=== PATIENT | male | born 1960 | race Caucasian/White ===

== ENCOUNTER 2017-02-27 09:25 | Inpatient (IN) | payer OTHER, MEDICAID ==
[2017-02-27] MEDS ORDERED: DUONEB 0.5 MG/3 MG NEB ONE (09:31)
[2017-02-27] MEDS ORDERED: SOLU-Medrol 125 MG VIAL IVP ONE (09:32)
[2017-02-27] MEDS ORDERED: SOLU-Medrol 125 MG VIAL ONE (09:33)
--- NOTE | 2017-02-27 09:34 | DR.SOBA ---
HPI - Time Seen Time seen: 09:25 - Complaints Chief Complaint Doctors Comments: Patient presented to the ED via EMS with complaint that he was not feeling well. He stated that he was having problems concentrating. He denies fever, vomiting or diarrhea. He has COPD, home oxygen 2.5L and smokes infrequently. His oxgen saturation was 88 RA. PMH - PMH Past Medical History: Hypertension, Seizures Past Surgical History: Yes Surgical History: Bowel Resection - Family History Family Medical History: Diabetes Mellitus, Cancer, Coronary Artery Disease, Heart Failure, Hypertension - Social History Do you use any recreational Drugs:: No ROS - Review of Systems Eyes: No Symptoms Reported ENTM: No Symptoms Reported Respiratoy: No Symptoms Reported Cardiovascular: No Symptoms Reported Gastrointestinal/Abdominal: No Symptoms Reported Genitourinary: No Symptoms Reported Neurological: No Symptoms Reported Musculoskeletal: No Symptoms Reported Integumentary: No Symptoms Reported Hematologic/Lymphatic: No Symptoms Reported Endocrine: No Symptoms Reported Psychiatric: No Symptoms Reported All Other Systems: Reviewed and Negative PE - Vital Signs Vitals: Temperature 97.7 F Pulse Rate 72 Respiratory Rate 24 Blood Pressure [Left Arm] 139/79 Blood Pressure [Right Arm] 123/86 Blood Pressure 158/90 O2 Sat by Pulse Oximetry 100 - General Limitations: No Limitations General Appearance: Alert, In No Apparent Distress - Head Head Exam: Normal Inspection, Atraumatic - Eyes Eye exam: Normal Appearance, PERRL, EOMI - ENT ENT Exam: Normal Exam - Neck Neck Exam: Normal Inspection, Full ROM - Chest Chest Inspection: Normal Inspection - Respiratory Respiratory Exam: Bilateral Clear to Auscultation - Cardiovascular Cardiovascular Exam: Regular Rate, Normal Rhythm - Abdominal Exam Abdominal Exam: Normal Inspection Abdominal Tenderness: negative: RUQ, RLQ, LUQ, LLQ, Epigastrium, Suprapubic, Diffuse, Mild, Moderate, Severe, Other - Extremities Extremities Exam: Normal Inspection, Full ROM - Back Back Exam: Normal Inspection, Full ROM - Neurologic Neurological Exam: Alert, Oriented X3, CN II-XII Intact - Psychiatric Psychiatric Exam: Normal Affect, Normal Mood - Skin Skin Exam: Warm, Dry, Intact Course - Reevaluation 1st: Improved - Consultation Called: 10:50 (Dr Chew agreed to admit with instructions) ROR - Labs Reviewed Result Diagrams: 02/27/17 09:43 02/27/17 09:43 Laboratory: 02/27/17 10:04 Sputum - Expectorated Sputum - Final WBC 5.0 X10^3/uL (3.6-10.0) 02/27/17 09:43 RBC 3.74 X10^6/uL (4.7-6.0) L 02/27/17 09:43 Hgb 11.1 g/dL (13.5-18.0) L 02/27/17 09:43 Hct 33.5 % (42.0-54.0) L 02/27/17 09:43 MCV 89.6 fL (80.0-100.0) 02/27/17 09:43 MCH 29.7 pg (27.0-34.0) 02/27/17 09:43 MCHC 33.2 g/dL (33.0-35.0) 02/27/17 09:43 RDW 13.7 % (11.6-16.5) 02/27/17 09:43 Plt Count 169 X10^3/uL (150.0-450.0) 02/27/17 09:43 MPV 8.1 fL (7.4-11.0) 02/27/17 09:43 Neut % 80.7 % (42.0-75.0) H 02/27/17 09:43 Lymph % 9.1 % (21.0-51.0) L 02/27/17 09:43 [place] % 8.1 % (0.0-13.0) 02/27/17 09:43 Eos % 1.3 % (0.9-2.9) 02/27/17 09:43 Baso % 0.8 % (0.2-1.0) 02/27/17 09:43 Neut # 4.0 x10^3/uL (2.2-4.8) 02/27/17 09:43 Lymph # 0.5 X10^3/uL (1.3-2.9) L 02/27/17 09:43 [place] # 0.4 x10^3/uL (0.3-0.8) 02/27/17 09:43 Eos # 0.1 x10^3/uL (0.0-0.2) 02/27/17 09:43 Baso # 0.0 X10^3/uL (0.0-0.1) 02/27/17 09:43 Absolute Nucleated RBC 0.0 /100WBC 02/27/17 09:43 Sample Site Rra 02/27/17 10:05 ABG pH 7.390 (7.35-7.45) 02/27/17 10:05 ABG pCO2 78.0 mmHg (35.0-45.0) H* 02/27/17 10:05 ABG pO2 57.0 mmHg (80.0-100.0) L 02/27/17 10:05 ABG HCO3 47.2 mmol/L (22-26) H* 02/27/17 10:05 ABG O2 Saturation 89.0 % (90-100) L 02/27/17 10:05 ABG Base Excess 18.3 mmol/L (-2.0-2.0) H 02/27/17 10:05 Patrice Test Pos 02/27/17 10:05 A-a Gradient 74.0 mmHg 02/27/17 10:05 FiO2 32.000 02/27/17 10:05 Blood Gas Comments Aris well cs 02/27/17 10:05 Sodium 132 mmol/L (136-145) L 02/27/17 09:43 Corrected Sodium TNP 02/27/17 09:43 Potassium 4.4 mmol/L (3.5-5.1) 02/27/17 09:43 Chloride 91 mmol/L (98-107) L 02/27/17 09:43 Carbon Dioxide 42.9 mmol/L (21-32) H* 02/27/17 09:43 BUN 6 mg/dL (7-18) L 02/27/17 09:43 Creatinine 0.53 mg/dL (0.70-1.30) L 02/27/17 09:43 Est GFR (MDRD) Af Amer > 60 (>60) 02/27/17 09:43 Est GFR (MDRD) Non-Af > 60 (>60) 02/27/17 09:43 Glucose 93 mg/dL (65-99) 02/27/17 09:43 Calcium 8.4 mg/dL (8.5-10.1) L 02/27/17 09:43 Corrected Calcium 9.1 mg/dL (8.5-10.1) 02/27/17 09:43 Total Bilirubin 0.60 mg/dL (0.2-1.0) 02/27/17 09:43 AST 12 Units/L (15-37) L 02/27/17 09:43 ALT 11 Units/L (12-78) L 02/27/17 09:43 Alkaline Phosphatase 97 Units/L (46-116) 02/27/17 09:43 Total Protein 6.4 g/dL (6.4-8.2) 02/27/17 09:43 Albumin 3.1 g/dL (3.4-5.0) L 02/27/17 09:43 Globulin 3.3 g/dL (2.5-4.5) 02/27/17 09:43 Albumin/Globulin Ratio 0.9 Ratio (1.1-2.1) L 02/27/17 09:43 Specimen Type Random urine 02/27/17 09:56 Urine Color Yellow (YELLOW) 02/27/17 09:56 Urine Appearance Clear (CLEAR) 02/27/17 09:56 Urine pH 8.0 (5.0 - 8.0) 02/27/17 09:56 Ur Specific [place] 1.015 (1.000-1.030) 02/27/17 09:56 Urine Protein Negative (NEGATIVE) 02/27/17 09:56 Urine Glucose (UA) Negative (NEGATIVE) 02/27/17 09:56 Urine Ketones Negative (NEGATIVE) 02/27/17 09:56 Urine Occult Blood 1+ (NEGATIVE) 02/27/17 09:56 Urine Nitrite Negative (NEGATIVE) 02/27/17 09:56 Urine Bilirubin Negative (NEGATIVE) 02/27/17 09:56 Urine Urobilinogen Normal (NORMAL) 02/27/17 09:56 Ur Leukocyte Esterase Negative (NEGATIVE) 02/27/17 09:56 Urine RBC None seen /HPF (NEGATIVE) 02/27/17 09:56 Urine WBC None seen /HPF (NEGATIVE) 02/27/17 09:56 Ur Squamous Epith Cells Rare /HPF (NEGATIVE) 02/27/17 09:56 Urine Bacteria Negative /HPF (NEGATIVE) 02/27/17 09:56 Ur Culture Indicated? No/not indicated 02/27/17 09:56 - XRAY XRAY Interpreted by: Radiologist (Chest:Stable mild cardiomegaly and mild pulmonary edema, Small bibasilar pleural effusions.) - Diagnosis Discharge Problem: COPD exacerbation - Discharge Plan Condition: Stable - Follow ups/Referrals Follow ups/Referrals: NFD,None [Primary Care Provider] - 3 days - Instructions
[2017-02-27] MEDS: NS 1000 ML 1,000 ML IV SCH ×2 (09:43→18:53)
[2017-02-27 09:54] LABS: BASOPHILS % (AUTO) 0.8 % (0.2-1.0); EOSINOPHILS # (AUTO) 0.1 x10^3/uL (0.0-0.2); EOSINOPHILS % (AUTO) 1.3 % (0.9-2.9); HEMATOCRIT 33.5 % (42.0-54.0); HEMOGLOBIN 11.1 g/dL (13.5-18.0); LYMPHOCYTES # (AUTO) 0.5 X10^3/uL (1.3-2.9); LYMPHOCYTES % (AUTO) 9.1 % (21.0-51.0); MEAN CORPUSCULAR HEMOGLOBIN 29.7 pg (27.0-34.0); MEAN CORPUSCULAR HGB CONC 33.2 g/dL (33.0-35.0); MEAN CORPUSCULAR VOLUME 89.6 fL (80.0-100.0); MEAN PLATELET VOLUME 8.1 fL (7.4-11.0); MONOCYTES # (AUTO) 0.4 x10^3/uL (0.3-0.8); MONOCYTES % (AUTO) 8.1 % (0.0-13.0); NEUTROPHILS % (AUTO) 80.7 % (42.0-75.0); PLATELET COUNT 169 X10^3/uL (150.0-450.0); RED BLOOD COUNT 3.74 X10^6/uL (4.7-6.0); RED CELL DISTRIBUTION WIDTH 13.7 % (11.6-16.5)
[2017-02-27 09:59] LABS: BLOOD UREA NITROGEN 6 mg/dL (7-18); CALCIUM 8.4 mg/dL (8.5-10.1); CHLORIDE 91 mmol/L (98-107); CREATININE 0.53 mg/dL (0.70-1.30); SODIUM 132 mmol/L (136-145); eGFR BLACK RACES > 60 (>60); eGFR NON BLACK RACES > 60 (>60)
[2017-02-27 10:03] LABS: ALANINE AMINOTRANSFERASE 11 Units/L (12-78); ALBUMIN 3.1 g/dL (3.4-5.0); ALKALINE PHOSPHATASE 97 Units/L (46-116); ASPARTATE AMINO TRANSFERASE 12 Units/L (15-37); COR CA(FOR HYPOALB) 9.1 mg/dL (8.5-10.1); TOTAL PROTEIN 6.4 g/dL (6.4-8.2)
[2017-02-27 10:04] LABS: CARBON DIOXIDE 42.9 mmol/L (21-32)
[2017-02-27 10:10] LABS: ABG BASE EXCESS 18.3 mmol/L (-2.0-2.0)
[2017-02-27 10:11] LABS: ABG ALLEN TEST POS; ABG HCO3 47.2 mmol/L (22-26)
[2017-02-27 10:21] LABS: BILIRUBIN,URINE NEGATIVE (NEGATIVE); BLOOD/HEMOGLOBIN,URINE 1+ (NEGATIVE); GLUCOSE, URINE NEGATIVE (NEGATIVE); KETONES,URINE NEGATIVE (NEGATIVE); LEUKOCYTE ESTERASE ,URINE NEGATIVE (NEGATIVE); NITRITES,URINE NEGATIVE (NEGATIVE); PROTEIN,URINE NEGATIVE (NEGATIVE); UROBILINOGEN,URINE NORMAL (NORMAL)
[2017-02-27 10:32] LABS: APPEARANCE,URINE CLEAR (CLEAR); COLOR,URINE YELLOW (YELLOW); RBC,URINE NONE SEEN /HPF (NEGATIVE); SQUAMOUS EPITHELIAL CELL,UR RARE /HPF (NEGATIVE)
[2017-02-27 10:33] LABS: BACTERIA,URINE NEGATIVE /HPF (NEGATIVE)
--- NOTE | 2017-02-27 10:33 | RAD ---
HISTORY: Shortness of breath Study: Portable chest Comparison: 01/31/2013 Findings: The heart is mildly enlarged but unchanged. The pulmonary vessels are engorged centrally but less pro minent . There are hazy perihilar and bibasilar interstitial opacities. There is minimal blunting of the costophrenic sulci. IMPRESSION: Stable mild cardiomegaly and mild pulmonary edema . Small bibasilar pleural effusions. Reported By:
[2017-02-27] MEDS ORDERED: CIPRO 400 MG IV SCH (11:00)
[2017-02-27] MEDS: LASIX IVP SCH (11:17)
[2017-02-27 11:35] LABS: CKMB % 5.9 % (<4); CREATINE KINASE 27 Units/L (39-308); CREATINE KINASE MB 1.6 ng/mL (0-4.0); TROPONIN I < 0.02 ng/mL (0-1.5)
[2017-02-27] MEDS: CIPRO IV 400 MG PREMIX* 400 MG/200 ML IV.SOLN. IV SCH ×2 (11:39→21:03)
[2017-02-27 12:08] LABS: ABG HCO3 47.5 mmol/L (22-26)
[2017-02-27 12:10] LABS: ABG ALLEN TEST POS
[2017-02-27 12:36] VITALS: BMI 24.7
[2017-02-27] MEDS: DUONEB 0.5 MG/3 MG NEB SCH ×3 (14:47→20:06)
[2017-02-27 14:55] LABS: ABG BASE EXCESS 19.4 mmol/L (-2.0-2.0)
[2017-02-27 14:56] LABS: ABG ALLEN TEST POS; ABG HCO3 48.3 mmol/L (22-26)
[2017-02-27] MEDS: VALIUM PO SCH ×2 (18:52→20:33)
[2017-02-27] MEDS ORDERED: OxyCONTIN CR 30 MG PO PRN (21:33)
[2017-02-28] MEDS: DUONEB 0.5 MG/3 MG NEB SCH ×6 (01:02→21:08)
[2017-02-28] MEDS: NS 1000 ML 1,000 ML IV SCH ×2 (03:18→13:17)
[2017-02-28 05:28] LABS: ABG BASE EXCESS 16.9 mmol/L (-2.0-2.0)
[2017-02-28] MEDS: ROXICODONE TAB 15 MG PO PRN ×2 (06:01→17:43)
[2017-02-28 06:15] LABS: EOSINOPHILS # (AUTO) 0.1 x10^3/uL (0.0-0.2); HEMATOCRIT 30.7 % (42.0-54.0); HEMOGLOBIN 10.4 g/dL (13.5-18.0); LYMPHOCYTES # (AUTO) 0.8 X10^3/uL (1.3-2.9); LYMPHOCYTES % (AUTO) 18.5 % (21.0-51.0); MEAN CORPUSCULAR HEMOGLOBIN 30.1 pg (27.0-34.0); MEAN CORPUSCULAR HGB CONC 33.9 g/dL (33.0-35.0); MEAN CORPUSCULAR VOLUME 88.6 fL (80.0-100.0); MEAN PLATELET VOLUME 8.6 fL (7.4-11.0); MONOCYTES # (AUTO) 0.5 x10^3/uL (0.3-0.8); MONOCYTES % (AUTO) 12.7 % (0.0-13.0); NEUTROPHILS # (AUTO) 2.7 x10^3/uL (2.2-4.8); NEUTROPHILS % (AUTO) 65.8 % (42.0-75.0); PLATELET COUNT 175 X10^3/uL (150.0-450.0); RED BLOOD COUNT 3.46 X10^6/uL (4.7-6.0); RED CELL DISTRIBUTION WIDTH 13.6 % (11.6-16.5); WHITE BLOOD COUNT 4.2 X10^3/uL (3.6-10.0)
[2017-02-28 06:32] LABS: ALANINE AMINOTRANSFERASE 11 Units/L (12-78); ALBUMIN 2.7 g/dL (3.4-5.0); ALKALINE PHOSPHATASE 85 Units/L (46-116); ASPARTATE AMINO TRANSFERASE 10 Units/L (15-37); BLOOD UREA NITROGEN 10 mg/dL (7-18); CALCIUM 8.1 mg/dL (8.5-10.1); CARBON DIOXIDE 39.1 mmol/L (21-32); CHLORIDE 93 mmol/L (98-107); COR CA(FOR HYPOALB) 9.1 mg/dL (8.5-10.1); CREATININE 0.59 mg/dL (0.70-1.30); SODIUM 132 mmol/L (136-145); TOTAL PROTEIN 5.5 g/dL (6.4-8.2); eGFR BLACK RACES > 60 (>60); eGFR NON BLACK RACES > 60 (>60)
[2017-02-28] MEDS ORDERED: DIAZEPAM PO SCH (09:00)
[2017-02-28] MEDS: DILANTIN CAP 100 MG EXT REL PO SCH ×4 (09:01→21:02)
[2017-02-28] MEDS: ZANTAC PO SCH ×2 (09:01→21:02)
[2017-02-28] MEDS: ZESTRIL TAB 40 MG PO SCH (09:01)
[2017-02-28] MEDS: VALIUM PO SCH ×4 (09:01→21:02)
[2017-02-28] MEDS: LASIX IVP SCH (09:02)
[2017-02-28] MEDS: ZEBETA TAB 5 MG PO SCH (09:02)
[2017-02-28] MEDS: PriLOSEC PO SCH (09:02)
[2017-02-28] MEDS: CIPRO IV 400 MG PREMIX* 400 MG/200 ML IV.SOLN. IV SCH (09:02)
[2017-02-28] MEDS: SOLU-Medrol 40 MG VIAL IVP SCH ×2 (09:05→17:44)
[2017-02-28] MEDS ORDERED: AQUA-MEPHYTON ADULT INJ SC ONE (09:32)
[2017-02-28] MEDS ORDERED: NS 50 ML IV + SPIKE MINIBAG* 50 ML IV ONE (09:43)
[2017-02-28] MEDS: FORTAZ or TAZICEF INJ 1 GM in NS 50 ML IV + SPIKE MINIBAG* 50 ML IV SCH ×3 (09:46→21:02)
[2017-02-28] MEDS ORDERED: FORTAZ or TAZICEF INJ ONE (09:46)
--- NOTE | 2017-02-28 10:18 | DR.H&P ---
H&P - History & Physical for Day of: H&P Date: 02/27/17 - Chief Complaint Chief Complaint: short of breath - Allergies Allergies/Adverse Reactions: Allergies Allergy/AdvReac Type Severity Reaction Status Date / Time No Known Drug Allergies Allergy Verified 02/27/17 17:11 - History of Present Illness History of Present Illness: is a 57 year old patient of ours who presented to the emergency room with complaints of shortness of breath. Patient reports not feeling well for the past three to four days. Patient reports a history of COPD. He has home oxygen that he wears at 2.5 liters/min. Patients states that his oxygen saturations were in the 80s on room air at home. On examination, lungs were noted with wheezing bilaterally to auscultation. Abdomen is round, soft, and non-tender with normal bowel sounds noted in all quadrants. On arrival, his vital signs were 97.7-72-24-94%-158/90. Patient was placed on nasal cannula with oxygen at 2l/min. Oxygen saturations then increased to 100%. Labs and xrays were obtained. Abnormal lab values include the following: RBC 3.74, Hgb 11.1, Hct 33.5, INR 8.59, Sodium 132, Chloride 91, Carbon Dioxide 42.9, BUN 6, Creatinine 0.53, Calcium 8.4, AST 12, ALT 11, Albumin 3.1, A/G Ratio 0.9, Creatine Kinase 27. ABG reported: @1005 pCO2 78.0, pO2 57.0, HCO3 47.2, O2 Sat 89.0, Base Excess 18.3; @1203 pCO2 75.0, pO2 56.0, HCO3 47.5, O2 Sat 89.0, Base Excess 19.0; @1444 pCO2 78.0, pO2 104.0, HCO3 48.3 , Base Excess 19.4. A sputum culture was obtained and sent to lab. Culture pending. Chest X-Ray reported: Stable mild cardiomegaly and mild pulmonary edema. Small bibasilar pleural effusions. EKG reported: Sinus Rhythm with HR 64bpm. Patient was placed on bipap with settings 12/6 and 35%. Patient was given a duoneb tx x 1, cipro 400mg iv, and solu-medrol 125mg iv x 1 in the ER. Only mild improvement in symptoms was noted. We admitted patient for further evaluation and treatment of COPD exacerbation. We planned to follow up with am labs and continue to monitor patient. - Past Medical History Past Medical History: Anxiety, Arthritis, COPD, GERD, Hypertension, PUD, Seizures Additional Medical History: HIATAL HERNIA - Past Surgical History Surgical History: Bowel Resection Additional Surgical History: 7 STOMACH SURGERIES, 2 STOMAS, COLOSTOMY IN THE PAST - Family History Family Medical History: Cancer, [place], Coronary Artery Disease, Hypertension - Social History Does patient currently use any type of tobacco product: Yes Have you used tobacco products in the last 12 months: Yes Type of Tobacco Use: Cigarettes How many years tobacco product used: 42 Does any household member use tobacco: No Alcohol Use: None Drug Use: None - Medications Home Medications: Bisoprolol Fumarate 2 tab PO DAILY 02/27/17 [History Confirmed 02/27/17] Diazepam 1 tab PO QID 02/27/17 [History Confirmed 02/27/17] Lisinopril 1 tab PO DAILY 02/27/17 [History Confirmed 02/27/17] Omeprazole [PRILOSEC 20 MG *] 1 tab PO DAILY 02/27/17 [History Confirmed ] Oxycodone HCl [Oxycontin] 1 tab PO Q4H PRN 02/27/17 [History Confirmed 02/27/17] Phenytoin Sodium Ext Rel [DILANTIN CAP 100 MG EXT REL *] 1 tab PO QID 02/27/17 [ History Confirmed 02/27/17] Ranitidine HCl [ZANTAC TAB 150 MG *] 1 tab PO BID 02/27/17 [History Confirmed ] Warfarin Sodium [COUMADIN 5 MG *] 1 tab PO DAILY 02/27/17 [History Confirmed 04/05] - Review of Systems Constitutional: No Symptoms Reported, Weakness Eyes: No Symptoms Reported ENT: No Symptoms Reported Respiratory: See HPI, Shortness of Breath, SOB with Excertion, Wheezing Cardiovascular: No Symptoms Reported Gastrointestinal: No Symptoms Reported Genitourinary: No Symptoms Reported Musculoskeletal: No Symptoms Reported Skin: No Symptoms Reported Neurological: No Symptoms Reported, Weakness - Physical Exam Vital Signs: Temperature 98.4 F Pulse Rate [Left Brachial] 77 Pulse Rate 68 Respiratory Rate 21 Blood Pressure [Left Arm] 124/63 Blood Pressure [Right Arm] 155/92 Blood Pressure 158/90 O2 Sat by Pulse Oximetry 97 Oriented: Normal Eyes: Normal Ear: Normal Throat: Normal Respiratory: Wheezes Throughout Cardiovascular: Normal : Normal Auscultation: Bowel Sounds: Normal Palpation: Normal Tenderness: Normal Skin: Normal Musculoskeletal: Normal Psychiatric: Normal Mood Description: Calm Affect: Normal Speech Pattern: Clear - Assessment/Plan (1) COPD exacerbation Status: Acute Plan: DUONEBS Q4H, LASIX 40MG IVP DAILY, SOLU-MEDROL 80MG IV Q8H, CONTINUE TO MONITOR
[2017-03-01] MEDS: DUONEB 0.5 MG/3 MG NEB SCH ×6 (01:04→21:52)
[2017-03-01] MEDS: SOLU-Medrol 40 MG VIAL IVP SCH ×3 (01:08→17:39)
[2017-03-01] MEDS: ROXICODONE TAB 15 MG PO PRN ×4 (01:16→20:20)
[2017-03-01] MEDS: NS 1000 ML 1,000 ML IV SCH ×4 (03:44→18:22)
[2017-03-01] MEDS: FORTAZ or TAZICEF INJ 1 GM in NS 50 ML IV + SPIKE MINIBAG* 50 ML IV SCH ×3 (06:00→21:18)
[2017-03-01 06:05] LABS: BASOPHILS % (AUTO) 0.4 % (0.2-1.0); EOSINOPHILS % (AUTO) 0.1 % (0.9-2.9); HEMOGLOBIN 11.4 g/dL (13.5-18.0); LYMPHOCYTES # (AUTO) 0.3 X10^3/uL (1.3-2.9); LYMPHOCYTES % (AUTO) 8.3 % (21.0-51.0); MEAN CORPUSCULAR HEMOGLOBIN 29.7 pg (27.0-34.0); MEAN CORPUSCULAR HGB CONC 33.4 g/dL (33.0-35.0); MEAN CORPUSCULAR VOLUME 88.8 fL (80.0-100.0); MEAN PLATELET VOLUME 8.1 fL (7.4-11.0); MONOCYTES # (AUTO) 0.2 x10^3/uL (0.3-0.8); MONOCYTES % (AUTO) 5.3 % (0.0-13.0); NEUTROPHILS # (AUTO) 3.3 x10^3/uL (2.2-4.8); NEUTROPHILS % (AUTO) 85.9 % (42.0-75.0); PLATELET COUNT 208 X10^3/uL (150.0-450.0); RED BLOOD COUNT 3.83 X10^6/uL (4.7-6.0); RED CELL DISTRIBUTION WIDTH 13.8 % (11.6-16.5); WHITE BLOOD COUNT 3.8 X10^3/uL (3.6-10.0)
[2017-03-01 06:28] LABS: ALANINE AMINOTRANSFERASE 13 Units/L (12-78); ALKALINE PHOSPHATASE 96 Units/L (46-116); ASPARTATE AMINO TRANSFERASE 9 Units/L (15-37); BLOOD UREA NITROGEN 12 mg/dL (7-18); CALCIUM 8.3 mg/dL (8.5-10.1); CARBON DIOXIDE 35.2 mmol/L (21-32); CHLORIDE 93 mmol/L (98-107); COR CA(FOR HYPOALB) 9.1 mg/dL (8.5-10.1); COR NA(FOR HYPERGLY) 135 mmol/L (136-145); CREATININE 0.76 mg/dL (0.70-1.30); SODIUM 133 mmol/L (136-145); TOTAL PROTEIN 6.3 g/dL (6.4-8.2); eGFR BLACK RACES > 60 (>60); eGFR NON BLACK RACES > 60 (>60)
[2017-03-01] MEDS: ZESTRIL TAB 40 MG PO SCH (08:26)
[2017-03-01] MEDS: DILANTIN CAP 100 MG EXT REL PO SCH ×4 (08:26→20:20)
[2017-03-01] MEDS: LASIX IVP SCH (08:27)
[2017-03-01] MEDS: PriLOSEC PO SCH (08:27)
[2017-03-01] MEDS: ZEBETA TAB 5 MG PO SCH (08:28)
[2017-03-01] MEDS: ZANTAC PO SCH ×2 (08:28→20:20)
[2017-03-01] MEDS: VALIUM PO SCH ×4 (08:31→20:19)
[2017-03-01] MEDS: COUMADIN TAB 5 MG PO SCH (20:20)
[2017-03-02] MEDS: SOLU-Medrol 40 MG VIAL IVP SCH ×3 (00:31→18:11)
[2017-03-02] MEDS: ROXICODONE TAB 15 MG PO PRN ×5 (00:31→22:32)
[2017-03-02] MEDS: DUONEB 0.5 MG/3 MG NEB SCH ×6 (00:46→20:27)
[2017-03-02] MEDS: NS 1000 ML 1,000 ML IV SCH ×4 (02:15→18:12)
[2017-03-02] MEDS: FORTAZ or TAZICEF INJ 1 GM in NS 50 ML IV + SPIKE MINIBAG* 50 ML IV SCH ×3 (05:00→21:08)
[2017-03-02 06:08] LABS: BASOPHILS % (AUTO) 0.2 % (0.2-1.0); EOSINOPHILS % (AUTO) 0.1 % (0.9-2.9); HEMOGLOBIN 11.1 g/dL (13.5-18.0); LYMPHOCYTES # (AUTO) 0.3 X10^3/uL (1.3-2.9); LYMPHOCYTES % (AUTO) 6.7 % (21.0-51.0); MEAN CORPUSCULAR HEMOGLOBIN 29.8 pg (27.0-34.0); MEAN CORPUSCULAR HGB CONC 33.5 g/dL (33.0-35.0); MEAN CORPUSCULAR VOLUME 88.9 fL (80.0-100.0); MEAN PLATELET VOLUME 8.2 fL (7.4-11.0); MONOCYTES # (AUTO) 0.2 x10^3/uL (0.3-0.8); MONOCYTES % (AUTO) 3.7 % (0.0-13.0); NEUTROPHILS # (AUTO) 4.1 x10^3/uL (2.2-4.8); NEUTROPHILS % (AUTO) 89.3 % (42.0-75.0); PLATELET COUNT 220 X10^3/uL (150.0-450.0); RED BLOOD COUNT 3.71 X10^6/uL (4.7-6.0); RED CELL DISTRIBUTION WIDTH 13.7 % (11.6-16.5); WHITE BLOOD COUNT 4.6 X10^3/uL (3.6-10.0)
[2017-03-02 06:13] LABS: ALANINE AMINOTRANSFERASE 14 Units/L (12-78); ALBUMIN 3.2 g/dL (3.4-5.0); ALKALINE PHOSPHATASE 85 Units/L (46-116); ASPARTATE AMINO TRANSFERASE 12 Units/L (15-37); BLOOD UREA NITROGEN 10 mg/dL (7-18); CALCIUM 8.6 mg/dL (8.5-10.1); CARBON DIOXIDE 36.6 mmol/L (21-32); CHLORIDE 91 mmol/L (98-107); COR CA(FOR HYPOALB) 9.2 mg/dL (8.5-10.1); COR NA(FOR HYPERGLY) 132 mmol/L (136-145); CREATININE 0.68 mg/dL (0.70-1.30); SODIUM 132 mmol/L (136-145); TOTAL PROTEIN 6.3 g/dL (6.4-8.2); eGFR BLACK RACES > 60 (>60); eGFR NON BLACK RACES > 60 (>60)
[2017-03-02] MEDS: VALIUM PO SCH ×4 (09:36→21:08)
[2017-03-02] MEDS: ZESTRIL TAB 40 MG PO SCH (09:37)
[2017-03-02] MEDS: PriLOSEC PO SCH (09:37)
[2017-03-02] MEDS: LASIX IVP SCH (09:37)
[2017-03-02] MEDS: ZANTAC PO SCH ×2 (09:37→21:10)
[2017-03-02] MEDS: ZEBETA TAB 5 MG PO SCH (09:37)
[2017-03-02] MEDS: DILANTIN CAP 100 MG EXT REL PO SCH ×4 (09:37→21:08)
[2017-03-02] MEDS: COUMADIN TAB 5 MG PO SCH (21:08)
[2017-03-03] MEDS: DUONEB 0.5 MG/3 MG NEB SCH ×6 (00:31→21:42)
[2017-03-03] MEDS: SOLU-Medrol 40 MG VIAL IVP SCH (01:24)
[2017-03-03] MEDS: ROXICODONE TAB 15 MG PO PRN ×3 (04:51→18:42)
[2017-03-03] MEDS: NS 1000 ML 1,000 ML IV SCH ×3 (04:52→22:13)
[2017-03-03 05:43] LABS: ALANINE AMINOTRANSFERASE 40 Units/L (12-78); ALBUMIN 3.1 g/dL (3.4-5.0); ALKALINE PHOSPHATASE 84 Units/L (46-116); ASPARTATE AMINO TRANSFERASE 30 Units/L (15-37); BLOOD UREA NITROGEN 10 mg/dL (7-18); CALCIUM 8.3 mg/dL (8.5-10.1); CARBON DIOXIDE 37.4 mmol/L (21-32); CHLORIDE 94 mmol/L (98-107); COR NA(FOR HYPERGLY) 133 mmol/L (136-145); CREATININE 0.67 mg/dL (0.70-1.30); SODIUM 133 mmol/L (136-145); TOTAL PROTEIN 6.1 g/dL (6.4-8.2); eGFR BLACK RACES > 60 (>60); eGFR NON BLACK RACES > 60 (>60)
[2017-03-03 05:44] LABS: BASOPHILS % (AUTO) 0.1 % (0.2-1.0); EOSINOPHILS % (AUTO) 0.1 % (0.9-2.9); HEMATOCRIT 33.5 % (42.0-54.0); HEMOGLOBIN 11.1 g/dL (13.5-18.0); LYMPHOCYTES # (AUTO) 0.2 X10^3/uL (1.3-2.9); LYMPHOCYTES % (AUTO) 4.8 % (21.0-51.0); MEAN CORPUSCULAR HEMOGLOBIN 29.5 pg (27.0-34.0); MEAN CORPUSCULAR HGB CONC 33.1 g/dL (33.0-35.0); MEAN CORPUSCULAR VOLUME 89.3 fL (80.0-100.0); MEAN PLATELET VOLUME 7.7 fL (7.4-11.0); MONOCYTES # (AUTO) 0.2 x10^3/uL (0.3-0.8); MONOCYTES % (AUTO) 3.4 % (0.0-13.0); NEUTROPHILS # (AUTO) 4.6 x10^3/uL (2.2-4.8); NEUTROPHILS % (AUTO) 91.6 % (42.0-75.0); PLATELET COUNT 230 X10^3/uL (150.0-450.0); RED BLOOD COUNT 3.75 X10^6/uL (4.7-6.0); RED CELL DISTRIBUTION WIDTH 13.8 % (11.6-16.5); WHITE BLOOD COUNT 5.1 X10^3/uL (3.6-10.0)
[2017-03-03] MEDS: FORTAZ or TAZICEF INJ 1 GM in NS 50 ML IV + SPIKE MINIBAG* 50 ML IV SCH ×3 (05:54→22:09)
[2017-03-03 06:02] LABS: PLATELET MORPHOLOGY COMMENT NORMAL (NORMAL)
[2017-03-03] MEDS: LASIX IVP SCH (09:10)
[2017-03-03] MEDS: ZESTRIL TAB 40 MG PO SCH (09:10)
[2017-03-03] MEDS: DILANTIN CAP 100 MG EXT REL PO SCH ×4 (09:10→22:10)
[2017-03-03] MEDS: PriLOSEC PO SCH (09:10)
[2017-03-03] MEDS: ZEBETA TAB 5 MG PO SCH (09:10)
[2017-03-03] MEDS: VALIUM PO SCH ×4 (09:10→22:11)
[2017-03-03] MEDS: ZANTAC PO SCH ×2 (09:10→22:10)
[2017-03-03] MEDS ORDERED: AMBIEN PO SCH (21:00)
[2017-03-03] MEDS ORDERED: NS 50 ML IV + SPIKE MINIBAG* 50 ML IV ONE (22:06)
[2017-03-03] MEDS: COUMADIN TAB 5 MG PO SCH (22:11)
--- NOTE | 2017-03-03 22:12 | PCM.PROG ---
Progress Note - Progress Note for Day of Date: 03/02/17 - Subjective Subjective: THE PATIENT IS A 57YO WM WHO WAS ADMITTED SECONDARY TO COPD EXACERBATION. PATIENT SITTING UP IN BED. CONTINUES TO HAVE SOB. NONPRODUCTIVE COUGH. STATES THAT HE IS USING CPAP AT NIGHT. COMPLAINS OF RIGHT LEG HURTING AND STATES IT WILL SWELL AT TIMES. - Past Medical Family Social History Past Med/Fam/Surg Hx: No changes since H&P Allergies: Allergies No Known Drug Allergies Allergy (Verified 02/27/17 17:11) - Review of Systems ROS: No change since H&P - Vital Signs and I&O's Vital Signs: Temperature 97.7 F Pulse Rate [Left Brachial] 99 Pulse Rate 114 Respiratory Rate 18 Blood Pressure [Left Arm] 120/85 Blood Pressure [Right Arm] 155/92 Blood Pressure 158/90 O2 Sat by Pulse Oximetry 98 Intake and Output: Intake & Output 03/01/17 03/02/17 03/03/17 03/04/17 11:59 11:59 11:59 11:59 Intake Total 4734 2440 6478 2950 Output Total 5180 3450 5150 2600 Balance -446 -1010 1328 350 - Physical Exam Oriented: Normal Eyes: Normal Ear: Normal Throat: Normal Respiratory: Diminished, Wheezes Cardiovascular: Normal, Edema (TRACE RIGHT ANKLE) : Normal Auscultation: Bowel Sounds: Normal Palpation: Normal Tenderness: Normal Skin: Normal, Other (BILATERAL LOWER EXTREMITIES WITH BLUISH DISCOLORATION TO BLE/ANKLE REGION.) Musculoskeletal: Normal Psychiatric: Normal Mood Description: Calm Affect: Normal Speech Pattern: Clear, Appropriate - Laboratory and Diagnostics Result Diagrams: 03/03/17 05:00 03/03/17 05:00 Labs: 02/27/17 10:04 Sputum - Expectorated Sputum Sputum Culture - Final Escherichia Coli 02/27/17 10:04 Sputum - Expectorated Sputum - Final Laboratory WBC 5.1 X10^3/uL (3.6-10.0) 03/03/17 05:00 RBC 3.75 X10^6/uL (4.7-6.0) L 03/03/17 05:00 Hgb 11.1 g/dL (13.5-18.0) L 03/03/17 05:00 Hct 33.5 % (42.0-54.0) L 03/03/17 05:00 MCV 89.3 fL (80.0-100.0) 03/03/17 05:00 MCH 29.5 pg (27.0-34.0) 03/03/17 05:00 MCHC 33.1 g/dL (33.0-35.0) 03/03/17 05:00 RDW 13.8 % (11.6-16.5) 03/03/17 05:00 Plt Count 230 X10^3/uL (150.0-450.0) 03/03/17 05:00 Plt Count Comment Adequate (ADEQUATE) 03/03/17 05:00 MPV 7.7 fL (7.4-11.0) 03/03/17 05:00 Neut % 91.6 % (42.0-75.0) H 03/03/17 05:00 Lymph % 4.8 % (21.0-51.0) L 03/03/17 05:00 [place] % 3.4 % (0.0-13.0) 03/03/17 05:00 Eos % 0.1 % (0.9-2.9) L 03/03/17 05:00 Baso % 0.1 % (0.2-1.0) L 03/03/17 05:00 Neut # 4.6 x10^3/uL (2.2-4.8) 03/03/17 05:00 Lymph # 0.2 X10^3/uL (1.3-2.9) L 03/03/17 05:00 [place] # 0.2 x10^3/uL (0.3-0.8) L 03/03/17 05:00 Eos # 0.0 x10^3/uL (0.0-0.2) 03/03/17 05:00 Baso # 0.0 X10^3/uL (0.0-0.1) 03/03/17 05:00 Absolute Nucleated RBC 0.1 /100WBC 03/03/17 05:00 Total Counted 100 03/03/17 05:00 Neutrophils % (Manual) 92 % (39-76) H 03/03/17 05:00 Lymphocytes % (Manual) 5 % (13-43) L 03/03/17 05:00 Monocytes % (Manual) 3 % (4-9) L 03/03/17 05:00 Plt Morphology Comment Normal (NORMAL) 03/03/17 05:00 RBC Morphology Normal (NORMAL) 03/03/17 05:00 INR Target Range - 03/03/17 05:00 INR 1.09 (0.8-1.3) 03/03/17 05:00 Sample Site Lbra 02/28/17 05:17 ABG pH 7.410 (7.35-7.45) 02/28/17 05:17 ABG pCO2 71.0 mmHg (35.0-45.0) H* 02/28/17 05:17 ABG pO2 88.0 mmHg (80.0-100.0) 02/28/17 05:17 ABG HCO3 45.0 mmol/L (22-26) H* 02/28/17 05:17 ABG O2 Saturation 97.0 % (90-100) 02/28/17 05:17 ABG Base Excess 16.9 mmol/L (-2.0-2.0) H 02/28/17 05:17 Patrice Test Na 02/28/17 05:17 A-a Gradient 73.0 mmHg 02/28/17 05:17 FiO2 35.000 02/28/17 05:17 Blood Gas Comments Aris abg well-mtf 02/28/17 05:17 Sodium 133 mmol/L (136-145) L 03/03/17 05:00 Corrected Sodium 133 mmol/L (136-145) L 03/03/17 05:00 Potassium 4.3 mmol/L (3.5-5.1) 03/03/17 05:00 Chloride 94 mmol/L (98-107) L 03/03/17 05:00 Carbon Dioxide 37.4 mmol/L (21-32) H 03/03/17 05:00 BUN 10 mg/dL (7-18) 03/03/17 05:00 Creatinine 0.67 mg/dL (0.70-1.30) L 03/03/17 05:00 Est GFR (MDRD) Af Amer > 60 (>60) 03/03/17 05:00 Est GFR (MDRD) Non-Af > 60 (>60) 03/03/17 05:00 Glucose 117 mg/dL (65-99) H 03/03/17 05:00 Calcium 8.3 mg/dL (8.5-10.1) L 03/03/17 05:00 Corrected Calcium 9.0 mg/dL (8.5-10.1) 03/03/17 05:00 Total Bilirubin 0.20 mg/dL (0.2-1.0) 03/03/17 05:00 AST 30 Units/L (15-37) 03/03/17 05:00 ALT 40 Units/L (12-78) 03/03/17 05:00 Alkaline Phosphatase 84 Units/L (46-116) 03/03/17 05:00 Creatine Kinase 27 Units/L (39-308) L 02/27/17 09:50 CK-MB (CK-2) 1.6 ng/mL (0-4.0) 02/27/17 09:50 CK/CKMB % Calc 5.9 % (<4) 02/27/17 09:50 Troponin I < 0.02 ng/mL (0-1.5) 02/27/17 09:50 Total Protein 6.1 g/dL (6.4-8.2) L 03/03/17 05:00 Albumin 3.1 g/dL (3.4-5.0) L 03/03/17 05:00 Globulin 3.0 g/dL (2.5-4.5) 03/03/17 05:00 Albumin/Globulin Ratio 1.0 Ratio (1.1-2.1) L 03/03/17 05:00 Specimen Type Random urine 02/27/17 09:56 Urine Color Yellow (YELLOW) 02/27/17 09:56 Urine Appearance Clear (CLEAR) 02/27/17 09:56 Urine pH 8.0 (5.0 - 8.0) 02/27/17 09:56 Ur Specific [place] 1.015 (1.000-1.030) 02/27/17 09:56 Urine Protein Negative (NEGATIVE) 02/27/17 09:56 Urine Glucose (UA) Negative (NEGATIVE) 02/27/17 09:56 Urine Ketones Negative (NEGATIVE) 02/27/17 09:56 Urine Occult Blood 1+ (NEGATIVE) 02/27/17 09:56 Urine Nitrite Negative (NEGATIVE) 02/27/17 09:56 Urine Bilirubin Negative (NEGATIVE) 02/27/17 09:56 Urine Urobilinogen Normal (NORMAL) 10 09:56 Ur Leukocyte Esterase Negative (NEGATIVE) 02/27/17 09:56 Urine RBC None seen /HPF (NEGATIVE) 02/27/17 09:56 Urine WBC None seen /HPF (NEGATIVE) 10 09:56 Ur Squamous Epith Cells Rare /HPF (NEGATIVE) 02/27/17 09:56 Urine Bacteria Negative /HPF (NEGATIVE) 02/27/17 09:56 Ur Culture Indicated? No/not indicated 02/27/17 09:56 - Plan (1) Peripheral vascular disease Status: Acute Plan: MARCK, COUMADIN (2) COPD exacerbation Status: Acute Narrative Support Text: WITH E COLI Plan: DUONEBS Q4H, LASIX 40MG IVP DAILY, SOLU-MEDROL 80MG IV Q8H, CONTINUE TO MONITOR
--- NOTE | 2017-03-03 22:17 | PCM.PROG ---
Progress Note - Progress Note for Day of Date: 03/03/17 - Subjective Subjective: THE PATIENT IS A 57YO WM WHO WAS ADMITTED SECONDARY TO COPD EXACERBATION. PATIENT SITTING UP IN BED. CONTINUES TO HAVE SOB. NONPRODUCTIVE COUGH. STATES THAT HE IS USING CPAP AT NIGHT. COMPLAINS OF RIGHT LEG HURTING AND STATES IT WILL SWELL AT TIMES. PATIENT TODAY HAS NO NEW COMPLAINTS. BREATHING UNCHANGED. COUGH NONPRODUCTIVE. - Past Medical Family Social History Past Med/Fam/Surg Hx: No changes since H&P Allergies: Allergies No Known Drug Allergies Allergy (Verified 02/27/17 17:11) - Review of Systems ROS: No change since H&P - Vital Signs and I&O's Vital Signs: Temperature 97.7 F Pulse Rate [Left Brachial] 99 Pulse Rate 114 Respiratory Rate 18 Blood Pressure [Left Arm] 120/85 Blood Pressure [Right Arm] 155/92 Blood Pressure 158/90 O2 Sat by Pulse Oximetry 98 Intake and Output: Intake & Output 03/01/17 03/02/17 03/03/17 03/04/17 11:59 11:59 11:59 11:59 Intake Total 4734 2440 6478 2950 Output Total 5180 3450 5150 2600 Balance -446 -1010 1328 350 - Physical Exam Oriented: Normal Eyes: Normal Ear: Normal Nose: Normal Throat: Normal Respiratory: Diminished Cardiovascular: Normal, Edema (TRACE RIGHT ANKLE) : Normal Auscultation: Bowel Sounds: Normal Palpation: Normal Tenderness: Normal Skin: Normal, Other (BILATERAL LOWER EXTREMITIES WITH BLUISH DISCOLORATION TO BLE/ANKLE REGION.) Musculoskeletal: Normal Psychiatric: Normal Mood Description: Calm Affect: Normal Speech Pattern: Clear, Appropriate - Laboratory and Diagnostics Result Diagrams: 03/03/17 05:00 03/03/17 05:00 Labs: 02/27/17 10:04 Sputum - Expectorated Sputum Sputum Culture - Final Escherichia Coli 02/27/17 10:04 Sputum - Expectorated Sputum - Final Laboratory WBC 5.1 X10^3/uL (3.6-10.0) 03/03/17 05:00 RBC 3.75 X10^6/uL (4.7-6.0) L 03/03/17 05:00 Hgb 11.1 g/dL (13.5-18.0) L 03/03/17 05:00 Hct 33.5 % (42.0-54.0) L 03/03/17 05:00 MCV 89.3 fL (80.0-100.0) 03/03/17 05:00 MCH 29.5 pg (27.0-34.0) 03/03/17 05:00 MCHC 33.1 g/dL (33.0-35.0) 03/03/17 05:00 RDW 13.8 % (11.6-16.5) 03/03/17 05:00 Plt Count 230 X10^3/uL (150.0-450.0) 03/03/17 05:00 Plt Count Comment Adequate (ADEQUATE) 03/03/17 05:00 MPV 7.7 fL (7.4-11.0) 03/03/17 05:00 Neut % 91.6 % (42.0-75.0) H 03/03/17 05:00 Lymph % 4.8 % (21.0-51.0) L 03/03/17 05:00 [place] % 3.4 % (0.0-13.0) 03/03/17 05:00 Eos % 0.1 % (0.9-2.9) L 03/03/17 05:00 Baso % 0.1 % (0.2-1.0) L 03/03/17 05:00 Neut # 4.6 x10^3/uL (2.2-4.8) 03/03/17 05:00 Lymph # 0.2 X10^3/uL (1.3-2.9) L 03/03/17 05:00 [place] # 0.2 x10^3/uL (0.3-0.8) L 03/03/17 05:00 Eos # 0.0 x10^3/uL (0.0-0.2) 03/03/17 05:00 Baso # 0.0 X10^3/uL (0.0-0.1) 03/03/17 05:00 Absolute Nucleated RBC 0.1 /100WBC 03/03/17 05:00 Total Counted 100 03/03/17 05:00 Neutrophils % (Manual) 92 % (39-76) H 03/03/17 05:00 Lymphocytes % (Manual) 5 % (13-43) L 03/03/17 05:00 Monocytes % (Manual) 3 % (4-9) L 03/03/17 05:00 Plt Morphology Comment Normal (NORMAL) 03/03/17 05:00 RBC Morphology Normal (NORMAL) 03/03/17 05:00 INR Target Range - 03/03/17 05:00 INR 1.09 (0.8-1.3) 03/03/17 05:00 Sample Site Lbra 02/28/17 05:17 ABG pH 7.410 (7.35-7.45) 02/28/17 05:17 ABG pCO2 71.0 mmHg (35.0-45.0) H* 02/28/17 05:17 ABG pO2 88.0 mmHg (80.0-100.0) 02/28/17 05:17 ABG HCO3 45.0 mmol/L (22-26) H* 02/28/17 05:17 ABG O2 Saturation 97.0 % (90-100) 02/28/17 05:17 ABG Base Excess 16.9 mmol/L (-2.0-2.0) H 02/28/17 05:17 Patrice Test Na 02/28/17 05:17 A-a Gradient 73.0 mmHg 02/28/17 05:17 FiO2 35.000 02/28/17 05:17 Blood Gas Comments Aris abg well-mtf 02/28/17 05:17 Sodium 133 mmol/L (136-145) L 03/03/17 05:00 Corrected Sodium 133 mmol/L (136-145) L 03/03/17 05:00 Potassium 4.3 mmol/L (3.5-5.1) 03/03/17 05:00 Chloride 94 mmol/L (98-107) L 03/03/17 05:00 Carbon Dioxide 37.4 mmol/L (21-32) H 03/03/17 05:00 BUN 10 mg/dL (7-18) 03/03/17 05:00 Creatinine 0.67 mg/dL (0.70-1.30) L 03/03/17 05:00 Est GFR (MDRD) Af Amer > 60 (>60) 03/03/17 05:00 Est GFR (MDRD) Non-Af > 60 (>60) 03/03/17 05:00 Glucose 117 mg/dL (65-99) H 03/03/17 05:00 Calcium 8.3 mg/dL (8.5-10.1) L 03/03/17 05:00 Corrected Calcium 9.0 mg/dL (8.5-10.1) 03/03/17 05:00 Total Bilirubin 0.20 mg/dL (0.2-1.0) 03/03/17 05:00 AST 30 Units/L (15-37) 03/03/17 05:00 ALT 40 Units/L (12-78) 03/03/17 05:00 Alkaline Phosphatase 84 Units/L (46-116) 03/03/17 05:00 Creatine Kinase 27 Units/L (39-308) L 02/27/17 09:50 CK-MB (CK-2) 1.6 ng/mL (0-4.0) 02/27/17 09:50 CK/CKMB % Calc 5.9 % (<4) 02/27/17 09:50 Troponin I < 0.02 ng/mL (0-1.5) 02/27/17 09:50 Total Protein 6.1 g/dL (6.4-8.2) L 03/03/17 05:00 Albumin 3.1 g/dL (3.4-5.0) L 03/03/17 05:00 Globulin 3.0 g/dL (2.5-4.5) 03/03/17 05:00 Albumin/Globulin Ratio 1.0 Ratio (1.1-2.1) L 03/03/17 05:00 Specimen Type Random urine 02/27/17 09:56 Urine Color Yellow (YELLOW) 02/27/17 09:56 Urine Appearance Clear (CLEAR) 02/27/17 09:56 Urine pH 8.0 (5.0 - 8.0) 02/27/17 09:56 Ur Specific [place] 1.015 (1.000-1.030) 02/27/17 09:56 Urine Protein Negative (NEGATIVE) 02/27/17 09:56 Urine Glucose (UA) Negative (NEGATIVE) 02/27/17 09:56 Urine Ketones Negative (NEGATIVE) 02/27/17 09:56 Urine Occult Blood 1+ (NEGATIVE) 02/27/17 09:56 Urine Nitrite Negative (NEGATIVE) 02/27/17 09:56 Urine Bilirubin Negative (NEGATIVE) 02/27/17 09:56 Urine Urobilinogen Normal (NORMAL) 02/27/17 09:56 Ur Leukocyte Esterase Negative (NEGATIVE) 02/27/17 09:56 Urine RBC None seen /HPF (NEGATIVE) 10 09:56 Urine WBC None seen /HPF (NEGATIVE) 02/27/17 09:56 Ur Squamous Epith Cells Rare /HPF (NEGATIVE) 02/27/17 09:56 Urine Bacteria Negative /HPF (NEGATIVE) 02/27/17 09:56 Ur Culture Indicated? No/not indicated 02/27/17 09:56 - Plan (1) Peripheral vascular disease Status: Acute Plan: MARCK, COUMADIN (2) COPD exacerbation Status: Acute Plan: DUONEBS Q4H, LASIX 40MG IVP DAILY, SOLU-MEDROL 80MG IV Q8H, CONTINUE TO MONITOR (3) Anemia Status: Acute Plan: MONITOR CBC (4) Supratherapeutic INR Status: Acute Plan: MONITOR INR. COUMADIN RESTARTED.
[2017-03-04] MEDS: ROXICODONE TAB 15 MG PO PRN ×3 (00:25→12:39)
[2017-03-04] MEDS: DUONEB 0.5 MG/3 MG NEB SCH ×3 (00:59→09:49)
[2017-03-04] MEDS: NS 1000 ML 1,000 ML IV SCH ×3 (03:20→10:46)
[2017-03-04 05:29] LABS: ALANINE AMINOTRANSFERASE 33 Units/L (12-78); ALBUMIN 3.4 g/dL (3.4-5.0); ALKALINE PHOSPHATASE 98 Units/L (46-116); ASPARTATE AMINO TRANSFERASE 25 Units/L (15-37); BLOOD UREA NITROGEN 13 mg/dL (7-18); CALCIUM 8.3 mg/dL (8.5-10.1); CARBON DIOXIDE 37.7 mmol/L (21-32); CHLORIDE 95 mmol/L (98-107); CREATININE 0.93 mg/dL (0.70-1.30); SODIUM 134 mmol/L (136-145); TOTAL PROTEIN 6.7 g/dL (6.4-8.2); eGFR BLACK RACES > 60 (>60); eGFR NON BLACK RACES > 60 (>60)
[2017-03-04 05:30] LABS: BASOPHILS # (AUTO) 0.1 X10^3/uL (0.0-0.1); EOSINOPHILS # (AUTO) 0.2 x10^3/uL (0.0-0.2); EOSINOPHILS % (AUTO) 2.5 % (0.9-2.9); HEMOGLOBIN 12.7 g/dL (13.5-18.0); LYMPHOCYTES # (AUTO) 1.8 X10^3/uL (1.3-2.9); LYMPHOCYTES % (AUTO) 20.1 % (21.0-51.0); MEAN CORPUSCULAR HEMOGLOBIN 29.7 pg (27.0-34.0); MEAN CORPUSCULAR HGB CONC 32.7 g/dL (33.0-35.0); MEAN CORPUSCULAR VOLUME 90.9 fL (80.0-100.0); MEAN PLATELET VOLUME 8.4 fL (7.4-11.0); MONOCYTES # (AUTO) 1.1 x10^3/uL (0.3-0.8); MONOCYTES % (AUTO) 12.2 % (0.0-13.0); NEUTROPHILS # (AUTO) 5.6 x10^3/uL (2.2-4.8); NEUTROPHILS % (AUTO) 64.2 % (42.0-75.0); PLATELET COUNT 258 X10^3/uL (150.0-450.0); RED BLOOD COUNT 4.29 X10^6/uL (4.7-6.0); RED CELL DISTRIBUTION WIDTH 13.6 % (11.6-16.5)
[2017-03-04 05:56] LABS: PLATELET MORPHOLOGY COMMENT NORMAL (NORMAL); WHITE BLOOD COUNT 9.4 X10^3/uL (3.6-10.0)
[2017-03-04] MEDS: FORTAZ or TAZICEF INJ 1 GM in NS 50 ML IV + SPIKE MINIBAG* 50 ML IV SCH ×2 (06:00→13:14)
[2017-03-04] MEDS: DILANTIN CAP 100 MG EXT REL PO SCH ×2 (08:24→12:38)
[2017-03-04] MEDS: LASIX IVP SCH (08:24)
[2017-03-04] MEDS: VALIUM PO SCH ×2 (08:24→12:38)
[2017-03-04] MEDS: PriLOSEC PO SCH (08:24)
[2017-03-04] MEDS: ZANTAC PO SCH (08:24)
[2017-03-04] MEDS: ZEBETA TAB 5 MG PO SCH (08:25)
[2017-03-04] MEDS: ZESTRIL TAB 40 MG PO SCH (08:25)
--- NOTE | 2017-03-04 10:33 | PCM.PROG ---
Progress Note - Progress Note for Day of Date: 02/28/17 - Subjective Subjective: WAS ADMITTED FOR COPD EXACERBATION. TODAY, HE IS ALERT AND ORIENTED, SITTINGIN H[place] POSITION ON MORNING ROUNDS. PATIENT'S FAMILY MEMBER IS AT BEDSIDE. HE CONTINUES WITH COMPLAINTS OF SHORTNESS OF BREATH AND A PRODUCTIVE COUGH. PATIENT REPORTS THAT HE HAS A DIFFICULT TIME BREATHING WHEN HE LIES FLAT, THEREFORE, HE HAS BEEN SITTING UP IN BED WHEN SLEEPING OR SLEEPS IN THE RECLINER. ON EXAMINATION, BILATERAL LUNG SOUNDS ARE NOTED WITH WHEEZING AND RHONCHI. ABDOMEN IS SOFT, ROUND, AND NON-TENDER WITH NORMAL BOWEL SOUNDS NOTED IN ALL QUADRANTS. THERE IS BILATERAL LOWER EXTREMITY EDEMA AND SCATTERED BRUISING TO LEGS. HE IS NOTED WEARING OXYGEN VIA NASAL CANNULA AT 2L/MIN. HE IS NOTED ON TELEMETRY WITH SINUS RHYTHM NOTED, HR IN THE 70S. HIS VITAL SIGNS THIS MORNING ARE 98.4-77-21-94%-146/86. A CBC, CMP, INR, AND CHEST XRAY WERE OBTAINED THIS MORNING. ABNORMAL LAB RESULTS INCLUDE THE FOLLOWING: TBC 3.46, HGB 10.4, HCT 30.7, INR 7.37, SODIUM 132, CHLORIDE 93, CARBON DIOXIDE 39.1, CREATININE 0.59, CALCIUM 8.1, AST 10, ALT 11, TOTAL PROTEIN 5.5, ALBUMIN 2.7. AN ABG WAS OBTAINED AND REPORTED PH 7.410, PC02 71, HCO3 45, ABG EXCESS 16.9. CHEST XRAY REPORTED IMPROVING VASCULAR CONGESTION AND UNCHANGED MILD CARDIOMEGALY. TODAY, WE WILL GIVE VITAMIN K 5MG SC X 1 DOSE, START FORTAZ 2GM IV Q8H, START SOLU-MEDROL 80MG IV Q8H, AND DISCONTINUE THE CIPRO. WE PLAN TO FOLLOW UP WITH AM LABS AND CONTINUE TO MONITOR PATIENT. - Past Medical Family Social History Past Med/Fam/Surg Hx: No changes since H&P Allergies: Allergies No Known Drug Allergies Allergy (Verified 02/27/17 17:11) - Review of Systems ROS: No change since H&P - Vital Signs and I&O's Vital Signs: Temperature 97.3 F Pulse Rate [Left Brachial] 73 Pulse Rate 76 Respiratory Rate 16 Blood Pressure [Left Arm] 90/56 Blood Pressure [Right Arm] 155/92 Blood Pressure 158/90 O2 Sat by Pulse Oximetry 95 Intake and Output: Intake & Output 03/01/17 03/02/17 03/03/17 03/04/17 11:59 11:59 11:59 11:59 Intake Total 4737 8510 6478 5610 Output Total 5132 3950 5150 4400 Balance -446 1010 1328 1210 - Physical Exam Oriented: Normal Eyes: Normal Ear: Normal Nose: Normal Throat: Normal Respiratory: Wheezes, Rhonchi Cardiovascular: Normal, Edema (TRACE RIGHT ANKLE) : Normal Auscultation: Bowel Sounds: Normal Palpation: Normal Tenderness: Normal Skin: Normal, Other (BILATERAL LOWER EXTREMITIES WITH BLUISH DISCOLORATION TO BLE/ANKLE REGION.) Musculoskeletal: Normal Psychiatric: Normal Mood Description: Calm Affect: Normal Speech Pattern: Clear, Appropriate - Laboratory and Diagnostics Result Diagrams: 03/04/17 04:50 03/04/17 04:50 Labs: 02/27/17 10:04 Sputum - Expectorated Sputum Sputum Culture - Final Escherichia Coli 02/27/17 10:04 Sputum - Expectorated Sputum - Final Laboratory WBC 9.4 X10^3/uL (3.6-10.0) 03/04/17 04:50 RBC 4.29 X10^6/uL (4.7-6.0) L 03/04/17 04:50 Hgb 12.7 g/dL (13.5-18.0) L 03/04/17 04:50 Hct 39.0 % (42.0-54.0) L 03/04/17 04:50 MCV 90.9 fL (80.0-100.0) 03/04/17 04:50 MCH 29.7 pg (27.0-34.0) 03/04/17 04:50 MCHC 32.7 g/dL (33.0-35.0) L 03/04/17 04:50 RDW 13.6 % (11.6-16.5) 03/04/17 04:50 Plt Count 258 X10^3/uL (150.0-450.0) 03/04/17 04:50 Plt Count Comment Adequate (ADEQUATE) 03/04/17 04:50 MPV 8.4 fL (7.4-11.0) 03/04/17 04:50 Neut % 64.2 % (42.0-75.0) 03/04/17 04:50 Lymph % 20.1 % (21.0-51.0) L 03/04/17 04:50 [place] % 12.2 % (0.0-13.0) 03/04/17 04:50 Eos % 2.5 % (0.9-2.9) 03/04/17 04:50 Baso % 1.0 % (0.2-1.0) 03/04/17 04:50 Neut # 5.6 x10^3/uL (2.2-4.8) H 03/04/17 04:50 Lymph # 1.8 X10^3/uL (1.3-2.9) 03/04/17 04:50 [place] # 1.1 x10^3/uL (0.3-0.8) H 03/04/17 04:50 Eos # 0.2 x10^3/uL (0.0-0.2) 03/04/17 04:50 Baso # 0.1 X10^3/uL (0.0-0.1) 03/04/17 04:50 Absolute Nucleated RBC 0.1 /100WBC 03/04/17 04:50 Total Counted 100 03/03/17 05:00 Neutrophils % (Manual) 92 % (39-76) H 03/03/17 05:00 Lymphocytes % (Manual) 5 % (13-43) L 03/03/17 05:00 Monocytes % (Manual) 3 % (4-9) L 03/03/17 05:00 Plt Morphology Comment Normal (NORMAL) 03/04/17 04:50 RBC Morphology Normal (NORMAL) 03/04/17 04:50 INR Target Range - 03/03/17 05:00 INR 1.09 (0.8-1.3) 03/03/17 05:00 Sample Site Lbra 02/28/17 05:17 ABG pH 7.410 (7.35-7.45) 02/28/17 05:17 ABG pCO2 71.0 mmHg (35.0-45.0) H* 02/28/17 05:17 ABG pO2 88.0 mmHg (80.0-100.0) 02/28/17 05:17 ABG HCO3 45.0 mmol/L (22-26) H* 02/28/17 05:17 ABG O2 Saturation 97.0 % (90-100) 02/28/17 05:17 ABG Base Excess 16.9 mmol/L (-2.0-2.0) H 02/28/17 05:17 Patrice Test Na 02/28/17 05:17 A-a Gradient 73.0 mmHg 02/28/17 05:17 FiO2 35.000 02/28/17 05:17 Blood Gas Comments Aris abg well-mtf 02/28/17 05:17 Sodium 134 mmol/L (136-145) L 03/04/17 04:50 Corrected Sodium TNP 03/04/17 04:50 Potassium 4.1 mmol/L (3.5-5.1) 03/04/17 04:50 Chloride 95 mmol/L (98-107) L 03/04/17 04:50 Carbon Dioxide 37.7 mmol/L (21-32) H 03/04/17 04:50 BUN 13 mg/dL (7-18) 03/04/17 04:50 Creatinine 0.93 mg/dL (0.70-1.30) 03/04/17 04:50 Est GFR (MDRD) Af Amer > 60 (>60) 03/04/17 04:50 Est GFR (MDRD) Non-Af > 60 (>60) 03/04/17 04:50 Glucose 89 mg/dL (65-99) 03/04/17 04:50 Calcium 8.3 mg/dL (8.5-10.1) L 03/04/17 04:50 Corrected Calcium TNP 03/04/17 04:50 Total Bilirubin 0.30 mg/dL (0.2-1.0) 03/04/17 04:50 AST 25 Units/L (15-37) 03/04/17 04:50 ALT 33 Units/L (12-78) 03/04/17 04:50 Alkaline Phosphatase 98 Units/L (46-116) 03/04/17 04:50 Creatine Kinase 27 Units/L (39-308) L 02/27/17 09:50 CK-MB (CK-2) 1.6 ng/mL (0-4.0) 02/27/17 09:50 CK/CKMB % Calc 5.9 % (<4) 02/27/17 09:50 Troponin I < 0.02 ng/mL (0-1.5) 02/27/17 09:50 Total Protein 6.7 g/dL (6.4-8.2) 03/04/17 04:50 Albumin 3.4 g/dL (3.4-5.0) 03/04/17 04:50 Globulin 3.3 g/dL (2.5-4.5) 03/04/17 04:50 Albumin/Globulin Ratio 1.0 Ratio (1.1-2.1) L 03/04/17 04:50 Specimen Type Random urine 02/27/17 09:56 Urine Color Yellow (YELLOW) 02/27/17 09:56 Urine Appearance Clear (CLEAR) 02/27/17 09:56 Urine pH 8.0 (5.0 - 8.0) 02/27/17 09:56 Ur Specific [place] 1.015 (1.000-1.030) 02/27/17 09:56 Urine Protein Negative (NEGATIVE) 02/27/17 09:56 Urine Glucose (UA) Negative (NEGATIVE) 02/27/17 09:56 Urine Ketones Negative (NEGATIVE) 02/27/17 09:56 Urine Occult Blood 1+ (NEGATIVE) 02/27/17 09:56 Urine Nitrite Negative (NEGATIVE) 02/27/17 09:56 Urine Bilirubin Negative (NEGATIVE) 02/27/17 09:56 Urine Urobilinogen Normal (NORMAL) 02/27/17 09:56 Ur Leukocyte Esterase Negative (NEGATIVE) 02/27/17 09:56 Urine RBC None seen /HPF (NEGATIVE) 02/27/17 09:56 Urine WBC None seen /HPF (NEGATIVE) 02/27/17 09:56 Ur Squamous Epith Cells Rare /HPF (NEGATIVE) 02/27/17 09:56 Urine Bacteria Negative /HPF (NEGATIVE) 02/27/17 09:56 Ur Culture Indicated? No/not indicated 02/27/17 09:56 - Plan (1) COPD exacerbation Status: Acute Plan: DUONEBS Q4H, LASIX 40MG IVP DAILY, SOLU-MEDROL 80MG IV Q8H, CONTINUE TO MONITOR (2) Productive cough Status: Acute Plan: FORTAZ 2GM IV Q8H, CONTINUE TO MONITOR (3) Elevated INR Status: Acute Plan: VITAMIN K 5MG SC X 1, CONTINUE TO MONITOR (4) Hypertension Status: Chronic Qualifiers: Hypertension type: essential hypertension Qualified Code(s): I10 - Essential (primary) hypertension Plan: CONTINUE ZEBETA, CONTINUE ZESTRIL, CONTINUE TO MONITOR (5) GERD (gastroesophageal reflux disease) Status: Chronic Qualifiers: Esophagitis presence: esophagitis presence not specified Qualified Code(s) : K21.9 - Gastro-esophageal reflux disease without esophagitis Plan: CONTINUE PRILOSEC, CONTINUE ZANTAC, CONTINUE TO MONITOR (6) Seizure disorder Status: Acute Plan: CONTINUE DILANTIN, CONTINUE TO MONITOR (7) Generalized anxiety disorder Status: Chronic Plan: CONTINUE VALIUM 10MG PO QID, CONTINUE TO MONITOR
--- NOTE | 2017-03-04 10:49 | PCM.PROG ---
Progress Note - Progress Note for Day of Date: 03/01/17 - Subjective Subjective: WAS ADMITTED FOR COPD EXACERBATION. TODAY, HE IS ALERT AND ORIENTED, SITTING UP IN BED ON MORNING ROUNDS. PATIENT'S FAMILY MEMBER IS AT BEDSIDE. HE CONTINUES WITH COMPLAINTS OF SHORTNESS OF BREATH AND A PRODUCTIVE COUGH. PATIENT REPORTS THAT HE HAS PATIENT CONTINUES TO REPORT DIFFICULTY BREATHING WHEN LYING DOWN. ON EXAMINATION, BILATERAL LUNG SOUNDS CONTINUE WITH WHEEZING AND RHONCHI. ABDOMEN IS SOFT, ROUND, AND NON-TENDER WITH NORMAL BOWEL SOUNDS NOTED IN ALL QUADRANTS. BILATERAL LOWER EXTREMITIES CONTINUE WITH SWELLING. HE IS NOTED WEARING OXYGEN VIA NASAL CANNULA AT 3L/MIN. HE IS NOTED ON TELEMETRY WITH SINUS RHYTHM NOTED, HR IN THE 70S. HIS VITAL SIGNS THIS MORNING ARE 98.6-79-23-97%-123/71. A CBC, CMP, INR, AND CHEST XRAY WERE OBTAINED THIS MORNING. ABNORMAL LAB RESULTS INCLUDE THE FOLLOWING: RBC 3.83, HGB 11.4, HCT 34, INR 1.41, SODIUM 133, CHLORIDE 93, CARBON DIOXIDE 35.2, GLUCOSE 164, CALCIUM 8.3, AST 9, ALT 13, TOTAL PROTEIN 6.3, ALBUMIN 3.0. CHEST XRAY REPORTED CARDIOMEGALY WITH IMPROVING VASCULAR CONGESION. LEFT BASILAR ATELECTASIS AND/OR SCARRING. THE LEFT COSTOPHRENIC ANGLE IS NOTE ENTIRELY INCLUDED. MILD BLUNTING OF THE RIGHT COSTOPHRENIC ANGLE. TODAY, WE WILL RESUME PATIENTS HOME MEDICATION COUMADIN. WE PLAN TO FOLLOW UP WITH AM LABS AND CONTINUE TO MONITOR PATIENT. - Past Medical Family Social History Past Med/Fam/Surg Hx: No changes since H&P Allergies: Allergies No Known Drug Allergies Allergy (Verified 02/27/17 17:11) - Review of Systems ROS: No change since H&P - Vital Signs and I&O's Vital Signs: Temperature 97.3 F Pulse Rate [Left Brachial] 73 Pulse Rate 76 Respiratory Rate 16 Blood Pressure [Left Arm] 90/56 Blood Pressure [Right Arm] 155/92 Blood Pressure 158/90 O2 Sat by Pulse Oximetry 95 Intake and Output: Intake & Output 03/01/17 03/02/17 03/03/17 03/04/17 11:59 11:59 11:59 11:59 Intake Total 4734 2440 6478 5610 Output Total 5180 3450 5150 4400 Balance -446 -1010 1328 1210 - Physical Exam Oriented: Normal Eyes: Normal Ear: Normal Nose: Normal Throat: Normal Respiratory: Wheezes, Rhonchi Cardiovascular: Normal, Edema (TRACE RIGHT ANKLE) : Normal Auscultation: Bowel Sounds: Normal Palpation: Normal Tenderness: Normal Skin: Normal, Other (BILATERAL LOWER EXTREMITIES WITH BLUISH DISCOLORATION TO BLE/ANKLE REGION.) Musculoskeletal: Normal Psychiatric: Normal Mood Description: Calm Affect: Normal Speech Pattern: Clear, Appropriate - Laboratory and Diagnostics Result Diagrams: 03/04/17 04:50 03/04/17 04:50 Labs: 02/27/17 10:04 Sputum - Expectorated Sputum Sputum Culture - Final Escherichia Coli 02/27/17 10:04 Sputum - Expectorated Sputum - Final Laboratory WBC 9.4 X10^3/uL (3.6-10.0) 03/04/17 04:50 RBC 4.29 X10^6/uL (4.7-6.0) L 03/04/17 04:50 Hgb 12.7 g/dL (13.5-18.0) L 03/04/17 04:50 Hct 39.0 % (42.0-54.0) L 03/04/17 04:50 MCV 90.9 fL (80.0-100.0) 03/04/17 04:50 MCH 29.7 pg (27.0-34.0) 03/04/17 04:50 MCHC 32.7 g/dL (33.0-35.0) L 03/04/17 04:50 RDW 13.6 % (11.6-16.5) 03/04/17 04:50 Plt Count 258 X10^3/uL (150.0-450.0) 03/04/17 04:50 Plt Count Comment Adequate (ADEQUATE) 03/04/17 04:50 MPV 8.4 fL (7.4-11.0) 03/04/17 04:50 Neut % 64.2 % (42.0-75.0) 03/04/17 04:50 Lymph % 20.1 % (21.0-51.0) L 03/04/17 04:50 [place] % 12.2 % (0.0-13.0) 03/04/17 04:50 Eos % 2.5 % (0.9-2.9) 03/04/17 04:50 Baso % 1.0 % (0.2-1.0) 03/04/17 04:50 Neut # 5.6 x10^3/uL (2.2-4.8) H 03/04/17 04:50 Lymph # 1.8 X10^3/uL (1.3-2.9) 03/04/17 04:50 [place] # 1.1 x10^3/uL (0.3-0.8) H 03/04/17 04:50 Eos # 0.2 x10^3/uL (0.0-0.2) 03/04/17 04:50 Baso # 0.1 X10^3/uL (0.0-0.1) 03/04/17 04:50 Absolute Nucleated RBC 0.1 /100WBC 03/04/17 04:50 Total Counted 100 03/03/17 05:00 Neutrophils % (Manual) 92 % (39-76) H 03/03/17 05:00 Lymphocytes % (Manual) 5 % (13-43) L 03/03/17 05:00 Monocytes % (Manual) 3 % (4-9) L 03/03/17 05:00 Plt Morphology Comment Normal (NORMAL) 03/04/17 04:50 RBC Morphology Normal (NORMAL) 03/04/17 04:50 INR Target Range - 03/03/17 05:00 INR 1.09 (0.8-1.3) 03/03/17 05:00 Sample Site Lbra 02/28/17 05:17 ABG pH 7.410 (7.35-7.45) 02/28/17 05:17 ABG pCO2 71.0 mmHg (35.0-45.0) H* 02/28/17 05:17 ABG pO2 88.0 mmHg (80.0-100.0) 02/28/17 05:17 ABG HCO3 45.0 mmol/L (22-26) H* 02/28/17 05:17 ABG O2 Saturation 97.0 % (90-100) 02/28/17 05:17 ABG Base Excess 16.9 mmol/L (-2.0-2.0) H 02/28/17 05:17 Patrice Test Na 02/28/17 05:17 A-a Gradient 73.0 mmHg 02/28/17 05:17 FiO2 35.000 02/28/17 05:17 Blood Gas Comments Aris abg well-mtf 02/28/17 05:17 Sodium 134 mmol/L (136-145) L 03/04/17 04:50 Corrected Sodium TNP 03/04/17 04:50 Potassium 4.1 mmol/L (3.5-5.1) 03/04/17 04:50 Chloride 95 mmol/L (98-107) L 03/04/17 04:50 Carbon Dioxide 37.7 mmol/L (21-32) H 03/04/17 04:50 BUN 13 mg/dL (7-18) 03/04/17 04:50 Creatinine 0.93 mg/dL (0.70-1.30) 03/04/17 04:50 Est GFR (MDRD) Af Amer > 60 (>60) 03/04/17 04:50 Est GFR (MDRD) Non-Af > 60 (>60) 03/04/17 04:50 Glucose 89 mg/dL (65-99) 03/04/17 04:50 Calcium 8.3 mg/dL (8.5-10.1) L 03/04/17 04:50 Corrected Calcium TNP 03/04/17 04:50 Total Bilirubin 0.30 mg/dL (0.2-1.0) 03/04/17 04:50 AST 25 Units/L (15-37) 03/04/17 04:50 ALT 33 Units/L (12-78) 03/04/17 04:50 Alkaline Phosphatase 98 Units/L (46-116) 03/04/17 04:50 Creatine Kinase 27 Units/L (39-308) L 02/27/17 09:50 CK-MB (CK-2) 1.6 ng/mL (0-4.0) 02/27/17 09:50 CK/CKMB % Calc 5.9 % (<4) 02/27/17 09:50 Troponin I < 0.02 ng/mL (0-1.5) 02/27/17 09:50 Total Protein 6.7 g/dL (6.4-8.2) 03/04/17 04:50 Albumin 3.4 g/dL (3.4-5.0) 03/04/17 04:50 Globulin 3.3 g/dL (2.5-4.5) 03/04/17 04:50 Albumin/Globulin Ratio 1.0 Ratio (1.1-2.1) L 03/04/17 04:50 Specimen Type Random urine 02/27/17 09:56 Urine Color Yellow (YELLOW) 02/27/17 09:56 Urine Appearance Clear (CLEAR) 02/27/17 09:56 Urine pH 8.0 (5.0 - 8.0) 02/27/17 09:56 Ur Specific [place] 1.015 (1.000-1.030) 02/27/17 09:56 Urine Protein Negative (NEGATIVE) 02/27/17 09:56 Urine Glucose (UA) Negative (NEGATIVE) 02/27/17 09:56 Urine Ketones Negative (NEGATIVE) 02/27/17 09:56 Urine Occult Blood 1+ (NEGATIVE) 02/27/17 09:56 Urine Nitrite Negative (NEGATIVE) 02/27/17 09:56 Urine Bilirubin Negative (NEGATIVE) 02/27/17 09:56 Urine Urobilinogen Normal (NORMAL) 02/27/17 09:56 Ur Leukocyte Esterase Negative (NEGATIVE) 02/27/17 09:56 Urine RBC None seen /HPF (NEGATIVE) 02/27/17 09:56 Urine WBC None seen /HPF (NEGATIVE) 02/27/17 09:56 Ur Squamous Epith Cells Rare /HPF (NEGATIVE) 02/27/17 09:56 Urine Bacteria Negative /HPF (NEGATIVE) 02/27/17 09:56 Ur Culture Indicated? No/not indicated 02/27/17 09:56 - Plan (1) COPD exacerbation Status: Acute Plan: DUONEBS Q4H, LASIX 40MG IVP DAILY, SOLU-MEDROL 80MG IV Q8H, CONTINUE TO MONITOR (2) Productive cough Status: Acute Plan: FORTAZ 2GM IV Q8H, CONTINUE TO MONITOR (3) Hypertension Status: Chronic Qualifiers: Hypertension type: essential hypertension Qualified Code(s): I10 - Essential (primary) hypertension Plan: CONTINUE ZEBETA, CONTINUE ZESTRIL, CONTINUE TO MONITOR (4) GERD (gastroesophageal reflux disease) Status: Chronic Qualifiers: Esophagitis presence: esophagitis presence not specified Qualified Code(s) : K21.9 - Gastro-esophageal reflux disease without esophagitis Plan: CONTINUE PRILOSEC, CONTINUE ZANTAC, CONTINUE TO MONITOR (5) Seizure disorder Status: Acute Plan: CONTINUE DILANTIN, CONTINUE TO MONITOR (6) Generalized anxiety disorder Status: Chronic Plan: CONTINUE VALIUM 10MG PO QID, CONTINUE TO MONITOR (7) Elevated INR Status: Resolved Plan: CONTINUE TO MONITOR
[2017-03-04 12:33] VITALS: BP 125/79
== END 2017-03-04 13:15 | disposition home or self-care (01) | DRG 190 ==
LOC: ER 09:29 → ICU 10:59
PROVIDERS: ADMIT Internal Medicine; ATTEND Internal Medicine
DX: J44.1 Chronic obstructive pulmonary disease with (acute) exacerbation (principal); R06.02 Shortness of breath; I51.7 Cardiomegaly; J81.0 Acute pulmonary edema; J90 Pleural effusion, not elsewhere classified; B96.29 Other Escherichia coli [E. coli] as the cause of diseases classified elsewhere; R79.1 Abnormal coagulation profile; I10 Essential (primary) hypertension; K21.9 Gastro-esophageal reflux disease without esophagitis; F41.8 Other specified anxiety disorders; G40.802 Other epilepsy, not intractable, without status epilepticus; R60.0 Localized edema; I73.89 Other specified peripheral vascular diseases; Z79.01 Long term (current) use of anticoagulants
CPT/HCPCS: 36415; 36600; 71010; 80053; 81001; 82550; 82553; 82803; 84484; 85025; 85610; 87070; 87077; 87186; 87205; 93005; 93306; 94640; 94660; 96365; 96367; 96374; 96375; 99231; 99284; 99285; A4216; A4222; A4618; A7030; J0713; J0744; J1940; J2920; J2930; J3430; J7620

== ENCOUNTER 2017-03-08 15:14 | Inpatient (IN) | payer OTHER, MEDICAID ==
--- NOTE | 2017-03-08 15:29 | DR.AMS ---
HPI - Time Seen Time seen: 15:30 - HPI Comment HPI Comment: PATIENT HOME HEALTH BIPAP NOT YET HOME. INCREASING SOB. BECAME CONFUSE WITH AMS. NO FEVER. PRODUCTIVE COUGH. - Complaint Cheif Complaint Doctors Comments: SOB, AMS SINCE THIS AM. - Reviewed Nurses Notes Reviewed: Yes - Source History Provided: Patient - Timing Came On: Suddenly Symptoms: Unchanged Symptom Onset: Known - Duration Duration: Constant Duration: Hours - Quality Quality: Confusion - Severity Severity: Moderate - Context Recent: Cough History Of: Seizure - Associated Signs and Symptoms Associated Signs and Symptoms: Generalized Weakness, Headache, Confusion, Change in Memory PMH - PMH Past Medical History: Anxiety, Arthritis, COPD, GERD, Hypertension, PUD, Seizures Past Surgical History: Yes Surgical History: Bowel Resection - Family History Family Medical History: Cancer, [place], Coronary Artery Disease, Hypertension - Social History Do you use any recreational Drugs:: No ROS - Review of Systems Constitutional: Weakness, Fatigue. negative: Chills, Fever Eyes: Blurred Vision ENTM: Nose Congestion. negative: Ear Discharge, Nose Discharge, Throat Pain Respiratoy: Non-Productive Cough Cardiovascular: No Symptoms Reported Gastrointestinal/Abdominal: No Symptoms Reported, Abdominal Pain Genitourinary: No Symptoms Reported, See HPI Neurological: No Symptoms Reported, Headache Musculoskeletal: Muscle Pain Integumentary: Change in Hair/Nails Hematologic/Lymphatic: No Symptoms Reported Endocrine: No Symptoms Reported All Other Systems: Reviewed and Negative Unable to Obtain Due To: Altered mental status PE - Vitals Vital Signs: Temp Pulse Pulse Resp BP BP BP 03/08/17 16:43 79 26 H 134/64 03/08/17 16:15 82 20 124/77 03/08/17 15:23 97.7 F 87 23 122/85 03/04/17 13:00 125/79 125/79 02/27/17 12:00 155/92 Pulse Ox 03/08/17 16:43 97 03/08/17 16:15 99 03/08/17 15:23 92 L 03/04/17 13:00 02/27/17 12:00 - General Limitations: Altered Mental Status General Appearance: Alert - Head Head Exam: Normal Inspection Head Exam Physical: Other (NONE) - Eyes Eye exam: PERRL, EOMI. negative: Scleral Icterus, Conjunctival Injection Pupils: Regular, Round: Bilateral, Reactive: Bilateral - ENT ENT Exam: Normal Exam, Normal External Ear Exam External Ear Exam: Normal External Inspection TM/Canal Exam: Bilateral Normal Nose Exam: Normal Nose Exam Mouth Exam: Normal Inspection Throat Exam: Normal Inspection - Neck Neck Exam: Trachea Midline - Chest Chest Inspection: Symmetric Chest Wall Rise - Respiratory Respiratory Exam: Respiratory Distress Respiratory Exam: Bilateral Wheezing, Bilateral Rhonchi, Upper Wheezing, Upper Rhonchi, Lower Wheezing, Lower Rhonchi - Cardiovascular Cardiovascular Exam: Regular Rate, Normal Rhythm, Normal Heart Sounds - Abdominal Exam Abdominal Exam: Normal Bowel Sounds, Soft. negative: Tenderness - Extremities Extremities Exam: Edema - Back Back Exam: Paraspinal Tenderness - Neurological Neurological Exam: Alert, Normal Gait, Reflexes Normal. negative: Oriented X3 ( AMS), Motor Sensory Deficit Patient Oriented To: Person Speech: Fluid Speech Cranial Nerve Exam: EOM Function (II, III, IV, ): Normal Cerebellar Function: Finger to Nose: Normal Motor Strength - LUE: 3/5 Motor Strength - RUE: 2/5 Motor Strength - LLE: 5/5 - Psychological Psychiatric Exam: Normal Affect - Skin Skin Exam: Dry MDM - Additional Information Obtained Additional Information Obtained From: Family - Differential Diagnosis Metabolic: Dehydration, Hypercalcemia, Hypernatremia, Hypoglycemia, Hyponatremia Structural: CVA Toxicologic: Drug Overdose Infectious: Sepsis, UTI Course - Treatment Treatment: SEE ORDERS. - Education/Counseling Education/Counseling: Patient, Education Educated On: Treatment, Diagnosis, Needs for Follow Up ROR - Labs Reviewed Laboratory Results Reviewed?: Yes Result Diagrams: 03/10/17 05:25 03/10/17 05:25 Laboratory: 03/08/17 15:35 Blood Blood Culture - Preliminary 03/08/17 15:30 Blood Blood Culture - Preliminary WBC 7.2 X10^3/uL (3.6-10.0) 03/10/17 05:25 RBC 3.29 X10^6/uL (4.7-6.0) L 03/10/17 05:25 Hgb 9.8 g/dL (13.5-18.0) L 03/10/17 05:25 Hct 29.3 % (42.0-54.0) L 03/10/17 05:25 MCV 89.1 fL (80.0-100.0) 03/10/17 05:25 MCH 29.6 pg (27.0-34.0) 03/10/17 05:25 MCHC 33.3 g/dL (33.0-35.0) 03/10/17 05:25 RDW 13.5 % (11.6-16.5) 03/10/17 05:25 Plt Count 215 X10^3/uL (150.0-450.0) 03/10/17 05:25 MPV 8.0 fL (7.4-11.0) 03/10/17 05:25 Neut % 70.2 % (42.0-75.0) 03/10/17 05:25 Lymph % 15.6 % (21.0-51.0) L 03/10/17 05:25 [place] % 12.0 % (0.0-13.0) 03/10/17 05:25 Eos % 1.5 % (0.9-2.9) 03/10/17 05:25 Baso % 0.7 % (0.2-1.0) 03/10/17 05:25 Neut # 5.1 x10^3/uL (2.2-4.8) H 03/10/17 05:25 Lymph # 1.1 X10^3/uL (1.3-2.9) L 03/10/17 05:25 [place] # 0.9 x10^3/uL (0.3-0.8) H 03/10/17 05:25 Eos # 0.1 x10^3/uL (0.0-0.2) 03/10/17 05:25 Baso # 0.0 X10^3/uL (0.0-0.1) 03/10/17 05:25 Absolute Nucleated RBC 0.0 /100WBC 03/10/17 05:25 INR Target Range - 03/10/17 05:25 INR 2.28 (0.8-1.3) H 03/10/17 05:25 PTT 60.4 SECONDS (22.9-36.5) H 03/10/17 05:25 PTT Comment - 03/10/17 05:25 Sample Site Lr 03/10/17 04:05 ABG pH 7.430 (7.35-7.45) 03/10/17 04:05 ABG pCO2 74.0 mmHg (35.0-45.0) H* 03/10/17 04:05 ABG pO2 71.0 mmHg (80.0-100.0) L 03/10/17 04:05 ABG HCO3 49.1 mmol/L (22-26) H* 03/10/17 04:05 ABG O2 Saturation 94.0 % (90-100) 03/10/17 04:05 ABG Base Excess 20.7 mmol/L (-2.0-2.0) H 03/10/17 04:05 Patrice Test Pos 03/10/17 04:05 A-a Gradient 65.0 mmHg 03/10/17 04:05 FiO2 32 03/10/17 04:05 Blood Gas Comments Aris well ae 03/10/17 04:05 Sodium 132 mmol/L (136-145) L 03/10/17 05:25 Corrected Sodium TNP 03/10/17 05:25 Potassium 4.2 mmol/L (3.5-5.1) 03/10/17 05:25 Chloride 93 mmol/L (98-107) L 03/10/17 05:25 Carbon Dioxide 38.7 mmol/L (21-32) H 03/10/17 05:25 BUN 14 mg/dL (7-18) 03/10/17 05:25 Creatinine 0.69 mg/dL (0.70-1.30) L 03/10/17 05:25 Est GFR (MDRD) Af Amer > 60 (>60) 03/10/17 05:25 Est GFR (MDRD) Non-Af > 60 (>60) 03/10/17 05:25 Glucose 101 mg/dL (65-99) H 03/10/17 05:25 Lactic Acid 1.0 mmol/L (0.4-2.0) 03/08/17 15:35 Calcium 8.2 mg/dL (8.5-10.1) L 03/10/17 05:25 Corrected Calcium 9.4 mg/dL (8.5-10.1) 03/10/17 05:25 Magnesium 1.4 mg/dL (1.7-2.9) L 03/09/17 05:15 Total Bilirubin 0.20 mg/dL (0.2-1.0) 03/10/17 05:25 AST 13 Units/L (15-37) L 03/10/17 05:25 ALT 15 Units/L (12-78) 03/10/17 05:25 Alkaline Phosphatase 74 Units/L (46-116) 03/10/17 05:25 Creatine Kinase 12 Units/L (39-308) L 03/09/17 05:15 CK-MB (CK-2) < 1.0 ng/mL (0-4.0) 03/09/17 05:15 CK/CKMB % Calc 8.3 % (<4) 03/09/17 05:15 Troponin I < 0.02 ng/mL (0-1.5) 03/09/17 05:15 C-Reactive Protein 123.80 mg/L (0-3.0) H 03/08/17 15:35 B-Natriuretic Peptide 192 pg/mL (0-79) H 03/10/17 05:25 Total Protein 5.7 g/dL (6.4-8.2) L 03/10/17 05:25 Albumin 2.5 g/dL (3.4-5.0) L 03/10/17 05:25 Globulin 3.2 g/dL (2.5-4.5) 03/10/17 05:25 Albumin/Globulin Ratio 0.8 Ratio (1.1-2.1) L 03/10/17 05:25 Specimen Type Random urine 03/08/17 16:03 Urine Color Yellow (YELLOW) 03/08/17 16:03 Urine Appearance Clear (CLEAR) 03/08/17 16:03 Urine pH 6.5 (5.0 - 8.0) 03/08/17 16:03 Ur Specific [place] 1.010 (1.000-1.030) 03/08/17 16:03 Urine Protein Negative (NEGATIVE) 03/08/17 16:03 Urine Glucose (UA) Negative (NEGATIVE) 03/08/17 16:03 Urine Ketones Negative (NEGATIVE) 03/08/17 16:03 Urine Occult Blood Negative (NEGATIVE) 03/08/17 16:03 Urine Nitrite Negative (NEGATIVE) 03/08/17 16:03 Urine Bilirubin Negative (NEGATIVE) 03/08/17 16:03 Urine Urobilinogen 1+ (NORMAL) 03/08/17 16:03 Ur Leukocyte Esterase Negative (NEGATIVE) 03/08/17 16:03 Urine RBC None seen /HPF (NEGATIVE) 03/08/17 16:03 Urine WBC None seen /HPF (NEGATIVE) 03/08/17 16:03 Ur Squamous Epith Cells Rare /HPF (NEGATIVE) 03/08/17 16:03 Urine Bacteria Negative /HPF (NEGATIVE) 03/08/17 16:03 Ur Culture Indicated? No/not indicated 03/08/17 16:03 Phenytoin 7.4 ug/mL (10-20) L 03/08/17 15:35 - XRAY XRAY Interpreted by: Radiologist XRAY Findings: REPORT DISCUSS WITH PATIENT. - EKG Rhythm: NSR (EKG NOTED.) - Diagnosis Discharge Problem: Hypercapnia, Bronchitis Altered mental state Qualifiers: Altered mental status type: transient alteration of awareness Qualified Code(s) : R40.4 - Transient alteration of awareness CHF (congestive heart failure) Qualifiers: Congestive heart failure type: combined Congestive heart failure chronicity: acute on chronic Qualified Code(s): I50.43 - Acute on chronic combined systolic (congestive) and diastolic (congestive) heart failure - Discharge Plan Disposition: ADMITTED INPATIENT Condition: Stable - Follow ups/Referrals - Instructions
[2017-03-08 15:35] LABS: ABG BASE EXCESS 25.2 mmol/L (-2.0-2.0)
[2017-03-08 15:36] LABS: ABG ALLEN TEST POS; ABG HCO3 56.1 mmol/L (22-26); FRACTIONATED INSPIRED OXYGEN 28
[2017-03-08 15:52] LABS: BASOPHILS % (AUTO) 0.5 % (0.2-1.0); EOSINOPHILS # (AUTO) 0.3 x10^3/uL (0.0-0.2); EOSINOPHILS % (AUTO) 3.2 % (0.9-2.9); HEMATOCRIT 33.7 % (42.0-54.0); LYMPHOCYTES # (AUTO) 0.6 X10^3/uL (1.3-2.9); MEAN CORPUSCULAR HEMOGLOBIN 29.5 pg (27.0-34.0); MEAN CORPUSCULAR HGB CONC 32.6 g/dL (33.0-35.0); MEAN CORPUSCULAR VOLUME 90.5 fL (80.0-100.0); MEAN PLATELET VOLUME 8.3 fL (7.4-11.0); MONOCYTES # (AUTO) 1.3 x10^3/uL (0.3-0.8); MONOCYTES % (AUTO) 16.7 % (0.0-13.0); NEUTROPHILS # (AUTO) 5.8 x10^3/uL (2.2-4.8); NEUTROPHILS % (AUTO) 72.6 % (42.0-75.0); PLATELET COUNT 220 X10^3/uL (150.0-450.0); RED BLOOD COUNT 3.73 X10^6/uL (4.7-6.0); RED CELL DISTRIBUTION WIDTH 13.5 % (11.6-16.5)
[2017-03-08 16:06] LABS: C-REACTIVE PROTEIN 123.8 mg/L (0-3.0)
[2017-03-08 16:08] LABS: BLOOD UREA NITROGEN 11 mg/dL (7-18); CALCIUM 8.6 mg/dL (8.5-10.1); CHLORIDE 95 mmol/L (98-107); CREATININE 0.53 mg/dL (0.70-1.30); SODIUM 137 mmol/L (136-145); TROPONIN I < 0.02 ng/mL (0-1.5); eGFR BLACK RACES > 60 (>60); eGFR NON BLACK RACES > 60 (>60)
[2017-03-08 16:13] LABS: ALANINE AMINOTRANSFERASE 16 Units/L (12-78); ALBUMIN 2.8 g/dL (3.4-5.0); ALKALINE PHOSPHATASE 79 Units/L (46-116); ASPARTATE AMINO TRANSFERASE 20 Units/L (15-37); COR CA(FOR HYPOALB) 9.6 mg/dL (8.5-10.1); CREATINE KINASE 47 Units/L (39-308); CREATINE KINASE MB 1.4 ng/mL (0-4.0); TOTAL PROTEIN 6.3 g/dL (6.4-8.2)
--- NOTE | 2017-03-08 16:17 | CT ---
STUDY: CT HEAD WITHOUT CONTRAST HISTORY: History COPD, emphysema, CHF. Confusion. COMPARISON: None. TECHNIQUE: Multiple axial images of the head were obtained from the skull base to the vertex without administration of IV contrast. Automated exposure control (AEC) was utilized to adjust the MA and/or kV. Findings: The sulci, cisterns and ventricles are prominent consistent with diffuse volume loss. There are confluent and scattered foci of low attenuation in the periventricular and subcortical whit e matter of both hemispheres. This is a nonspecific finding which likely represents microangiopathic change in a patient of this age. There is no evidence of acute territorial infarction, hemorrhage, mass, mass effect or midline shift. There are no abnormal extra-axial fluid collections. There is no evidence of acute osseous abnormality or significant soft tissue swelling. IMPRESSION: 1. No evidence of acute intracranial abnormality. 2. Nonspecific white matter change and volume loss as described. 3. If there remains strong clinical concern for acute intracranial abnormality, then an MRI examinati on should be considered for further evaluation. Reported By:
[2017-03-08 16:18] LABS: BILIRUBIN,URINE NEGATIVE (NEGATIVE); BLOOD/HEMOGLOBIN,URINE NEGATIVE (NEGATIVE); GLUCOSE, URINE NEGATIVE (NEGATIVE); KETONES,URINE NEGATIVE (NEGATIVE); LEUKOCYTE ESTERASE ,URINE NEGATIVE (NEGATIVE); NITRITES,URINE NEGATIVE (NEGATIVE); PH,URINE 6.5 (5.0 - 8.0); PROTEIN,URINE NEGATIVE (NEGATIVE); UROBILINOGEN,URINE 1+ (NORMAL)
[2017-03-08 16:19] LABS: CARBON DIOXIDE > 45.0 mmol/L (21-32)
[2017-03-08 16:21] LABS: B-TYPE NATRIURETIC PEPTIDE 994 pg/mL (0-79)
--- NOTE | 2017-03-08 16:32 | RAD ---
HISTORY: Shortness of breath Study: Portable chest Comparison: 03/04/2017 Findings: The heart is mildly enlarged and less prominent. The pulmonary vessels are engorged centrally and sli ghtly less prominent . There is hazy opacity along the left lung base which is more prominent. There is mild blunting of the costophrenic sulci which is more apparent. IMPRESSION: Mild cardiomegaly with slowly resolving pulmonary edema. Left basilar infiltrate and/or atelectasis which is more prominent . Small bibasilar pleural effusions which are more apparent. Reported By:
[2017-03-08 16:38] LABS: APPEARANCE,URINE CLEAR (CLEAR); BACTERIA,URINE NEGATIVE /HPF (NEGATIVE); COLOR,URINE YELLOW (YELLOW); RBC,URINE NONE SEEN /HPF (NEGATIVE); SQUAMOUS EPITHELIAL CELL,UR RARE /HPF (NEGATIVE)
[2017-03-08] MEDS ORDERED: LASIX IVP ONE ×2 (16:40→16:47)
[2017-03-08] MEDS ORDERED: SOLU-Medrol 125 MG VIAL IVP ONE (17:00)
[2017-03-08 17:25] VITALS: BMI 24.7
[2017-03-08] MEDS: DUONEB 0.5 MG/3 MG NEB SCH ×2 (18:04→20:19)
[2017-03-08] MEDS: PULMICORT NEB TX 0.5 MG NEB SCH (20:20)
[2017-03-08 21:08] LABS: ABG HCO3 > 60.0 mmol/L (22-26)
[2017-03-08 21:09] LABS: ABG ALLEN TEST POS; FRACTIONATED INSPIRED OXYGEN 35
[2017-03-08] MEDS: LASIX IVP SCH (22:05)
[2017-03-08] MEDS: SOLU-Medrol 40 MG VIAL IVP SCH (22:05)
[2017-03-08] MEDS: ZANTAC PO SCH (22:07)
[2017-03-08] MEDS: K-DUR TAB 20 MEQ PO SCH (22:07)
[2017-03-08] MEDS: ZEBETA TAB 5 MG PO SCH (22:07)
[2017-03-08] MEDS: DILANTIN CAP 100 MG EXT REL PO SCH (22:07)
[2017-03-08] MEDS: VALIUM PO SCH (22:07)
[2017-03-08] MEDS: COUMADIN TAB 5 MG PO SCH (22:08)
[2017-03-08] MEDS: NS 1000 ML 1,000 ML IV SCH (22:08)
[2017-03-08 22:29] LABS: CKMB % 2.6 % (<4); CREATINE KINASE 39 Units/L (39-308); CREATINE KINASE MB < 1.0 ng/mL (0-4.0); TROPONIN I < 0.02 ng/mL (0-1.5)
[2017-03-09] MEDS: DUONEB 0.5 MG/3 MG NEB SCH ×6 (01:07→20:04)
[2017-03-09] MEDS: ZOSYN VIAL 3.375 GM 3.375 GM in NS 100 ML IV + SPIKE MINIBAG* 100 ML IV SCH ×5 (03:18→20:47)
[2017-03-09 05:57] LABS: ALANINE AMINOTRANSFERASE 13 Units/L (12-78); ALBUMIN 2.6 g/dL (3.4-5.0); ALKALINE PHOSPHATASE 69 Units/L (46-116); ASPARTATE AMINO TRANSFERASE 11 Units/L (15-37); BLOOD UREA NITROGEN 12 mg/dL (7-18); CALCIUM 8.4 mg/dL (8.5-10.1); CHLORIDE 93 mmol/L (98-107); COR CA(FOR HYPOALB) 9.5 mg/dL (8.5-10.1); CREATINE KINASE MB < 1.0 ng/mL (0-4.0); CREATININE 0.54 mg/dL (0.70-1.30); MAGNESIUM 1.4 mg/dL (1.7-2.9); TOTAL PROTEIN 5.9 g/dL (6.4-8.2); TROPONIN I < 0.02 ng/mL (0-1.5); eGFR BLACK RACES > 60 (>60); eGFR NON BLACK RACES > 60 (>60)
[2017-03-09 06:02] LABS: BASOPHILS # (AUTO) 0.1 X10^3/uL (0.0-0.1); EOSINOPHILS # (AUTO) 0.1 x10^3/uL (0.0-0.2); EOSINOPHILS % (AUTO) 1.6 % (0.9-2.9); HEMATOCRIT 29.9 % (42.0-54.0); HEMOGLOBIN 10.1 g/dL (13.5-18.0); LYMPHOCYTES # (AUTO) 0.8 X10^3/uL (1.3-2.9); LYMPHOCYTES % (AUTO) 10.4 % (21.0-51.0); MEAN CORPUSCULAR HEMOGLOBIN 30.3 pg (27.0-34.0); MEAN CORPUSCULAR HGB CONC 33.7 g/dL (33.0-35.0); MEAN CORPUSCULAR VOLUME 89.9 fL (80.0-100.0); MEAN PLATELET VOLUME 8.1 fL (7.4-11.0); MONOCYTES # (AUTO) 0.8 x10^3/uL (0.3-0.8); MONOCYTES % (AUTO) 11.2 % (0.0-13.0); NEUTROPHILS # (AUTO) 5.5 x10^3/uL (2.2-4.8); NEUTROPHILS % (AUTO) 75.8 % (42.0-75.0); PLATELET COUNT 216 X10^3/uL (150.0-450.0); RED BLOOD COUNT 3.33 X10^6/uL (4.7-6.0); RED CELL DISTRIBUTION WIDTH 13.4 % (11.6-16.5); WHITE BLOOD COUNT 7.3 X10^3/uL (3.6-10.0)
[2017-03-09] MEDS: SOLU-Medrol 40 MG VIAL IVP SCH ×3 (06:13→22:05)
[2017-03-09 06:42] LABS: CARBON DIOXIDE > 45.0 mmol/L (21-32)
[2017-03-09 06:58] LABS: CREATINE KINASE 12 Units/L (39-308)
[2017-03-09 07:02] LABS: SODIUM 135 mmol/L (136-145)
[2017-03-09 07:04] LABS: CKMB % 8.3 % (<4)
[2017-03-09] MEDS: PULMICORT NEB TX 0.5 MG NEB SCH ×2 (08:30→20:05)
[2017-03-09] MEDS: NS 1000 ML 1,000 ML IV SCH ×2 (09:25→12:09)
[2017-03-09] MEDS: LASIX IVP SCH ×2 (09:26→20:47)
[2017-03-09] MEDS: DILANTIN CAP 100 MG EXT REL PO SCH ×4 (09:28→20:45)
[2017-03-09] MEDS: K-DUR TAB 20 MEQ PO SCH ×2 (09:28→20:45)
[2017-03-09] MEDS: ZEBETA TAB 5 MG PO SCH ×2 (09:29→20:46)
[2017-03-09] MEDS: VALIUM PO SCH ×4 (09:29→20:43)
[2017-03-09] MEDS: ZANTAC PO SCH ×2 (09:29→20:43)
[2017-03-09] MEDS: ZESTRIL TAB 40 MG PO SCH (09:30)
[2017-03-09] MEDS: PriLOSEC PO SCH (09:30)
[2017-03-09] MEDS: ROXICODONE TAB 15 MG PO PRN ×4 (09:45→22:06)
[2017-03-09] MEDS: COUMADIN TAB 5 MG PO SCH (20:44)
[2017-03-10] MEDS: ZOSYN VIAL 3.375 GM 3.375 GM in NS 100 ML IV + SPIKE MINIBAG* 100 ML IV SCH ×4 (03:09→21:45)
[2017-03-10] MEDS: NS 1000 ML 1,000 ML IV SCH ×3 (03:09→17:09)
[2017-03-10 04:20] LABS: ABG BASE EXCESS 20.7 mmol/L (-2.0-2.0)
[2017-03-10 04:21] LABS: ABG ALLEN TEST POS; ABG HCO3 49.1 mmol/L (22-26); FRACTIONATED INSPIRED OXYGEN 32
[2017-03-10] MEDS: SOLU-Medrol 40 MG VIAL IVP SCH ×3 (05:55→21:46)
[2017-03-10 06:24] LABS: BASOPHILS % (AUTO) 0.7 % (0.2-1.0); EOSINOPHILS # (AUTO) 0.1 x10^3/uL (0.0-0.2); EOSINOPHILS % (AUTO) 1.5 % (0.9-2.9); HEMATOCRIT 29.3 % (42.0-54.0); HEMOGLOBIN 9.8 g/dL (13.5-18.0); LYMPHOCYTES # (AUTO) 1.1 X10^3/uL (1.3-2.9); LYMPHOCYTES % (AUTO) 15.6 % (21.0-51.0); MEAN CORPUSCULAR HEMOGLOBIN 29.6 pg (27.0-34.0); MEAN CORPUSCULAR HGB CONC 33.3 g/dL (33.0-35.0); MEAN CORPUSCULAR VOLUME 89.1 fL (80.0-100.0); MONOCYTES # (AUTO) 0.9 x10^3/uL (0.3-0.8); NEUTROPHILS # (AUTO) 5.1 x10^3/uL (2.2-4.8); NEUTROPHILS % (AUTO) 70.2 % (42.0-75.0); PLATELET COUNT 215 X10^3/uL (150.0-450.0); RED BLOOD COUNT 3.29 X10^6/uL (4.7-6.0); RED CELL DISTRIBUTION WIDTH 13.5 % (11.6-16.5); WHITE BLOOD COUNT 7.2 X10^3/uL (3.6-10.0)
[2017-03-10 06:35] LABS: ALANINE AMINOTRANSFERASE 15 Units/L (12-78); ALBUMIN 2.5 g/dL (3.4-5.0); ALKALINE PHOSPHATASE 74 Units/L (46-116); ASPARTATE AMINO TRANSFERASE 13 Units/L (15-37); BLOOD UREA NITROGEN 14 mg/dL (7-18); CALCIUM 8.2 mg/dL (8.5-10.1); CHLORIDE 93 mmol/L (98-107); COR CA(FOR HYPOALB) 9.4 mg/dL (8.5-10.1); CREATININE 0.69 mg/dL (0.70-1.30); SODIUM 132 mmol/L (136-145); TOTAL PROTEIN 5.7 g/dL (6.4-8.2); eGFR BLACK RACES > 60 (>60); eGFR NON BLACK RACES > 60 (>60)
[2017-03-10 07:06] LABS: B-TYPE NATRIURETIC PEPTIDE 192 pg/mL (0-79)
--- NOTE | 2017-03-10 07:12 | RAD ---
HISTORY: Shortness of breath Study: Single-view chest Comparison: 03/08/2017 Findings: The trachea is midline. The cardiac silhouette is unremarkable. Chronic interstitial lung changes a re observed with persistent airspace passive left base. Improved changes of CHF are noted. The bony thorax is unremarkable. IMPRESSION: Improved changes of CHF with persistent left lower lobe airspace opacity which underlying bronchopneu monia cannot be excluded. Reported By:
[2017-03-10 07:22] LABS: CARBON DIOXIDE 38.7 mmol/L (21-32)
[2017-03-10] MEDS: DUONEB 0.5 MG/3 MG NEB SCH ×4 (08:27→21:28)
[2017-03-10] MEDS: PULMICORT NEB TX 0.5 MG NEB SCH ×2 (08:27→21:28)
[2017-03-10] MEDS: DILANTIN CAP 100 MG EXT REL PO SCH ×4 (08:39→21:45)
[2017-03-10] MEDS: VALIUM PO SCH ×4 (08:39→21:46)
[2017-03-10] MEDS: K-DUR TAB 20 MEQ PO SCH ×2 (08:39→21:46)
[2017-03-10] MEDS: ZANTAC PO SCH ×2 (08:39→21:46)
[2017-03-10] MEDS: LASIX IVP SCH ×2 (08:39→21:46)
[2017-03-10] MEDS: PriLOSEC PO SCH (08:40)
[2017-03-10] MEDS: ZESTRIL TAB 40 MG PO SCH (08:40)
[2017-03-10] MEDS: ZEBETA TAB 5 MG PO SCH ×2 (08:40→21:46)
[2017-03-10] MEDS: ROXICODONE TAB 15 MG PO PRN ×4 (08:49→21:47)
--- NOTE | 2017-03-10 19:04 | DR.UPDATE ---
H&P Update History and Physical Update: 'S H&P WAS COMPLETED WITH HIS LAST ADMISSION ON 02/27/17. HE REPORTED TODAY WITH THE SAME COMPLAINTS. PATIENT REPORTED THAT HIS HOME HEALTH COMPANY WAS ORDERED TO BRING A HOME CPAP/BIPAP MACHINE, BUT NEVER BROUGHT IT. HE REPORTS THAT SHORTNESS OF BREATH IMPROVED AFTER LAST DISCHARGE, BUT HAVE INCREASINGLY GOTTEN WORSE THE PAST TWO DAYS. HE RETURNED TO ED. ON RETURN TO ED , BLOOD GAS REPORTED PH 7.370, PC02 97, P02 56, HC03 56.1, O2 SATURATION 88, BASE EXCESS 25.2. ABNORMAL LAB VALUES WERE RBC 3.73, HGB 11.0, HCT 33.7, INR 2.30, PTT 53.0, CHLORIDE 95, CARBON DIOXIDE >45.0, CREATININE 0.53, BNP 994, TOTAL PROTEIN 6.3, ALBUMIN 2.8, CRP 123.80. CARDIAC PROFILES WNL. CHEST XRAY REPORTED MILD CARDIOMEGALY WITH SLOWLY RESOLVING PULMONARY EDEMA, LEFT BISILAR INFILTRATE AND/OR ATELECTASIS WHICH IS MORE PROMINENT, SMALL BIBASILAR PLEURAL EFFUSIONS WHICH ARE MORE APPARENT. BRAIN CT NEGATIVE FOR ACUTE INTRACRANIAL ABNORMALITY. PATIENT WAS ADMITTED FOR FURTHER TREATMENT AND EVALUATION AND STARTED ON DUONEBS QID, PULMICORT NEBS BID, LASIX 40MG IV BID, SOLU-MEDROL 40MG IV Q8H, AND NS AT 70ML/HR AND PLACED ON BIPAP. WE PLAN TO FOLLOW UP WITH AM LABS AND CONTINUE TO MONITOR PATIENT. Changes noted: NO Yes with the following:
[2017-03-10] MEDS: COUMADIN TAB 5 MG PO SCH (21:45)
[2017-03-11] MEDS: ZOSYN VIAL 3.375 GM 3.375 GM in NS 100 ML IV + SPIKE MINIBAG* 100 ML IV SCH ×4 (02:52→21:24)
--- NOTE | 2017-03-11 06:12 | RAD ---
HISTORY: Shortness of breath Study: Chest AP portable Comparison: 03/10/2017 Findings: The heart is within normal limits in size. The diana are normal. The lungs are well inflated. The righ t lung and left upper lung gentile are clear with the exception of subsegmental atelectasis in the rig ht lung base. There is infiltrate and likely also subsegmental atelectasis in the left lung base unch anged from the prior examination. The bony thorax is unremarkable. IMPRESSION: Infiltrate and subsegmental atelectasis left lung base, unchanged Subsegmental atelectasis right lung base, unchanged By:
[2017-03-11] MEDS: NS 1000 ML 1,000 ML IV SCH ×2 (06:26→21:24)
[2017-03-11] MEDS: SOLU-Medrol 40 MG VIAL IVP SCH ×3 (06:26→21:25)
[2017-03-11 06:53] LABS: ALANINE AMINOTRANSFERASE 15 Units/L (12-78); ALBUMIN 2.7 g/dL (3.4-5.0); ALKALINE PHOSPHATASE 70 Units/L (46-116); ASPARTATE AMINO TRANSFERASE 12 Units/L (15-37); BLOOD UREA NITROGEN 14 mg/dL (7-18); CALCIUM 8.2 mg/dL (8.5-10.1); CARBON DIOXIDE 37.6 mmol/L (21-32); CHLORIDE 93 mmol/L (98-107); COR CA(FOR HYPOALB) 9.2 mg/dL (8.5-10.1); CREATININE 0.71 mg/dL (0.70-1.30); SODIUM 133 mmol/L (136-145); TOTAL PROTEIN 5.9 g/dL (6.4-8.2); eGFR BLACK RACES > 60 (>60); eGFR NON BLACK RACES > 60 (>60)
[2017-03-11 06:55] LABS: BASOPHILS # (AUTO) 0.1 X10^3/uL (0.0-0.1); BASOPHILS % (AUTO) 0.9 % (0.2-1.0); EOSINOPHILS # (AUTO) 0.1 x10^3/uL (0.0-0.2); HEMATOCRIT 30.3 % (42.0-54.0); LYMPHOCYTES % (AUTO) 13.7 % (21.0-51.0); MEAN CORPUSCULAR HEMOGLOBIN 29.5 pg (27.0-34.0); MEAN CORPUSCULAR HGB CONC 32.9 g/dL (33.0-35.0); MEAN CORPUSCULAR VOLUME 89.4 fL (80.0-100.0); MEAN PLATELET VOLUME 7.9 fL (7.4-11.0); MONOCYTES # (AUTO) 0.8 x10^3/uL (0.3-0.8); MONOCYTES % (AUTO) 10.2 % (0.0-13.0); NEUTROPHILS # (AUTO) 5.5 x10^3/uL (2.2-4.8); NEUTROPHILS % (AUTO) 74.2 % (42.0-75.0); PLATELET COUNT 228 X10^3/uL (150.0-450.0); RED BLOOD COUNT 3.38 X10^6/uL (4.7-6.0); RED CELL DISTRIBUTION WIDTH 13.7 % (11.6-16.5); WHITE BLOOD COUNT 7.4 X10^3/uL (3.6-10.0)
[2017-03-11 08:33] LABS: ABG BASE EXCESS 12.3 mmol/L (-2.0-2.0)
[2017-03-11 08:34] LABS: ABG ALLEN TEST POS; ABG HCO3 40.7 mmol/L (22-26)
[2017-03-11 08:35] LABS: B-TYPE NATRIURETIC PEPTIDE 195 pg/mL (0-79)
[2017-03-11] MEDS: LASIX IVP SCH ×2 (09:03→21:24)
[2017-03-11] MEDS: ZESTRIL TAB 40 MG PO SCH (09:03)
[2017-03-11] MEDS: ZEBETA TAB 5 MG PO SCH ×2 (09:03→21:25)
[2017-03-11] MEDS: DILANTIN CAP 100 MG EXT REL PO SCH ×4 (09:04→21:24)
[2017-03-11] MEDS: K-DUR TAB 20 MEQ PO SCH ×2 (09:04→21:24)
[2017-03-11] MEDS: VALIUM PO SCH ×4 (09:04→21:24)
[2017-03-11] MEDS: PriLOSEC PO SCH (09:04)
[2017-03-11] MEDS: ZANTAC PO SCH ×2 (09:04→21:25)
[2017-03-11] MEDS: ROXICODONE TAB 15 MG PO PRN ×3 (09:09→21:25)
[2017-03-11] MEDS: DUONEB 0.5 MG/3 MG NEB SCH ×4 (09:51→20:45)
[2017-03-11] MEDS: PULMICORT NEB TX 0.5 MG NEB SCH ×2 (09:51→20:45)
[2017-03-11] MEDS: COUMADIN TAB 5 MG PO SCH (21:24)
[2017-03-12] MEDS: ZOSYN VIAL 3.375 GM 3.375 GM in NS 100 ML IV + SPIKE MINIBAG* 100 ML IV SCH ×2 (02:15→08:34)
[2017-03-12 05:46] LABS: ALANINE AMINOTRANSFERASE 17 Units/L (12-78); ALKALINE PHOSPHATASE 80 Units/L (46-116); ASPARTATE AMINO TRANSFERASE 12 Units/L (15-37); BLOOD UREA NITROGEN 18 mg/dL (7-18); CALCIUM 8.5 mg/dL (8.5-10.1); CARBON DIOXIDE 37.7 mmol/L (21-32); CHLORIDE 94 mmol/L (98-107); COR CA(FOR HYPOALB) 9.3 mg/dL (8.5-10.1); CREATININE 0.82 mg/dL (0.70-1.30); SODIUM 133 mmol/L (136-145); TOTAL PROTEIN 6.2 g/dL (6.4-8.2); eGFR BLACK RACES > 60 (>60); eGFR NON BLACK RACES > 60 (>60)
[2017-03-12 05:54] LABS: BASOPHILS % (AUTO) 0.4 % (0.2-1.0); EOSINOPHILS % (AUTO) 0.4 % (0.9-2.9); HEMATOCRIT 30.6 % (42.0-54.0); HEMOGLOBIN 10.2 g/dL (13.5-18.0); LYMPHOCYTES # (AUTO) 0.8 X10^3/uL (1.3-2.9); LYMPHOCYTES % (AUTO) 10.4 % (21.0-51.0); MEAN CORPUSCULAR HEMOGLOBIN 30.1 pg (27.0-34.0); MEAN CORPUSCULAR HGB CONC 33.4 g/dL (33.0-35.0); MEAN CORPUSCULAR VOLUME 90.2 fL (80.0-100.0); MEAN PLATELET VOLUME 7.6 fL (7.4-11.0); MONOCYTES # (AUTO) 0.8 x10^3/uL (0.3-0.8); MONOCYTES % (AUTO) 9.3 % (0.0-13.0); NEUTROPHILS # (AUTO) 6.5 x10^3/uL (2.2-4.8); NEUTROPHILS % (AUTO) 79.5 % (42.0-75.0); PLATELET COUNT 267 X10^3/uL (150.0-450.0); RED BLOOD COUNT 3.39 X10^6/uL (4.7-6.0); RED CELL DISTRIBUTION WIDTH 13.5 % (11.6-16.5); WHITE BLOOD COUNT 8.1 X10^3/uL (3.6-10.0)
[2017-03-12 06:03] LABS: ABG BASE EXCESS 12.7 mmol/L (-2.0-2.0)
[2017-03-12 06:04] LABS: ABG ALLEN TEST POS; ABG HCO3 41.2 mmol/L (22-26)
[2017-03-12 06:21] LABS: B-TYPE NATRIURETIC PEPTIDE 224 pg/mL (0-79)
[2017-03-12] MEDS: ZESTRIL TAB 40 MG PO SCH (08:34)
[2017-03-12] MEDS: ZANTAC PO SCH (08:34)
[2017-03-12] MEDS: DILANTIN CAP 100 MG EXT REL PO SCH (08:34)
[2017-03-12] MEDS: PriLOSEC PO SCH (08:34)
[2017-03-12] MEDS: K-DUR TAB 20 MEQ PO SCH (08:35)
[2017-03-12] MEDS: ROXICODONE TAB 15 MG PO PRN (08:35)
[2017-03-12] MEDS: ZEBETA TAB 5 MG PO SCH (08:35)
[2017-03-12] MEDS: VALIUM PO SCH (08:35)
[2017-03-12] MEDS: LASIX IVP SCH (08:36)
--- NOTE | 2017-03-12 08:47 | RAD ---
HISTORY: Shortness of breath Study: Single-view of the chest Comparison: 03/11/2017 Findings: The patient is rotated. The cardiac silhouette is enlarged. Subsegmental atelectasis and/or scarrin g are again seen within both lungs. The previously noted left lower lobe infiltrate appears to have s lightly improved. Recommend clinical correlation and continued follow-up is indicated for further katie luation.. IMPRESSION: Cardiomegaly. Bibasilar subsegmental atelectasis with persistent left lower lobe infiltrate which may have slightly improved. Correlate clinically. Reported By:
[2017-03-12] MEDS: DUONEB 0.5 MG/3 MG NEB SCH ×2 (10:03→12:08)
[2017-03-12] MEDS: PULMICORT NEB TX 0.5 MG NEB SCH (10:03)
[2017-03-12 14:43] VITALS: BP 114/71
== END 2017-03-12 14:15 | disposition home or self-care (01) | DRG 884 ==
LOC: ER 15:16 → INTOOBSV 16:54 → OBSVTOIN 16:54 → ICU 16:54
PROVIDERS: ADMIT Internal Medicine; ATTEND Internal Medicine
DX: R40.4 Transient alteration of awareness (principal); R06.02 Shortness of breath; I50.43 Acute on chronic combined systolic (congestive) and diastolic (congestive) heart failure; J20.8 Acute bronchitis due to other specified organisms; R06.89 Other abnormalities of breathing; R79.1 Abnormal coagulation profile; I51.7 Cardiomegaly; J90 Pleural effusion, not elsewhere classified
CPT/HCPCS: 36415; 36600; 70450; 71010; 80053; 80185; 81001; 82550; 82553; 82803; 83605; 83735; 83880; 84484; 85025; 85610; 85652; 85730; 86140; 87040; 93005; 94640; 94660; 96365; 96374; 99284; A4216; A4222; A4618; A7030; J1940; J2543; J2920; J7620; J7626

== ENCOUNTER 2017-04-20 16:07 | Inpatient (IN) | payer OTHER, MEDICAID ==
[~2017-04-20 16:07] MED LIST: MAGNESIUM SULFATE 50% INJ ONE; SOLU-Medrol 125 MG VIAL ONE
[2017-04-20] MEDS ORDERED: DUONEB 0.5 MG/3 MG NEB ONE (16:09)
[2017-04-20] MEDS ORDERED: SOLU-Medrol 125 MG VIAL IVP ONE (16:09)
[2017-04-20] MEDS: NS 1000 ML 1,000 ML IV SCH ×2 (16:16→22:50)
--- NOTE | 2017-04-20 16:18 | DR.GENAD ---
HPI - Complaint/Symptoms Chief Complaint Doctors Comments: Patient with SOB and hypotension as related by EMS with patient's O2sat 88 when they arrived and they were not able to palpate a radial pulse. EMS states they gave patient two Duo Nebs and bolus NS 300ml in route to the emergency room with the patient improving with O2Sat 95 and blood pressure 85/55 range. Patient states he has not eaten since Thanks[place]. EMS states family was complaining that patient was not eating or drinking and they have been trying to get the patient to come to the emergency room for the past two days but he has refused until tonight. Patient denies chest pain presently but states he has been SOB for years with a cold and cough for weeks. Patient state she has been trying to cut back on smoking but denies alcohol usage. Patient state he was recently hospitalized with the same problems. - Nurses notes reviewed Nurses Notes Review: Yes - Source History Provided: Patient, EMS - Mode of Arrival Mode of Arrival: EMS - Timing Onset of Chief Complaint: 04/20/17 Came on: Gradually - Duration Duration: Constant How lon Duration: Days - Location Location: SOB - Severity Severity: Moderate, Severe - Modifying Factors Worsens:: nothing Improves:: nothing PMH - PMH Past Medical History: Anxiety, Arthritis, COPD, GERD, Hypertension, PUD, Seizures Past Surgical History: Yes Surgical History: Bowel Resection - Family History Family Medical History: Cancer, MD, Coronary Artery Disease, Hypertension - Social History Do you use any recreational Drugs:: No ROS - Review of Systems Constitutional: No Symptoms Reported, Fever, Loss of Appetite Eyes: No Symptoms Reported. negative: See HPI, Eye Pain, Blurred Vision, Tearing, Discharge, Photophobia, Diplopia, Other ENTM: No Symptoms Reported, Nose Congestion. negative: See HPI, Ear Pain, Ear Discharge, Pulling on Ears, Hearing Loss, Nose Pain, Nose Discharge, Epistaxis, Mouth Pain, Mouth Swelling, Loose Teeth, Drooling, Throat Pain, Throat Swelling , Ear Foreign Body Respiratoy: No Symptoms Reported, Non-Productive Cough, Short of Breath, Wheezing. negative: See HPI, Productive Cough, Moist Cough, Dry Cough, Hacking Cough, Barking Cough, Brassy Cough, Orthopnea, Stridor, Hemoptysis, Other Cardiovascular: No Symptoms Reported, Chest Pain. negative: See HPI, Edema, Palpitations, Syncope, Cyanosis, Skin Mottling, Other Gastrointestinal/Abdominal: No Symptoms Reported. negative: See HPI, Abdominal Pain, Constipation, Diarrhea, Nausea, Vomiting, Food Intolerance, Other Genitourinary: No Symptoms Reported. negative: See HPI, Discharge, Dysuria, Frequency, Hematuria, Pain, Bleeding, Other Neurological: No Symptoms Reported Musculoskeletal: No Symptoms Reported Integumentary: No Symptoms Reported Hematologic/Lymphatic: No Symptoms Reported Psychiatric: No Symptoms Reported PE - Vital Signs Vitals: Temperature 98.2 F Pulse Rate [Apical] 93 Pulse Rate 86 Respiratory Rate 20 Blood Pressure [Left Arm] 99/56 Blood Pressure [Right Arm] 155/92 Blood Pressure 87/52 O2 Sat by Pulse Oximetry 89 - General Limitations: No Limitations General Appearance: Alert, In No Apparent Distress, In Distress (moderate) - Head Head Exam: Normal Inspection, Atraumatic, Normocephalic - Eyes Eye exam: Normal Appearance, PERRL, EOMI. negative: Scleral Icterus, Conjunctival Injection, Nystagmus, Miosis, Mydrasis, Periorbital Swelling, Periorbital Tenderness, Other - ENT ENT Exam: Normal Exam, Normal Oropharynx, Normal External Ear Exam, Mucous Membranes Moist, TM's Normal Bilaterally External Ear Exam: Normal External Inspection TM/Canal Exam: Bilateral Normal Nose Exam: Normal Nose Exam Mouth Exam: Normal Inspection. negative: Drooling, Trismus, Lip Swelling, Tongue Elevation, Tongue Swelling, Laceration, Other Throat Exam: Normal Inspection - Neck Neck Exam: Normal Inspection, Full ROM, Trachea Midline. negative: Tenderness, Meningismus, Lymphadenopathy, Thyromegaly, Other - Chest Chest Inspection: Normal Inspection, Symmetric Chest Wall Rise - Respiratory Respiratory Exam: Normal Lung Sounds Bilat Respiratory Exam: Bilateral Clear to Auscultation - Cardiovascular Cardiovascular Exam: Regular Rate, Normal Rhythm - Abdominal Exam Abdominal Exam: Normal Inspection, Normal Bowel Sounds, Soft Abdominal Tenderness: negative: RUQ, RLQ, LUQ, LLQ, Epigastrium, Suprapubic, Diffuse, Mild, Moderate, Severe, Other - Extremities Extremities Exam: Normal Inspection, Full ROM, Tenderness, Normal Capillary Refill - Back Back Exam: Normal Inspection, Full ROM. negative: Tenderness, (R) CVA Tenderness, (L) CVA Tenderness, Muscle Spasm, Paraspinal Tenderness, Vertebral Tenderness, Rashes, (R) Sciatic Notch Tenderness, (L) Sciatic Notch Tendern, (R ) Straight Leg Raise, (L) Straight Leg Raise, Other - Neurologic Neurological Exam: Alert, Oriented X3, CN II-XII Intact, Reflexes Normal. negative: Normal Gait (gait not tested) - Psychiatric Psychiatric Exam: Normal Affect, Normal Mood - Skin Skin Exam: Warm, Dry, Intact, Normal Color Course - Consultation Called: 20:46 Call Returned: 20:46 (Dr. Mcintyre to admit) - Education/Counseling Education/Counseling: Patient, Family Educated On: Treatment, Diagnosis ROR - Labs Reviewed Laboratory Results Reviewed?: Yes Result Diagrams: 04/20/17 16:15 04/20/17 16:15 Laboratory: WBC 10.1 X10^3/uL (3.6-10.0) H 04/20/17 16:15 RBC 3.86 X10^6/uL (4.7-6.0) L 04/20/17 16:15 Hgb 11.4 g/dL (13.5-18.0) L 04/20/17 16:15 Hct 34.6 % (42.0-54.0) L 04/20/17 16:15 MCV 89.5 fL (80.0-100.0) 04/20/17 16:15 MCH 29.5 pg (27.0-34.0) 04/20/17 16:15 MCHC 32.9 g/dL (33.0-35.0) L 04/20/17 16:15 RDW 14.1 % (11.6-16.5) 04/20/17 16:15 Plt Count 196 X10^3/uL (150.0-450.0) 04/20/17 16:15 MPV 7.6 fL (7.4-11.0) 04/20/17 16:15 Neut % 81.2 % (42.0-75.0) H 04/20/17 16:15 Lymph % 6.8 % (21.0-51.0) L 04/20/17 16:15 [place] % 11.4 % (0.0-13.0) 04/20/17 16:15 Eos % 0.3 % (0.9-2.9) L 04/20/17 16:15 Baso % 0.3 % (0.2-1.0) 04/20/17 16:15 Neut # 8.2 x10^3/uL (2.2-4.8) H 04/20/17 16:15 Lymph # 0.7 X10^3/uL (1.3-2.9) L 04/20/17 16:15 [place] # 1.2 x10^3/uL (0.3-0.8) H 04/20/17 16:15 Eos # 0.0 x10^3/uL (0.0-0.2) 04/20/17 16:15 Baso # 0.0 X10^3/uL (0.0-0.1) 04/20/17 16:15 Absolute Nucleated RBC 0.0 /100WBC 04/20/17 16:15 INR Target Range - 04/20/17 16:15 INR 3.06 (0.8-1.3) H 04/20/17 16:15 PTT 59.6 SECONDS (22.9-36.5) H 04/20/17 16:15 PTT Comment - 04/20/17 16:15 Sodium 129 mmol/L (136-145) L 04/20/17 16:15 Corrected Sodium 130 mmol/L (136-145) L 04/20/17 16:15 Potassium 4.9 mmol/L (3.5-5.1) 04/20/17 16:15 Chloride 93 mmol/L (98-107) L 04/20/17 16:15 Carbon Dioxide 30.9 mmol/L (21-32) 04/20/17 16:15 BUN 39 mg/dL (7-18) H 04/20/17 16:15 Creatinine 1.83 mg/dL (0.70-1.30) H 04/20/17 16:15 Est GFR (MDRD) Af Amer 49 (>60) L 04/20/17 16:15 Est GFR (MDRD) Non-Af 41 (>60) L 04/20/17 16:15 Glucose 147 mg/dL (65-99) H 04/20/17 16:15 Calcium 8.3 mg/dL (8.5-10.1) L 04/20/17 16:15 Corrected Calcium 9.0 mg/dL (8.5-10.1) 04/20/17 16:15 Magnesium 2.5 mg/dL (1.7-2.9) 04/20/17 16:15 Total Bilirubin 0.20 mg/dL (0.2-1.0) 04/20/17 16:15 AST 7 Units/L (15-37) L 04/20/17 16:15 ALT 12 Units/L (12-78) 04/20/17 16:15 Alkaline Phosphatase 116 Units/L (46-116) 04/20/17 16:15 Creatine Kinase 20 Units/L (39-308) L 04/20/17 16:15 CK-MB (CK-2) 2.7 ng/mL (0-4.0) 04/20/17 16:15 CK/CKMB % Calc 13.5 % (<4) 04/20/17 16:15 Troponin I 0.14 ng/mL (0-1.5) 04/20/17 16:15 Total Protein 5.8 g/dL (6.4-8.2) L 04/20/17 16:15 Albumin 3.1 g/dL (3.4-5.0) L 04/20/17 16:15 Globulin 2.7 g/dL (2.5-4.5) 04/20/17 16:15 Albumin/Globulin Ratio 1.1 Ratio (1.1-2.1) 04/20/17 16:15 - XRAY XRAY Interpreted by: Radiologist (CXR: consistent with CHF) - EKG Rate: 95 [place]: Normal Rhythm: NSR Block: RBBB ST: Lat, Nonsp - Diagnosis Discharge Problem: Acute respiratory failure with hypoxemia, Congestive heart failure (CHF), COPD exacerbation, Hyponatremia, Chronic kidney disease (CKD) - Discharge Plan Disposition: ADMITTED INPATIENT Condition: Stable - Follow ups/Referrals Follow ups/Referrals: Lee Chew [Primary Care Provider] - 3 days - Instructions
[2017-04-20 16:22] LABS: BASOPHILS % (AUTO) 0.3 % (0.2-1.0); EOSINOPHILS % (AUTO) 0.3 % (0.9-2.9); HEMATOCRIT 34.6 % (42.0-54.0); HEMOGLOBIN 11.4 g/dL (13.5-18.0); LYMPHOCYTES # (AUTO) 0.7 X10^3/uL (1.3-2.9); LYMPHOCYTES % (AUTO) 6.8 % (21.0-51.0); MEAN CORPUSCULAR HEMOGLOBIN 29.5 pg (27.0-34.0); MEAN CORPUSCULAR HGB CONC 32.9 g/dL (33.0-35.0); MEAN CORPUSCULAR VOLUME 89.5 fL (80.0-100.0); MEAN PLATELET VOLUME 7.6 fL (7.4-11.0); MONOCYTES # (AUTO) 1.2 x10^3/uL (0.3-0.8); MONOCYTES % (AUTO) 11.4 % (0.0-13.0); NEUTROPHILS # (AUTO) 8.2 x10^3/uL (2.2-4.8); NEUTROPHILS % (AUTO) 81.2 % (42.0-75.0); PLATELET COUNT 196 X10^3/uL (150.0-450.0); RED BLOOD COUNT 3.86 X10^6/uL (4.7-6.0); RED CELL DISTRIBUTION WIDTH 14.1 % (11.6-16.5); WHITE BLOOD COUNT 10.1 X10^3/uL (3.6-10.0)
--- NOTE | 2017-04-20 16:27 | RAD ---
Examination: Portable chest History: SOB Comparison reference 03/12/2017 Findings: The heart is borderline enlarged, unchanged. The pulmonary vessels are distended and indist inct, with a diffuse bilateral interstitial pulmonary prominence. No airspace consolidation, large pl eural effusion or pneumothorax is seen. Impression: Findings consistent with CHF. Reported By:
[2017-04-20 16:39] LABS: CALCIUM 8.3 mg/dL (8.5-10.1); CARBON DIOXIDE 30.9 mmol/L (21-32); CREATININE 1.83 mg/dL (0.70-1.30); TROPONIN I 0.14 ng/mL (0-1.5)
[2017-04-20 16:43] LABS: ALBUMIN 3.1 g/dL (3.4-5.0); CKMB % 13.5 % (<4); CREATINE KINASE MB 2.7 ng/mL (0-4.0); MAGNESIUM 2.5 mg/dL (1.7-2.9); TOTAL PROTEIN 5.8 g/dL (6.4-8.2)
[2017-04-20] MEDS ORDERED: DUONEB 0.5 MG/3 MG ONE ×2 (17:20→21:14)
[2017-04-20] MEDS ORDERED: LOVENOX INJ 40 MG SYR SC SCH (21:00)
[2017-04-20 21:10] LABS: BASOPHILS % (AUTO) 0.3 % (0.2-1.0); EOSINOPHILS % (AUTO) 0.1 % (0.9-2.9); HEMOGLOBIN 11.8 g/dL (13.5-18.0); LYMPHOCYTES # (AUTO) 0.4 X10^3/uL (1.3-2.9); LYMPHOCYTES % (AUTO) 3.2 % (21.0-51.0); MEAN CORPUSCULAR HEMOGLOBIN 29.1 pg (27.0-34.0); MEAN CORPUSCULAR HGB CONC 32.8 g/dL (33.0-35.0); MEAN CORPUSCULAR VOLUME 88.9 fL (80.0-100.0); MONOCYTES # (AUTO) 0.4 x10^3/uL (0.3-0.8); MONOCYTES % (AUTO) 3.3 % (0.0-13.0); NEUTROPHILS # (AUTO) 11.3 x10^3/uL (2.2-4.8); NEUTROPHILS % (AUTO) 93.1 % (42.0-75.0); PLATELET COUNT 187 X10^3/uL (150.0-450.0); RED BLOOD COUNT 4.05 X10^6/uL (4.7-6.0); RED CELL DISTRIBUTION WIDTH 14.1 % (11.6-16.5); WHITE BLOOD COUNT 12.1 X10^3/uL (3.6-10.0)
[2017-04-20 21:25] LABS: BAND NEUTROPHILS % 8 % (0-10); PLATELET MORPHOLOGY COMMENT NORMAL (NORMAL)
[2017-04-20] MEDS: DUONEB 0.5 MG/3 MG NEB SCH (21:30)
[2017-04-20 22:46] VITALS: BMI 26.6
[2017-04-20] MEDS ORDERED: ROCEPHIN VIAL 1 GM ONE (23:45)
[2017-04-20] MEDS ORDERED: D5W 100 ML IV 100 ML IV ONE (23:46)
[2017-04-21] MEDS ORDERED: SOLU-Medrol 40 MG VIAL IVP SCH
[2017-04-21] MEDS: ROCEPHIN VIAL 1 GM 1 GM in NS 50 ML IV + SPIKE MINIBAG* 50 ML IV SCH ×2 (00:04→20:25)
[2017-04-21] MEDS: DUONEB 0.5 MG/3 MG NEB SCH ×6 (00:58→20:19)
[2017-04-21] MEDS ORDERED: OXYCODONE HCL 20 MG PO PRN (01:50)
[2017-04-21] MEDS ORDERED: DIAZEPAM PO PRN (01:50)
[2017-04-21] MEDS: THEO-DUR TAB 200 MG PO SCH ×2 (02:40→16:08)
[2017-04-21] MEDS: NS 1000 ML 1,000 ML IV SCH ×2 (02:41→20:23)
[2017-04-21] MEDS: DILANTIN CAP 100 MG EXT REL PO SCH ×3 (02:41→20:24)
[2017-04-21] MEDS: SOLU-Medrol 40 MG VIAL IVP SCH ×3 (06:17→21:37)
[2017-04-21 06:29] LABS: CALCIUM 8.2 mg/dL (8.5-10.1); CREATININE 1.83 mg/dL (0.70-1.30)
[2017-04-21 06:54] LABS: THEOPHYLLINE < 2.0 ug/mL (10-20)
[2017-04-21] MEDS ORDERED: COUMADIN TAB 5 MG PO SCH (09:00)
[2017-04-21 09:04] LABS: BASOPHILS % (AUTO) 0.3 % (0.2-1.0); HEMATOCRIT 34.8 % (42.0-54.0); HEMOGLOBIN 11.4 g/dL (13.5-18.0); LYMPHOCYTES # (AUTO) 0.3 X10^3/uL (1.3-2.9); LYMPHOCYTES % (AUTO) 4.3 % (21.0-51.0); MEAN CORPUSCULAR HEMOGLOBIN 29.1 pg (27.0-34.0); MEAN CORPUSCULAR HGB CONC 32.7 g/dL (33.0-35.0); MONOCYTES # (AUTO) 0.1 x10^3/uL (0.3-0.8); MONOCYTES % (AUTO) 1.7 % (0.0-13.0); NEUTROPHILS % (AUTO) 93.7 % (42.0-75.0); PLATELET COUNT 175 X10^3/uL (150.0-450.0); RED BLOOD COUNT 3.91 X10^6/uL (4.7-6.0); WHITE BLOOD COUNT 7.4 X10^3/uL (3.6-10.0)
[2017-04-21 09:19] LABS: CALCIUM 8.1 mg/dL (8.5-10.1); CARBON DIOXIDE 31.6 mmol/L (21-32); COR CA(FOR HYPOALB) 8.9 mg/dL (8.5-10.1); CREATININE 1.73 mg/dL (0.70-1.30); TOTAL PROTEIN 6.1 g/dL (6.4-8.2)
[2017-04-21 09:25] LABS: PLATELET MORPHOLOGY COMMENT NORMAL (NORMAL)
[2017-04-21] MEDS: ROXICODONE TAB 5 MG PO PRN ×3 (09:50→21:36)
[2017-04-21] MEDS: VALIUM PO PRN ×2 (09:51→20:43)
[2017-04-21] MEDS: PriLOSEC PO SCH (09:52)
[2017-04-21] MEDS: LASIX PO SCH ×2 (09:52→20:25)
[2017-04-21] MEDS: ZEBETA TAB 5 MG PO SCH ×2 (09:52→20:24)
[2017-04-21] MEDS: ZANTAC PO SCH ×2 (09:52→20:25)
[2017-04-21] MEDS: PREDNISONE TAB 10 MG PO SCH ×2 (09:52→20:24)
[2017-04-21] MEDS: ZESTRIL TAB 40 MG PO SCH (09:53)
[2017-04-21] MEDS ORDERED: ROCEPHIN VIAL 1 GM ONE (19:57)
[2017-04-21] MEDS ORDERED: NS 100 ML IV 100 ML IV ONE (19:57)
[2017-04-21] MEDS: FLOMAX PO SCH (20:24)
[2017-04-21] MEDS: COUMADIN TAB 5 MG PO SCH (20:24)
[2017-04-21] MEDS ORDERED: NICOTINE PATCH TD ONE (21:02)
[2017-04-21 21:34] LABS: CKMB % 13.8 % (<4); CREATINE KINASE MB 2.2 ng/mL (0-4.0); TROPONIN I 0.2 ng/mL (0-1.5)
[2017-04-21] MEDS: NICOTINE PATCH TD SCH (21:36)
[2017-04-22] MEDS: DUONEB 0.5 MG/3 MG NEB SCH ×6 (00:51→21:03)
[2017-04-22] MEDS: THEO-DUR TAB 200 MG PO SCH ×2 (01:27→15:32)
[2017-04-22] MEDS: SOLU-Medrol 40 MG VIAL IVP SCH ×3 (05:29→21:40)
[2017-04-22 06:01] LABS: BASOPHILS % (AUTO) 0.3 % (0.2-1.0); HEMATOCRIT 33.6 % (42.0-54.0); HEMOGLOBIN 11.3 g/dL (13.5-18.0); LYMPHOCYTES # (AUTO) 0.5 X10^3/uL (1.3-2.9); LYMPHOCYTES % (AUTO) 5.7 % (21.0-51.0); MEAN CORPUSCULAR HEMOGLOBIN 29.6 pg (27.0-34.0); MEAN CORPUSCULAR HGB CONC 33.7 g/dL (33.0-35.0); MEAN CORPUSCULAR VOLUME 87.8 fL (80.0-100.0); MEAN PLATELET VOLUME 8.4 fL (7.4-11.0); MONOCYTES # (AUTO) 0.4 x10^3/uL (0.3-0.8); MONOCYTES % (AUTO) 4.6 % (0.0-13.0); NEUTROPHILS # (AUTO) 8.5 x10^3/uL (2.2-4.8); NEUTROPHILS % (AUTO) 89.4 % (42.0-75.0); PLATELET COUNT 186 X10^3/uL (150.0-450.0); RED BLOOD COUNT 3.83 X10^6/uL (4.7-6.0); RED CELL DISTRIBUTION WIDTH 13.9 % (11.6-16.5); WHITE BLOOD COUNT 9.6 X10^3/uL (3.6-10.0)
[2017-04-22 06:58] LABS: ALANINE AMINOTRANSFERASE 9 Units/L (12-78); ALBUMIN 3.1 g/dL (3.4-5.0); ALKALINE PHOSPHATASE 108 Units/L (46-116); ASPARTATE AMINO TRANSFERASE 8 Units/L (15-37); BLOOD UREA NITROGEN 41 mg/dL (7-18); CALCIUM 8.3 mg/dL (8.5-10.1); CHLORIDE 93 mmol/L (98-107); COR NA(FOR HYPERGLY) 130 mmol/L (136-145); CREATININE 1.34 mg/dL (0.70-1.30); SODIUM 129 mmol/L (136-145); TOTAL PROTEIN 6.1 g/dL (6.4-8.2); eGFR BLACK RACES > 60 (>60); eGFR NON BLACK RACES 59 (>60)
[2017-04-22 07:10] LABS: CKMB % 12.4 % (<4); CREATINE KINASE MB 2.1 ng/mL (0-4.0); TROPONIN I 0.14 ng/mL (0-1.5)
--- NOTE | 2017-04-22 07:32 | RAD ---
Examination: Portable AP chest History: SOB Comparison reference 04/20/2017 Findings: Decrease in cardiomegaly, heart size now upper normal. Interval decrease in bilateral inter stitial prominence and pulmonary vascular congestion. There is residual distention of central vessels . Minimal atelectasis left lower lobe. Impression: Slight interval improvement in cardiac enlargement and CHF. Reported By:
[2017-04-22] MEDS: DILANTIN CAP 100 MG EXT REL PO SCH ×2 (09:46→20:50)
[2017-04-22] MEDS: ZEBETA TAB 5 MG PO SCH ×2 (09:46→20:49)
[2017-04-22] MEDS: PriLOSEC PO SCH (09:46)
[2017-04-22] MEDS: LASIX PO SCH ×2 (09:46→20:50)
[2017-04-22] MEDS: ZESTRIL TAB 40 MG PO SCH (09:46)
[2017-04-22] MEDS: PREDNISONE TAB 10 MG PO SCH ×2 (09:47→20:50)
[2017-04-22] MEDS: ZANTAC PO SCH ×2 (09:47→20:49)
[2017-04-22] MEDS: ROXICODONE TAB 15 MG PO PRN ×3 (09:56→21:40)
[2017-04-22] MEDS: NICOTINE PATCH TD SCH (09:57)
[2017-04-22] MEDS: VALIUM PO PRN ×2 (10:03→21:40)
[2017-04-22 10:25] LABS: ABG BASE EXCESS 7.8 mmol/L (-2.0-2.0)
[2017-04-22 10:26] LABS: ABG ALLEN TEST POS; ABG HCO3 34.5 mmol/L (22-26)
--- NOTE | 2017-04-22 10:30 | PCM.PROG ---
Progress Note - Progress Note for Day of Date: 04/22/17 - Subjective Subjective: WAS ADMITTED FOR HYPOXEMIA, ACUTE ON CHRONIC RESPIRATORY FAILURE, CONGESTIVE HEART FAILURE, AND COPD EXACERBATION. TODAY, HE IS ALERT AND ORIENTED, SITTING UP IN BED ON MORNING ROUNDS. PATIENTS MOTHER IS AT BEDSIDE. HE CONTINUES WITH COMPLAINTS OF SHORNTESS OF BREATH, BUT DOES NOT APPEAR TO BE IN RESPIRATORY DISTRESS THIS MORNING. ON EXAMINATION, HE IS NOTED WITH DIFFUSE, DIMINISHED LUNG SOUNDS. ABDOMEN IS ROUND, SOFT, AND NON-TENDER WITH NORMAL BOWEL SOUNDS NOTED IN ALL QUADRANTS. HE IS CURRENTLY UTILIZING OXYGEN VIA NASAL CANNULA AT 2L/MIN. HE IS ALSO NOTED ON THE EVALUATION ANALYST WITH HR IN THE 80S. STAFF REPORTS THAT PATIENT HAD A RUN OF VENTRICULAR TRIGEMINY THROUGHOUT THE NIGHT. AN EKG WAS OBTAINED AND CONFIRMED RHYTHM. HIS VITAL SIGNS THIS MORNING ARE 97.8-86-15-94%-114/65. ABNORMAL LAB VALUES INCLUDE THE FOLLOWING: RBC 3.83, HGB 11.3, HCT 33.6, INR 1.54, SODIUM 129, CHLORIDE 93, BUN 41, CREATININE 1.34, GLUCOSE 154, CALCIUM 8.3, TOTAL BILI 0.10, AST 8, ALT 9 , TOTAL PROTEIN 6.1, ALBUMIN 3.1, CREATINE KINASE 17. A CHEST XRAY WAS OBTAINED TODAY AND REPORTED SLIGHT INTERVAL IMROVEMENT IN CARDIAC ENLARGEMENT AND CHF. PATIENT IS CURRENTLY ON LASIX 40MG PO BID FOR DIURESING. HE IS ALSO CURRENTLY ON SOLU-MEDROL 80MG IV Q8H. WE PLAN TO OBTAIN A ABG TODAY. OTHERWISE, WE WILL CONTINUE WITH CURRENT PLAN OF CARE. WE PLAN TO FOLLOW UP WITH AM LABS AND CHEST XRAY AND CONTINUE TO MONITOR PATIENT. - Past Medical Family Social History Past Med/Fam/Surg Hx: No changes since H&P Allergies: Allergies No Known Drug Allergies Allergy (Verified 02/27/17 17:11) - Review of Systems ROS: No change since H&P - Vital Signs and I&O's Vital Signs: Temperature 97.8 F Pulse Rate [Radial] 93 Pulse Rate [Apical] 86 Pulse Rate 93 Respiratory Rate 15 Blood Pressure [Left Arm] 114/65 Blood Pressure [Right Arm] 155/92 Blood Pressure 87/52 O2 Sat by Pulse Oximetry 92 Intake and Output: Intake & Output 04/19/17 04/20/17 04/21/17 04/22/17 11:59 11:59 11:59 11:59 Intake Total 677 3519 Output Total 450 3400 Balance 227 119 - Physical Exam Oriented: Normal Eyes: Normal. negative: Blurred Vision, Diplopia, Discharge, Pain, Redness, Photophobia, Other Ear: Normal. negative: Right, Left, Swelling, Ecchymosis, Hemotypanum, Abrasion , Laceration Nose: Normal. negative: Injected, Discharge, Blood, Other Throat: Normal. negative: Tonsillar Hypertrophy, Red, Exudate, Dry, Other Respiratory: Right, Left, Generalized, Diminished Cardiovascular: Normal. negative: Tachycardia, Bradycardia, Irregular, S3, S4, Systolic, Diastolic, Murmur, Edema, Other : Normal. negative: Dysuria, Hematuria, Frequency, Discharge, Testicular Pain , Bleeding, , Other Auscultation: Bowel Sounds: Normal. negative: Bruit, Absent, Increased, Decreased, High Pitched, Other Palpation: Normal Tenderness: Normal. negative: Rebound, Guarding, Rigidity Skin: Normal Musculoskeletal: Back:Lumbar (CHRONIC LOWER BACK PAIN ) Psychiatric: Normal Mood Description: Calm Affect: Normal Speech Pattern: Clear, Appropriate - Laboratory and Diagnostics Result Diagrams: 04/22/17 05:25 04/22/17 05:25 Labs: Laboratory WBC 9.6 X10^3/uL (3.6-10.0) 04/22/17 05:25 RBC 3.83 X10^6/uL (4.7-6.0) L 04/22/17 05:25 Hgb 11.3 g/dL (13.5-18.0) L 04/22/17 05:25 Hct 33.6 % (42.0-54.0) L 04/22/17 05:25 MCV 87.8 fL (80.0-100.0) 04/22/17 05:25 MCH 29.6 pg (27.0-34.0) 04/22/17 05:25 MCHC 33.7 g/dL (33.0-35.0) 04/22/17 05:25 RDW 13.9 % (11.6-16.5) 04/22/17 05:25 Plt Count 186 X10^3/uL (150.0-450.0) 04/22/17 05:25 Plt Count Comment Adequate (ADEQUATE) 04/21/17 08:50 MPV 8.4 fL (7.4-11.0) 04/22/17 05:25 Neut % 89.4 % (42.0-75.0) H 04/22/17 05:25 Lymph % 5.7 % (21.0-51.0) L 04/22/17 05:25 [place] % 4.6 % (0.0-13.0) 04/22/17 05:25 Eos % 0.0 % (0.9-2.9) L 04/22/17 05:25 Baso % 0.3 % (0.2-1.0) 04/22/17 05:25 Neut # 8.5 x10^3/uL (2.2-4.8) H 04/22/17 05:25 Lymph # 0.5 X10^3/uL (1.3-2.9) L 04/22/17 05:25 [place] # 0.4 x10^3/uL (0.3-0.8) 04/22/17 05:25 Eos # 0.0 x10^3/uL (0.0-0.2) 04/22/17 05:25 Baso # 0.0 X10^3/uL (0.0-0.1) 04/22/17 05:25 Absolute Nucleated RBC 0.0 /100WBC 04/22/17 05:25 Total Counted 100 04/21/17 08:50 Neutrophils % (Manual) 93 % (39-76) H 04/21/17 08:50 Band Neutrophils % 8 % (0-10) 04/20/17 21:02 Lymphocytes % (Manual) 7 % (13-43) L 04/21/17 08:50 Monocytes % (Manual) 2 % (4-9) L 04/20/17 21:02 Plt Morphology Comment Normal (NORMAL) 04/21/17 08:50 RBC Morphology Normal (NORMAL) 04/21/17 08:50 INR Target Range - 04/22/17 05:25 INR 1.54 (0.8-1.3) H 04/22/17 05:25 PTT 59.6 SECONDS (22.9-36.5) H 04/20/17 16:15 PTT Comment - 04/20/17 16:15 Sample Site Right radial 04/22/17 10:00 ABG pH 7.390 (7.35-7.45) 04/22/17 10:00 ABG pCO2 57.0 mmHg (35.0-45.0) H* 04/22/17 10:00 ABG pO2 51.0 mmHg (80.0-100.0) L 04/22/17 10:00 ABG HCO3 34.5 mmol/L (22-26) H* 04/22/17 10:00 ABG O2 Saturation 85.0 % (90-100) L 04/22/17 10:00 ABG Base Excess 7.8 mmol/L (-2.0-2.0) H 04/22/17 10:00 [place] Test Pos 04/22/17 10:00 A-a Gradient 27.0 mmHg 04/22/17 10:00 FiO2 21.000 04/22/17 10:00 Blood Gas Comments Aris well aw 04/22/17 10:00 Sodium 129 mmol/L (136-145) L 04/22/17 05:25 Corrected Sodium 130 mmol/L (136-145) L 04/22/17 05:25 Potassium 5.1 mmol/L (3.5-5.1) 04/22/17 05:25 Chloride 93 mmol/L (98-107) L 04/22/17 05:25 Carbon Dioxide 30.0 mmol/L (21-32) 04/22/17 05:25 BUN 41 mg/dL (7-18) H 04/22/17 05:25 Creatinine 1.34 mg/dL (0.70-1.30) H 04/22/17 05:25 Est GFR (MDRD) Af Amer > 60 (>60) 04/22/17 05:25 Est GFR (MDRD) Non-Af 59 (>60) 04/22/17 05:25 Glucose 154 mg/dL (65-99) H 04/22/17 05:25 Calcium 8.3 mg/dL (8.5-10.1) L 04/22/17 05:25 Corrected Calcium 9.0 mg/dL (8.5-10.1) 04/22/17 05:25 Magnesium 2.5 mg/dL (1.7-2.9) 04/20/17 16:15 Total Bilirubin 0.10 mg/dL (0.2-1.0) L 04/22/17 05:25 AST 8 Units/L (15-37) L 04/22/17 05:25 ALT 9 Units/L (12-78) L 04/22/17 05:25 Alkaline Phosphatase 108 Units/L (46-116) 04/22/17 05:25 Creatine Kinase 17 Units/L (39-308) L 04/22/17 05:25 CK-MB (CK-2) 2.1 ng/mL (0-4.0) 04/22/17 05:25 CK/CKMB % Calc 12.4 % (<4) 04/22/17 05:25 Troponin I 0.14 ng/mL (0-1.5) 04/22/17 05:25 Total Protein 6.1 g/dL (6.4-8.2) L 04/22/17 05:25 Albumin 3.1 g/dL (3.4-5.0) L 04/22/17 05:25 Globulin 3.0 g/dL (2.5-4.5) 04/22/17 05:25 Albumin/Globulin Ratio 1.0 Ratio (1.1-2.1) L 04/22/17 05:25 Phenytoin 7.5 ug/mL (10-20) L 04/21/17 04:33 Theophylline < 2.0 ug/mL (10-20) L 04/21/17 04:33 - Plan (1) Acute respiratory failure with hypoxemia Status: Acute Plan: CONTINUE RESPIRATORY TX, CONTINUE SUPPLEMENTAL OXYGEN, CONTINUE SOLU- MEDROL, CONTINUE ADDISON-DUR CONTINUE TO MONITOR (2) CHF (congestive heart failure) Status: Acute Qualifiers: Congestive heart failure type: systolic Congestive heart failure chronicity : acute on chronic Qualified Code(s): I50.23 - Acute on chronic systolic ( congestive) heart failure Plan: CONTINUE RESPIRATORY TX, CONTINUE SUPPLEMENTAL OXYGEN, CONTINUE LASIX, CONTINUE ZESTRIL, CONTINUE TO MONITOR (3) COPD exacerbation Status: Acute Plan: CONTINUE RESPIRATORY TX, CONTINUE SUPPLEMENTAL OXYGEN, CONTINUE SOLU- MEDROL, CONTINUE ADDISON-DUR, CONTINUE TO MONITOR (4) Bronchitis Status: Acute Plan: CONTINUE ROCEPHIN 1GM IV DAILY, CONTINUE TO MONITOR (5) Chronic kidney disease (CKD) Status: Chronic Qualifiers: Chronic kidney disease stage: unspecified stage Qualified Code(s): N18.9 - Chronic kidney disease, unspecified Plan: CONTINUE FLOMAX, CONTINUE TO MONITOR (6) GERD (gastroesophageal reflux disease) Status: Chronic Qualifiers: Esophagitis presence: esophagitis presence not specified Plan: CONTINUE ZANTAC, CONTINUE PRILOSEC, CONTINUE TO MONITOR (7) Generalized anxiety disorder Status: Chronic Plan: CONTINUE VALIUM, CONTINUE TO MONITOR (8) Hypertension Status: Chronic Qualifiers: Hypertension type: essential hypertension Plan: CONTINUE ZEBETA, CONTINUE ZESTRIL, CONTINUE TO MONITOR (9) Peripheral vascular disease Status: Chronic Plan: CONTINUE COUMADIN, CONTINUE TO MONITOR (10) Seizure disorder Status: Chronic Plan: CONTINUE DILANTIN, CONTINUE TO MONITOR
[2017-04-22] MEDS: ROCEPHIN VIAL 1 GM 1 GM in D5W 50 ML IV 50 ML IV SCH (20:50)
[2017-04-22] MEDS: FLOMAX PO SCH (20:50)
[2017-04-22] MEDS: COUMADIN TAB 5 MG PO SCH (20:50)
[2017-04-22] MEDS: NS 1000 ML 1,000 ML IV SCH (21:45)
[2017-04-23] MEDS: DUONEB 0.5 MG/3 MG NEB SCH ×3 (00:46→08:44)
[2017-04-23] MEDS: VALIUM PO PRN ×2 (02:15→09:28)
[2017-04-23] MEDS: THEO-DUR TAB 200 MG PO SCH ×2 (02:15→13:39)
[2017-04-23] MEDS: ROXICODONE TAB 15 MG PO PRN ×2 (02:50→09:28)
[2017-04-23] MEDS: NS 1000 ML 1,000 ML IV SCH ×2 (04:16→11:13)
[2017-04-23] MEDS: SOLU-Medrol 40 MG VIAL IVP SCH ×2 (05:34→13:40)
[2017-04-23 05:54] LABS: ALANINE AMINOTRANSFERASE 14 Units/L (12-78); ALBUMIN 2.9 g/dL (3.4-5.0); ALKALINE PHOSPHATASE 98 Units/L (46-116); ASPARTATE AMINO TRANSFERASE 9 Units/L (15-37); BLOOD UREA NITROGEN 31 mg/dL (7-18); CALCIUM 8.4 mg/dL (8.5-10.1); CARBON DIOXIDE 34.4 mmol/L (21-32); CHLORIDE 94 mmol/L (98-107); COR CA(FOR HYPOALB) 9.3 mg/dL (8.5-10.1); COR NA(FOR HYPERGLY) 130 mmol/L (136-145); CREATININE 1.11 mg/dL (0.70-1.30); SODIUM 130 mmol/L (136-145); TOTAL PROTEIN 5.8 g/dL (6.4-8.2); eGFR BLACK RACES > 60 (>60); eGFR NON BLACK RACES > 60 (>60)
[2017-04-23 05:59] LABS: BASOPHILS % (AUTO) 0.1 % (0.2-1.0); HEMATOCRIT 33.2 % (42.0-54.0); LYMPHOCYTES # (AUTO) 0.5 X10^3/uL (1.3-2.9); LYMPHOCYTES % (AUTO) 6.5 % (21.0-51.0); MEAN CORPUSCULAR HEMOGLOBIN 29.1 pg (27.0-34.0); MEAN CORPUSCULAR HGB CONC 33.3 g/dL (33.0-35.0); MEAN CORPUSCULAR VOLUME 87.5 fL (80.0-100.0); MEAN PLATELET VOLUME 8.2 fL (7.4-11.0); MONOCYTES # (AUTO) 0.6 x10^3/uL (0.3-0.8); MONOCYTES % (AUTO) 7.5 % (0.0-13.0); NEUTROPHILS # (AUTO) 6.6 x10^3/uL (2.2-4.8); NEUTROPHILS % (AUTO) 85.9 % (42.0-75.0); PLATELET COUNT 221 X10^3/uL (150.0-450.0); RED BLOOD COUNT 3.79 X10^6/uL (4.7-6.0); RED CELL DISTRIBUTION WIDTH 14.2 % (11.6-16.5); WHITE BLOOD COUNT 7.7 X10^3/uL (3.6-10.0)
--- NOTE | 2017-04-23 07:20 | RAD ---
HISTORY: Shortness of breath. Prior history of hypertension, COPD and CHF. Study: Single-view chest, done portably. Comparison: 04/22/2017 Findings: Trachea is midline. Heart size is upper normal with further continued improvement in reduction in pul monary vascular congestion and signs of CHF. Linear foci of subsegmental atelectasis have developed i n the lung bases. No dense consolidation, pleural fluid or pneumothorax is seen. Osseous structures a re intact. IMPRESSION: Further improvement in signs of CHF. Interval development of linear foci of atelectasis in the lung bases. Reported By:
[2017-04-23] MEDS: DILANTIN CAP 100 MG EXT REL PO SCH (08:36)
[2017-04-23] MEDS: PREDNISONE TAB 10 MG PO SCH (08:36)
[2017-04-23] MEDS: LASIX PO SCH (08:36)
[2017-04-23] MEDS: ZEBETA TAB 5 MG PO SCH (08:36)
[2017-04-23] MEDS: PriLOSEC PO SCH (08:36)
[2017-04-23] MEDS: ZESTRIL TAB 40 MG PO SCH (08:36)
[2017-04-23] MEDS: ZANTAC PO SCH (08:37)
[2017-04-23] MEDS: NICOTINE PATCH TD SCH (08:42)
[2017-04-23] MEDS: ROCEPHIN VIAL 1 GM 1 GM in D5W 50 ML IV 50 ML IV SCH (09:08)
[2017-04-23 13:25] VITALS: BP 103/74
== END 2017-04-23 14:10 | disposition home or self-care (01) | DRG 189 ==
LOC: ER 16:10 → OBSVTOIN 20:47 → ICU 20:47
PROVIDERS: ADMIT Internal Medicine; ATTEND Internal Medicine
DX: J96.01 Acute respiratory failure with hypoxia (principal); I50.23 Acute on chronic systolic (congestive) heart failure; J44.1 Chronic obstructive pulmonary disease with (acute) exacerbation; R06.02 Shortness of breath; I95.89 Other hypotension; E87.1 Hypo-osmolality and hyponatremia; N18.9 Chronic kidney disease, unspecified; R94.31 Abnormal electrocardiogram [ECG] [EKG]; J20.8 Acute bronchitis due to other specified organisms; I10 Essential (primary) hypertension; M13.89 Other specified arthritis, multiple sites; K21.9 Gastro-esophageal reflux disease without esophagitis; I73.89 Other specified peripheral vascular diseases; G40.802 Other epilepsy, not intractable, without status epilepticus; Z66 Do not resuscitate; R79.1 Abnormal coagulation profile
CPT/HCPCS: 36415; 36600; 71010; 80048; 80053; 80185; 80198; 82550; 82553; 82803; 83735; 84484; 85025; 85610; 85730; 93005; 94640; 96365; 96367; 96374; 96375; 99284; A4216; A4222; J0696; J2920; J2930; J3475; J7506; J7620

== ENCOUNTER 2017-12-28 11:20 | Inpatient (IN) ==
[2017-12-28] MEDS ORDERED: SOLU-Medrol 125 MG VIAL IVP ONE (11:32)
[2017-12-28] MEDS ORDERED: DUONEB 0.5 MG/3 MG NEB ONE (11:32)
--- NOTE | 2017-12-28 11:36 | DR.SOBA ---
HPI - Time Seen Time seen: 11:32 - Primary Care Physician Primary Care Physician: DR. RUBIO - Complaints Chief Complaint Doctors Comments: Patient is complaining of SOB and wheezing. EMS state they were called to an unresponsive patient but breathing. States when they got there he was wheezing with SOB and O2 sat of 85 on his home oxygen. EMS gave him a DuoNeb treatment in route and increased his oxygen. States patient is more alert presently than he was at home. Patient denies chest pain, cold, cough, fever or chills. Patient denies tobacco or alcohol use. No family member with patient. Patient denies nausea, vomiting or abdominal pain. Chief Complaint:: EMS OUT TO PT WITH C/O UNRESPONSIVE TO BREATHING PT'S FAMILY STATES HE HAS BEEN GOING DOWN , UPON ARRIVAL PT SATS WERE IN 80'S AND HE WAS WHEEZING AND PT GIVEN DUO NEB AND PTS SATS WERE > , PT HAS EXP RHONCHI AND PT IS CONFUSED TIMES 2. Self Treatment fo Chief Complaint: NONE - Reviewed Nurses Notes Reviewed: Yes - Source History Provided: Patient, EMS - Mode of Arrival Mode of Arrival: EMS - Timing Onset of Chief Complaint: 12/27/17 - Duration Duration: Unknown - Context Onset:: At Rest PE Risk Factors:: Immobilization History of:: Asthma, COPD Currently on:: Inhaled Bronchodilators Prehospital Care:: O2, Inhaled B2 - Modifying Factors Worsens:: Nothing Improves:: Inhaler - Associated Signs and Symptoms Associated Signs and Symptoms: Wheeze - If Chest Pain Quality: denies: Sharp, Stabbing, Squeezing, Pressure like, Heavy, Crushing, Burning, Aching, Pleuritic, Other Location: denies: Right Upper Chest, Right Lower Chest, Left Upper Chest, Left Lower Chest, Substernal, Chest Wall - If Cough Cough: None PMH - PMH Past Medical History: Yes Past Medical History: Anxiety, Arthritis, COPD, GERD, Hypertension, PUD, Seizures Past Surgical History: Yes Surgical History: Bowel Resection, Other - Family History History of Family Medical Conditions: Yes Family Medical History: Cancer, [place], Coronary Artery Disease, Hypertension - Social History Does patient currently use any type of tobacco product: Yes Have you used tobacco products in the last 12 months: Yes Type of Tobacco Use: Cigarettes Does any household member use tobacco: No Alcohol Use: None Do you use any recreational Drugs:: No Lives With: Family Lives Where: Home - infectious screening In the last 2 months have you had wt loss of >10#?: NO Have you had fever, night sweats or hemotysis?: No Have you traveled outside the country in the last 6 months?: No Isolation: Standard ROS - Review of Systems Constitutional: No Symptoms Reported Eyes: No Symptoms Reported ENTM: No Symptoms Reported Respiratoy: No Symptoms Reported, Short of Breath, Wheezing Cardiovascular: No Symptoms Reported. negative: See HPI, Chest Pain, Edema, Palpitations, Syncope, Cyanosis, Skin Mottling, Other Gastrointestinal/Abdominal: No Symptoms Reported Genitourinary: No Symptoms Reported. negative: See HPI, Discharge, Dysuria, Frequency, Hematuria, Pain, Bleeding, Other Neurological: No Symptoms Reported Musculoskeletal: No Symptoms Reported Integumentary: No Symptoms Reported Hematologic/Lymphatic: No Symptoms Reported Endocrine: No Symptoms Reported Psychiatric: No Symptoms Reported. negative: See HPI, Anxiety, Depression, Hallucinations, Excessive crying, Suicidal, Other PE - General Limitations: Physical Limitation General Appearance: Alert, In Distress (moderate), Obese - Head Head Exam: Normal Inspection, Atraumatic, Normocephalic - Eyes Eye exam: Normal Appearance, PERRL, EOMI. negative: Scleral Icterus, Conjunctival Injection, Nystagmus, Miosis, Mydrasis, Periorbital Swelling, Periorbital Tenderness, Other - ENT ENT Exam: Normal Exam, Normal Oropharynx, Normal External Ear Exam, Mucous Membranes Moist, TM's Normal Bilaterally - Neck Neck Exam: Normal Inspection, Full ROM, Trachea Midline - Chest Chest Inspection: Normal Inspection, Symmetric Chest Wall Rise - Respiratory Respiratory Exam: Prolonged Expiratory Phase Respiratory Exam: Bilateral Wheezing, Bilateral Decreased Breath Sounds, Right Rales - Cardiovascular Cardiovascular Exam: Regular Rate, Normal Rhythm, Normal Heart Sounds - Abdominal Exam Abdominal Exam: Normal Inspection, Normal Bowel Sounds, Soft Abdominal Tenderness: negative: RUQ, RLQ, LUQ, LLQ, Epigastrium, Suprapubic, Diffuse, Mild, Moderate, Severe, Other - Extremities Extremities Exam: Normal Inspection, Full ROM, Normal Capillary Refill. negative: Tenderness, Edema, Joint Swelling, Calf Tenderness, Other - Back Back Exam: Normal Inspection, Full ROM - Neurologic Neurological Exam: Alert, Oriented X3, CN II-XII Intact, Reflexes Normal. negative: Normal Gait (gait not tested) - Psychiatric Psychiatric Exam: Normal Affect, Normal Mood - Skin Skin Exam: Warm, Dry, Intact, Normal Color - Vital Signs Vitals: Temperature 97.2 F Pulse Rate [Left Brachial] 81 Pulse Rate 82 Respiratory Rate 20 Blood Pressure [Left Arm] 105/80 Blood Pressure [Right Arm] 103/74 Blood Pressure 126/75 O2 Sat by Pulse Oximetry 93 Course - Reevaluation 1st: Improved - Consultation Called: 13:12 Call Returned: 13:12 (Dr. Mcintyre to admit) - Education/Counseling Education/Counseling: Patient, Family Educated On: Treatment, Diagnosis, Needs for Follow Up ROR - Labs Reviewed Laboratory Results Reviewed?: Yes (All labs and x-ray results reviewed and discussed with patient and family) Result Diagrams: 12/28/17 11:35 12/28/17 11:35 - XRAY XRAY Interpreted by: Radiologist (CXR: Interval increase in heart size with development of right perihilar infiltrate may represent pneumonia.) - EKG Rate: 81 [place]: Normal Rhythm: NSR Block: None Hypertrophy: RVH ST: Nonsp - Labs Reviewed Laboratory: WBC 11.0 X10^3/uL (3.6-10.0) H 12/28/17 11:35 RBC 3.96 X10^6/uL (4.7-6.0) L 12/28/17 11:35 Hgb 12.3 g/dL (13.5-18.0) L 12/28/17 11:35 Hct 37.0 % (42.0-54.0) L 12/28/17 11:35 MCV 93.3 fL (80.0-100.0) 12/28/17 11:35 MCH 31.0 pg (27.0-34.0) 12/28/17 11:35 MCHC 33.3 g/dL (33.0-35.0) 12/28/17 11:35 RDW 13.8 % (11.6-16.5) 12/28/17 11:35 Plt Count 241 X10^3/uL (150.0-450.0) 12/28/17 11:35 MPV 7.9 fL (7.4-11.0) 12/28/17 11:35 Neut % (Auto) 81.8 % (42.0-75.0) H 12/28/17 11:35 Lymph % (Auto) 9.1 % (21.0-51.0) L 12/28/17 11:35 [place] % (Auto) 7.7 % (0.0-13.0) 12/28/17 11:35 Eos % (Auto) 1.0 % (0.9-2.9) 12/28/17 11:35 Baso % (Auto) 0.4 % (0.2-1.0) 12/28/17 11:35 Neut # (Auto) 9.0 x10^3/uL (2.2-4.8) H 12/28/17 11:35 Lymph # (Auto) 1.0 X10^3/uL (1.3-2.9) L 12/28/17 11:35 [place] # (Auto) 0.8 x10^3/uL (0.3-0.8) 12/28/17 11:35 Eos # (Auto) 0.1 x10^3/uL (0.0-0.2) 12/28/17 11:35 Baso # (Auto) 0.0 X10^3/uL (0.0-0.1) 12/28/17 11:35 Absolute Nucleated RBC 0.0 /100WBC 12/28/17 11:35 INR Target Range - 12/28/17 11:35 INR 2.66 (0.8-1.3) H 12/28/17 11:35 APTT 51.2 SECONDS (22.9-36.5) H 12/28/17 11:35 PTT Comment - 12/28/17 11:35 Sodium 131 mmol/L (136-145) L 12/28/17 11:35 Corrected Sodium 131 mmol/L (136-145) L 12/28/17 11:35 Potassium 5.1 mmol/L (3.5-5.1) 12/28/17 11:35 Chloride 94 mmol/L (98-107) L 12/28/17 11:35 Carbon Dioxide 41.4 mmol/L (21-32) H* 12/28/17 11:35 BUN 10 mg/dL (7-18) 12/28/17 11:35 Creatinine 0.59 mg/dL (0.70-1.30) L 12/28/17 11:35 Est GFR (MDRD) Af Amer > 60 (>60) 12/28/17 11:35 Est GFR (MDRD) Non-Af > 60 (>60) 12/28/17 11:35 Glucose 116 mg/dL (65-99) H 12/28/17 11:35 Lactic Acid < 0.3 mmol/L (0.4-2.0) L 12/28/17 12:07 Calcium 8.4 mg/dL (8.5-10.1) L 12/28/17 11:35 Corrected Calcium 9.0 mg/dL (8.5-10.1) 12/28/17 11:35 Magnesium 2.0 mg/dL (1.7-2.9) 12/28/17 11:35 Total Bilirubin 0.30 mg/dL (0.2-1.0) 12/28/17 11:35 AST 10 Units/L (15-37) L 12/28/17 11:35 ALT 16 Units/L (12-78) 12/28/17 11:35 Alkaline Phosphatase 115 Units/L (46-116) 12/28/17 11:35 Creatine Kinase 41 Units/L (39-308) 12/28/17 11:35 CK-MB (CK-2) 2.8 ng/mL (0-4.0) 12/28/17 11:35 CK/CKMB % Calc 6.8 % (<4) 12/28/17 11:35 Troponin I < 0.02 ng/mL (0-1.5) 12/28/17 11:35 B-Natriuretic Peptide 272 pg/mL (0-79) H 12/28/17 11:35 Total Protein 6.6 g/dL (6.4-8.2) 12/28/17 11:35 Albumin 3.3 g/dL (3.4-5.0) L 12/28/17 11:35 Globulin 3.3 g/dL (2.5-4.5) 12/28/17 11:35 Albumin/Globulin Ratio 1.0 Ratio (1.1-2.1) L 12/28/17 11:35 - Diagnosis Discharge Problem: Acute pneumonia, COPD exacerbation, Hypercapnia, Hyponatremia Congestive heart failure (CHF) Qualifiers: Heart failure type: unspecified - Discharge Plan Disposition: 09 ADMITTED INPATIENT Condition: Stable - Follow ups/Referrals Follow ups/Referrals: Lee Rubio [Primary Care Provider] - 3 days - Instructions
[2017-12-28] MEDS ORDERED: SOLU-Medrol 125 MG VIAL ONE (11:42)
[2017-12-28] MEDS ORDERED: DUONEB 0.5 MG/3 MG ONE (11:43)
[2017-12-28 11:46] LABS: BASOPHILS % (AUTO) 0.4 % (0.2-1.0); EOSINOPHILS # (AUTO) 0.1 x10^3/uL (0.0-0.2); HEMOGLOBIN 12.3 g/dL (13.5-18.0); LYMPHOCYTES % (AUTO) 9.1 % (21.0-51.0); MEAN CORPUSCULAR HGB CONC 33.3 g/dL (33.0-35.0); MEAN CORPUSCULAR VOLUME 93.3 fL (80.0-100.0); MEAN PLATELET VOLUME 7.9 fL (7.4-11.0); MONOCYTES # (AUTO) 0.8 x10^3/uL (0.3-0.8); MONOCYTES % (AUTO) 7.7 % (0.0-13.0); NEUTROPHILS % (AUTO) 81.8 % (42.0-75.0); PLATELET COUNT 241 X10^3/uL (150.0-450.0); RED BLOOD COUNT 3.96 X10^6/uL (4.7-6.0); RED CELL DISTRIBUTION WIDTH 13.8 % (11.6-16.5)
--- NOTE | 2017-12-28 11:48 | RAD ---
Examination: AP chest History: SOB Comparison reference 04/23/2017 Findings: The heart is now enlarged. There is a prominent right perihilar infiltrate which was not se en previously. No pneumothorax or large pleural effusion is evident. Impression: Interval increase in heart size with development of a right perihilar infiltrate which ma y represent pneumonia, less likely asymmetric edema. Reported By:
[2017-12-28] MEDS ORDERED: ROCEPHIN VIAL 1 GRAM 1 G in NS 100 ML IV + SPIKE MINIBAG* 100 ML IV ONE (11:57)
[2017-12-28 12:00] LABS: B-TYPE NATRIURETIC PEPTIDE 272 pg/mL (0-79)
[2017-12-28 12:09] LABS: ALANINE AMINOTRANSFERASE 16 Units/L (12-78); ALBUMIN 3.3 g/dL (3.4-5.0); ALKALINE PHOSPHATASE 115 Units/L (46-116); ASPARTATE AMINO TRANSFERASE 10 Units/L (15-37); BLOOD UREA NITROGEN 10 mg/dL (7-18); CALCIUM 8.4 mg/dL (8.5-10.1); CHLORIDE 94 mmol/L (98-107); CKMB % 6.8 % (<4); COR NA(FOR HYPERGLY) 131 mmol/L (136-145); CREATINE KINASE 41 Units/L (39-308); CREATINE KINASE MB 2.8 ng/mL (0-4.0); CREATININE 0.59 mg/dL (0.70-1.30); SODIUM 131 mmol/L (136-145); TOTAL PROTEIN 6.6 g/dL (6.4-8.2); TROPONIN I < 0.02 ng/mL (0-1.5); eGFR NON BLACK RACES > 60 (>60)
[2017-12-28 12:16] LABS: CARBON DIOXIDE 41.4 mmol/L (21-32)
[2017-12-28] MEDS ORDERED: LASIX IVP STA (12:17)
[2017-12-28] MEDS ORDERED: LASIX ONE (12:25)
[2017-12-28] MEDS ORDERED: NS 100 ML IV 100 ML IV ONE (12:25)
[2017-12-28] MEDS ORDERED: ROCEPHIN VIAL 1 GRAM ONE (12:26)
[2017-12-28] MEDS ORDERED: SALINE 3% 15 ML NEB TX ONE (13:58)
[2017-12-28] MEDS ORDERED: SALINE 3% 15 ML NEB TX NEB ONE (14:00)
[2017-12-28] MEDS ORDERED: LEVAQUIN PREMIX IV 500 MG 500 MG/100 ML BAG IV SCH (14:00)
[2017-12-28] MEDS ORDERED: NS 250 ML IV 250 ML IV ONE (14:31)
[2017-12-28 15:00] VITALS: BMI 25.0
[2017-12-28] MEDS: LEVAQUIN PREMIX IV 500 MG 500 MG/100 ML BAG IV SCH (15:11)
[2017-12-28 15:23] LABS: ABG BASE EXCESS 12.6 mmol/L (-2.0-2.0)
[2017-12-28 15:25] LABS: ABG HCO3 42.8 mmol/L (22-26)
[2017-12-28] MEDS: ROXICODONE TAB 15 MG PO PRN (18:56)
[2017-12-29] MEDS: DUONEB 0.5 MG/3 MG NEB SCH ×6 (00:45→20:56)
[2017-12-29] MEDS: ROXICODONE TAB 15 MG PO PRN ×4 (04:10→21:10)
[2017-12-29 04:58] LABS: ABG BASE EXCESS 15.2 mmol/L (-2.0-2.0)
[2017-12-29 05:01] LABS: ABG ALLEN TEST pos; ABG HCO3 43.9 mmol/L (22-26)
[2017-12-29 06:06] LABS: BASOPHILS % (AUTO) 0.3 % (0.2-1.0); EOSINOPHILS # (AUTO) 0.1 x10^3/uL (0.0-0.2); EOSINOPHILS % (AUTO) 1.2 % (0.9-2.9); HEMATOCRIT 33.6 % (42.0-54.0); HEMOGLOBIN 11.4 g/dL (13.5-18.0); LYMPHOCYTES # (AUTO) 1.1 X10^3/uL (1.3-2.9); MEAN CORPUSCULAR HEMOGLOBIN 31.3 pg (27.0-34.0); MEAN PLATELET VOLUME 8.3 fL (7.4-11.0); MONOCYTES # (AUTO) 0.7 x10^3/uL (0.3-0.8); MONOCYTES % (AUTO) 11.4 % (0.0-13.0); NEUTROPHILS # (AUTO) 4.3 x10^3/uL (2.2-4.8); NEUTROPHILS % (AUTO) 69.1 % (42.0-75.0); PLATELET COUNT 196 X10^3/uL (150.0-450.0); RED BLOOD COUNT 3.66 X10^6/uL (4.7-6.0); RED CELL DISTRIBUTION WIDTH 13.6 % (11.6-16.5); WHITE BLOOD COUNT 6.2 X10^3/uL (3.6-10.0)
[2017-12-29 06:20] LABS: ALANINE AMINOTRANSFERASE 11 Units/L (12-78); ALBUMIN 2.9 g/dL (3.4-5.0); ALKALINE PHOSPHATASE 95 Units/L (46-116); ASPARTATE AMINO TRANSFERASE 8 Units/L (15-37); BLOOD UREA NITROGEN 11 mg/dL (7-18); CALCIUM 8.4 mg/dL (8.5-10.1); CARBON DIOXIDE 39.8 mmol/L (21-32); CHLORIDE 94 mmol/L (98-107); COR CA(FOR HYPOALB) 9.3 mg/dL (8.5-10.1); CREATININE 0.66 mg/dL (0.70-1.30); SODIUM 131 mmol/L (136-145); TOTAL PROTEIN 5.9 g/dL (6.4-8.2); eGFR NON BLACK RACES > 60 (>60)
--- NOTE | 2017-12-29 06:43 | RAD ---
Examination: Portable AP chest History: SOB Comparison reference 12/28/2017 Findings: Stable heart size. Essentially clear left lung. Persistent but improved right perihilar inf iltrate. No new abnormality noted. Impression: Interval improvement in right perihilar infiltrative process. The rapid interval change i s more in favor of pulmonary edema rather than pneumonia. Reported By:
[2017-12-29] MEDS: ROCEPHIN VIAL 1 GRAM 1 G in NS 100 ML IV + SPIKE MINIBAG* 100 ML IV SCH (08:04)
[2017-12-29] MEDS: LEVAQUIN PREMIX IV 500 MG 500 MG/100 ML BAG IV SCH (08:40)
--- NOTE | 2017-12-29 08:51 | DR.H&P ---
H&P - History & Physical for Day of: H&P Date: 12/28/17 - Chief Complaint Chief Complaint: SHORT OF BREATH, WHEEZING - History of Present Illness History of Present Illness: IS A 57 YEAR OLD PATIENT OF OURS. HE PRESENTED TO THE EMERGENCY ROOM WITH COMPLAINTS OF SHORTNESS OF BREATH, WHEEZING , AND DROWSINESS. EMS REPORTS THAT ON ARRIVAL TO SCENE, PATIENT WAS UNRESPONSIVE WITH OXYGEN SATURATIONS IN THE 80S ON HOME O2. HE WAS GIVEN A DUONEB ON SCENE AND TRANSPORTED TO THE HOSPITAL. ON ARRIVAL, PATIENT IS ALERT, BUT CONFUSED. ON EXAMINATION, HE IS NOTED WITH EXPIRATORY WHEEZING AND RHONCHI. HE DENIES CHEST PAIN, COUGH, FEVER, OR CHILLS. ON ARRIVAL, VITALS WERE 97.2-82- 22-95%NC-126/75. LABS WERE OBTAINED. ABNORMAL LAB VALUES INCLUDE THE FOLLOWING: WBC 11.0, RBC 3.96, HGB 12.3, HCT 37.0, INR 2.66, SODIUM 131, CHLORIDE 94, CARBON DIOXIDE 41.4, CREATININE 0.59, GLUCOSE 116, CALCIUM 8.4, AST 10, BNP 272 , ALBUMIN 3.3. AN ABG ON ROOM AIR WAS OBTAINED AND REVEALED: PH 7.290, PC02 89.0 , P02 47.0, HC03 42.8, 02 SATURATION 77.0. CHEST XRAY REVEALED: Interval increase in heart size with development of a right perihilar infiltrate which may represent pneumonia, less likely asymmetric edema. EKG REVEALED SINUS RHYTHM WITH HR 81. HE WAS GIVEN LASIX 20MG IV X 1, DUONEB X 1, SOLU-MEDROL 125MG IV X 1, AND ROCPEHIN 1GM IV X1. HE WAS ADMITTED TO THE INTENSIVE CARE UNIT AND PLACED ON THE BIPAP FOR FURTHER EVALUATION AND TREATMENT. WE PLANNED TO FOLLOW UP WITH AM LABS AND CONTINUE TO MONITOR PATIENT. - Past Medical History Past Medical History: Anxiety, Arthritis, COPD, GERD, Hypertension, PUD, Seizures Additional Medical History: HIATAL HERNIA - Past Surgical History Surgical History: Bowel Resection, Other Additional Surgical History: 7 STOMACH SURGERIES, 2 STOMAS, COLOSTOMY IN THE PAST - Family History Family Medical History: Cancer, [place], Hypertension - Social History Does patient currently use any type of tobacco product: Yes Have you used tobacco products in the last 12 months: Yes Type of Tobacco Use: Cigarettes How many years tobacco product used: 42 Does any household member use tobacco: Yes Alcohol Use: None Drug Use: None - Medications Home Medications: No Known Drug Allergies Allergy (Verified 12/28/17 11:21) CONTINUE taking the following medications levalbuterol tartrate [Xopenex HFA] 1 puff INHALATION BID 12/28/17 [History] omeprazole 1 tab PO DAILY 12/28/17 [History] oxycodone 30 mg PO Q4-6H PRN 12/28/17 [History] ranitidine HCl [Zantac 75] 150 mg PO BID 12/28/17 [History] triamterene-hydrochlorothiazid 1 tab PO DAILY 12/28/17 [History] - Review of Systems Constitutional: Weakness Eyes: No Symptoms Reported ENT: No Symptoms Reported Respiratory: See HPI, Shortness of Breath, SOB with Excertion, Wheezing. denies : Cough Cardiovascular: No Symptoms Reported Gastrointestinal: No Symptoms Reported Genitourinary: No Symptoms Reported Musculoskeletal: No Symptoms Reported Skin: No Symptoms Reported Neurological: Weakness, Confusion - Physical Exam Vital Signs: Temperature 98.3 F Pulse Rate [Apical] 76 Pulse Rate [Left Brachial] 76 Pulse Rate 75 Respiratory Rate 19 Blood Pressure [Left Arm] 119/77 Blood Pressure [Right Arm] 110/71 Blood Pressure 126/75 O2 Sat by Pulse Oximetry 92 Oriented: Normal Eyes: Normal Ear: Normal Nose: Normal Throat: Normal Respiratory: Rhonchi Throughout, Wheezes Throughout Cardiovascular: Normal. negative: S3, S4, Murmur : Normal Auscultation: Bowel Sounds: Normal Palpation: Normal Tenderness: Normal Skin: Normal Musculoskeletal: Normal Psychiatric: Normal Mood Description: Calm Affect: Normal Speech Pattern: Clear - Assessment/Plan (1) Acute pneumonia Status: Acute Plan: ADMIT, IV ANTIBIOTICS, RESPIRATORY TX, BIPAP, CONTINUE TO MONITOR (2) COPD exacerbation Status: Acute Plan: ADMIT, RESPIRATORY TX, SUPPLEMENTAL OXYGEN CONTINUE HOME MEDS CONTINUE TO MONITOR - Allergies Allergies/Adverse Reactions: Allergies Allergy/AdvReac Type Severity Reaction Status Date / Time No Known Drug Allergies Allergy Verified 12/28/17 11:21
[2017-12-29] MEDS ORDERED: ROCEPHIN 1 GRAM IV PREMIX 1 G/50 ML IV.SOLN. IV SCH (09:00)
[2017-12-29] MEDS: PULMICORT NEB TX 0.5 MG NEB SCH ×2 (09:35→20:56)
[2017-12-29] MEDS: SOLU-Medrol 40 MG VIAL IVP SCH ×3 (10:06→21:10)
[2017-12-29] MEDS: ZANTAC PO SCH ×2 (12:26→21:09)
[2017-12-29] MEDS: PriLOSEC PO SCH (12:26)
[2017-12-29] MEDS: DILANTIN CAP 100 MG EXT REL PO SCH ×2 (12:26→21:10)
[2017-12-29] MEDS: VALIUM PO PRN ×2 (12:51→21:10)
[2017-12-29] MEDS: COUMADIN TAB 5 MG PO SCH (21:08)
[2017-12-30] MEDS: DUONEB 0.5 MG/3 MG NEB SCH ×6 (00:45→21:45)
[2017-12-30] MEDS: SOLU-Medrol 40 MG VIAL IVP SCH ×3 (05:18→22:14)
[2017-12-30] MEDS: ROXICODONE TAB 15 MG PO PRN ×5 (05:18→21:32)
[2017-12-30 06:17] LABS: BASOPHILS % (AUTO) 0.4 % (0.2-1.0); EOSINOPHILS % (AUTO) 0.2 % (0.9-2.9); HEMATOCRIT 32.6 % (42.0-54.0); HEMOGLOBIN 11.3 g/dL (13.5-18.0); LYMPHOCYTES # (AUTO) 0.9 X10^3/uL (1.3-2.9); LYMPHOCYTES % (AUTO) 11.7 % (21.0-51.0); MEAN CORPUSCULAR HEMOGLOBIN 31.4 pg (27.0-34.0); MEAN CORPUSCULAR HGB CONC 34.7 g/dL (33.0-35.0); MEAN CORPUSCULAR VOLUME 90.6 fL (80.0-100.0); MEAN PLATELET VOLUME 8.4 fL (7.4-11.0); MONOCYTES # (AUTO) 0.6 x10^3/uL (0.3-0.8); MONOCYTES % (AUTO) 8.2 % (0.0-13.0); NEUTROPHILS % (AUTO) 79.5 % (42.0-75.0); PLATELET COUNT 204 X10^3/uL (150.0-450.0); RED CELL DISTRIBUTION WIDTH 13.9 % (11.6-16.5); WHITE BLOOD COUNT 7.6 X10^3/uL (3.6-10.0)
--- NOTE | 2017-12-30 06:18 | RAD ---
HISTORY: Shortness of breath Study: Chest AP portable Comparison: 12/29/2017 Findings: The heart is enlarged. Pulmonary venous congestion is present. Mild perihilar interstitial change is identified possibly indicative of mild asymmetric interstitial edema. No alveolar edema, alveolar inf iltrates, or pleural effusions are identified. There is some subsegmental atelectasis in the left cos tophrenic angle. The bony thorax is unremarkable. IMPRESSION: Mild cardiomegaly with pulmonary venous congestion Perihilar interstitial lung change likely mild asymmetric interstitial edema Reported By:
[2017-12-30 06:22] LABS: ALANINE AMINOTRANSFERASE 12 Units/L (12-78); ALBUMIN 2.9 g/dL (3.4-5.0); ALKALINE PHOSPHATASE 85 Units/L (46-116); ASPARTATE AMINO TRANSFERASE 8 Units/L (15-37); BLOOD UREA NITROGEN 12 mg/dL (7-18); CALCIUM 8.4 mg/dL (8.5-10.1); CARBON DIOXIDE 37.4 mmol/L (21-32); CHLORIDE 92 mmol/L (98-107); COR CA(FOR HYPOALB) 9.3 mg/dL (8.5-10.1); SODIUM 128 mmol/L (136-145); eGFR NON BLACK RACES > 60 (>60)
[2017-12-30] MEDS: DILANTIN CAP 100 MG EXT REL PO SCH ×2 (08:02→20:34)
[2017-12-30] MEDS: PriLOSEC PO SCH (08:03)
[2017-12-30] MEDS: ROCEPHIN VIAL 1 GRAM 1 G in NS 100 ML IV + SPIKE MINIBAG* 100 ML IV SCH (08:03)
[2017-12-30] MEDS: ZANTAC PO SCH ×2 (08:03→20:35)
[2017-12-30] MEDS: VALIUM PO PRN ×4 (08:04→21:33)
[2017-12-30] MEDS: LEVAQUIN PREMIX IV 500 MG 500 MG/100 ML BAG IV SCH (08:44)
[2017-12-30] MEDS: PULMICORT NEB TX 0.5 MG NEB SCH ×2 (09:00→21:45)
[2017-12-30 09:45] LABS: ABG BASE EXCESS 9.9 mmol/L (-2.0-2.0)
[2017-12-30 09:49] LABS: ABG ALLEN TEST YES; ABG HCO3 36.3 mmol/L (22-26)
[2017-12-30] MEDS: LASIX IVP SCH ×2 (10:07→20:33)
[2017-12-30] MEDS ORDERED: AYR NASAL DROPS PRN (19:19)
[2017-12-30] MEDS: COUMADIN TAB 5 MG PO SCH (20:34)
[2017-12-30] MEDS ORDERED: MILK OF MAGNESIA PO SCH (21:00)
[2017-12-30] MEDS ORDERED: COLACE CAP 100 MG PO SCH (21:00)
--- NOTE | 2017-12-30 21:33 | PCM.PROG ---
Progress Note - Progress Note for Day of Date of Exam: 12/29/17 - Subjective Subjective: WAS ADMITTED FOR PNEUMONIA, COPD EXACERBATION, CHF, AND RESPIRATORY FAILURE WITH HYPERCAPNIA. TODAY, HE IS ALERT AND ORIENTED, LYING IN BED ON MORNING ROUNDS. HE IS CURRENTLY UTILIZING THE BIPAP. HE REPORTS COMPLAINTS OF SHORTNESS OF BREATH AND LOWER BACK PAIN THIS MORNING. HE CONTINUES WITH A COUGH TODAY. ON EXAMINATION, HEART IS REGULAR IN RATE AND RHYTHM. BILATERAL LUNGS ARE NOTED WITH SCATTERED WHEEZING AND RHONCHI. ABDOMEN IS ROUND, SOFT, AND NON-TENDER WITH NORMAL BOWEL SOUNDS NOTED IN ALL QUADRANTS. BILATERAL LOWER EXTREMITIES ARE NOTED WITH 1+ PITTING EDEMA. HIS VITALS THIS MORNING ARE 98.3-76-19-92%BIPAP-110/71. LABS WERE OBTAINED. ABNORMAL LAB VALUES INCLUDE THE FOLLOWING: RBC 3.66, HGB 1.4, HCT 33.6, SODIUM 131, CHLORIDE 94, CARBON DIOXIDE 39.8, CREATININE 0.66, CALCIUM 8.4, AST 8, ALT 11, TOTAL PROTEIN 5.9, ALBUMIN 2.9. TODAYS ABG REVEALED PH 7.370, PC02 76.0, P02 54.0, HC03 43.9 , 02 SATURATION 87.0. TODAYS CHEST XRAY REVEALED: Interval improvement in right perihilar infiltrative process. The rapid interval change is more in favor of pulmonary edema rather than pneumonia. TODAY, WE WILL CONTINUE WITH IV ANTIBIOTICS, RESPIRATORY TREATMENTS, AND BIPAP. WE WILL RESUME HOME MEDICATIONS. OTHERWISE, WE WILL FOLLOW UP WITH AM LABS AND CONTINUE TO MONITOR PATIENT. - Past Medical Family Social History Past Med/Fam/Surg Hx: No changes since H&P Allergies: Allergies No Known Drug Allergies Allergy (Verified 12/28/17 11:21) - Review of Systems ROS: No change since H&P - Vital Signs and I&O's Vital Signs: Temperature 97.5 F Pulse Rate [Apical] 84 Pulse Rate [Left Brachial] 76 Pulse Rate 68 Respiratory Rate 14 Blood Pressure [Left Arm] 119/77 Blood Pressure [Right Arm] 111/73 Blood Pressure 126/75 O2 Sat by Pulse Oximetry 92 Intake and Output: Intake & Output 12/28/17 12/29/17 12/30/17 12/31/17 11:59 11:59 11:59 11:59 Intake Total 640 / 640 1424 / 1424 1160 / 1160 Output Total 1040 / 1040 1825 / 1825 3650 / 3650 Balance -400 / -400 -401 / -401 -2490 / -2490 - Physical Exam Oriented: Normal Eyes: Normal Ear: Normal Nose: Normal Throat: Normal Respiratory: Generalized, Diminished, Wheezes, Rhonchi Cardiovascular: Normal. negative: S3, S4, Murmur : Normal Auscultation: Bowel Sounds: Normal Palpation: Normal Tenderness: Normal Skin: Normal Musculoskeletal: Normal Psychiatric: Normal Mood Description: Calm Affect: Normal Speech Pattern: Appropriate - Laboratory and Diagnostics Result Diagrams: 12/30/17 05:02 12/30/17 05:02 Labs: 12/28/17 12:19 Blood Blood Culture - Preliminary 12/28/17 12:07 Blood Blood Culture - Preliminary Laboratory WBC 7.6 X10^3/uL (3.6-10.0) 12/30/17 05:02 RBC 3.60 X10^6/uL (4.7-6.0) L 12/30/17 05:02 Hgb 11.3 g/dL (13.5-18.0) L 12/30/17 05:02 Hct 32.6 % (42.0-54.0) L 12/30/17 05:02 MCV 90.6 fL (80.0-100.0) 12/30/17 05:02 MCH 31.4 pg (27.0-34.0) 12/30/17 05:02 MCHC 34.7 g/dL (33.0-35.0) 12/30/17 05:02 RDW 13.9 % (11.6-16.5) 12/30/17 05:02 Plt Count 204 X10^3/uL (150.0-450.0) 12/30/17 05:02 MPV 8.4 fL (7.4-11.0) 12/30/17 05:02 Neut % (Auto) 79.5 % (42.0-75.0) H 12/30/17 05:02 Lymph % (Auto) 11.7 % (21.0-51.0) L 12/30/17 05:02 [place] % (Auto) 8.2 % (0.0-13.0) 12/30/17 05:02 Eos % (Auto) 0.2 % (0.9-2.9) L 12/30/17 05:02 Baso % (Auto) 0.4 % (0.2-1.0) 12/30/17 05:02 Neut # (Auto) 6.0 x10^3/uL (2.2-4.8) H 12/30/17 05:02 Lymph # (Auto) 0.9 X10^3/uL (1.3-2.9) L 12/30/17 05:02 [place] # (Auto) 0.6 x10^3/uL (0.3-0.8) 12/30/17 05:02 Eos # (Auto) 0.0 x10^3/uL (0.0-0.2) 12/30/17 05:02 Baso # (Auto) 0.0 X10^3/uL (0.0-0.1) 12/30/17 05:02 Absolute Nucleated RBC 0.0 /100WBC 12/30/17 05:02 INR Target Range - 12/30/17 05:02 INR 1.44 (0.8-1.3) H 12/30/17 05:02 APTT 51.2 SECONDS (22.9-36.5) H 12/28/17 11:35 PTT Comment - 12/28/17 11:35 Sample Site Lft rad 12/30/17 09:27 ABG pH 7.420 (7.35-7.45) 12/30/17 09:27 ABG pCO2 56.0 mmHg (35.0-45.0) H* 12/30/17 09:27 ABG pO2 65.0 mmHg (80.0-100.0) L 12/30/17 09:27 ABG HCO3 36.3 mmol/L (22-26) H* 12/30/17 09:27 ABG O2 Saturation 93.0 % (90-100) 12/30/17 09:27 ABG Base Excess 9.9 mmol/L (-2.0-2.0) H 12/30/17 09:27 Patrice Test Yes 12/30/17 09:27 A-a Gradient 65.0 mmHg 12/30/17 09:27 FiO2 28.000 12/30/17 09:27 Blood Gas Comments Aris well gmb 12/30/17 09:27 Sodium 128 mmol/L (136-145) L 12/30/17 05:02 Corrected Sodium TNP 12/30/17 05:02 Potassium 5.2 mmol/L (3.5-5.1) H 12/30/17 05:02 Chloride 92 mmol/L (98-107) L 12/30/17 05:02 Carbon Dioxide 37.4 mmol/L (21-32) H 12/30/17 05:02 BUN 12 mg/dL (7-18) 12/30/17 05:02 Creatinine 0.70 mg/dL (0.70-1.30) 12/30/17 05:02 Est GFR (MDRD) Af Amer > 60 (>60) 12/30/17 05:02 Est GFR (MDRD) Non-Af > 60 (>60) 12/30/17 05:02 Glucose 108 mg/dL (65-99) H 12/30/17 05:02 Lactic Acid < 0.3 mmol/L (0.4-2.0) L 12/28/17 12:07 Calcium 8.4 mg/dL (8.5-10.1) L 12/30/17 05:02 Corrected Calcium 9.3 mg/dL (8.5-10.1) 12/30/17 05:02 Magnesium 2.0 mg/dL (1.7-2.9) 12/28/17 11:35 Total Bilirubin 0.20 mg/dL (0.2-1.0) 12/30/17 05:02 AST 8 Units/L (15-37) L 12/30/17 05:02 ALT 12 Units/L (12-78) 12/30/17 05:02 Alkaline Phosphatase 85 Units/L (46-116) 12/30/17 05:02 Creatine Kinase 41 Units/L (39-308) 12/28/17 11:35 CK-MB (CK-2) 2.8 ng/mL (0-4.0) 12/28/17 11:35 CK/CKMB % Calc 6.8 % (<4) 12/28/17 11:35 Troponin I < 0.02 ng/mL (0-1.5) 12/28/17 11:35 B-Natriuretic Peptide 272 pg/mL (0-79) H 12/28/17 11:35 Total Protein 6.0 g/dL (6.4-8.2) L 12/30/17 05:02 Albumin 2.9 g/dL (3.4-5.0) L 12/30/17 05:02 Globulin 3.1 g/dL (2.5-4.5) 12/30/17 05:02 Albumin/Globulin Ratio 0.9 Ratio (1.1-2.1) L 12/30/17 05:02 - Plan (1) Acute pneumonia Status: Acute Plan: ADMIT, IV ANTIBIOTICS, RESPIRATORY TX, BIPAP, CONTINUE TO MONITOR (2) COPD exacerbation Status: Acute Plan: ADMIT, RESPIRATORY TX, SUPPLEMENTAL OXYGEN CONTINUE HOME MEDS CONTINUE TO MONITOR (3) Respiratory failure with hypoxia and hypercapnia Status: Acute Qualifiers: Chronicity: acute on chronic Qualified Code(s): J96.21 - Acute and chronic respiratory failure with hypoxia; J96.22 - Acute and chronic respiratory failure with hypercapnia Plan: BIPAP, SOLU-MEDROL, RESPIRATORY TREATMENTS, CONTINUE TO MONITOR (4) CHF (congestive heart failure) Status: Acute Qualifiers: Heart failure type: unspecified Heart failure chronicity: acute on chronic Qualified Code(s): I50.9 - Heart failure, unspecified Plan: CONTINUE HOME MEDS, CONTINUE BIPAP, CONTINUE RESPIRATORY TREATMENTS
[2017-12-31] MEDS: DUONEB 0.5 MG/3 MG NEB SCH ×3 (01:51→08:42)
[2017-12-31] MEDS: SOLU-Medrol 40 MG VIAL IVP SCH (05:26)
[2017-12-31 05:54] LABS: ABG BASE EXCESS 13.3 mmol/L (-2.0-2.0)
[2017-12-31 05:55] LABS: ABG ALLEN TEST POS; ABG HCO3 40.6 mmol/L (22-26)
[2017-12-31] MEDS: VALIUM PO PRN (06:23)
[2017-12-31] MEDS: ROXICODONE TAB 15 MG PO PRN (06:23)
--- NOTE | 2017-12-31 06:30 | RAD ---
HISTORY: Shortness of breath Study: Chest AP portable Comparison: 12/30/2017 Findings: The heart is now normal in size. The diana are normal. The lungs are well inflated and now free of inf iltrates. No pleural effusions are identified. The bony thorax is unremarkable. IMPRESSION: Lungs now clear Reported By:
[2017-12-31 07:07] LABS: BASOPHILS % (AUTO) 0.4 % (0.2-1.0); EOSINOPHILS % (AUTO) 0.3 % (0.9-2.9); LYMPHOCYTES % (AUTO) 14.1 % (21.0-51.0); MEAN CORPUSCULAR HEMOGLOBIN 31.2 pg (27.0-34.0); MEAN CORPUSCULAR HGB CONC 34.1 g/dL (33.0-35.0); MEAN CORPUSCULAR VOLUME 91.5 fL (80.0-100.0); MEAN PLATELET VOLUME 8.3 fL (7.4-11.0); MONOCYTES # (AUTO) 0.5 x10^3/uL (0.3-0.8); MONOCYTES % (AUTO) 7.5 % (0.0-13.0); NEUTROPHILS # (AUTO) 5.3 x10^3/uL (2.2-4.8); NEUTROPHILS % (AUTO) 77.7 % (42.0-75.0); PLATELET COUNT 213 X10^3/uL (150.0-450.0); RED BLOOD COUNT 3.83 X10^6/uL (4.7-6.0); RED CELL DISTRIBUTION WIDTH 13.9 % (11.6-16.5); WHITE BLOOD COUNT 6.9 X10^3/uL (3.6-10.0)
[2017-12-31 07:25] LABS: ALANINE AMINOTRANSFERASE 19 Units/L (12-78); ALBUMIN 3.3 g/dL (3.4-5.0); ALKALINE PHOSPHATASE 88 Units/L (46-116); ASPARTATE AMINO TRANSFERASE 14 Units/L (15-37); BLOOD UREA NITROGEN 15 mg/dL (7-18); CALCIUM 8.6 mg/dL (8.5-10.1); CARBON DIOXIDE 36.2 mmol/L (21-32); CHLORIDE 91 mmol/L (98-107); COR CA(FOR HYPOALB) 9.2 mg/dL (8.5-10.1); CREATININE 0.75 mg/dL (0.70-1.30); SODIUM 128 mmol/L (136-145); TOTAL PROTEIN 6.5 g/dL (6.4-8.2); eGFR NON BLACK RACES > 60 (>60)
[2017-12-31] MEDS: PULMICORT NEB TX 0.5 MG NEB SCH (08:42)
[2017-12-31] MEDS: DILANTIN CAP 100 MG EXT REL PO SCH (09:30)
[2017-12-31] MEDS: LEVAQUIN PREMIX IV 500 MG 500 MG/100 ML BAG IV SCH (09:30)
[2017-12-31] MEDS: PriLOSEC PO SCH (09:30)
[2017-12-31] MEDS: ROCEPHIN VIAL 1 GRAM 1 G in NS 100 ML IV + SPIKE MINIBAG* 100 ML IV SCH (09:31)
[2017-12-31] MEDS: ZANTAC PO SCH (09:31)
[2017-12-31 09:32] VITALS: BP 133/90
--- NOTE | 2018-02-02 15:19 | PCM.PROG ---
Progress Note - Progress Note for Day of Date of Exam: 12/30/17 - Subjective Subjective: WAS ADMITTED FOR PNEUMONIA, COPD EXACERBATION, CHF, AND RESPIRATORY FAILURE WITH HYPERCAPNIA. TODAY, HE IS ALERT AND ORIENTED, LYING IN BED ON MORNING ROUNDS. HE IS CURRENTLY UTILIZING THE BIPAP. HE REPORTS COMPLAINTS OF SHORTNESS OF BREATH AND LOWER BACK PAIN THIS MORNING. HE CONTINUES WITH A COUGH TODAY. ON EXAMINATION, HEART IS REGULAR IN RATE AND RHYTHM. BILATERAL LUNGS ARE NOTED WITH SCATTERED WHEEZING AND RHONCHI. ABDOMEN IS ROUND, SOFT, AND NON-TENDER WITH NORMAL BOWEL SOUNDS NOTED IN ALL QUADRANTS. BILATERAL LOWER EXTREMITIES ARE NOTED WITH 1+ PITTING EDEMA. HIS VITALS THIS MORNING ARE 97.0-78-18-95%-137/89. LABS WERE OBTAINED. ABNORMAL LAB VALUES INCLUDE THE FOLLOWING: RBC 3.66, RBC 11.3, HCT 32.6, SODIUM 128, POTASSIUM 5.2, CHLORIDE 92, CARBON DIOXIDE 37.4, GLUCOSE 108, CALCIUM 8.4, AST 8, TOTAL PROTEI 6.0, ALBUMIN 2.9, INR 1.44. TODAYS ABG REVEALED PH 7.420, PC02 56.0, P02 65.0, HC03 36.3, 02 SATURATION 93.0, BASE EXCESS 9.9. TODAYS CHEST XRAY REVEALED: The heart is enlarged. Pulmonary venous congestion is present. Mild perihilar interstitial change is identified possibly indicative of mild asymmetric interstitial edema. No alveolar edema, alveolar infiltrates, or pleural effusions are identified. There is some subsegmental atelectasis in the left costophrenic angle. The bony thorax is unremarkable. TODAY, WE WILL CONTINUE WITH IV ANTIBIOTICS, RESPIRATORY TREATMENTS, AND BIPAP. WE WILL OBTAIN AN ECHO AND START LASIX 40MG IV Q12H. OTHERWISE, WE WILL FOLLOW UP WITH AM LABS AND CONTINUE TO MONITOR PATIENT. - Past Medical Family Social History Past Med/Fam/Surg Hx: No changes since H&P Allergies: Allergies No Known Drug Allergies Allergy (Verified 01/28/18 12:56) - Review of Systems ROS: No change since H&P - Vital Signs and I&O's Vital Signs: Temperature 97.6 F Pulse Rate [Apical] 100 Pulse Rate [Left Brachial] 76 Pulse Rate 82 Respiratory Rate 25 Blood Pressure [Left Arm] 133/90 Blood Pressure [Right Arm] 101/70 Blood Pressure 126/75 O2 Sat by Pulse Oximetry 97 - Physical Exam Oriented: Normal Eyes: Normal Ear: Normal Nose: Normal Throat: Normal Respiratory: Generalized, Diminished, Wheezes, Rhonchi Cardiovascular: Normal. negative: S3, S4, Murmur : Normal Auscultation: Bowel Sounds: Normal Palpation: Normal Tenderness: Normal Skin: Normal Musculoskeletal: Normal Psychiatric: Normal Mood Description: Calm Affect: Normal Speech Pattern: Appropriate - Laboratory and Diagnostics Result Diagrams: 12/31/17 06:40 12/31/17 06:40 Labs: 12/28/17 12:19 Blood Blood Culture - Final 12/28/17 12:07 Blood Blood Culture - Final Laboratory WBC 6.9 X10^3/uL (3.6-10.0) 12/31/17 06:40 RBC 3.83 X10^6/uL (4.7-6.0) L 12/31/17 06:40 Hgb 12.0 g/dL (13.5-18.0) L 12/31/17 06:40 Hct 35.0 % (42.0-54.0) L 12/31/17 06:40 MCV 91.5 fL (80.0-100.0) 12/31/17 06:40 MCH 31.2 pg (27.0-34.0) 12/31/17 06:40 MCHC 34.1 g/dL (33.0-35.0) 12/31/17 06:40 RDW 13.9 % (11.6-16.5) 12/31/17 06:40 Plt Count 213 X10^3/uL (150.0-450.0) 12/31/17 06:40 MPV 8.3 fL (7.4-11.0) 12/31/17 06:40 Neut % (Auto) 77.7 % (42.0-75.0) H 12/31/17 06:40 Lymph % (Auto) 14.1 % (21.0-51.0) L 12/31/17 06:40 [place] % (Auto) 7.5 % (0.0-13.0) 12/31/17 06:40 Eos % (Auto) 0.3 % (0.9-2.9) L 12/31/17 06:40 Baso % (Auto) 0.4 % (0.2-1.0) 12/31/17 06:40 Neut # (Auto) 5.3 x10^3/uL (2.2-4.8) H 12/31/17 06:40 Lymph # (Auto) 1.0 X10^3/uL (1.3-2.9) L 12/31/17 06:40 [place] # (Auto) 0.5 x10^3/uL (0.3-0.8) 12/31/17 06:40 Eos # (Auto) 0.0 x10^3/uL (0.0-0.2) 12/31/17 06:40 Baso # (Auto) 0.0 X10^3/uL (0.0-0.1) 12/31/17 06:40 Absolute Nucleated RBC 0.0 /100WBC 12/31/17 06:40 INR Target Range - 12/31/17 06:40 INR 1.44 (0.8-1.3) H 12/31/17 06:40 APTT 51.2 SECONDS (22.9-36.5) H 12/28/17 11:35 PTT Comment - 12/28/17 11:35 Sample Site Right radial 12/31/17 05:44 ABG pH 7.410 (7.35-7.45) 12/31/17 05:44 ABG pCO2 64.0 mmHg (35.0-45.0) H* 12/31/17 05:44 ABG pO2 74.0 mmHg (80.0-100.0) L 12/31/17 05:44 ABG HCO3 40.6 mmol/L (22-26) H* 12/31/17 05:44 ABG O2 Saturation 95.0 % (90-100) 12/31/17 05:44 ABG Base Excess 13.3 mmol/L (-2.0-2.0) H 12/31/17 05:44 Patirce Test Pos 12/31/17 05:44 A-a Gradient 60.0 mmHg 12/31/17 05:44 FiO2 30.000 12/31/17 05:44 Blood Gas Comments Aris well jts 12/31/17 05:44 Sodium 128 mmol/L (136-145) L 12/31/17 06:40 Corrected Sodium TNP 12/31/17 06:40 Potassium 4.0 mmol/L (3.5-5.1) 12/31/17 06:40 Chloride 91 mmol/L (98-107) L 12/31/17 06:40 Carbon Dioxide 36.2 mmol/L (21-32) H 12/31/17 06:40 BUN 15 mg/dL (7-18) 12/31/17 06:40 Creatinine 0.75 mg/dL (0.70-1.30) 12/31/17 06:40 Est GFR (MDRD) Af Amer > 60 (>60) 12/31/17 06:40 Est GFR (MDRD) Non-Af > 60 (>60) 12/31/17 06:40 Glucose 105 mg/dL (65-99) H 12/31/17 06:40 Lactic Acid < 0.3 mmol/L (0.4-2.0) L 12/28/17 12:07 Calcium 8.6 mg/dL (8.5-10.1) 12/31/17 06:40 Corrected Calcium 9.2 mg/dL (8.5-10.1) 12/31/17 06:40 Magnesium 2.0 mg/dL (1.7-2.9) 12/28/17 11:35 Total Bilirubin 0.30 mg/dL (0.2-1.0) 12/31/17 06:40 AST 14 Units/L (15-37) L 12/31/17 06:40 ALT 19 Units/L (12-78) 12/31/17 06:40 Alkaline Phosphatase 88 Units/L (46-116) 12/31/17 06:40 Creatine Kinase 41 Units/L (39-308) 12/28/17 11:35 CK-MB (CK-2) 2.8 ng/mL (0-4.0) 12/28/17 11:35 CK/CKMB % Calc 6.8 % (<4) 12/28/17 11:35 Troponin I < 0.02 ng/mL (0-1.5) 12/28/17 11:35 B-Natriuretic Peptide 272 pg/mL (0-79) H 12/28/17 11:35 Total Protein 6.5 g/dL (6.4-8.2) 12/31/17 06:40 Albumin 3.3 g/dL (3.4-5.0) L 12/31/17 06:40 Globulin 3.2 g/dL (2.5-4.5) 12/31/17 06:40 Albumin/Globulin Ratio 1.0 Ratio (1.1-2.1) L 12/31/17 06:40 - Plan (1) Acute pneumonia Status: Acute Plan: ADMIT, IV ANTIBIOTICS, RESPIRATORY TX, BIPAP, CONTINUE TO MONITOR (2) COPD exacerbation Status: Acute Plan: ADMIT, RESPIRATORY TX, SUPPLEMENTAL OXYGEN CONTINUE HOME MEDS CONTINUE TO MONITOR (3) Respiratory failure with hypoxia and hypercapnia Status: Acute Qualifiers: Chronicity: acute on chronic Qualified Code(s): J96.21 - Acute and chronic respiratory failure with hypoxia; J96.22 - Acute and chronic respiratory failure with hypercapnia Plan: BIPAP, LASIX 40MG IV Q12H, SOLU-MEDROL, RESPIRATORY TREATMENTS, CONTINUE TO MONITOR (4) CHF (congestive heart failure) Status: Acute Qualifiers: Heart failure type: unspecified Heart failure chronicity: acute on chronic Qualified Code(s): I50.9 - Heart failure, unspecified Plan: LASIX 40MG IV Q12H, CONTINUE HOME MEDS, CONTINUE BIPAP, CONTINUE RESPIRATORY TREATMENTS
--- NOTE | 2018-02-11 20:31 | DR.CARTERD ---
- Discharge Summary for: Discharge Summary for Date of:: 12/31/17 - Admission Date Date of Admission: 12/28/17 - Admission Diagnoses Admission Diagnosis: (1) Acute pneumonia (2) COPD exacerbation - Discharge Date Discharge Date: 12/31/17 - Discharge Diagnoses Discharge Diagnosis: (1) Respiratory failure with hypoxia and hypercapnia (2) Acute pneumonia (3) COPD exacerbation (4) CHF (congestive heart failure) - Hospital Course Hospital Course: DAY ONE, MR. FLORES IS A 57 YEAR OLD PATIENT OF OURS. HE PRESENTED TO THE EMERGENCY ROOM WITH COMPLAINTS OF SHORTNESS OF BREATH, WHEEZING, AND DROWSINESS. EMS REPORTED THAT ON ARRIVAL TO SCENE, PATIENT WAS UNRESPONSIVE WITH OXYGEN SATURATIONS IN THE 80S ON HOME O2. HE WAS GIVEN A DUONEB ON SCENE AND TRANSPORTED TO THE HOSPITAL. ON ARRIVAL, PATIENT WAS ALERT, BUT CONFUSED. ON EXAMINATION, HE WAS NOTED WITH EXPIRATORY WHEEZING AND RHONCHI. HE DENIED CHEST PAIN, COUGH, FEVER, OR CHILLS. ON ARRIVAL, VITALS WERE 97.2-82-22-95%NC- 126/75. LABS WERE OBTAINED. ABNORMAL LAB VALUES INCLUDED THE FOLLOWING: WBC 11.0 , RBC 3.96, HGB 12.3, HCT 37.0, INR 2.66, SODIUM 131, CHLORIDE 94, CARBON DIOXIDE 41.4, CREATININE 0.59, GLUCOSE 116, CALCIUM 8.4, AST 10, BNP 272, ALBUMIN 3.3. AN ABG ON ROOM AIR WAS OBTAINED AND REVEALED: PH 7.290, PC02 89.0, P02 47.0, HC03 42.8, 02 SATURATION 77.0. CHEST XRAY REVEALED: Interval increase in heart size with development of a right perihilar infiltrate which may represent pneumonia, less likely asymmetric edema. EKG REVEALED SINUS RHYTHM WITH HR 81. HE WAS GIVEN LASIX 20MG IV X 1, DUONEB X 1, SOLU-MEDROL 125MG IV X 1 , AND ROCPEHIN 1GM IV X1. HE WAS ADMITTED TO THE INTENSIVE CARE UNIT AND PLACED ON THE BIPAP FOR FURTHER EVALUATION AND TREATMENT. WE CONTINUED TO MONITOR PATIENT. DAY TWO, MR. FLORES WAS ADMITTED FOR PNEUMONIA, COPD EXACERBATION, CHF, AND RESPIRATORY FAILURE WITH HYPERCAPNIA. HE WAS ALERT AND ORIENTED, LYING IN BED ON MORNING ROUNDS. HE CONTINUED ON BIPAP. HE REPORTED COMPLAINTS OF SHORTNESS OF BREATH AND LOWER BACK PAIN. HE CONTINUED WITH A COUGH. ON EXAMINATION, HEART WAS REGULAR IN RATE AND RHYTHM. BILATERAL LUNGS WERE NOTED WITH SCATTERED WHEEZING AND RHONCHI. ABDOMEN WAS ROUND, SOFT, AND NON-TENDER WITH NORMAL BOWEL SOUNDS NOTED IN ALL QUADRANTS. BILATERAL LOWER EXTREMITIES WERE NOTED WITH 1+ PITTING EDEMA. HIS VITALS WERE 98.3-76-19-92%BIPAP-110/71. LABS WERE OBTAINED. ABNORMAL LAB VALUES INCLUDED THE FOLLOWING: RBC 3.66, HGB 1.4, HCT 33.6, SODIUM 131, CHLORIDE 94, CARBON DIOXIDE 39.8, CREATININE 0.66, CALCIUM 8.4, AST 8, ALT 11, TOTAL PROTEIN 5.9, ALBUMIN 2.9. ABG REVEALED PH 7.370, PC02 76.0, P02 54.0, HC03 43.9, 02 SATURATION 87.0. CHEST XRAY REVEALED: Interval improvement in right perihilar infiltrative process. The rapid interval change is more in favor of pulmonary edema rather than pneumonia. WE CONTINUED WITH IV ANTIBIOTICS , RESPIRATORY TREATMENTS, AND BIPAP. WE RESUMED HOME MEDICATIONS. DAY THREE, HE WAS ALERT AND ORIENTED, LYING IN BED ON MORNING ROUNDS. HE CONTINUED ON BIPAP. HE REPORTED COMPLAINTS OF SHORTNESS OF BREATH AND LOWER BACK PAIN. HE CONTINUED WITH A COUGH. ON EXAMINATION, HEART WAS REGULAR IN RATE AND RHYTHM. BILATERAL LUNGS WERE NOTED WITH SCATTERED WHEEZING AND RHONCHI. ABDOMEN WAS ROUND, SOFT, AND NON-TENDER WITH NORMAL BOWEL SOUNDS NOTED IN ALL QUADRANTS. BILATERAL LOWER EXTREMITIES WERE NOTED WITH 1+ PITTING EDEMA. HIS VITALS WERE 97.0-78-18-95%-137/89. LABS WERE OBTAINED. ABNORMAL LAB VALUES INCLUDED THE FOLLOWING: RBC 3.66, RBC 11.3, HCT 32.6, SODIUM 128, POTASSIUM 5.2 , CHLORIDE 92, CARBON DIOXIDE 37.4, GLUCOSE 108, CALCIUM 8.4, AST 8, TOTAL PROTEI 6.0, ALBUMIN 2.9, INR 1.44. ABG REVEALED PH 7.420, PC02 56.0, P02 65.0, HC03 36.3, 02 SATURATION 93.0, BASE EXCESS 9.9. CHEST XRAY REVEALED: The heart is enlarged. Pulmonary venous congestion is present. Mild perihilar interstitial change is identified possibly indicative of mild asymmetric interstitial edema. No alveolar edema, alveolar infiltrates, or pleural effusions are identified. There is some subsegmental atelectasis in the left costophrenic angle. The bony thorax is unremarkable. WE CONTINUED WITH IV ANTIBIOTICS, RESPIRATORY TREATMENTS, AND BIPAP. WE STARTED LASIX 40MG IV Q12H. WE CONTINUED TO MONITOR PATIENT. DAY FOUR, PATIENT REPORTED HE WAS FEELING BETTER. HE HAD BEEN WEANED FROM BIPAP AND WAS ON NASAL CANNULA. PATIENT DENIED SHORTNESS OF BREATH. NO ACUTE DISTRESS WAS NOTED. VITAL SIGNS STABLE. LABS WNL. WE PLANNED FOR DISCHARGE. INSTRUCTIONS FOR MEDICATIONS AND FOLLOW UP WERE DISCUSSED WITH PATIENT AND FAMILY, BOTH VOICED UNDERSTANDING. PATIENT DISCHARGED HOME IN STABLE CONDITION WITH FAMILY. - Discharge Medications Discharge Medications: Home Medication List omeprazole 1 tab PO DAILY 12/28/17 [History] oxycodone 30 mg PO Q4-6H PRN 12/28/17 [History] ranitidine HCl [Zantac 75] 150 mg PO BID 12/28/17 [History] Prescriptions: Home medications bisoprolol fumarate 5 mg PO BID 02/27/17 diazepam 1 tab PO QID PRN 02/27/17 lisinopril 1 tab PO DAILY 02/27/17 phenytoin sodium extended 2 tab PO BID 02/27/17 warfarin 1 tab PO DAILY 02/27/17 furosemide 2 - 3 tab PO DAILY 04/20/17 omeprazole 1 tab PO DAILY 12/28/17 oxycodone 30 mg PO Q4-6H PRN 12/28/17 ranitidine HCl [Zantac 75] 150 mg PO BID 12/28/17 ipratropium-albuterol 1 ea NEB TID #50 ml 01/08/18 - Discharge Disposition Discharge Disposition: PATIENT IS TO FOLLOW UP IN OUR OFFICE IN ONE WEEK.
== END 2017-12-31 12:00 | disposition home or self-care (01) | DRG 193 ==
LOC: ER 11:20 → ICU 11:20 → OBSVTOIN 13:15 → ICU 14:12
PROVIDERS: ADMIT Internal Medicine; ATTEND Internal Medicine
DX: K21.9 Gastro-esophageal reflux disease without esophagitis; J44.1 Chronic obstructive pulmonary disease with (acute) exacerbation; F41.8 Other specified anxiety disorders; G89.4 Chronic pain syndrome; J96.22 Acute and chronic respiratory failure with hypercapnia; Z99.81 Dependence on supplemental oxygen; Z79.01 Long term (current) use of anticoagulants; I50.9 Heart failure, unspecified; J96.21 Acute and chronic respiratory failure with hypoxia; E87.1 Hypo-osmolality and hyponatremia; J16.8 Pneumonia due to other specified infectious organisms; Z66 Do not resuscitate
CPT/HCPCS: 36415; 36600; 71010; 71045; 80053; 82550; 82553; 82803; 83605; 83735; 83880; 84484; 85025; 85610; 85730; 87040; 93005; 93306; 94640; 94660; 96365; 96374; 96375; 99284; A4216; A4218; A4222; A4618; A7030; J0696; J1940; J1956; J2920; J2930; J7050; J7620; J7626

== ENCOUNTER 2018-01-05 07:56 | Inpatient (IN) ==
[2018-01-05 08:17] VITALS: BMI 25.0
[2018-01-05 08:28] LABS: ABG BASE EXCESS 10.5 mmol/L (-2.0-2.0); ABG HCO3 42.6 mmol/L (22-26)
[2018-01-05 08:29] LABS: ABG ALLEN TEST POS; FRACTIONATED INSPIRED OXYGEN 31
[2018-01-05 08:56] LABS: BLOOD UREA NITROGEN 17 mg/dL (7-18); CALCIUM 8.1 mg/dL (8.5-10.1); CHLORIDE 98 mmol/L (98-107); COR NA(FOR HYPERGLY) 134 mmol/L (136-145); CREATININE 0.82 mg/dL (0.70-1.30); SODIUM 134 mmol/L (136-145); eGFR NON BLACK RACES > 60 (>60)
[2018-01-05 09:00] LABS: CARBON DIOXIDE 42.6 mmol/L (21-32)
[2018-01-05] MEDS: DUONEB 0.5 MG/3 MG NEB SCH ×4 (09:00→20:22)
[2018-01-05 09:03] LABS: BASOPHILS # (AUTO) 0.1 X10^3/uL (0.0-0.1); BASOPHILS % (AUTO) 0.5 % (0.2-1.0); EOSINOPHILS # (AUTO) 0.1 x10^3/uL (0.0-0.2); EOSINOPHILS % (AUTO) 1.2 % (0.9-2.9); HEMATOCRIT 38.9 % (42.0-54.0); HEMOGLOBIN 12.7 g/dL (13.5-18.0); LYMPHOCYTES # (AUTO) 0.9 X10^3/uL (1.3-2.9); LYMPHOCYTES % (AUTO) 8.1 % (21.0-51.0); MEAN CORPUSCULAR HEMOGLOBIN 30.8 pg (27.0-34.0); MEAN CORPUSCULAR HGB CONC 32.7 g/dL (33.0-35.0); MEAN CORPUSCULAR VOLUME 94.2 fL (80.0-100.0); MEAN PLATELET VOLUME 7.8 fL (7.4-11.0); MONOCYTES % (AUTO) 8.7 % (0.0-13.0); NEUTROPHILS # (AUTO) 9.3 x10^3/uL (2.2-4.8); NEUTROPHILS % (AUTO) 81.5 % (42.0-75.0); PLATELET COUNT 300 X10^3/uL (150.0-450.0); RED BLOOD COUNT 4.13 X10^6/uL (4.7-6.0); WHITE BLOOD COUNT 11.5 X10^3/uL (3.6-10.0)
--- NOTE | 2018-01-05 09:06 | RAD ---
Examination: AP chest History: COPD Comparison reference 12/31/2017 Findings: Stable heart size. No acute pulmonary or pleural lesion noted. Mild chronic interstitial p rominence. The central pulmonary arteries are dilated. Impression: No significant change or acute findings. 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 Reported By:
[2018-01-05] MEDS ORDERED: NS 1000 ML 1,000 ML ONE ×2 (09:19→11:26)
[2018-01-05 09:44] LABS: ABG BASE EXCESS 11.1 mmol/L (-2.0-2.0)
[2018-01-05 09:45] LABS: ABG ALLEN TEST POS; ABG HCO3 42.1 mmol/L (22-26)
[2018-01-05] MEDS ORDERED: CALCIUM GLUCONATE 10% IV ONE ×2 (09:47→10:17)
[2018-01-05] MEDS ORDERED: LASIX IVP ONE ×2 (09:47→10:17)
[2018-01-05] MEDS ORDERED: HumuLIN R IV STA (09:47)
[2018-01-05] MEDS ORDERED: D50W ABBOJECT SYR IV ONE (09:47)
[2018-01-05] MEDS ORDERED: KAYEXALATE SUSP PO ONE (09:52)
[2018-01-05] MEDS ORDERED: NS 1000 ML 1,000 ML IV SCH (10:00)
[2018-01-05] MEDS ORDERED: D50W ABBOJECT SYR ONE (10:18)
[2018-01-05] MEDS ORDERED: HumuLIN R ONE (10:18)
--- NOTE | 2018-01-05 10:37 | DR.N/VMALE ---
HPI Time Seen Time seen: 08:15 Complaints Chief Complaint Doctors Comments: Patient presents with AMS, shaking and vomiting. Chief Complaint:: EMS STATES PT'S FAMILY C/O PT HAD BEEN VOMITTING AND HAVING AMS, UPON ARRIVAL NOTED PT TO BE COMFUSED AND HAVING CONT. SHAKING/JERKING MOVEMENTS. NOTED PT'S PUPILS TO BE CONSTRICTED AND SLUGGISH TO REACT. Source History Provided: EMS Mode of Arrival Mode of Arrival: EMS Timing Onset of Chief Complaint: 01/05/18 PMH PMH Past Medical History: Yes Past Medical History: Anxiety, Arthritis, COPD, GERD, Hypertension, PUD and Seizures Past Surgical History: Yes Surgical History: Bowel Resection and Other Family History History of Family Medical Conditions: Yes Family Medical History: Cancer, [place] and Hypertension Social History Does patient currently use any type of tobacco product: Yes Have you used tobacco products in the last 12 months: Yes Type of Tobacco Use: Cigarettes Does any household member use tobacco: Yes Alcohol Use: None Do you use any recreational Drugs:: Yes Lives With: Family Lives Where: Home infectious screening In the last 2 months have you had wt loss of >10#?: NO Have you had fever, night sweats or hemotysis?: No Have you traveled outside the country in the last 6 months?: No Isolation: Standard PE Vital Signs Vitals: Temperature 98.3 F Pulse Rate [Apical] 81 Pulse Rate [Right Radial] 87 Pulse Rate 85 Respiratory Rate 18 Blood Pressure [Left Arm] 94/63 Blood Pressure [Right Arm] 112/65 Blood Pressure 131/80 O2 Sat by Pulse Oximetry 99 Head Head Exam: Normal Inspection and Atraumatic Eyes Eye exam: Normal Appearance, PERRL, EOMI and Scleral Icterus ENT ENT Exam: Normal Exam, Normal Oropharynx, Mucous Membranes Moist, Mucous Membranes Dry and TM's Normal Bilaterally Neck Neck Exam: Normal Inspection and Full ROM Chest Chest Inspection: Normal Inspection and Symmetric Chest Wall Rise; negative Rash Respiratory Respiratory Exam: Prolonged Expiratory Phase and Respiratory Distress Respiratory Exam: Bilateral: Wheezing (expiratory) Cardiovascular Cardiovascular Exam: Regular Rate and Normal Rhythm Abdominal Exam Abdominal Exam: Normal Inspection and Soft Abdominal Tenderness: negative RUQ, RLQ, LUQ, LLQ and Epigastrium Rectal Rectal Exam: Deferred Exam: Male: Deferred Extremities Extremities Exam: Normal Inspection Back Back Exam: Normal Inspection Neurologic Neurological Exam: Alert, Oriented X3 (AMS due to retained CO2), CN II-XII Intact and Normal Gait Psychiatric Psychiatric Exam: Normal Affect and Anxious Skin Skin Exam: Warm and Dry; negative Diaphoresis COURSE Treatment Treatment: Normal Saline, solu Medrol, BiPap Reevaluation 1st: Improved Consultation Called: 10:40 Consultation Comments: Dr. Mcintyre agreed to admit for further evaluation and treatment ROR Labs Reviewed Laboratory Results Reviewed?: Yes Result Diagrams: 01/08/18 05:49 01/08/18 05:49 Laboratory: 01/05/18 08:40 Blood Blood Culture - Preliminary 01/05/18 10:35 Urine,Catheterized Urine Culture - Final WBC 5.7 X10^3/uL (3.6-10.0) 01/08/18 05:49 RBC 3.58 X10^6/uL (4.7-6.0) L 01/08/18 05:49 Hgb 11.1 g/dL (13.5-18.0) L 01/08/18 05:49 Hct 32.9 % (42.0-54.0) L 01/08/18 05:49 MCV 91.9 fL (80.0-100.0) 01/08/18 05:49 MCH 31.0 pg (27.0-34.0) 01/08/18 05:49 MCHC 33.7 g/dL (33.0-35.0) 01/08/18 05:49 RDW 13.7 % (11.6-16.5) 01/08/18 05:49 Plt Count 176 X10^3/uL (150.0-450.0) 01/08/18 05:49 MPV 8.5 fL (7.4-11.0) 01/08/18 05:49 Neut % (Auto) 61.8 % (42.0-75.0) 01/08/18 05:49 Lymph % (Auto) 20.9 % (21.0-51.0) L 01/08/18 05:49 [place] % (Auto) 13.9 % (0.0-13.0) H 01/08/18 05:49 Eos % (Auto) 2.8 % (0.9-2.9) 01/08/18 05:49 Baso % (Auto) 0.6 % (0.2-1.0) 01/08/18 05:49 Neut # (Auto) 3.5 x10^3/uL (2.2-4.8) 01/08/18 05:49 Lymph # (Auto) 1.2 X10^3/uL (1.3-2.9) L 01/08/18 05:49 [place] # (Auto) 0.8 x10^3/uL (0.3-0.8) 01/08/18 05:49 Eos # (Auto) 0.2 x10^3/uL (0.0-0.2) 01/08/18 05:49 Baso # (Auto) 0.0 X10^3/uL (0.0-0.1) 01/08/18 05:49 Absolute Nucleated RBC 0.0 /100WBC 01/08/18 05:49 INR Target Range - 01/06/18 05:13 INR 1.85 (0.8-1.3) H 01/06/18 05:13 Sample Site Rrad 01/08/18 05:16 ABG pH 7.390 (7.35-7.45) 01/08/18 05:16 ABG pCO2 68.0 mmHg (35.0-45.0) H* 01/08/18 05:16 ABG pO2 76.0 mmHg (80.0-100.0) L 01/08/18 05:16 ABG HCO3 41.2 mmol/L (22-26) H* 01/08/18 05:16 ABG O2 Saturation 95.0 % (90-100) 01/08/18 05:16 ABG Base Excess 13.3 mmol/L (-2.0-2.0) H 01/08/18 05:16 Patrice Test Pos 01/08/18 05:16 A-a Gradient 89.0 mmHg 01/08/18 05:16 FiO2 35.000 01/08/18 05:16 Blood Gas Comments Aris abg well-mtf 01/08/18 05:16 Sodium 133 mmol/L (136-145) L 01/08/18 05:49 Corrected Sodium TNP 01/08/18 05:49 Potassium 4.4 mmol/L (3.5-5.1) 01/08/18 05:49 Chloride 96 mmol/L (98-107) L 01/08/18 05:49 Carbon Dioxide 34.0 mmol/L (21-32) H 01/08/18 05:49 BUN 13 mg/dL (7-18) 01/08/18 05:49 Creatinine 0.59 mg/dL (0.70-1.30) L 01/08/18 05:49 Est GFR (MDRD) Af Amer > 60 (>60) 01/08/18 05:49 Est GFR (MDRD) Non-Af > 60 (>60) 01/08/18 05:49 Glucose 100 mg/dL (65-99) H 01/08/18 05:49 POC Glucose (mg/dL) 84 mg/dL (65-99) 01/05/18 13:55 Calcium 8.4 mg/dL (8.5-10.1) L 01/08/18 05:49 Corrected Calcium 9.4 mg/dL (8.5-10.1) 01/08/18 05:49 Total Bilirubin 0.20 mg/dL (0.2-1.0) 01/08/18 05:49 AST 7 Units/L (15-37) L 01/08/18 05:49 ALT 15 Units/L (12-78) 01/08/18 05:49 Alkaline Phosphatase 89 Units/L (46-116) 01/08/18 05:49 Creatine Kinase 18 Units/L (39-308) L 01/05/18 23:25 CK-MB (CK-2) 1.3 ng/mL (0-4.0) 01/05/18 23:25 CK/CKMB % Calc 7.2 % (<4) 01/05/18 23:25 Troponin I < 0.02 ng/mL (0-1.5) 01/05/18 23:25 B-Natriuretic Peptide 52.9 pg/mL (0-79) 01/06/18 05:13 Total Protein 5.8 g/dL (6.4-8.2) L 01/08/18 05:49 Albumin 2.8 g/dL (3.4-5.0) L 01/08/18 05:49 Globulin 3.0 g/dL (2.5-4.5) 01/08/18 05:49 Albumin/Globulin Ratio 0.9 Ratio (1.1-2.1) L 01/08/18 05:49 Specimen Type Catherized urine 01/05/18 10:39 Urine Color Yellow (YELLOW) 01/05/18 10:39 Urine Appearance Clear (CLEAR) 01/05/18 10:39 Urine pH 6.0 (5.0 - 8.0) 01/05/18 10:39 Ur Specific [place] 1.020 (1.000-1.030) 01/05/18 10:39 Urine Protein 1+ (NEGATIVE) 01/05/18 10:39 Urine Glucose (UA) Negative (NEGATIVE) 01/05/18 10:39 Urine Ketones Negative (NEGATIVE) 01/05/18 10:39 Urine Occult Blood Negative (NEGATIVE) 01/05/18 10:39 Urine Nitrite Negative (NEGATIVE) 01/05/18 10:39 Urine Bilirubin Negative (NEGATIVE) 01/05/18 10:39 Urine Urobilinogen Normal (NORMAL) 01/05/18 10:39 Ur Leukocyte Esterase Negative (NEGATIVE) 01/05/18 10:39 Urine RBC 0-2 /HPF (NONE SEEN) 01/05/18 10:39 Urine WBC None seen /HPF (NONE SEEN) 01/05/18 10:39 Ur Squamous Epith Cells Negative /HPF (NEGATIVE) 01/05/18 10:39 Urine Bacteria Negative /HPF (NEGATIVE) 01/05/18 10:39 Ur Culture Indicated? Yes/culture set up 01/05/18 10:39 Urine Opiates Screen Positive (NEG=<300) 01/05/18 10:35 Urine Methadone Screen Negative (NEG=<300) 01/05/18 10:35 Ur Barbiturates Screen Negative (NEG=<200) 01/05/18 10:35 Phenytoin 6.2 ug/mL (10-20) L 01/05/18 08:40 Ur Phencyclidine Scrn Negative (NEG=<25) 01/05/18 10:35 Ur Amphetamines Screen Negative (NEG=<1000) 01/05/18 10:35 U Benzodiazepines Scrn Positive (NEG=<200) 01/05/18 10:35 Urine Cocaine Screen Negative (NEG=<300) 01/05/18 10:35 U Marijuana (THC) Screen Negative (NEG=<50) 01/05/18 10:35 XRAY XRAY Interpreted by: Radiologist XRAY Findings: Chest: No significant change or aucte findings. Suspect COPD/Pul HTN Diagnosis Discharge Problem: Acute respiratory distress Instructions Instructions: Chronic Obstructive Pulmonary Disease Exacerbation, [id number] Steps to Quit Smoking, [id number] Coping with Quitting Smoking Hypertension, [id number] Acute Respiratory Failure, Adult Heart Failure, [id number] Forms: Patient Portal
[2018-01-05 10:49] LABS: BILIRUBIN,URINE NEGATIVE (NEGATIVE); BLOOD/HEMOGLOBIN,URINE NEGATIVE (NEGATIVE); GLUCOSE, URINE NEGATIVE (NEGATIVE); KETONES,URINE NEGATIVE (NEGATIVE); LEUKOCYTE ESTERASE ,URINE NEGATIVE (NEGATIVE); NITRITES,URINE NEGATIVE (NEGATIVE); PROTEIN,URINE 1+ (NEGATIVE); UROBILINOGEN,URINE NORMAL (NORMAL)
[2018-01-05 10:51] LABS: APPEARANCE,URINE CLEAR (CLEAR); COLOR,URINE YELLOW (YELLOW)
[2018-01-05 10:59] LABS: BACTERIA,URINE NEGATIVE /HPF (NEGATIVE); RBC,URINE 0-2 /HPF (NONE SEEN); SQUAMOUS EPITHELIAL CELL,UR NEGATIVE /HPF (NEGATIVE)
[2018-01-05 11:07] LABS: CKMB % 5.9 % (<4); CREATINE KINASE 39 Units/L (39-308); CREATINE KINASE MB 2.3 ng/mL (0-4.0); TROPONIN I < 0.02 ng/mL (0-1.5)
[2018-01-05 12:21] LABS: BLOOD UREA NITROGEN 16 mg/dL (7-18); CALCIUM 8.2 mg/dL (8.5-10.1); CARBON DIOXIDE 39.9 mmol/L (21-32); CHLORIDE 99 mmol/L (98-107); CREATININE 0.75 mg/dL (0.70-1.30); SODIUM 136 mmol/L (136-145); eGFR NON BLACK RACES > 60 (>60)
--- NOTE | 2018-01-05 12:26 | DR.H&P ---
H&P - History & Physical for Day of: H&P Date: 01/05/18 - Chief Complaint Chief Complaint: SOB, AMS - History of Present Illness History of Present Illness: 57 WM ER ADMISSION AFTER PRESENTING WITH CO EMS STATES PT'S FAMILY C/O PT HAD BEEN VOMITTING AND HAVING AMS, UPON ARRIVAL NOTED PT TO BE COMFUSED AND HAVING CONTINUOUS SHAKING/JERKING MOVEMENTS. NOTED PT'S PUPILS TO BE CONSTRICTED AND SLUGGISH TO REACT. PT HAS PMH OF SEVERE COPD, CHRONIC RESP FAILURE. PT HYPOXIC ON ABG COLLECTED IN ED. ADMITTED TO ICU FOR EVALUATION AND TREAMENT OF ACUTE RESP DISTRESS, AMS - Past Medical History Past Medical History: Hypertension, Anxiety, Seizures, COPD, PUD, GERD, Arthritis Additional Medical History: HIATAL HERNIA - Past Surgical History Surgical History: Bowel Resection, Other Additional Surgical History: 7 STOMACH SURGERIES, 2 STOMAS, COLOSTOMY IN THE PAST - Family History Family Medical History: Cancer, CT, Hypertension - Social History Does patient currently use any type of tobacco product: Yes Have you used tobacco products in the last 12 months: Yes Type of Tobacco Use: Cigarettes How many years tobacco product used: 42 Does any household member use tobacco: Yes Alcohol Use: None Drug Use: None - Medications Home Medications: No Known Drug Allergies Allergy (Verified 12/28/17 11:21) - Review of Systems Constitutional: Weakness Eyes: No Symptoms Reported ENT: No Symptoms Reported Respiratory: Shortness of Breath, SOB with Excertion, Wheezing Cardiovascular: Palpitations Genitourinary: No Symptoms Reported Musculoskeletal: Back Pain Skin: No Symptoms Reported Neurological: Weakness, Confusion - Physical Exam Vital Signs: Temperature 100.3 F Pulse Rate [Right Radial] 85 Pulse Rate 93 Respiratory Rate 24 Blood Pressure [Left Arm] 100/60 Blood Pressure [Right Arm] 101/70 Blood Pressure 131/80 O2 Sat by Pulse Oximetry 100 Oriented: Person Eyes: Normal Ear: Normal Nose: Normal Throat: Normal Respiratory: Diminished Throughout, Wheezes Throughout Cardiovascular: Tachycardia Auscultation: Bowel Sounds: Normal Palpation: Normal Tenderness: Normal Skin: Normal Musculoskeletal: Normal Psychiatric: Anxiety Affect: Anxious - Assessment/Plan (1) Acute respiratory failure with hypoxemia Status: Acute Plan: ADMIT ICU. RESP THERAPY, SUPPLEMENTAL O2 BIPAP PRN. IV ATBX, IV LASIX, STEROIDS. JET NEBS. CARDIAC MONITORING, BP CONTROL. VERIFY HOME MEDS, SPUTUM CULTURES, SEIZURE PRECAUTIONS (2) Chronic kidney disease (CKD) Qualifiers: Status: Chronic (3) COPD exacerbation Status: Acute (4) Altered mental state Status: Acute (5) Hypertension Qualifiers: Status: Chronic (6) GERD (gastroesophageal reflux disease) Qualifiers: Status: Chronic - Allergies Allergies/Adverse Reactions: Allergies Allergy/AdvReac Type Severity Reaction Status Date / Time No Known Drug Allergies Allergy Verified 12/28/17 11:21
[2018-01-05 12:45] LABS: ABG BASE EXCESS 12.8 mmol/L (-2.0-2.0)
[2018-01-05 12:47] LABS: ABG ALLEN TEST POS; ABG HCO3 43.6 mmol/L (22-26)
[2018-01-05] MEDS ORDERED: NS 100 ML IV + SPIKE MINIBAG* 100 ML IV ONE (12:57)
[2018-01-05] MEDS ORDERED: FORTAZ or TAZICEF VIAL INJ ONE ×2 (12:57→21:13)
[2018-01-05] MEDS: FORTAZ or TAZICEF VIAL INJ 1 G in NS 50 ML IV + SPIKE MINIBAG* 50 ML IV SCH ×2 (12:59→22:00)
[2018-01-05] MEDS: PULMICORT NEB TX 0.5 MG NEB SCH ×2 (13:11→20:22)
[2018-01-05 16:25] LABS: ABG BASE EXCESS 13.2 mmol/L (-2.0-2.0)
[2018-01-05 16:26] LABS: ABG ALLEN TEST POS; ABG HCO3 44.1 mmol/L (22-26)
[2018-01-05 16:29] LABS: BLOOD UREA NITROGEN 16 mg/dL (7-18); CALCIUM 8.1 mg/dL (8.5-10.1); CHLORIDE 97 mmol/L (98-107); COR NA(FOR HYPERGLY) 135 mmol/L (136-145); CREATININE 0.76 mg/dL (0.70-1.30); SODIUM 134 mmol/L (136-145); eGFR NON BLACK RACES > 60 (>60)
[2018-01-05 16:43] LABS: CARBON DIOXIDE 41.7 mmol/L (21-32); CKMB % 5.9 % (<4); CREATINE KINASE 29 Units/L (39-308); CREATINE KINASE MB 1.7 ng/mL (0-4.0); TROPONIN I < 0.02 ng/mL (0-1.5)
[2018-01-05 17:36] LABS: ABG BASE EXCESS 13.8 mmol/L (-2.0-2.0)
[2018-01-05 17:37] LABS: ABG ALLEN TEST POS; ABG HCO3 44.6 mmol/L (22-26)
[2018-01-05 20:31] LABS: BLOOD UREA NITROGEN 15 mg/dL (7-18); CALCIUM 8.4 mg/dL (8.5-10.1); CHLORIDE 98 mmol/L (98-107); COR NA(FOR HYPERGLY) 134 mmol/L (136-145); CREATININE 0.68 mg/dL (0.70-1.30); SODIUM 134 mmol/L (136-145); eGFR NON BLACK RACES > 60 (>60)
[2018-01-05 20:40] LABS: CARBON DIOXIDE 41.6 mmol/L (21-32)
[2018-01-05] MEDS ORDERED: NS 100 ML IV 100 ML IV ONE (21:28)
[2018-01-05 23:41] LABS: BLOOD UREA NITROGEN 14 mg/dL (7-18); CALCIUM 8.4 mg/dL (8.5-10.1); CHLORIDE 97 mmol/L (98-107); CREATININE 0.61 mg/dL (0.70-1.30); SODIUM 134 mmol/L (136-145); eGFR NON BLACK RACES > 60 (>60)
[2018-01-05 23:57] LABS: CKMB % 7.2 % (<4); CREATINE KINASE 18 Units/L (39-308); CREATINE KINASE MB 1.3 ng/mL (0-4.0); TROPONIN I < 0.02 ng/mL (0-1.5)
[2018-01-06] MEDS: DUONEB 0.5 MG/3 MG NEB SCH ×6 (00:56→20:40)
[2018-01-06] MEDS ORDERED: FORTAZ or TAZICEF VIAL INJ ONE ×2 (05:29→14:05)
[2018-01-06] MEDS ORDERED: NS 100 ML IV + SPIKE MINIBAG* 100 ML IV ONE ×2 (05:29→14:06)
[2018-01-06 05:38] LABS: ABG BASE EXCESS 16.2 mmol/L (-2.0-2.0)
[2018-01-06 05:39] LABS: ABG HCO3 45.9 mmol/L (22-26)
[2018-01-06] MEDS: FORTAZ or TAZICEF VIAL INJ 1 G in NS 50 ML IV + SPIKE MINIBAG* 50 ML IV SCH ×2 (05:45→13:58)
[2018-01-06 05:54] LABS: BASOPHILS % (AUTO) 0.6 % (0.2-1.0); EOSINOPHILS # (AUTO) 0.2 x10^3/uL (0.0-0.2); EOSINOPHILS % (AUTO) 3.1 % (0.9-2.9); HEMATOCRIT 33.7 % (42.0-54.0); HEMOGLOBIN 11.2 g/dL (13.5-18.0); MEAN CORPUSCULAR HEMOGLOBIN 31.1 pg (27.0-34.0); MEAN CORPUSCULAR HGB CONC 33.4 g/dL (33.0-35.0); MEAN CORPUSCULAR VOLUME 93.1 fL (80.0-100.0); MEAN PLATELET VOLUME 8.2 fL (7.4-11.0); MONOCYTES % (AUTO) 15.1 % (0.0-13.0); NEUTROPHILS # (AUTO) 4.5 x10^3/uL (2.2-4.8); NEUTROPHILS % (AUTO) 66.2 % (42.0-75.0); PLATELET COUNT 204 X10^3/uL (150.0-450.0); RED BLOOD COUNT 3.62 X10^6/uL (4.7-6.0); RED CELL DISTRIBUTION WIDTH 13.9 % (11.6-16.5); WHITE BLOOD COUNT 6.8 X10^3/uL (3.6-10.0)
[2018-01-06 06:06] LABS: ALANINE AMINOTRANSFERASE 16 Units/L (12-78); ALKALINE PHOSPHATASE 87 Units/L (46-116); ASPARTATE AMINO TRANSFERASE 8 Units/L (15-37); BLOOD UREA NITROGEN 13 mg/dL (7-18); CALCIUM 8.4 mg/dL (8.5-10.1); CHLORIDE 97 mmol/L (98-107); COR CA(FOR HYPOALB) 9.2 mg/dL (8.5-10.1); CREATININE 0.53 mg/dL (0.70-1.30); SODIUM 134 mmol/L (136-145); TOTAL PROTEIN 5.8 g/dL (6.4-8.2); eGFR NON BLACK RACES > 60 (>60)
--- NOTE | 2018-01-06 06:22 | RAD ---
HISTORY: Shortness of breath Study: Chest AP portable Comparison: 12/31/2017, 01/05/2018 Findings: The heart is within normal limits in size. The diana are normal. The lungs are free of acute alveolar infiltrates. No pleural effusions are identified. The main pulmonary arteries are prominent. The bony thorax is unremarkable. IMPRESSION: No infiltrates Reported By:
[2018-01-06] MEDS ORDERED: PATIENT'S HOME MEDICATION (Oxycodone [Oxycodone] 30 MG) PO PRN (07:49)
[2018-01-06] MEDS: PULMICORT NEB TX 0.5 MG NEB SCH ×2 (08:46→20:40)
[2018-01-06] MEDS ORDERED: ZESTRIL TAB 40 MG PO SCH (09:00)
[2018-01-06] MEDS ORDERED: ZEBETA TAB 5 MG PO SCH (09:00)
[2018-01-06] MEDS ORDERED: ZITHROMAX INJ 500 MG VIAL 250 MG in NS 250 ML IV 250 ML IV SCH (09:00)
[2018-01-06] MEDS: DILANTIN CAP 100 MG EXT REL PO SCH ×2 (09:24→21:34)
[2018-01-06] MEDS: PriLOSEC PO SCH (09:24)
[2018-01-06] MEDS: ZANTAC PO SCH ×2 (09:24→21:35)
[2018-01-06] MEDS: COUMADIN TAB 5 MG PO SCH (21:31)
[2018-01-06] MEDS: ROXICODONE TAB 15 MG PO PRN ×2 (21:40→23:15)
--- NOTE | 2018-01-06 21:59 | PCM.PROG ---
Progress Note - Progress Note for Day of Date of Exam: 01/06/18 - Subjective Subjective: WAS ADMITTED FOR COPD EXACERBATION, RESPIRATORY FAILURE WITH HYPERCAPNIA, AND HYPERKALEMIA. TODAY, HE IS LYING IN BED ON MORNING ROUNDS. HE IS CURRENTLY UTILIZING THE BIPAP. HE IS DIFFICULT TO AROUSE THIS MORNING. STAFF REPORTS THAT HE HAS BEEN DROWSY THROUGHOUT THE NIGHT AND DIFFICULT TO AROUSE. ON EXAMINATION, HEART IS REGULAR IN RATE AND RHYTHM. BILATERAL LUNGS ARE NOTED WITH SCATTERED WHEEZING AND RHONCHI. ABDOMEN IS ROUND , SOFT, AND NON-TENDER WITH NORMAL BOWEL SOUNDS NOTED IN ALL QUADRANTS. BILATERAL LOWER EXTREMITIES ARE NOTED WITH 1+ PITTING EDEMA. HIS VITALS THIS MORNING ARE 97.8-73-24-98% BIPAP-108/70. LABS WERE OBTAINED. ABNORMAL LAB VALUES INCLUDE THE FOLLOWING: RBC 3.62, HGB 11.2, HCT 33.7, INR 1.85, SODIUM 134 , CHLORIDE 97, CARBON DIOXIDE 39.0, CREATININE 0.53, CALCIUM 8.4, AST 8, TOTAL PROTEIN 5.8, ALBUMIN 3.0. ABG REVEALED PH 7.340, PC02 85, P02 71.0, HC03 45.9, 02 SATURATION 93.0, BASE EXCESS 16.2. TODAYS CHEST XRAY REVEALED: The heart is within normal limits in size. The diana are normal. The lungs are free of acute alveolar infiltrates. No pleural effusions are identified. The main pulmonary arteries are prominent. The bony thorax is unremarkable. TODAY, WE WILL CONTINUE WITH IV ANTIBIOTICS, RESPIRATORY TREATMENTS, AND BIPAP. OTHERWISE, WE WILL FOLLOW UP WITH AM LABS AND CONTINUE TO MONITOR PATIENT. - Past Medical Family Social History Past Med/Fam/Surg Hx: No changes since H&P Allergies: Allergies No Known Drug Allergies Allergy (Verified 12/28/17 11:21) - Review of Systems ROS: No change since H&P - Vital Signs and I&O's Vital Signs: Temperature 98.5 F Pulse Rate [Apical] 102 Pulse Rate [Right Radial] 87 Pulse Rate 74 Respiratory Rate 24 Blood Pressure [Left Arm] 94/63 Blood Pressure [Right Arm] 119/65 Blood Pressure 131/80 O2 Sat by Pulse Oximetry 100 Intake and Output: Intake & Output 01/04/18 01/05/18 01/06/18 01/07/18 11:59 11:59 11:59 11:59 Intake Total 1712 / 1712 1320 / 1320 Output Total 2500 / 2500 500 / 500 Balance -788 / -788 820 / 820 - Physical Exam Oriented: Unable to test Eyes: Normal Ear: Normal Nose: Normal Throat: Normal Respiratory: Generalized, Wheezes, Rhonchi Cardiovascular: Normal. negative: S3, S4, Murmur : Normal Auscultation: Bowel Sounds: Normal Palpation: Normal Tenderness: Normal Skin: Normal Musculoskeletal: Normal Psychiatric: Normal Mood Description: Calm Affect: Normal Speech Pattern: Appropriate - Laboratory and Diagnostics Result Diagrams: 01/06/18 05:13 01/06/18 05:13 Labs: 01/05/18 10:35 Urine,Catheterized Urine Culture - Preliminary Laboratory WBC 6.8 X10^3/uL (3.6-10.0) 01/06/18 05:13 RBC 3.62 X10^6/uL (4.7-6.0) L 01/06/18 05:13 Hgb 11.2 g/dL (13.5-18.0) L 01/06/18 05:13 Hct 33.7 % (42.0-54.0) L 01/06/18 05:13 MCV 93.1 fL (80.0-100.0) 01/06/18 05:13 MCH 31.1 pg (27.0-34.0) 01/06/18 05:13 MCHC 33.4 g/dL (33.0-35.0) 01/06/18 05:13 RDW 13.9 % (11.6-16.5) 01/06/18 05:13 Plt Count 204 X10^3/uL (150.0-450.0) 01/06/18 05:13 MPV 8.2 fL (7.4-11.0) 01/06/18 05:13 Neut % (Auto) 66.2 % (42.0-75.0) 01/06/18 05:13 Lymph % (Auto) 15.0 % (21.0-51.0) L 01/06/18 05:13 [place] % (Auto) 15.1 % (0.0-13.0) H 01/06/18 05:13 Eos % (Auto) 3.1 % (0.9-2.9) H 01/06/18 05:13 Baso % (Auto) 0.6 % (0.2-1.0) 01/06/18 05:13 Neut # (Auto) 4.5 x10^3/uL (2.2-4.8) 01/06/18 05:13 Lymph # (Auto) 1.0 X10^3/uL (1.3-2.9) L 01/06/18 05:13 [place] # (Auto) 1.0 x10^3/uL (0.3-0.8) H 01/06/18 05:13 Eos # (Auto) 0.2 x10^3/uL (0.0-0.2) 01/06/18 05:13 Baso # (Auto) 0.0 X10^3/uL (0.0-0.1) 01/06/18 05:13 Absolute Nucleated RBC 0.0 /100WBC 01/06/18 05:13 INR Target Range - 01/06/18 05:13 INR 1.85 (0.8-1.3) H 01/06/18 05:13 Sample Site Rbra 01/06/18 05:28 ABG pH 7.340 (7.35-7.45) L 01/06/18 05:28 ABG pCO2 85.0 mmHg (35.0-45.0) H* 01/06/18 05:28 ABG pO2 71.0 mmHg (80.0-100.0) L 01/06/18 05:28 ABG HCO3 45.9 mmol/L (22-26) H* 01/06/18 05:28 ABG O2 Saturation 93.0 % (90-100) 01/06/18 05:28 ABG Base Excess 16.2 mmol/L (-2.0-2.0) H 01/06/18 05:28 Patrice Test Na 01/06/18 05:28 A-a Gradient 72.0 mmHg 01/06/18 05:28 FiO2 35.000 01/06/18 05:28 Blood Gas Comments Aris abg well-mtf 01/06/18 05:28 Sodium 134 mmol/L (136-145) L 01/06/18 05:13 Corrected Sodium TNP 01/06/18 05:13 Potassium 4.6 mmol/L (3.5-5.1) 01/06/18 05:13 Chloride 97 mmol/L (98-107) L 01/06/18 05:13 Carbon Dioxide 39.0 mmol/L (21-32) H 01/06/18 05:13 BUN 13 mg/dL (7-18) 01/06/18 05:13 Creatinine 0.53 mg/dL (0.70-1.30) L 01/06/18 05:13 Est GFR (MDRD) Af Amer > 60 (>60) 01/06/18 05:13 Est GFR (MDRD) Non-Af > 60 (>60) 01/06/18 05:13 Glucose 93 mg/dL (65-99) 01/06/18 05:13 POC Glucose (mg/dL) 84 mg/dL (65-99) 01/05/18 13:55 Calcium 8.4 mg/dL (8.5-10.1) L 01/06/18 05:13 Corrected Calcium 9.2 mg/dL (8.5-10.1) 01/06/18 05:13 Total Bilirubin 0.60 mg/dL (0.2-1.0) 01/06/18 05:13 AST 8 Units/L (15-37) L 01/06/18 05:13 ALT 16 Units/L (12-78) 01/06/18 05:13 Alkaline Phosphatase 87 Units/L (46-116) 01/06/18 05:13 Creatine Kinase 18 Units/L (39-308) L 01/05/18 23:25 CK-MB (CK-2) 1.3 ng/mL (0-4.0) 01/05/18 23:25 CK/CKMB % Calc 7.2 % (<4) 01/05/18 23:25 Troponin I < 0.02 ng/mL (0-1.5) 01/05/18 23:25 B-Natriuretic Peptide 52.9 pg/mL (0-79) 01/06/18 05:13 Total Protein 5.8 g/dL (6.4-8.2) L 01/06/18 05:13 Albumin 3.0 g/dL (3.4-5.0) L 01/06/18 05:13 Globulin 2.8 g/dL (2.5-4.5) 01/06/18 05:13 Albumin/Globulin Ratio 1.1 Ratio (1.1-2.1) 01/06/18 05:13 Specimen Type Catherized urine 01/05/18 10:39 Urine Color Yellow (YELLOW) 01/05/18 10:39 Urine Appearance Clear (CLEAR) 01/05/18 10:39 Urine pH 6.0 (5.0 - 8.0) 01/05/18 10:39 Ur Specific [place] 1.020 (1.000-1.030) 01/05/18 10:39 Urine Protein 1+ (NEGATIVE) 01/05/18 10:39 Urine Glucose (UA) Negative (NEGATIVE) 01/05/18 10:39 Urine Ketones Negative (NEGATIVE) 01/05/18 10:39 Urine Occult Blood Negative (NEGATIVE) 01/05/18 10:39 Urine Nitrite Negative (NEGATIVE) 01/05/18 10:39 Urine Bilirubin Negative (NEGATIVE) 01/05/18 10:39 Urine Urobilinogen Normal (NORMAL) 01/05/18 10:39 Ur Leukocyte Esterase Negative (NEGATIVE) 01/05/18 10:39 Urine RBC 0-2 /HPF (NONE SEEN) 01/05/18 10:39 Urine WBC None seen /HPF (NONE SEEN) 01/05/18 10:39 Ur Squamous Epith Cells Negative /HPF (NEGATIVE) 01/05/18 10:39 Urine Bacteria Negative /HPF (NEGATIVE) 01/05/18 10:39 Ur Culture Indicated? Yes/culture set up 01/05/18 10:39 Urine Opiates Screen Positive (NEG=<300) 01/05/18 10:35 Urine Methadone Screen Negative (NEG=<300) 01/05/18 10:35 Ur Barbiturates Screen Negative (NEG=<200) 01/05/18 10:35 Phenytoin 6.2 ug/mL (10-20) L 01/05/18 08:40 Ur Phencyclidine Scrn Negative (NEG=<25) 01/05/18 10:35 Ur Amphetamines Screen Negative (NEG=<1000) 01/05/18 10:35 U Benzodiazepines Scrn Positive (NEG=<200) 01/05/18 10:35 Urine Cocaine Screen Negative (NEG=<300) 01/05/18 10:35 U Marijuana (THC) Screen Negative (NEG=<50) 01/05/18 10:35 - Plan (1) Acute respiratory failure with hypoxemia Status: Acute Plan: ADMIT ICU. RESP THERAPY, SUPPLEMENTAL O2 BIPAP PRN. IV ATBX, IV LASIX, STEROIDS. JET NEBS. CARDIAC MONITORING, BP CONTROL. VERIFY HOME MEDS, SPUTUM CULTURES, SEIZURE PRECAUTIONS (2) COPD exacerbation Status: Acute
[2018-01-06] MEDS: FORTAZ or TAZICEF VIAL INJ 1 G in NS 100 ML IV + SPIKE MINIBAG* 100 ML IV SCH (22:15)
[2018-01-07] MEDS: VALIUM PO PRN ×4 (00:44→20:38)
[2018-01-07] MEDS: DUONEB 0.5 MG/3 MG NEB SCH ×5 (01:03→16:40)
[2018-01-07] MEDS: ROXICODONE TAB 15 MG PO PRN ×5 (04:20→21:34)
[2018-01-07] MEDS: FORTAZ or TAZICEF VIAL INJ 1 G in NS 100 ML IV + SPIKE MINIBAG* 100 ML IV SCH ×3 (05:23→21:35)
[2018-01-07 05:45] LABS: ABG BASE EXCESS 13.8 mmol/L (-2.0-2.0)
[2018-01-07 05:47] LABS: ABG ALLEN TEST POS; ABG HCO3 41.8 mmol/L (22-26)
[2018-01-07 06:28] LABS: BASOPHILS % (AUTO) 0.6 % (0.2-1.0); EOSINOPHILS # (AUTO) 0.1 x10^3/uL (0.0-0.2); EOSINOPHILS % (AUTO) 2.2 % (0.9-2.9); HEMATOCRIT 31.8 % (42.0-54.0); HEMOGLOBIN 10.8 g/dL (13.5-18.0); LYMPHOCYTES # (AUTO) 1.2 X10^3/uL (1.3-2.9); LYMPHOCYTES % (AUTO) 18.4 % (21.0-51.0); MEAN CORPUSCULAR HEMOGLOBIN 31.3 pg (27.0-34.0); MEAN CORPUSCULAR VOLUME 91.9 fL (80.0-100.0); MEAN PLATELET VOLUME 8.3 fL (7.4-11.0); MONOCYTES # (AUTO) 0.8 x10^3/uL (0.3-0.8); MONOCYTES % (AUTO) 12.5 % (0.0-13.0); NEUTROPHILS # (AUTO) 4.4 x10^3/uL (2.2-4.8); NEUTROPHILS % (AUTO) 66.3 % (42.0-75.0); PLATELET COUNT 177 X10^3/uL (150.0-450.0); RED BLOOD COUNT 3.46 X10^6/uL (4.7-6.0); RED CELL DISTRIBUTION WIDTH 13.7 % (11.6-16.5); WHITE BLOOD COUNT 6.6 X10^3/uL (3.6-10.0)
[2018-01-07 06:43] LABS: ALANINE AMINOTRANSFERASE 14 Units/L (12-78); ALBUMIN 2.8 g/dL (3.4-5.0); ALKALINE PHOSPHATASE 87 Units/L (46-116); ASPARTATE AMINO TRANSFERASE 9 Units/L (15-37); BLOOD UREA NITROGEN 15 mg/dL (7-18); CALCIUM 8.2 mg/dL (8.5-10.1); CARBON DIOXIDE 37.1 mmol/L (21-32); CHLORIDE 96 mmol/L (98-107); COR CA(FOR HYPOALB) 9.2 mg/dL (8.5-10.1); CREATININE 0.72 mg/dL (0.70-1.30); SODIUM 133 mmol/L (136-145); TOTAL PROTEIN 5.5 g/dL (6.4-8.2); eGFR NON BLACK RACES > 60 (>60)
--- NOTE | 2018-01-07 06:58 | RAD ---
HISTORY: Shortness of breath Study: Chest AP portable Comparison: 01/06/2018 Findings: The heart is within normal limits in size. The diana are normal. The lungs are free of acute infiltrat es. No pleural effusions are identified. The bony thorax is unremarkable. IMPRESSION: No infiltrates Reported By:
[2018-01-07] MEDS: ZANTAC PO SCH ×2 (08:42→20:38)
[2018-01-07] MEDS: PriLOSEC PO SCH (08:42)
[2018-01-07] MEDS: DILANTIN CAP 100 MG EXT REL PO SCH ×2 (08:42→20:41)
[2018-01-07] MEDS: PULMICORT NEB TX 0.5 MG NEB SCH (09:10)
--- NOTE | 2018-01-07 11:54 | VAS ---
HISTORY: Extremity pain, swelling, and edema Study: Right lower extremity Doppler venous ultrasound. TECHNIQUE: Multiple bermudez scale and color flow Doppler images of the deep venous system were obtained of the right lower extremity. FINDINGS: The deep venous system of the right lower extremity evaluated from the level of the common femoral ve in through the popliteal vein. Normal color flow and augmentation can be observed. In addition, nor mal compression is seen throughout the deep venous system. IMPRESSION: 1. Negative examination for DVT. Reported By:
--- NOTE | 2018-01-07 20:19 | PCM.PROG ---
Progress Note - Progress Note for Day of Date of Exam: 01/07/18 - Subjective Subjective: WAS ADMITTED FOR COPD EXACERBATION, RESPIRATORY FAILURE WITH HYPERCAPNIA, AND HYPERKALEMIA. TODAY, HE IS ALERT AND ORIENTED, LYING IN BED ON MORNING ROUNDS. HE IS NOT ON THE BIPAP AT THIS TIME. ON EXAMINATION, HEART IS REGULAR IN RATE AND RHYTHM. BILATERAL LUNGS ARE NOTED WITH SCATTERED WHEEZING AND RHONCHI. ABDOMEN IS ROUND, SOFT, AND NON-TENDER WITH NORMAL BOWEL SOUNDS NOTED IN ALL QUADRANTS. BILATERAL LOWER EXTREMITIES CONTINUE WITH 1+ PITTING EDEMA. THEY ARE ALSO NOTED WITH ERYTHEMA AND WARMTH. HIS VITALS THIS MORNING ARE 98.5-84-25-99%NC-112/72. LABS WERE OBTAINED. ABNORMAL LAB VALUES INCLUDE THE FOLLOWING: RBC 3.46, HGB 10.8, HCT 31.8, SODIUM 133, CHLORIDE 96, CARBON DIOXIDE 37.1, CALCIUM 8.2, AST 9, TOTAL PROTEIN 5.5, ALBUMIN 2.8. TODAY S CHEST XRAY REVEALED: The heart is within normal limits in size. The diana are normal. The lungs are free of acute infiltrates. No pleural effusions are identified. The bony thorax is unremarkable. TODAY, WE WILL CONTINUE WITH IV ANTIBIOTICS, RESPIRATORY TREATMENTS, AND BIPAP. WE WILL OBTAIN BILATERAL LOWER EXTREMITY VENOUS DOPPLERS. OTHERWISE, WE WILL FOLLOW UP WITH AM LABS AND CONTINUE TO MONITOR PATIENT. - Past Medical Family Social History Past Med/Fam/Surg Hx: No changes since H&P Allergies: Allergies No Known Drug Allergies Allergy (Verified 12/28/17 11:21) - Review of Systems ROS: No change since H&P - Vital Signs and I&O's Vital Signs: Temperature 97.9 F Pulse Rate [Apical] 82 Pulse Rate [Right Radial] 87 Pulse Rate 77 Respiratory Rate 19 Blood Pressure [Left Arm] 94/63 Blood Pressure [Right Arm] 129/78 Blood Pressure 131/80 O2 Sat by Pulse Oximetry 100 Intake and Output: Intake & Output 01/05/18 01/06/18 01/07/18 01/08/18 11:59 11:59 11:59 11:59 Intake Total 1712 / 1712 4247 / 4247 2348 / 2348 Output Total 2500 / 2500 1250 / 1250 1300 / 1300 Balance -788 / -788 2997 / 2997 1048 / 1048 - Physical Exam Oriented: Unable to test Eyes: Normal Ear: Normal Nose: Normal Throat: Normal Respiratory: Generalized, Wheezes, Rhonchi Cardiovascular: Normal. negative: S3, S4, Murmur : Normal Auscultation: Bowel Sounds: Normal Palpation: Normal Tenderness: Normal Skin: Normal Musculoskeletal: Normal Psychiatric: Normal Mood Description: Calm Affect: Normal Speech Pattern: Clear - Laboratory and Diagnostics Result Diagrams: 01/07/18 05:54 01/07/18 05:54 Labs: 01/05/18 08:40 Blood Blood Culture - Preliminary 01/05/18 10:35 Urine,Catheterized Urine Culture - Final Laboratory WBC 6.6 X10^3/uL (3.6-10.0) 01/07/18 05:54 RBC 3.46 X10^6/uL (4.7-6.0) L 01/07/18 05:54 Hgb 10.8 g/dL (13.5-18.0) L 01/07/18 05:54 Hct 31.8 % (42.0-54.0) L 01/07/18 05:54 MCV 91.9 fL (80.0-100.0) 01/07/18 05:54 MCH 31.3 pg (27.0-34.0) 01/07/18 05:54 MCHC 34.0 g/dL (33.0-35.0) 01/07/18 05:54 RDW 13.7 % (11.6-16.5) 01/07/18 05:54 Plt Count 177 X10^3/uL (150.0-450.0) 01/07/18 05:54 MPV 8.3 fL (7.4-11.0) 01/07/18 05:54 Neut % (Auto) 66.3 % (42.0-75.0) 01/07/18 05:54 Lymph % (Auto) 18.4 % (21.0-51.0) L 01/07/18 05:54 Leon % (Auto) 12.5 % (0.0-13.0) 01/07/18 05:54 Eos % (Auto) 2.2 % (0.9-2.9) 01/07/18 05:54 Baso % (Auto) 0.6 % (0.2-1.0) 01/07/18 05:54 Neut # (Auto) 4.4 x10^3/uL (2.2-4.8) 01/07/18 05:54 Lymph # (Auto) 1.2 X10^3/uL (1.3-2.9) L 01/07/18 05:54 Leon # (Auto) 0.8 x10^3/uL (0.3-0.8) 01/07/18 05:54 Eos # (Auto) 0.1 x10^3/uL (0.0-0.2) 01/07/18 05:54 Baso # (Auto) 0.0 X10^3/uL (0.0-0.1) 01/07/18 05:54 Absolute Nucleated RBC 0.0 /100WBC 01/07/18 05:54 INR Target Range - 01/06/18 05:13 INR 1.85 (0.8-1.3) H 01/06/18 05:13 Sample Site Lrad 01/07/18 05:34 ABG pH 7.390 (7.35-7.45) 01/07/18 05:34 ABG pCO2 69.0 mmHg (35.0-45.0) H* 01/07/18 05:34 ABG pO2 80.0 mmHg (80.0-100.0) 01/07/18 05:34 ABG HCO3 41.8 mmol/L (22-26) H* 01/07/18 05:34 ABG O2 Saturation 96.0 % (90-100) 01/07/18 05:34 ABG Base Excess 13.8 mmol/L (-2.0-2.0) H 01/07/18 05:34 Patrice Test Pos 01/07/18 05:34 A-a Gradient 83.0 mmHg 01/07/18 05:34 FiO2 35.000 01/07/18 05:34 Blood Gas Comments Aris abg well-mtf 01/07/18 05:34 Sodium 133 mmol/L (136-145) L 01/07/18 05:54 Corrected Sodium TNP 01/07/18 05:54 Potassium 4.4 mmol/L (3.5-5.1) 01/07/18 05:54 Chloride 96 mmol/L (98-107) L 01/07/18 05:54 Carbon Dioxide 37.1 mmol/L (21-32) H 01/07/18 05:54 BUN 15 mg/dL (7-18) 01/07/18 05:54 Creatinine 0.72 mg/dL (0.70-1.30) 01/07/18 05:54 Est GFR (MDRD) Af Amer > 60 (>60) 01/07/18 05:54 Est GFR (MDRD) Non-Af > 60 (>60) 01/07/18 05:54 Glucose 95 mg/dL (65-99) 01/07/18 05:54 POC Glucose (mg/dL) 84 mg/dL (65-99) 01/05/18 13:55 Calcium 8.2 mg/dL (8.5-10.1) L 01/07/18 05:54 Corrected Calcium 9.2 mg/dL (8.5-10.1) 01/07/18 05:54 Total Bilirubin 0.30 mg/dL (0.2-1.0) 01/07/18 05:54 AST 9 Units/L (15-37) L 01/07/18 05:54 ALT 14 Units/L (12-78) 01/07/18 05:54 Alkaline Phosphatase 87 Units/L (46-116) 01/07/18 05:54 Creatine Kinase 18 Units/L (39-308) L 01/05/18 23:25 CK-MB (CK-2) 1.3 ng/mL (0-4.0) 01/05/18 23:25 CK/CKMB % Calc 7.2 % (<4) 01/05/18 23:25 Troponin I < 0.02 ng/mL (0-1.5) 01/05/18 23:25 B-Natriuretic Peptide 52.9 pg/mL (0-79) 01/06/18 05:13 Total Protein 5.5 g/dL (6.4-8.2) L 01/07/18 05:54 Albumin 2.8 g/dL (3.4-5.0) L 01/07/18 05:54 Globulin 2.7 g/dL (2.5-4.5) 01/07/18 05:54 Albumin/Globulin Ratio 1.0 Ratio (1.1-2.1) L 01/07/18 05:54 Specimen Type Catherized urine 01/05/18 10:39 Urine Color Yellow (YELLOW) 01/05/18 10:39 Urine Appearance Clear (CLEAR) 01/05/18 10:39 Urine pH 6.0 (5.0 - 8.0) 01/05/18 10:39 Ur Specific [place] 1.020 (1.000-1.030) 01/05/18 10:39 Urine Protein 1+ (NEGATIVE) 01/05/18 10:39 Urine Glucose (UA) Negative (NEGATIVE) 01/05/18 10:39 Urine Ketones Negative (NEGATIVE) 01/05/18 10:39 Urine Occult Blood Negative (NEGATIVE) 01/05/18 10:39 Urine Nitrite Negative (NEGATIVE) 01/05/18 10:39 Urine Bilirubin Negative (NEGATIVE) 01/05/18 10:39 Urine Urobilinogen Normal (NORMAL) 01/05/18 10:39 Ur Leukocyte Esterase Negative (NEGATIVE) 01/05/18 10:39 Urine RBC 0-2 /HPF (NONE SEEN) 01/05/18 10:39 Urine WBC None seen /HPF (NONE SEEN) 01/05/18 10:39 Ur Squamous Epith Cells Negative /HPF (NEGATIVE) 01/05/18 10:39 Urine Bacteria Negative /HPF (NEGATIVE) 01/05/18 10:39 Ur Culture Indicated? Yes/culture set up 01/05/18 10:39 Urine Opiates Screen Positive (NEG=<300) 01/05/18 10:35 Urine Methadone Screen Negative (NEG=<300) 01/05/18 10:35 Ur Barbiturates Screen Negative (NEG=<200) 01/05/18 10:35 Phenytoin 6.2 ug/mL (10-20) L 01/05/18 08:40 Ur Phencyclidine Scrn Negative (NEG=<25) 01/05/18 10:35 Ur Amphetamines Screen Negative (NEG=<1000) 01/05/18 10:35 U Benzodiazepines Scrn Positive (NEG=<200) 01/05/18 10:35 Urine Cocaine Screen Negative (NEG=<300) 01/05/18 10:35 U Marijuana (THC) Screen Negative (NEG=<50) 01/05/18 10:35 - Plan (1) Acute respiratory failure with hypoxemia Status: Acute Plan: ADMIT ICU. RESP THERAPY, SUPPLEMENTAL O2 BIPAP PRN. IV ATBX, IV LASIX, STEROIDS. JET NEBS. CARDIAC MONITORING, BP CONTROL. VERIFY HOME MEDS, SPUTUM CULTURES, SEIZURE PRECAUTIONS (2) COPD exacerbation Status: Acute (3) CHF (congestive heart failure) Status: Acute Qualifiers: Heart failure type: unspecified Heart failure chronicity: acute on chronic Qualified Code(s): I50.9 - Heart failure, unspecified Plan: CONTINUE LASIX, CONTINUE TO MONITOR (4) GERD (gastroesophageal reflux disease) Status: Chronic Qualifiers: Esophagitis presence: esophagitis presence not specified Plan: CONTINUE ZANTAC, CONTINUE TO MONITOR (5) Seizure disorder Status: Chronic Plan: CONTINUE DILANTIN, CONTINUE TO MONITOR
[2018-01-07] MEDS: COUMADIN TAB 5 MG PO SCH (20:39)
[2018-01-08] MEDS: DUONEB 0.5 MG/3 MG NEB SCH ×5 (01:13→13:15)
[2018-01-08] MEDS: PULMICORT NEB TX 0.5 MG NEB SCH ×2 (02:08→08:45)
[2018-01-08 05:26] LABS: ABG BASE EXCESS 13.3 mmol/L (-2.0-2.0)
[2018-01-08 05:28] LABS: ABG ALLEN TEST POS; ABG HCO3 41.2 mmol/L (22-26)
[2018-01-08] MEDS: FORTAZ or TAZICEF VIAL INJ 1 G in NS 100 ML IV + SPIKE MINIBAG* 100 ML IV SCH ×2 (06:02→13:29)
[2018-01-08] MEDS: ROXICODONE TAB 15 MG PO PRN ×2 (06:02→12:35)
[2018-01-08] MEDS: VALIUM PO PRN ×2 (06:03→12:35)
[2018-01-08 06:26] LABS: BASOPHILS % (AUTO) 0.6 % (0.2-1.0); EOSINOPHILS # (AUTO) 0.2 x10^3/uL (0.0-0.2); EOSINOPHILS % (AUTO) 2.8 % (0.9-2.9); HEMATOCRIT 32.9 % (42.0-54.0); HEMOGLOBIN 11.1 g/dL (13.5-18.0); LYMPHOCYTES # (AUTO) 1.2 X10^3/uL (1.3-2.9); LYMPHOCYTES % (AUTO) 20.9 % (21.0-51.0); MEAN CORPUSCULAR HGB CONC 33.7 g/dL (33.0-35.0); MEAN CORPUSCULAR VOLUME 91.9 fL (80.0-100.0); MEAN PLATELET VOLUME 8.5 fL (7.4-11.0); MONOCYTES # (AUTO) 0.8 x10^3/uL (0.3-0.8); MONOCYTES % (AUTO) 13.9 % (0.0-13.0); NEUTROPHILS # (AUTO) 3.5 x10^3/uL (2.2-4.8); NEUTROPHILS % (AUTO) 61.8 % (42.0-75.0); PLATELET COUNT 176 X10^3/uL (150.0-450.0); RED BLOOD COUNT 3.58 X10^6/uL (4.7-6.0); RED CELL DISTRIBUTION WIDTH 13.7 % (11.6-16.5); WHITE BLOOD COUNT 5.7 X10^3/uL (3.6-10.0)
--- NOTE | 2018-01-08 06:54 | RAD ---
HISTORY: Shortness of breath Study: Chest AP portable Comparison: 01/07/2018 Findings: The heart is within normal limits in size. The diana are normal. The lungs are free of acute alveolar infiltrates. No pleural effusions are identified. The bony thorax is unremarkable. IMPRESSION: Lungs remain clear Reported By:
[2018-01-08] MEDS ORDERED: LASIX PO SCH (07:00)
[2018-01-08 07:07] LABS: ALANINE AMINOTRANSFERASE 15 Units/L (12-78); ALBUMIN 2.8 g/dL (3.4-5.0); ALKALINE PHOSPHATASE 89 Units/L (46-116); ASPARTATE AMINO TRANSFERASE 7 Units/L (15-37); BLOOD UREA NITROGEN 13 mg/dL (7-18); CALCIUM 8.4 mg/dL (8.5-10.1); CHLORIDE 96 mmol/L (98-107); COR CA(FOR HYPOALB) 9.4 mg/dL (8.5-10.1); CREATININE 0.59 mg/dL (0.70-1.30); SODIUM 133 mmol/L (136-145); TOTAL PROTEIN 5.8 g/dL (6.4-8.2); eGFR NON BLACK RACES > 60 (>60)
[2018-01-08] MEDS: PriLOSEC PO SCH (09:28)
[2018-01-08] MEDS: DILANTIN CAP 100 MG EXT REL PO SCH (09:28)
[2018-01-08] MEDS: ZANTAC PO SCH (09:29)
--- NOTE | 2018-01-08 10:31 | PCM.PROG ---
Progress Note - Progress Note for Day of Date of Exam: 01/08/18 - Subjective Subjective: IS A 57 YEAR OLD PATIENT OF OURS WITH CHRONIC RESPIRATORY FAILURE SECONDARY TO END STAGE COPD. DUE TO HIS ADVANCED DISEASE, HE NOW REQUIRES A VENTILATOR AT HOME TO REDUCE HIS SHORTNESS OF BREATH AND WORK OF BREATHING AND TO IMPROVE HIS PULMONARY STATUS. WITHOUT IT, HE WILL SUFFER FROM A DECLINE IN HEALTH DUE TO C02 RETENTION. OTHER RESPIRATORY ASSIST DEVICES HAVE BEEN PROVEN INEFFECTIVE IN PROVIDING ADEQUATE RESPIRATORY IMPROVEMENT FOR THE PATIENT. DUE TO HIS ADVANCED DISEASE STATE, HE NOW REQUIRES A VENTILATOR FOR HOME USE TO REDUCE WORK OF BREATHING AND TO IMPROVE PULMONARY STATUS. WITHOUT IT, HE WILL SUFFER A DECLINE IN HEALTH AND ULTIMELY HOSPITAL READMISSIONS. - Past Medical Family Social History Past Med/Fam/Surg Hx: No changes since H&P Allergies: Allergies No Known Drug Allergies Allergy (Verified 12/28/17 11:21) - Review of Systems ROS: No change since H&P - Vital Signs and I&O's Vital Signs: Temperature 98.9 F Pulse Rate [Apical] 75 Pulse Rate [Right Radial] 87 Pulse Rate 87 Respiratory Rate 21 Blood Pressure [Left Arm] 94/63 Blood Pressure [Right Arm] 115/71 Blood Pressure 131/80 O2 Sat by Pulse Oximetry 96 Intake and Output: Intake & Output 01/05/18 01/06/18 01/07/18 01/08/18 11:59 11:59 11:59 11:59 Intake Total 1712 / 1712 4247 / 4247 4501 / 4501 Output Total 2500 / 2500 1250 / 1250 3550 / 3550 Balance -788 / -788 2997 / 2997 951 / 951 - Physical Exam Oriented: Normal Eyes: Normal Ear: Normal Nose: Normal Throat: Normal Respiratory: Generalized, Wheezes, Rhonchi Cardiovascular: Normal. negative: S3, S4, Murmur : Normal Auscultation: Bowel Sounds: Normal Palpation: Normal Tenderness: Normal Skin: Normal Musculoskeletal: Normal Psychiatric: Normal Mood Description: Calm Affect: Normal Speech Pattern: Clear - Laboratory and Diagnostics Result Diagrams: 01/08/18 05:49 01/08/18 05:49 Labs: 01/05/18 08:40 Blood Blood Culture - Preliminary 01/05/18 10:35 Urine,Catheterized Urine Culture - Final Laboratory WBC 5.7 X10^3/uL (3.6-10.0) 01/08/18 05:49 RBC 3.58 X10^6/uL (4.7-6.0) L 01/08/18 05:49 Hgb 11.1 g/dL (13.5-18.0) L 01/08/18 05:49 Hct 32.9 % (42.0-54.0) L 01/08/18 05:49 MCV 91.9 fL (80.0-100.0) 01/08/18 05:49 MCH 31.0 pg (27.0-34.0) 01/08/18 05:49 MCHC 33.7 g/dL (33.0-35.0) 01/08/18 05:49 RDW 13.7 % (11.6-16.5) 01/08/18 05:49 Plt Count 176 X10^3/uL (150.0-450.0) 01/08/18 05:49 MPV 8.5 fL (7.4-11.0) 01/08/18 05:49 Neut % (Auto) 61.8 % (42.0-75.0) 01/08/18 05:49 Lymph % (Auto) 20.9 % (21.0-51.0) L 01/08/18 05:49 Page % (Auto) 13.9 % (0.0-13.0) H 01/08/18 05:49 Eos % (Auto) 2.8 % (0.9-2.9) 01/08/18 05:49 Baso % (Auto) 0.6 % (0.2-1.0) 01/08/18 05:49 Neut # (Auto) 3.5 x10^3/uL (2.2-4.8) 01/08/18 05:49 Lymph # (Auto) 1.2 X10^3/uL (1.3-2.9) L 01/08/18 05:49 Page # (Auto) 0.8 x10^3/uL (0.3-0.8) 01/08/18 05:49 Eos # (Auto) 0.2 x10^3/uL (0.0-0.2) 01/08/18 05:49 Baso # (Auto) 0.0 X10^3/uL (0.0-0.1) 01/08/18 05:49 Absolute Nucleated RBC 0.0 /100WBC 01/08/18 05:49 INR Target Range - 01/06/18 05:13 INR 1.85 (0.8-1.3) H 01/06/18 05:13 Sample Site Rrad 01/08/18 05:16 ABG pH 7.390 (7.35-7.45) 01/08/18 05:16 ABG pCO2 68.0 mmHg (35.0-45.0) H* 01/08/18 05:16 ABG pO2 76.0 mmHg (80.0-100.0) L 01/08/18 05:16 ABG HCO3 41.2 mmol/L (22-26) H* 01/08/18 05:16 ABG O2 Saturation 95.0 % (90-100) 01/08/18 05:16 ABG Base Excess 13.3 mmol/L (-2.0-2.0) H 01/08/18 05:16 Patrice Test Pos 01/08/18 05:16 A-a Gradient 89.0 mmHg 01/08/18 05:16 FiO2 35.000 01/08/18 05:16 Blood Gas Comments Aris abg well-mtf 01/08/18 05:16 Sodium 133 mmol/L (136-145) L 01/08/18 05:49 Corrected Sodium TNP 01/08/18 05:49 Potassium 4.4 mmol/L (3.5-5.1) 01/08/18 05:49 Chloride 96 mmol/L (98-107) L 01/08/18 05:49 Carbon Dioxide 34.0 mmol/L (21-32) H 01/08/18 05:49 BUN 13 mg/dL (7-18) 01/08/18 05:49 Creatinine 0.59 mg/dL (0.70-1.30) L 01/08/18 05:49 Est GFR (MDRD) Af Amer > 60 (>60) 01/08/18 05:49 Est GFR (MDRD) Non-Af > 60 (>60) 01/08/18 05:49 Glucose 100 mg/dL (65-99) H 01/08/18 05:49 POC Glucose (mg/dL) 84 mg/dL (65-99) 01/05/18 13:55 Calcium 8.4 mg/dL (8.5-10.1) L 01/08/18 05:49 Corrected Calcium 9.4 mg/dL (8.5-10.1) 01/08/18 05:49 Total Bilirubin 0.20 mg/dL (0.2-1.0) 01/08/18 05:49 AST 7 Units/L (15-37) L 01/08/18 05:49 ALT 15 Units/L (12-78) 01/08/18 05:49 Alkaline Phosphatase 89 Units/L (46-116) 01/08/18 05:49 Creatine Kinase 18 Units/L (39-308) L 01/05/18 23:25 CK-MB (CK-2) 1.3 ng/mL (0-4.0) 01/05/18 23:25 CK/CKMB % Calc 7.2 % (<4) 01/05/18 23:25 Troponin I < 0.02 ng/mL (0-1.5) 01/05/18 23:25 B-Natriuretic Peptide 52.9 pg/mL (0-79) 01/06/18 05:13 Total Protein 5.8 g/dL (6.4-8.2) L 01/08/18 05:49 Albumin 2.8 g/dL (3.4-5.0) L 01/08/18 05:49 Globulin 3.0 g/dL (2.5-4.5) 01/08/18 05:49 Albumin/Globulin Ratio 0.9 Ratio (1.1-2.1) L 01/08/18 05:49 Specimen Type Catherized urine 01/05/18 10:39 Urine Color Yellow (YELLOW) 01/05/18 10:39 Urine Appearance Clear (CLEAR) 01/05/18 10:39 Urine pH 6.0 (5.0 - 8.0) 01/05/18 10:39 Ur Specific [place] 1.020 (1.000-1.030) 01/05/18 10:39 Urine Protein 1+ (NEGATIVE) 01/05/18 10:39 Urine Glucose (UA) Negative (NEGATIVE) 01/05/18 10:39 Urine Ketones Negative (NEGATIVE) 01/05/18 10:39 Urine Occult Blood Negative (NEGATIVE) 01/05/18 10:39 Urine Nitrite Negative (NEGATIVE) 01/05/18 10:39 Urine Bilirubin Negative (NEGATIVE) 01/05/18 10:39 Urine Urobilinogen Normal (NORMAL) 01/05/18 10:39 Ur Leukocyte Esterase Negative (NEGATIVE) 01/05/18 10:39 Urine RBC 0-2 /HPF (NONE SEEN) 01/05/18 10:39 Urine WBC None seen /HPF (NONE SEEN) 01/05/18 10:39 Ur Squamous Epith Cells Negative /HPF (NEGATIVE) 01/05/18 10:39 Urine Bacteria Negative /HPF (NEGATIVE) 01/05/18 10:39 Ur Culture Indicated? Yes/culture set up 01/05/18 10:39 Urine Opiates Screen Positive (NEG=<300) 01/05/18 10:35 Urine Methadone Screen Negative (NEG=<300) 01/05/18 10:35 Ur Barbiturates Screen Negative (NEG=<200) 01/05/18 10:35 Phenytoin 6.2 ug/mL (10-20) L 01/05/18 08:40 Ur Phencyclidine Scrn Negative (NEG=<25) 01/05/18 10:35 Ur Amphetamines Screen Negative (NEG=<1000) 01/05/18 10:35 U Benzodiazepines Scrn Positive (NEG=<200) 01/05/18 10:35 Urine Cocaine Screen Negative (NEG=<300) 01/05/18 10:35 U Marijuana (THC) Screen Negative (NEG=<50) 01/05/18 10:35 - Plan (1) Acute respiratory failure with hypoxemia Status: Acute Plan: ICU. RESP THERAPY, SUPPLEMENTAL O2 BIPAP PRN. IV ATBX, IV LASIX, STEROIDS. JET NEBS. CARDIAC MONITORING, BP CONTROL. VERIFY HOME MEDS, SPUTUM CULTURES, SEIZURE PRECAUTIONS (2) COPD exacerbation Status: Acute Plan: USE OF BIPAP, RESPIRATORY TREATMENTS, SUPPLEMENTAL OXYGEN, CONTINUE TO MONITOR (3) CHF (congestive heart failure) Status: Acute Qualifiers: Heart failure type: unspecified Heart failure chronicity: acute on chronic Qualified Code(s): I50.9 - Heart failure, unspecified Plan: CONTINUE LASIX, CONTINUE TO MONITOR (4) GERD (gastroesophageal reflux disease) Status: Chronic Qualifiers: Esophagitis presence: esophagitis presence not specified Plan: CONTINUE ZANTAC, CONTINUE TO MONITOR (5) Seizure disorder Status: Chronic Plan: CONTINUE DILANTIN, CONTINUE TO MONITOR
[2018-01-08 12:26] VITALS: BP 112/65
[2018-01-08] MEDS ORDERED: COLACE CAP 100 MG PO SCH (21:00)
--- NOTE | 2018-02-12 22:34 | DR.CARTERD ---
- Discharge Summary for: Discharge Summary for Date of:: 01/08/18 - Admission Date Date of Admission: 01/05/18 - Admission Diagnoses Admission Diagnosis: (1) Acute respiratory failure with hypoxemia (2) Chronic kidney disease (CKD) (3) COPD exacerbation (4) Altered mental state (5) Hypertension (6) GERD (gastroesophageal reflux disease) - Discharge Date Discharge Date: 01/08/18 - Discharge Diagnoses Discharge Diagnosis: (1) Acute respiratory failure with hypoxemia (2) Chronic kidney disease (CKD) (3) COPD exacerbation (4) Altered mental state (5) Hypertension (6) GERD (gastroesophageal reflux disease) - Hospital Course Hospital Course: DAY ONE, PATIENT ADMITTED FROM THE ER AFTER PRESENTING WITH COMPLAINTS OF AMS. EMS STATED PATIENT'S FAMILY COMPLAINED THAT PATIENT HAD BEEN VOMITING AND HAD AMS. UPON ARRIVAL, PATIENT NOTED PT TO BE CONFUSED AND HAD CONTINUOUS SHAKING/ JERKING MOVEMENTS. PUPILS WERE NOTED TO BE CONSTRICTED AND SLUGGISH TO REACT. PATIENT HAS PMH OF SEVERE COPD, CHRONIC RESP FAILURE. PT HYPOXIC ON ABG COLLECTED IN ED. PATIENT WAS ADMITTED TO ICU FOR EVALUATION AND TREATMENT OF ACUTE RESP DISTRESS, AMS. DAY TWO, WAS ADMITTED FOR COPD EXACERBATION, RESPIRATORY FAILURE WITH HYPERCAPNIA, AND HYPERKALEMIA. HE WAS LYING IN BED ON MORNING ROUNDS. HE CONTINUED ON THE BIPAP. HE WAS DIFFICULT TO AROUSE. STAFF REPORTED THAT HE HAD BEEN DROWSY THROUGHOUT THE NIGHT AND DIFFICULT TO AROUSE. ON EXAMINATION, HEART WAS REGULAR IN RATE AND RHYTHM. BILATERAL LUNGS WERE NOTED WITH SCATTERED WHEEZING AND RHONCHI. ABDOMEN WAS ROUND, SOFT, AND NON-TENDER WITH NORMAL BOWEL SOUNDS NOTED IN ALL QUADRANTS. BILATERAL LOWER EXTREMITIES WERE NOTED WITH 1+ PITTING EDEMA. HIS VITALS WERE 97.8-73-24-98% BIPAP-108/70. LABS WERE OBTAINED. ABNORMAL LAB VALUES INCLUDED THE FOLLOWING: RBC 3.62, HGB 11.2, HCT 33.7, INR 1.85, SODIUM 134, CHLORIDE 97, CARBON DIOXIDE 39.0, CREATININE 0.53, CALCIUM 8.4 , AST 8, TOTAL PROTEIN 5.8, ALBUMIN 3.0. ABG REVEALED PH 7.340, PC02 85, P02 71.0, HC03 45.9, 02 SATURATION 93.0, BASE EXCESS 16.2. CHEST XRAY REVEALED: The heart is within normal limits in size. The diana are normal. The lungs are free of acute alveolar infiltrates. No pleural effusions are identified. The main pulmonary arteries are prominent. The bony thorax is unremarkable. WE CONTINUED WITH IV ANTIBIOTICS, RESPIRATORY TREATMENTS, AND BIPAP. DAY THREE, HE WAS ALERT AND ORIENTED, LYING IN BED ON MORNING ROUNDS. HE WAS NOT ON THE BIPAP. ON EXAMINATION, HEART WAS REGULAR IN RATE AND RHYTHM. BILATERAL LUNGS WERE NOTED WITH SCATTERED WHEEZING AND RHONCHI. ABDOMEN WAS ROUND, SOFT, AND NON-TENDER WITH NORMAL BOWEL SOUNDS NOTED IN ALL QUADRANTS. BILATERAL LOWER EXTREMITIES CONTINUED WITH 1+ PITTING EDEMA. THEY WERE ALSO NOTED WITH ERYTHEMA AND WARMTH. HIS VITALS WERE 98.5-84-25-99%NC-112/72. LABS WERE OBTAINED. ABNORMAL LAB VALUES INCLUDED THE FOLLOWING: RBC 3.46, HGB 10.8, HCT 31.8, SODIUM 133, CHLORIDE 96, CARBON DIOXIDE 37.1, CALCIUM 8.2, AST 9, TOTAL PROTEIN 5.5, ALBUMIN 2.8. CHEST XRAY REVEALED: The heart is within normal limits in size. The diana are normal. The lungs are free of acute infiltrates. No pleural effusions are identified. The bony thorax is unremarkable. WE CONTINUED WITH IV ANTIBIOTICS, RESPIRATORY TREATMENTS, AND BIPAP. WE CONTINUED TO MONITOR PATIENT. DAY FOUR, CONTINUED TREATMENT FOR CHRONIC RESPIRATORY FAILURE SECONDARY TO END STAGE COPD. DUE TO HIS ADVANCED DISEASE, HE NOW REQUIRED A VENTILATOR AT HOME TO REDUCE HIS SHORTNESS OF BREATH AND WORK OF BREATHING AND TO IMPROVE HIS PULMONARY STATUS. WITHOUT IT, HE WILL SUFFER FROM A DECLINE IN HEALTH DUE TO C02 RETENTION. OTHER RESPIRATORY ASSIST DEVICES HAD BEEN PROVEN INEFFECTIVE IN PROVIDING ADEQUATE RESPIRATORY IMPROVEMENT FOR THE PATIENT. DUE TO HIS ADVANCED DISEASE STATE, HE NOW REQUIRED A VENTILATOR FOR HOME USE TO REDUCE WORK OF BREATHING AND TO IMPROVE PULMONARY STATUS. WITHOUT IT, HE WOULD SUFFER A DECLINE IN HEALTH AND ULTIMATELY, HOSPITAL READMISSIONS. DAY FIVE, PATIENT REPORTED HE WAS FEELING BETTER. HE WAS NOTED WITH NO DISTRESS. VITAL SIGNS STABLE. LABS WNL. WE PLANNED FOR DISCHARGE. INSTRUCTIONS FOR MEDICATIONS AND FOLLOW UP WERE DISCUSSED WITH PATIENT AND FAMILY, BOTH VOICED UNDERSTANDING. PATIENT DISCHARGED HOME IN STABLE CONDITION WITH FAMILY. - Discharge Medications Discharge Medications: Home Medication List ipratropium-albuterol 1 ea NEB TID #50 ml 01/08/18 [Rx] Prescriptions: ipratropium-albuterol [facility]w Home medications bisoprolol fumarate 5 mg PO BID 02/27/17 diazepam 1 tab PO QID PRN 02/27/17 lisinopril 1 tab PO DAILY 02/27/17 phenytoin sodium extended 2 tab PO BID 02/27/17 warfarin 1 tab PO DAILY 02/27/17 furosemide 2 - 3 tab PO DAILY 04/20/17 omeprazole 1 tab PO DAILY 12/28/17 oxycodone 30 mg PO Q4-6H PRN 12/28/17 ranitidine HCl [Zantac 75] 150 mg PO BID 12/28/17 - Discharge Disposition Discharge Disposition: Patient is to follow up in our office in one week.
== END 2018-01-08 15:25 | disposition home or self-care (01) | DRG 189 ==
LOC: ER 07:56 → ICU 11:26
PROVIDERS: ADMIT Internal Medicine; ATTEND Internal Medicine
DX: J44.1 Chronic obstructive pulmonary disease with (acute) exacerbation; F41.8 Other specified anxiety disorders; R40.4 Transient alteration of awareness; K21.9 Gastro-esophageal reflux disease without esophagitis; J96.01 Acute respiratory failure with hypoxia; Z79.899 Other long term (current) drug therapy; I50.9 Heart failure, unspecified; G40.89 Other seizures; N18.9 Chronic kidney disease, unspecified; R94.31 Abnormal electrocardiogram [ECG] [EKG]; E87.6 Hypokalemia
CPT/HCPCS: 36415; 36600; 51702; 71010; 71045; 80048; 80053; 80185; 80307; 81001; 82550; 82553; 82803; 83880; 84484; 85025; 85610; 87040; 87086; 93005; 93971; 94640; 94660; 96365; 96374; 96375; 97110; 97112; 97163; 97166; 99221; 99284; A4216; A4222; A4618; A7030; G0434; J0456; J0610; J0713; J1815; J1940; J3490; J7030; J7050; J7620; J7626

== ENCOUNTER 2018-02-26 10:07 | Observation (INO) ==
[2018-02-26] MEDS: ROCEPHIN VIAL 1 GRAM IVP SCH (16:01)
[2018-02-26 16:02] LABS: BASOPHILS # (AUTO) 0.1 X10^3/uL (0.0-0.1); EOSINOPHILS # (AUTO) 0.2 x10^3/uL (0.0-0.2); EOSINOPHILS % (AUTO) 4.3 % (0.9-2.9); HEMATOCRIT 38.7 % (42.0-54.0); HEMOGLOBIN 12.8 g/dL (13.5-18.0); LYMPHOCYTES # (AUTO) 0.6 X10^3/uL (1.3-2.9); LYMPHOCYTES % (AUTO) 10.7 % (21.0-51.0); MEAN CORPUSCULAR HEMOGLOBIN 30.9 pg (27.0-34.0); MEAN CORPUSCULAR HGB CONC 33.2 g/dL (33.0-35.0); MEAN CORPUSCULAR VOLUME 93.1 fL (80.0-100.0); MEAN PLATELET VOLUME 8.6 fL (7.4-11.0); MONOCYTES # (AUTO) 0.6 x10^3/uL (0.3-0.8); MONOCYTES % (AUTO) 12.2 % (0.0-13.0); NEUTROPHILS # (AUTO) 3.7 x10^3/uL (2.2-4.8); NEUTROPHILS % (AUTO) 70.8 % (42.0-75.0); PLATELET COUNT 242 X10^3/uL (150.0-450.0); RED BLOOD COUNT 4.15 X10^6/uL (4.7-6.0); RED CELL DISTRIBUTION WIDTH 14.1 % (11.6-16.5); WHITE BLOOD COUNT 5.2 X10^3/uL (3.6-10.0)
[2018-02-26 16:21] LABS: ALANINE AMINOTRANSFERASE 17 Units/L (12-78); ALBUMIN 3.6 g/dL (3.4-5.0); ALKALINE PHOSPHATASE 124 Units/L (46-116); ASPARTATE AMINO TRANSFERASE 16 Units/L (15-37); BLOOD UREA NITROGEN 9 mg/dL (7-18); CALCIUM 8.1 mg/dL (8.5-10.1); CARBON DIOXIDE 37.2 mmol/L (21-32); CHLORIDE 97 mmol/L (98-107); COR NA(FOR HYPERGLY) 136 mmol/L (136-145); SODIUM 136 mmol/L (136-145); TOTAL PROTEIN 6.9 g/dL (6.4-8.2); eGFR NON BLACK RACES > 60 (>60)
[2018-02-26 16:32] VITALS: BMI 29.0
--- NOTE | 2018-02-26 16:46 | RAD ---
Chest, one view Indication: Shortness of breath Comparison: 02/17/2018 Findings: There is chronic interstitial prominence, which appears minimally improved from the most re cent prior and similar to the multiple additional prior studies. No dense infiltrates. There is mild elevation the right hemidiaphragm. There is chronic blunting of the costophrenic sulci, suggesting pl eural thickening. No large pleural effusion. Impression: Chronic interstitial changes of the lungs without acute abnormality. Reported By:
[2018-02-26] MEDS: DUONEB 0.5 MG/3 MG NEB SCH ×2 (17:00→20:28)
[2018-02-26] MEDS: ROXICODONE TAB 15 MG PO PRN (20:58)
[2018-02-26] MEDS: VALIUM PO PRN (21:02)
[2018-02-27] MEDS: ROXICODONE TAB 15 MG PO PRN ×4 (04:26→23:53)
[2018-02-27] MEDS: VALIUM PO PRN ×4 (04:26→23:53)
--- NOTE | 2018-02-27 05:59 | RAD ---
Chest, one view Indication: Shortness of breath Comparison: 02/26/2018 Findings: The heart is stable in size. There are stable chronic interstitial lung changes and bluntin g of the bilateral costophrenic angles, suggestive for scarring. No focal infiltrate, significant eff usion or pneumothorax is identified. There is no acute osseous abnormality. Impression: No acute cardiopulmonary abnormality or significant interval change. Reported By:
[2018-02-27 06:58] LABS: BASOPHILS % (AUTO) 0.8 % (0.2-1.0); EOSINOPHILS # (AUTO) 0.2 x10^3/uL (0.0-0.2); EOSINOPHILS % (AUTO) 3.3 % (0.9-2.9); HEMATOCRIT 35.5 % (42.0-54.0); HEMOGLOBIN 11.6 g/dL (13.5-18.0); LYMPHOCYTES # (AUTO) 0.8 X10^3/uL (1.3-2.9); LYMPHOCYTES % (AUTO) 16.3 % (21.0-51.0); MEAN CORPUSCULAR HEMOGLOBIN 30.7 pg (27.0-34.0); MEAN CORPUSCULAR HGB CONC 32.8 g/dL (33.0-35.0); MEAN CORPUSCULAR VOLUME 93.5 fL (80.0-100.0); MEAN PLATELET VOLUME 8.8 fL (7.4-11.0); MONOCYTES # (AUTO) 0.6 x10^3/uL (0.3-0.8); MONOCYTES % (AUTO) 12.1 % (0.0-13.0); NEUTROPHILS # (AUTO) 3.1 x10^3/uL (2.2-4.8); NEUTROPHILS % (AUTO) 67.5 % (42.0-75.0); PLATELET COUNT 183 X10^3/uL (150.0-450.0); WHITE BLOOD COUNT 4.7 X10^3/uL (3.6-10.0)
[2018-02-27 07:12] LABS: ALANINE AMINOTRANSFERASE 13 Units/L (12-78); ALBUMIN 3.1 g/dL (3.4-5.0); ALKALINE PHOSPHATASE 106 Units/L (46-116); ASPARTATE AMINO TRANSFERASE 8 Units/L (15-37); BLOOD UREA NITROGEN 9 mg/dL (7-18); CALCIUM 7.9 mg/dL (8.5-10.1); CARBON DIOXIDE 34.3 mmol/L (21-32); CHLORIDE 99 mmol/L (98-107); COR CA(FOR HYPOALB) 8.6 mg/dL (8.5-10.1); COR NA(FOR HYPERGLY) 137 mmol/L (136-145); CREATININE 0.72 mg/dL (0.70-1.30); SODIUM 136 mmol/L (136-145); eGFR NON BLACK RACES > 60 (>60)
[2018-02-27] MEDS: DUONEB 0.5 MG/3 MG NEB SCH ×4 (09:15→21:06)
[2018-02-27] MEDS: ROCEPHIN VIAL 1 GRAM IVP SCH (09:21)
[2018-02-27] MEDS ORDERED: PATIENT'S HOME MEDICATION (Oxycodone [Oxycodone] 30 MG) PO PRN (09:31)
[2018-02-27] MEDS: LASIX PO SCH (10:21)
[2018-02-27] MEDS: MAXZIDE 37.5/25 MG PO SCH (10:21)
[2018-02-27] MEDS: ZANTAC PO SCH ×3 (10:21→21:23)
[2018-02-27] MEDS: DILANTIN CAP 100 MG EXT REL PO SCH ×2 (10:21→21:21)
[2018-02-27] MEDS: PriLOSEC PO SCH (10:21)
[2018-02-27] MEDS ORDERED: COUMADIN TAB 5 MG PO SCH (21:00)
[2018-02-28 05:47] LABS: BASOPHILS % (AUTO) 0.8 % (0.2-1.0); EOSINOPHILS # (AUTO) 0.2 x10^3/uL (0.0-0.2); EOSINOPHILS % (AUTO) 3.8 % (0.9-2.9); HEMATOCRIT 32.9 % (42.0-54.0); HEMOGLOBIN 11.2 g/dL (13.5-18.0); LYMPHOCYTES # (AUTO) 1.2 X10^3/uL (1.3-2.9); LYMPHOCYTES % (AUTO) 24.6 % (21.0-51.0); MEAN CORPUSCULAR HEMOGLOBIN 31.1 pg (27.0-34.0); MEAN CORPUSCULAR HGB CONC 33.9 g/dL (33.0-35.0); MEAN CORPUSCULAR VOLUME 91.7 fL (80.0-100.0); MEAN PLATELET VOLUME 8.5 fL (7.4-11.0); MONOCYTES # (AUTO) 0.6 x10^3/uL (0.3-0.8); MONOCYTES % (AUTO) 11.8 % (0.0-13.0); NEUTROPHILS # (AUTO) 2.9 x10^3/uL (2.2-4.8); PLATELET COUNT 171 X10^3/uL (150.0-450.0); RED BLOOD COUNT 3.59 X10^6/uL (4.7-6.0); RED CELL DISTRIBUTION WIDTH 13.9 % (11.6-16.5)
[2018-02-28 06:06] LABS: ALANINE AMINOTRANSFERASE 12 Units/L (12-78); ALKALINE PHOSPHATASE 97 Units/L (46-116); ASPARTATE AMINO TRANSFERASE 6 Units/L (15-37); BLOOD UREA NITROGEN 11 mg/dL (7-18); CARBON DIOXIDE 34.9 mmol/L (21-32); CHLORIDE 96 mmol/L (98-107); COR CA(FOR HYPOALB) 8.8 mg/dL (8.5-10.1); CREATININE 0.65 mg/dL (0.70-1.30); SODIUM 133 mmol/L (136-145); TOTAL PROTEIN 5.7 g/dL (6.4-8.2); eGFR NON BLACK RACES > 60 (>60)
--- NOTE | 2018-02-28 07:05 | RAD ---
Examination: AP chest History: SOB Comparison 02/27/2018 Findings: Continued normal transverse heart diameter with essentially clear peripheral lungs and ple ural spaces. There is no evidence for pneumonia, pulmonary edema or mass formation. Impression: No acute findings. Reported By:
[2018-02-28 08:22] VITALS: BP 138/76
[2018-02-28] MEDS: MAXZIDE 37.5/25 MG PO SCH (08:23)
[2018-02-28] MEDS: LASIX PO SCH (08:23)
[2018-02-28] MEDS: DILANTIN CAP 100 MG EXT REL PO SCH (08:23)
[2018-02-28] MEDS: PriLOSEC PO SCH (08:23)
[2018-02-28] MEDS: ZANTAC PO SCH (08:24)
[2018-02-28] MEDS: ROXICODONE TAB 15 MG PO PRN (08:36)
[2018-02-28] MEDS: VALIUM PO PRN (08:36)
[2018-02-28] MEDS: ROCEPHIN VIAL 1 GRAM IVP SCH (08:36)
--- NOTE | 2018-02-28 09:25 | DR.UPDATE ---
H&P Update History and Physical Update: History and Physical reviewed and patient examined. Changes noted: Yes with the following: RETURNED TO THE OFFICE TODAY FOR A FOLLOW-UP VISIT. HE PRESENTED WITH SHORTNESS OF BREATH AND COUGH. HE DENIED FEVER OR CHILLS. ON EXAMINATION, HE WAS NOTED WITH SCATTERED WHEEZING, DIMINISHED. HE WAS ADMITTED FOR COPD EXACERBATION. WE PLANNED TO OBTAIN LABS, CHEST XRAY, AND START ROCEPHIN 1GM IV DAILY WELL RESPIRATORY TREATMENTS. A H&P WAS REVIEWED. PATIENT HAS BEEN SEEN AND EXAMINED WITH NO OTHER CHANGES NOTED.
[2018-02-28] MEDS: DUONEB 0.5 MG/3 MG NEB SCH (09:52)
--- NOTE | 2018-04-23 01:14 | DR.CARTERD ---
- Discharge Summary for: Discharge Summary for Date of:: 02/28/18 - Admission Date Date of Admission: 02/26/18 - Admission Diagnoses Admission Diagnosis: (1) COPD EXACERBATION - Discharge Date Discharge Date: 02/28/18 - Discharge Diagnoses Discharge Diagnosis: (1) COPD EXACERBATION - Hospital Course Hospital Course: DAY ONE, RETURNED TO THE OFFICE TODAY FOR A FOLLOW-UP VISIT. HE PRESENTED WITH SHORTNESS OF BREATH AND COUGH. HE DENIED FEVER OR CHILLS. ON EXAMINATION, HE WAS NOTED WITH SCATTERED WHEEZING, DIMINISHED. HE WAS ADMITTED F OR COPD EXACERBATION. WE PLANNED TO OBTAIN LABS, CHEST XRAY, AND START ROCEPHIN 1GM IV DAILY WELL RESPIRATORY TREATMENTS. WE CONTINUED TO MONITOR PATIENT. DAY TWO, WE REPEATED A CHEST X-RAY YTODAY AND IT REVEALED: No acute cardiopulmonary abnormality or significant interval change. WE CONTINUED WITH CURRENT PLAN OF TREATMENT. DAY THREE, PATIENT REPORTS FEELING BETTER DURING MORNING ROUNDS. PATIENT REPORTS HE IS BREATHING MUCH BETTER. WHEEZING WITH DIMINISHED BREATH SOUNDS WERE NOTED ON AUSCULTATION. VITAL SIGNS ARE STABLE. LAB VALUES ARE WITHIN NORMAL LEVEL FOR PATIENT. WE PLANNED FOR DISCHARGE. INSTRUCTIONS FOR MEDICATIONS AND FOLLOW UP WERE DISCUSSED WITH PATIENT AND FAMILY, BOTH VOICED UNDERSTANDING. PATIENT WAS DISCHARGED HOME IN STABLE CONDITION WITH FAMILY. - Discharge Medications Discharge Medications: Home Medication List triamterene-hydrochlorothiazid 1 cap PO QDAY 02/26/18 [History] Prescriptions: Ambulatory Orders bisoprolol fumarate 5 mg PO BID 02/27/17 diazepam 1 tab PO QID PRN 02/27/17 lisinopril 1 tab PO DAILY 02/27/17 phenytoin sodium extended 2 tab PO BID 02/27/17 warfarin 1 tab PO DAILY 02/27/17 furosemide 2 - 3 tab PO DAILY 04/20/17 omeprazole 1 tab PO DAILY 12/28/17 oxycodone 30 mg PO Q4-6H PRN 12/28/17 ranitidine HCl [Zantac 75] 150 mg PO BID 12/28/17 ipratropium-albuterol 1 ea NEB TID #50 ml 01/08/18 - Discharge Disposition Discharge Disposition: PATIENT TO FOLLOW UP IN OUR OFFICE IN ONE WEEK.
== END 2018-02-28 10:35 | disposition home or self-care (01) ==
LOC: MED/SURG
PROVIDERS: ADMIT Internal Medicine; ATTEND Internal Medicine
DX: R79.1 Abnormal coagulation profile; I26.99 Other pulmonary embolism without acute cor pulmonale; Z79.01 Long term (current) use of anticoagulants; R06.02 Shortness of breath; J44.1 Chronic obstructive pulmonary disease with (acute) exacerbation; F17.200 Nicotine dependence, unspecified, uncomplicated; I11.0 Hypertensive heart disease with heart failure; I50.9 Heart failure, unspecified; M51.17 Intervertebral disc disorders with radiculopathy, lumbosacral region; E29.1 Testicular hypofunction
CPT/HCPCS: 36415; 71010; 71045; 80053; 85025; 85610; 87070; 87205; 94640; 94660; 94669; 94760; 96374; 97161; A4216; A4222; A4618; A7030; G0378; J0696; J7620

== ENCOUNTER 2018-04-27 09:57 | Inpatient (IN) ==
[2018-04-27] MEDS ORDERED: TUSSIONEX PENNKINETIC SUSP PO PRN (09:58)
[2018-04-27 12:25] LABS: ABG ALLEN TEST POS; ABG HCO3 45.7 mmol/L (22-26)
[2018-04-27] MEDS: DUONEB 0.5 MG/3 MG NEB SCH ×3 (12:25→21:51)
[2018-04-27] MEDS ORDERED: NS 250 ML IV 250 ML IV ONE (12:27)
[2018-04-27 12:28] LABS: BASOPHILS % (AUTO) 0.7 % (0.2-1.0); EOSINOPHILS # (AUTO) 0.1 x10^3/uL (0.0-0.2); EOSINOPHILS % (AUTO) 1.5 % (0.9-2.9); HEMATOCRIT 36.6 % (42.0-54.0); HEMOGLOBIN 11.8 g/dL (13.5-18.0); LYMPHOCYTES # (AUTO) 0.5 X10^3/uL (1.3-2.9); LYMPHOCYTES % (AUTO) 7.8 % (21.0-51.0); MEAN CORPUSCULAR HEMOGLOBIN 30.1 pg (27.0-34.0); MEAN CORPUSCULAR HGB CONC 32.2 g/dL (33.0-35.0); MEAN CORPUSCULAR VOLUME 93.5 fL (80.0-100.0); MEAN PLATELET VOLUME 8.9 fL (7.4-11.0); MONOCYTES # (AUTO) 0.6 x10^3/uL (0.3-0.8); MONOCYTES % (AUTO) 8.8 % (0.0-13.0); NEUTROPHILS # (AUTO) 5.2 x10^3/uL (2.2-4.8); NEUTROPHILS % (AUTO) 81.2 % (42.0-75.0); PLATELET COUNT 149 X10^3/uL (150.0-450.0); RED BLOOD COUNT 3.91 X10^6/uL (4.7-6.0); RED CELL DISTRIBUTION WIDTH 13.9 % (11.6-16.5); WHITE BLOOD COUNT 6.5 X10^3/uL (3.6-10.0)
[2018-04-27 12:38] LABS: ALANINE AMINOTRANSFERASE 13 Units/L (12-78); ALBUMIN 3.5 g/dL (3.4-5.0); ALKALINE PHOSPHATASE 128 Units/L (46-116); ASPARTATE AMINO TRANSFERASE 10 Units/L (15-37); BLOOD UREA NITROGEN 10 mg/dL (7-18); CALCIUM 8.4 mg/dL (8.5-10.1); CHLORIDE 90 mmol/L (98-107); CREATININE 0.63 mg/dL (0.70-1.30); SODIUM 130 mmol/L (136-145); TOTAL PROTEIN 6.9 g/dL (6.4-8.2); eGFR NON BLACK RACES > 60 (>60)
[2018-04-27] MEDS: LEVAQUIN PREMIX IV 750 MG 750 MG/150 ML BAG IV SCH (12:38)
[2018-04-27 13:02] VITALS: BMI 27.7
[2018-04-27] MEDS: FORTAZ or TAZICEF VIAL INJ IVP SCH ×3 (13:36→21:08)
[2018-04-27] MEDS: ROBITUSSIN DM PO SCH ×3 (13:58→21:08)
[2018-04-27] MEDS: LASIX IVP SCH ×2 (13:59→21:08)
--- NOTE | 2018-04-27 16:01 | RAD ---
Examination: Chest, PA and lateral views History: Pneumonia, emphysema Comparison 02/28/2018 Findings: Borderline to mild cardiomegaly with arteriosclerotic aorta. Diffuse interstitial process is noted bilaterally without evidence for focal mass or localized consolidation. No large pleural effusion is evident. Impression: Prominent cardiac size. Bilateral interstitial pulmonary disease is probably chronic, consistent with history of COPD/emphysema. Reported By:
[2018-04-27 17:58] LABS: ABG BASE EXCESS 19.5 mmol/L (-2.0-2.0)
[2018-04-27 18:00] LABS: ABG ALLEN TEST POS; ABG HCO3 48.2 mmol/L (22-26)
[2018-04-27] MEDS: PULMICORT NEB TX 0.5 MG NEB SCH (21:51)
[2018-04-28] MEDS: DUONEB 0.5 MG/3 MG NEB SCH ×6 (00:44→20:55)
[2018-04-28] MEDS: FORTAZ or TAZICEF VIAL INJ IVP SCH ×3 (05:17→21:03)
[2018-04-28 05:26] LABS: BASOPHILS % (AUTO) 0.5 % (0.2-1.0); EOSINOPHILS # (AUTO) 0.1 x10^3/uL (0.0-0.2); EOSINOPHILS % (AUTO) 2.2 % (0.9-2.9); HEMATOCRIT 32.2 % (42.0-54.0); HEMOGLOBIN 10.8 g/dL (13.5-18.0); LYMPHOCYTES # (AUTO) 0.6 X10^3/uL (1.3-2.9); LYMPHOCYTES % (AUTO) 11.8 % (21.0-51.0); MEAN CORPUSCULAR HEMOGLOBIN 30.5 pg (27.0-34.0); MEAN CORPUSCULAR HGB CONC 33.5 g/dL (33.0-35.0); MEAN CORPUSCULAR VOLUME 91.3 fL (80.0-100.0); MEAN PLATELET VOLUME 8.8 fL (7.4-11.0); MONOCYTES # (AUTO) 0.5 x10^3/uL (0.3-0.8); MONOCYTES % (AUTO) 10.8 % (0.0-13.0); NEUTROPHILS # (AUTO) 3.7 x10^3/uL (2.2-4.8); NEUTROPHILS % (AUTO) 74.7 % (42.0-75.0); PLATELET COUNT 126 X10^3/uL (150.0-450.0); RED BLOOD COUNT 3.52 X10^6/uL (4.7-6.0); RED CELL DISTRIBUTION WIDTH 13.8 % (11.6-16.5)
[2018-04-28 05:29] LABS: ALANINE AMINOTRANSFERASE 11 Units/L (12-78); ALBUMIN 2.9 g/dL (3.4-5.0); ALKALINE PHOSPHATASE 105 Units/L (46-116); ASPARTATE AMINO TRANSFERASE 7 Units/L (15-37); BLOOD UREA NITROGEN 10 mg/dL (7-18); CALCIUM 7.8 mg/dL (8.5-10.1); CARBON DIOXIDE 38.1 mmol/L (21-32); CHLORIDE 87 mmol/L (98-107); COR CA(FOR HYPOALB) 8.7 mg/dL (8.5-10.1); COR NA(FOR HYPERGLY) 129 mmol/L (136-145); CREATININE 0.75 mg/dL (0.70-1.30); SODIUM 128 mmol/L (136-145); TOTAL PROTEIN 5.8 g/dL (6.4-8.2); eGFR NON BLACK RACES > 60 (>60)
[2018-04-28] MEDS ORDERED: K-RIDER 10 MEQ/NS 100 ML 10 MEQ/100 ML BAG IV PRN (06:07)
[2018-04-28] MEDS ORDERED: POTASSIUM CHL 40 MEQ/NS 0.45% 500 ML IV PRN (06:07)
[2018-04-28] MEDS ORDERED: MICRO K EXTEN CAP 10 MEQ PO PRN (06:07)
[2018-04-28] MEDS ORDERED: KLOR-CON PO PRN (06:07)
[2018-04-28] MEDS ORDERED: POTASSIUM CHL 60 MEQ/NS 0.45% 500 ML IV PRN (06:07)
[2018-04-28] MEDS ORDERED: K-DUR TAB 20 MEQ PO PRN (06:07)
--- NOTE | 2018-04-28 06:44 | RAD ---
History: Pneumonia Study: AP chest Comparison: Yesterday Findings: There is subsegmental atelectasis at the left lung base. The heart size is prominent. There is diffuse chronic interstitial lung disease. There is no obvious effusion. Impression: Left lower lobe subsegmental atelectasis Reported By:
[2018-04-28] MEDS: PULMICORT NEB TX 0.5 MG NEB SCH ×2 (08:18→20:55)
[2018-04-28] MEDS: POTASSIUM CHLORIDE LIQ 20 MEQ UDC PO PRN (08:39)
[2018-04-28] MEDS: ROBITUSSIN DM PO SCH ×4 (08:39→20:51)
[2018-04-28] MEDS: LASIX IVP SCH ×2 (08:39→20:49)
[2018-04-28] MEDS: LEVAQUIN PREMIX IV 750 MG 750 MG/150 ML BAG IV SCH (08:40)
[2018-04-28] MEDS ORDERED: PATIENT'S HOME MEDICATION (Oxycodone [Oxycodone] 30 MG) PO PRN (09:27)
[2018-04-28] MEDS: MAGNESIUM SULFATE 1 GRAM/100 mL PREMIX 1 GM/100 ML BAG IV PRN ×2 (09:30→10:42)
[2018-04-28] MEDS: ZANTAC PO SCH ×2 (10:09→20:51)
[2018-04-28] MEDS: DILANTIN CAP 100 MG EXT REL PO SCH ×2 (10:09→20:51)
[2018-04-28] MEDS: MAXZIDE 37.5/25 MG PO SCH (10:09)
[2018-04-28] MEDS: ZEBETA TAB 5 MG PO SCH ×2 (10:09→21:03)
[2018-04-28] MEDS: SOLU-Medrol 40 MG VIAL IVP SCH ×3 (10:09→21:03)
[2018-04-28] MEDS: PriLOSEC PO SCH (10:09)
[2018-04-28] MEDS: ZESTRIL TAB 40 MG PO SCH (10:09)
[2018-04-28] MEDS: VALIUM PO PRN ×2 (10:18→20:52)
[2018-04-28] MEDS: ROXICODONE TAB 15 MG PO PRN ×2 (10:35→20:50)
[2018-04-28] MEDS: COUMADIN TAB 5 MG PO SCH (20:51)
[2018-04-29] MEDS: DUONEB 0.5 MG/3 MG NEB SCH ×6 (00:55→21:10)
[2018-04-29] MEDS: SOLU-Medrol 40 MG VIAL IVP SCH ×3 (05:22→22:11)
[2018-04-29] MEDS: FORTAZ or TAZICEF VIAL INJ IVP SCH ×3 (05:22→22:11)
[2018-04-29 06:17] LABS: BASOPHILS % (AUTO) 0.5 % (0.2-1.0); EOSINOPHILS % (AUTO) 0.1 % (0.9-2.9); HEMATOCRIT 36.1 % (42.0-54.0); HEMOGLOBIN 12.1 g/dL (13.5-18.0); LYMPHOCYTES # (AUTO) 0.6 X10^3/uL (1.3-2.9); LYMPHOCYTES % (AUTO) 12.2 % (21.0-51.0); MEAN CORPUSCULAR HEMOGLOBIN 30.2 pg (27.0-34.0); MEAN CORPUSCULAR HGB CONC 33.4 g/dL (33.0-35.0); MEAN CORPUSCULAR VOLUME 90.4 fL (80.0-100.0); MEAN PLATELET VOLUME 9.3 fL (7.4-11.0); MONOCYTES # (AUTO) 0.4 x10^3/uL (0.3-0.8); MONOCYTES % (AUTO) 8.1 % (0.0-13.0); NEUTROPHILS # (AUTO) 4.1 x10^3/uL (2.2-4.8); NEUTROPHILS % (AUTO) 79.1 % (42.0-75.0); PLATELET COUNT 171 X10^3/uL (150.0-450.0); RED CELL DISTRIBUTION WIDTH 13.9 % (11.6-16.5); WHITE BLOOD COUNT 5.2 X10^3/uL (3.6-10.0)
[2018-04-29 06:28] LABS: ALANINE AMINOTRANSFERASE 12 Units/L (12-78); ALBUMIN 3.2 g/dL (3.4-5.0); ALKALINE PHOSPHATASE 111 Units/L (46-116); ASPARTATE AMINO TRANSFERASE 9 Units/L (15-37); BLOOD UREA NITROGEN 19 mg/dL (7-18); CALCIUM 8.3 mg/dL (8.5-10.1); CARBON DIOXIDE 32.3 mmol/L (21-32); CHLORIDE 83 mmol/L (98-107); COR CA(FOR HYPOALB) 8.9 mg/dL (8.5-10.1); CREATININE 0.76 mg/dL (0.70-1.30); TOTAL PROTEIN 6.7 g/dL (6.4-8.2); eGFR NON BLACK RACES > 60 (>60)
[2018-04-29 06:36] LABS: ABG BASE EXCESS 13.1 mmol/L (-2.0-2.0)
[2018-04-29 06:40] LABS: ABG HCO3 40.2 mmol/L (22-26)
[2018-04-29 06:50] LABS: SODIUM 121 mmol/L (136-145)
--- NOTE | 2018-04-29 07:56 | RAD ---
HISTORY: Follow-up pneumonia Study: Chest AP portable Comparison: 04/28/2018, 02/28/2018 Findings: Heart is within normal limits in size. The diana are normal. The lungs are free of acute alveolar infiltrates. No pleural effusions are identified. There is minimal subsegmental atelectasis in the left lung base. Interstitial lung changes are present bilaterally. IMPRESSION: improving subsegmental atelectasis left lung base Interstitial lung changes. Reported By:
[2018-04-29] MEDS: ZESTRIL TAB 40 MG PO SCH (08:21)
[2018-04-29] MEDS: ROBITUSSIN DM PO SCH ×4 (08:21→20:38)
[2018-04-29] MEDS: DILANTIN CAP 100 MG EXT REL PO SCH ×2 (08:21→20:38)
[2018-04-29] MEDS: ZEBETA TAB 5 MG PO SCH ×2 (08:21→20:40)
[2018-04-29] MEDS: LEVAQUIN PREMIX IV 750 MG 750 MG/150 ML BAG IV SCH (08:21)
[2018-04-29] MEDS: MAXZIDE 37.5/25 MG PO SCH (08:21)
[2018-04-29] MEDS: ZANTAC PO SCH ×2 (08:22→20:40)
[2018-04-29] MEDS: PriLOSEC PO SCH (08:22)
[2018-04-29] MEDS: LASIX IVP SCH ×2 (08:22→20:41)
[2018-04-29] MEDS: ROXICODONE TAB 15 MG PO PRN ×3 (08:41→20:40)
[2018-04-29] MEDS: VALIUM PO PRN ×3 (08:42→20:40)
[2018-04-29] MEDS: PULMICORT NEB TX 0.5 MG NEB SCH ×2 (09:17→21:10)
--- NOTE | 2018-04-29 09:43 | DR.H&P ---
H&P - History & Physical for Day of: H&P Date: 04/27/18 - Chief Complaint Chief Complaint: COUGH, SOB, WHEEZING, DECREASED URINE OUTPUT - History of Present Illness History of Present Illness: LOYDA IS A 58 YEAR OLD PATIENT OF OURS. HE PRESE NTED TO THE HOSPITAL A DIRECT ADMISSION FOR COMPLAINTS OF SHORTNESS OF BREATH, COUGH, WHEEZING, AND DECREASED URINE OUTPUT. ON ARRIVAL, PATIENT IS ALERT AND ORIENTED. ON EXAMINATION, HE IS NOTED WITH EXPIRATORY WHEEZING AND RHONCHI. HE DENIES CHEST PAIN OR FEVER. ON ARRIVAL, VITALS WERE 97.7-83-22-88%NC-134/80. LABS WERE OBTAINED. ABNORMAL LAB VALUES INCLUDE THE FOLLOWING: RBC 3.91, HGB 11.8, HCT 36.6, PLT COUNT 149, SODIUM 130, CHLORIDE 90, CARBON DIOXIDE 38.0, CREATININE 0.63, GLUCOSE 103, CALCIUM 8.4, AST 10, ALK PHOS 128. AN ABG WAS OBTAINED AND REVEALED: PH 7.290, PC02 95.0, P02 46.0, HC03 45.7, 02 SATURATION 76.0, BASE EXCESS 15.0. BLOOD AND SPUTUM CULTURES ARE PENDING. CHEST XRAY REVEALED: Prominent cardiac size. Bilateral interstitial pulmonary disease is probably chronic, consistent with history of COPD/emphysema. HE WAS STARTED ON LASIX 40MG IV BID, RESPIRATORY TREATMENTS, IV FORTAZ, IV LEVAQUIN, AND SUPPLEMENTAL OXYGEN FOR TREATMENT OF BRONCHOPNEUMONIA AND COPD EXACERBATION. HIS TRILOGY WAS BROUGHT FROM HOME. HE WILL CONTINUE USE OF IT. WE PLANNED TO FOLLOW UP WITH AM LABS AND CHEST XRAY ANDCONTINUE TO MONITOR PATIENT. - Past Medical History Past Medical History: Hypertension, Anxiety, Seizures, COPD, PUD, GERD, Arthritis Additional Medical History: HIATAL HERNIA - Past Surgical History Surgical History: Abdominal Surgery Additional Surgical History: 7 STOMACH SURGERIES, 2 STOMAS, COLOSTOMY IN THE PAST - Family History Family Medical History: Heart Failure, Hypertension - Social History Does patient currently use any type of tobacco product: Yes Have you used tobacco products in the last 12 months: Yes Type of Tobacco Use: Cigarettes Does any household member use tobacco: No Alcohol Use: None Drug Use: None - Medications Home Medications: No Known Drug Allergies Allergy (Verified 02/17/18 18:05) CONTINUE taking the following medications oxycodone 30 mg PO Q4-6H PRN 04/27/18 [History] ranitidine HCl 150 mg PO BID 04/27/18 [History] - Review of Systems Constitutional: See HPI. denies: Fever Eyes: No Symptoms Reported ENT: No Symptoms Reported Respiratory: See HPI, Cough, Shortness of Breath, SOB with Excertion, Sputum, Wheezing Cardiovascular: Edema (BILATERAL LOWER EXTREMTIES ) Gastrointestinal: No Symptoms Reported Genitourinary: No Symptoms Reported Musculoskeletal: No Symptoms Reported Skin: No Symptoms Reported Neurological: Weakness - Physical Exam Vital Signs: Temperature 97.7 F Pulse Rate [Right Brachial] 65 Pulse Rate 76 Respiratory Rate 18 Blood Pressure [Left Arm] 115/69 Blood Pressure [Right Arm] 135/78 Blood Pressure 138/76 O2 Sat by Pulse Oximetry 96 Oriented: Normal Eyes: Normal Ear: Normal Nose: Normal Respiratory: Diminished Throughout, Rhonchi Throughout, Wheezes Throughout Cardiovascular: Normal. negative: S3, S4, Murmur : Normal Auscultation: Bowel Sounds: Normal Palpation: Normal Tenderness: Normal Skin: Normal Musculoskeletal: Normal Psychiatric: Normal Mood Description: Calm Affect: Normal Speech Pattern: Clear - Assessment/Plan (1) Bronchopneumonia Status: Acute Plan: IV FORTAZ, IV LEVAQUIN, RESPIRATORY TREATMENTS, SUPPLEMENTAL OXYGEN, CONTINUE TO MONITOR (2) Shortness of breath Status: Acute Plan: RESPIRATORY TREATMENTS, SUPPLEMENTAL OXYGEN, TRIOLOGY, CONTINUE TO MONITOR LABS AND CHEST XRAY (3) COPD with emphysema Qualifiers: Emphysema type: unspecified Qualified Code(s): J43.9 - Emphysema, unspecified Status: Chronic Plan: RESPIRATORY TREATMENTS, SUPPLEMENTAL OXYGEN, TRIOLOGY, CONTINUE TO MONITOR LABS AND CHEST XRAY (4) CHF (congestive heart failure) Qualifiers: Heart failure type: unspecified Heart failure chronicity: acute on chronic Qualified Code(s): I50.9 - Heart failure, unspecified Status: Chronic Plan: LASIX 40MG IV BID, RESPIRATORY TREATMENTS, SUPPLEMENTAL OXYGEN, TRIOLOGY, CONTINUE TO MONITOR LABS AND CHEST XRAY - Allergies Allergies/Adverse Reactions: Allergies Allergy/AdvReac Type Severity Reaction Status Date / Time No Known Drug Allergies Allergy Verified 02/17/18 18:05
[2018-04-29] MEDS ORDERED: DIFLUCAN 100 MG IV (MIX by PHARMACY)* 100 MG/50 ML BAG IV SCH (10:00)
[2018-04-29] MEDS: THEO-DUR TAB 200 MG PO SCH ×2 (10:14→20:40)
[2018-04-29] MEDS: NS 1000 ML 1,000 ML IV SCH ×2 (10:14→20:47)
[2018-04-29] MEDS: DIFLUCAN 200 MG IV PREMIX* 200 MG/100 ML BAG IV SCH (10:14)
[2018-04-29] MEDS: NYSTATIN SUSP MT SCH ×4 (10:14→20:38)
[2018-04-29] MEDS: COUMADIN TAB 5 MG PO SCH (20:39)
--- NOTE | 2018-04-29 21:16 | PCM.PROG ---
Progress Note - Progress Note for Day of Date of Exam: 04/28/18 - Subjective Subjective: WAS ADMITTED FOR BRONCHOPNEUMONIA AND COPD EXACERBATION. TODAY, HE IS ALERT AND ORIENTED, LYING IN BED ON MORNING ROUNDS. HE IS CURRENTLY UTILIZING THE TRILOGY. HE REPORTS COMPLAINTS OF SHORTNESS OF BREATH AND COUGH THIS MORNING. ON EXAMINATION, HEART IS REGULAR IN RATE AND RHYTHM. BILATERAL LUNGS ARE NOTED WITH SCATTERED WHEEZING AND RHONCHI. ABDOMEN IS ROUND, SOFT, AND NON-TENDER WITH NORMAL BOWEL SOUNDS NOTED IN ALL QUADRANTS. BILATERAL LOWER EXTREMITIES ARE NOTED WITH 1+ PITTING EDEMA. HIS VITALS THIS MORNING ARE 98.1-115-17-89%TRILOGY-135/78. LABS WERE OBTAINED. ABNORMAL LAB VALUES INCLUDE THE FOLLOWING: RBC 3.52, HGB 10.8, HCT 32.2, INR 2.28, SODIUM 128, CHLORIDE 87, CARBON DIOXIDE 38.1, GLUCOSE 143, CALCIUM 7.8, MAGNESIUM 1.5, AST 7, ALT 11, TOTAL PROTEIN 5.8, ALBUMIN 2.9. TODAYS CHEST XRAY REVEALED: Left lower lobe subsegmental atelectasis. TODAY, WE WILL CONTINUE WITH IV ANTIBIOTICS, RESPIRATORY TREATMENTS, AND BIPAP. WE WILL START SOLU-MEDROL 80MG IV Q8H. OT HERWISE, WE WILL FOLLOW UP WITH AM LABS AND CHEST XRAY AND CONTINUE TO MONITOR PATIENT. - Past Medical Family Social History Past Med/Fam/Surg Hx: No changes since H&P Allergies: Allergies No Known Drug Allergies Allergy (Verified 02/17/18 18:05) - Review of Systems ROS: No change since H&P - Vital Signs and I&O's Vital Signs: Temperature 97.9 F Pulse Rate [Left Brachial] 69 Pulse Rate [Right Brachial] 70 Pulse Rate 71 Respiratory Rate 18 Blood Pressure [Left Arm] 141/84 Blood Pressure [Right Arm] 121/74 Blood Pressure 138/76 O2 Sat by Pulse Oximetry 91 Intake and Output: Intake & Output 04/27/18 04/28/18 04/29/18 04/30/18 11:59 11:59 11:59 11:59 Intake Total 1290 / 1290 1140 / 1140 1240 / 1240 Output Total 2800 / 2800 4750 / 4750 1400 / 1400 Balance -1510 / -1510 -3610 / -3610 -160 / -160 - Physical Exam Oriented: Normal Eyes: Normal Ear: Normal Nose: Normal Respiratory: Generalized, Diminished, Wheezes, Rhonchi Cardiovascular: Normal. negative: S3, S4, Murmur : Normal Auscultation: Bowel Sounds: Normal Palpation: Normal Tenderness: Normal Skin: Normal Musculoskeletal: Normal Psychiatric: Normal Mood Description: Calm Affect: Normal Speech Pattern: Clear, Appropriate - Laboratory and Diagnostics Result Diagrams: 04/29/18 05:10 04/29/18 05:10 Labs: 04/27/18 12:15 Sputum - Expectorated Sputum Sputum Culture - Final 04/27/18 12:15 Sputum - Expectorated Sputum - Final 04/27/18 12:16 Blood Blood Culture - Preliminary 04/27/18 12:08 Blood Blood Culture - Preliminary Laboratory WBC 5.2 X10^3/uL (3.6-10.0) 04/29/18 05:10 RBC 4.00 X10^6/uL (4.7-6.0) L 04/29/18 05:10 Hgb 12.1 g/dL (13.5-18.0) L 04/29/18 05:10 Hct 36.1 % (42.0-54.0) L 04/29/18 05:10 MCV 90.4 fL (80.0-100.0) 04/29/18 05:10 MCH 30.2 pg (27.0-34.0) 04/29/18 05:10 MCHC 33.4 g/dL (33.0-35.0) 04/29/18 05:10 RDW 13.9 % (11.6-16.5) 04/29/18 05:10 Plt Count 171 X10^3/uL (150.0-450.0) 04/29/18 05:10 MPV 9.3 fL (7.4-11.0) 04/29/18 05:10 Neut % (Auto) 79.1 % (42.0-75.0) H 04/29/18 05:10 Lymph % (Auto) 12.2 % (21.0-51.0) L 04/29/18 05:10 [place] % (Auto) 8.1 % (0.0-13.0) 04/29/18 05:10 Eos % (Auto) 0.1 % (0.9-2.9) L 04/29/18 05:10 Baso % (Auto) 0.5 % (0.2-1.0) 04/29/18 05:10 Neut # (Auto) 4.1 x10^3/uL (2.2-4.8) 04/29/18 05:10 Lymph # (Auto) 0.6 X10^3/uL (1.3-2.9) L 04/29/18 05:10 [place] # (Auto) 0.4 x10^3/uL (0.3-0.8) 04/29/18 05:10 Eos # (Auto) 0.0 x10^3/uL (0.0-0.2) 04/29/18 05:10 Baso # (Auto) 0.0 X10^3/uL (0.0-0.1) 04/29/18 05:10 Absolute Nucleated RBC 0.0 /100WBC 04/29/18 05:10 INR Target Range - 04/29/18 05:10 INR 1.78 (0.8-1.3) H 04/29/18 05:10 Sample Site Rbra 04/29/18 06:24 ABG pH 7.420 (7.35-7.45) 04/29/18 06:24 ABG pCO2 62.0 mmHg (35.0-45.0) H* 04/29/18 06:24 ABG pO2 64.0 mmHg (80.0-100.0) L 04/29/18 06:24 ABG HCO3 40.2 mmol/L (22-26) H* 04/29/18 06:24 ABG O2 Saturation 92.0 % (90-100) 04/29/18 06:24 ABG Base Excess 13.1 mmol/L (-2.0-2.0) H 04/29/18 06:24 Patrice Test Na 04/29/18 06:24 A-a Gradient 144.0 mmHg 04/29/18 06:24 FiO2 40.0 04/29/18 06:24 Blood Gas Comments Aris abg well-mtf 04/29/18 06:24 Sodium 121 mmol/L (136-145) L* 04/29/18 05:10 Corrected Sodium TNP 04/29/18 05:10 Potassium 4.5 mmol/L (3.5-5.1) 04/29/18 05:10 Chloride 83 mmol/L (98-107) L 04/29/18 05:10 Carbon Dioxide 32.3 mmol/L (21-32) H 04/29/18 05:10 BUN 19 mg/dL (7-18) H 04/29/18 05:10 Creatinine 0.76 mg/dL (0.70-1.30) 04/29/18 05:10 Est GFR (MDRD) Af Amer > 60 (>60) 04/29/18 05:10 Est GFR (MDRD) Non-Af > 60 (>60) 04/29/18 05:10 Glucose 109 mg/dL (65-99) H 04/29/18 05:10 Lactic Acid 0.6 mmol/L (0.4-2.0) 04/27/18 12:08 Calcium 8.3 mg/dL (8.5-10.1) L 04/29/18 05:10 Corrected Calcium 8.9 mg/dL (8.5-10.1) 04/29/18 05:10 Magnesium 2.0 mg/dL (1.7-2.9) 04/29/18 05:10 Total Bilirubin 0.40 mg/dL (0.2-1.0) 04/29/18 05:10 AST 9 Units/L (15-37) L 04/29/18 05:10 ALT 12 Units/L (12-78) 04/29/18 05:10 Alkaline Phosphatase 111 Units/L (46-116) 04/29/18 05:10 Total Protein 6.7 g/dL (6.4-8.2) 04/29/18 05:10 Albumin 3.2 g/dL (3.4-5.0) L 04/29/18 05:10 Globulin 3.5 g/dL (2.5-4.5) 04/29/18 05:10 Albumin/Globulin Ratio 0.9 Ratio (1.1-2.1) L 04/29/18 05:10 - Plan (1) Bronchopneumonia Status: Acute Plan: IV FORTAZ, IV LEVAQUIN,SOLU-MEDROL 80MG IV Q8H, RESPIRATORY TREATMENTS, SUPPLEMENTAL OXYGEN, CONTINUE TO MONITOR (2) Shortness of breath Status: Acute Plan: RESPIRATORY TREATMENTS, SUPPLEMENTAL OXYGEN, TRIOLOGY, CONTINUE TO MONITOR LABS AND CHEST XRAY (3) COPD with emphysema Status: Chronic Qualifiers: Emphysema type: unspecified Qualified Code(s): J43.9 - Emphysema, unspecified Plan: RESPIRATORY TREATMENTS, SUPPLEMENTAL OXYGEN, TRIOLOGY, CONTINUE TO MONITOR LABS AND CHEST XRAY (4) CHF (congestive heart failure) Status: Chronic Qualifiers: Heart failure type: unspecified Heart failure chronicity: acute on chronic Qualified Code(s): I50.9 - Heart failure, unspecified Plan: LASIX 40MG IV BID, RESPIRATORY TREATMENTS, SUPPLEMENTAL OXYGEN, TRIOLOGY, CONTINUE TO MONITOR LABS AND CHEST XRAY
[2018-04-30] MEDS: DUONEB 0.5 MG/3 MG NEB SCH ×6 (01:32→20:22)
[2018-04-30] MEDS: FORTAZ or TAZICEF VIAL INJ IVP SCH ×3 (05:16→21:49)
[2018-04-30] MEDS: NS 1000 ML 1,000 ML IV SCH ×4 (05:16→18:25)
[2018-04-30] MEDS: SOLU-Medrol 40 MG VIAL IVP SCH ×3 (05:16→21:49)
[2018-04-30 05:28] LABS: BASOPHILS % (AUTO) 0.2 % (0.2-1.0); HEMATOCRIT 35.3 % (42.0-54.0); LYMPHOCYTES # (AUTO) 0.6 X10^3/uL (1.3-2.9); MEAN CORPUSCULAR HEMOGLOBIN 30.7 pg (27.0-34.0); MEAN CORPUSCULAR HGB CONC 34.1 g/dL (33.0-35.0); MEAN CORPUSCULAR VOLUME 90.1 fL (80.0-100.0); MEAN PLATELET VOLUME 8.8 fL (7.4-11.0); MONOCYTES # (AUTO) 0.4 x10^3/uL (0.3-0.8); NEUTROPHILS # (AUTO) 5.3 x10^3/uL (2.2-4.8); NEUTROPHILS % (AUTO) 84.8 % (42.0-75.0); PLATELET COUNT 210 X10^3/uL (150.0-450.0); RED BLOOD COUNT 3.92 X10^6/uL (4.7-6.0); WHITE BLOOD COUNT 6.2 X10^3/uL (3.6-10.0)
[2018-04-30 05:33] LABS: ALANINE AMINOTRANSFERASE 13 Units/L (12-78); ALBUMIN 3.2 g/dL (3.4-5.0); ALKALINE PHOSPHATASE 104 Units/L (46-116); ASPARTATE AMINO TRANSFERASE 9 Units/L (15-37); BLOOD UREA NITROGEN 26 mg/dL (7-18); CARBON DIOXIDE 29.9 mmol/L (21-32); COR CA(FOR HYPOALB) 8.6 mg/dL (8.5-10.1); COR NA(FOR HYPERGLY) 117 mmol/L (136-145); CREATININE 0.92 mg/dL (0.70-1.30); TOTAL PROTEIN 6.5 g/dL (6.4-8.2); eGFR NON BLACK RACES > 60 (>60)
[2018-04-30] MEDS: ROXICODONE TAB 15 MG PO PRN ×2 (05:42→11:32)
[2018-04-30] MEDS: VALIUM PO PRN (05:43)
[2018-04-30 05:58] LABS: CHLORIDE 80 mmol/L (98-107); SODIUM 116 mmol/L (136-145)
--- NOTE | 2018-04-30 07:11 | RAD ---
HISTORY: Follow-up pneumonia Study: Chest AP portable Comparison: 04/29/2018 Findings: The heart is within normal limits in size. The diana are normal. The lungs are well inflated and free of acute alveolar infiltrates. Mild interstitial lung changes are present. There is a small unchanged focus of subsegmental atelectasis in the left lung base. IMPRESSION: No acute infiltrates Mild interstitial lung changes, chronic Reported By:
[2018-04-30] MEDS: LEVAQUIN PREMIX IV 750 MG 750 MG/150 ML BAG IV SCH (09:22)
[2018-04-30] MEDS: DILANTIN CAP 100 MG EXT REL PO SCH ×2 (09:22→21:49)
[2018-04-30] MEDS: ROBITUSSIN DM PO SCH ×4 (09:22→21:50)
[2018-04-30] MEDS: DIFLUCAN 200 MG IV PREMIX* 200 MG/100 ML BAG IV SCH (09:22)
[2018-04-30] MEDS: ZEBETA TAB 5 MG PO SCH ×2 (09:23→21:50)
[2018-04-30] MEDS: ZANTAC PO SCH ×2 (09:23→21:50)
[2018-04-30] MEDS: NYSTATIN SUSP MT SCH ×4 (09:23→21:50)
[2018-04-30] MEDS: MAXZIDE 37.5/25 MG PO SCH (09:23)
[2018-04-30] MEDS: THEO-DUR TAB 200 MG PO SCH ×2 (09:23→21:50)
[2018-04-30] MEDS: PriLOSEC PO SCH (09:24)
[2018-04-30] MEDS: ZESTRIL TAB 40 MG PO SCH (09:24)
[2018-04-30] MEDS: LASIX IVP SCH ×3 (09:24→21:55)
[2018-04-30] MEDS: PULMICORT NEB TX 0.5 MG NEB SCH ×2 (09:25→20:22)
--- NOTE | 2018-04-30 20:54 | PCM.PROG ---
Progress Note - Progress Note for Day of Date of Exam: 04/29/18 - Subjective Subjective: WAS ADMITTED FOR BRONCHOPNEUMONIA AND COPD EXACERBATION. TODAY, HE IS ALERT AND ORIENTED, LYING IN BED ON MORNING ROUNDS. HE IS CURRENTLY UTILIZING THE TRILOGY. HE CONTINUES WITH COMPLAINTS OF SHORTNESS OF BREATH AND COUGH THIS MORNING. ON EXAMINATION, HEART IS REGULAR IN RATE AND RHYTHM. BILATERAL LUNGS ARE NOTED WITH SCATTERED WHEEZING AND RHONCHI. ABDOMEN IS ROUND, SOFT, AND NON-TENDER WITH NORMAL BOWEL SOUNDS NOTED IN ALL QUADRANTS. BILATERAL LOWER EXTREMITIES ARE NOTED WITH 1+ PITTING EDEMA. HIS VITALS THIS MORNING ARE 98.1-115-17-89%TRILOGY-135/78. LABS WERE OBTAINED. ABNORMAL LAB VALUES INCLUDE THE FOLLOWING: RBC 4.00, HGB 12.1, HCT 36.1, INR 1.78, CHLORIDE 83, SODIUM 121, CARBON DIOXIDE 32.3, BUN 19, GLUCOSE 109, CALCIUM 8.3, AST 9, ALBUMIN 3.2. ABG OBTAINED AND REVEALED: PH 7.420, PC02 62.0, P02 64.0, HC03 40.2, 02 SATURATION 92.0, BASE EXCESS 13.1. PRELIMINARY SPUTUM CULTURE REPORTED GROWTH OF RARE YEAST. TODAYS CHEST XRAY REVEALED: improving subsegmental atelectasis left lung base. Interstitial lung changes. TODAY, WE WILL CONTINUE WITH IV ANTIBIOTICS, RE SPIRATORY TREATMENTS, IV STEROIDS, AND BIPAP. WE WILL START DIFLUCAN 100MG PO DAILY, NYSTATIN SWISH AND SWALLOW, NORMAL SALINE AT 100ML/HR, AND ADDISON-DUR 200MG PO BID. OTHERWISE, WE WILL FOLLOW UP WITH AM LABS AND CHEST XRAY AND CONTINUE TO MONITOR PATIENT. - Past Medical Family Social History Past Med/Fam/Surg Hx: No changes since H&P Allergies: Allergies No Known Drug Allergies Allergy (Verified 02/17/18 18:05) - Review of Systems ROS: No change since H&P - Vital Signs and I&O's Vital Signs: Temperature 98.7 F Pulse Rate [Left Brachial] 71 Pulse Rate [Right Brachial] 70 Pulse Rate 82 Respiratory Rate 20 Blood Pressure [Left Arm] 141/84 Blood Pressure [Right Arm] 130/83 Blood Pressure 138/76 O2 Sat by Pulse Oximetry 96 Intake and Output: Intake & Output 12/10/18 12/11/18 12/12/18 12/13/18 11:59 11:59 11:59 11:59 Intake Total 1290 / 1290 1140 / 1140 4460 / 4460 780 / 780 Output Total 2800 / 2800 4750 / 4750 4075 / 4075 1100 / 1100 Balance -1510 / -1510 -3610 / -3610 385 / 385 -320 / -320 - Physical Exam Oriented: Normal Eyes: Normal Ear: Normal Nose: Normal Respiratory: Generalized, Diminished, Wheezes, Rhonchi Cardiovascular: Tachycardia. negative: S3, S4, Murmur : Normal Auscultation: Bowel Sounds: Normal Palpation: Normal Tenderness: Normal Skin: Normal Musculoskeletal: Normal Psychiatric: Normal Mood Description: Calm Affect: Normal Speech Pattern: Clear, Appropriate - Laboratory and Diagnostics Result Diagrams: 04/30/18 05:00 04/30/18 05:00 Labs: 04/27/18 12:15 Sputum - Expectorated Sputum Sputum Culture - Final 04/27/18 12:15 Sputum - Expectorated Sputum - Final 04/27/18 12:16 Blood Blood Culture - Preliminary 04/27/18 12:08 Blood Blood Culture - Preliminary Laboratory WBC 6.2 X10^3/uL (3.6-10.0) 04/30/18 05:00 RBC 3.92 X10^6/uL (4.7-6.0) L 04/30/18 05:00 Hgb 12.0 g/dL (13.5-18.0) L 04/30/18 05:00 Hct 35.3 % (42.0-54.0) L 04/30/18 05:00 MCV 90.1 fL (80.0-100.0) 04/30/18 05:00 MCH 30.7 pg (27.0-34.0) 04/30/18 05:00 MCHC 34.1 g/dL (33.0-35.0) 04/30/18 05:00 RDW 14.0 % (11.6-16.5) 04/30/18 05:00 Plt Count 210 X10^3/uL (150.0-450.0) 04/30/18 05:00 MPV 8.8 fL (7.4-11.0) 04/30/18 05:00 Neut % (Auto) 84.8 % (42.0-75.0) H 04/30/18 05:00 Lymph % (Auto) 9.0 % (21.0-51.0) L 04/30/18 05:00 [place] % (Auto) 6.0 % (0.0-13.0) 04/30/18 05:00 Eos % (Auto) 0.0 % (0.9-2.9) L 04/30/18 05:00 Baso % (Auto) 0.2 % (0.2-1.0) 04/30/18 05:00 Neut # (Auto) 5.3 x10^3/uL (2.2-4.8) H 04/30/18 05:00 Lymph # (Auto) 0.6 X10^3/uL (1.3-2.9) L 04/30/18 05:00 [place] # (Auto) 0.4 x10^3/uL (0.3-0.8) 04/30/18 05:00 Eos # (Auto) 0.0 x10^3/uL (0.0-0.2) 04/30/18 05:00 Baso # (Auto) 0.0 X10^3/uL (0.0-0.1) 04/30/18 05:00 Absolute Nucleated RBC 0.0 /100WBC 04/30/18 05:00 INR Target Range - 04/29/18 05:10 INR 1.78 (0.8-1.3) H 04/29/18 05:10 Sample Site Rbra 04/29/18 06:24 ABG pH 7.420 (7.35-7.45) 04/29/18 06:24 ABG pCO2 62.0 mmHg (35.0-45.0) H* 04/29/18 06:24 ABG pO2 64.0 mmHg (80.0-100.0) L 04/29/18 06:24 ABG HCO3 40.2 mmol/L (22-26) H* 04/29/18 06:24 ABG O2 Saturation 92.0 % (90-100) 04/29/18 06:24 ABG Base Excess 13.1 mmol/L (-2.0-2.0) H 04/29/18 06:24 Patrice Test Na 04/29/18 06:24 A-a Gradient 144.0 mmHg 04/29/18 06:24 FiO2 40.0 04/29/18 06:24 Blood Gas Comments Aris abg well-mtf 04/29/18 06:24 Sodium 116 mmol/L (136-145) L* 04/30/18 05:00 Corrected Sodium 117 mmol/L (136-145) L 04/30/18 05:00 Potassium 4.1 mmol/L (3.5-5.1) 04/30/18 05:00 Chloride 80 mmol/L (98-107) L* 04/30/18 05:00 Carbon Dioxide 29.9 mmol/L (21-32) 04/30/18 05:00 BUN 26 mg/dL (7-18) H 04/30/18 05:00 Creatinine 0.92 mg/dL (0.70-1.30) 04/30/18 05:00 Est GFR (MDRD) Af Amer > 60 (>60) 04/30/18 05:00 Est GFR (MDRD) Non-Af > 60 (>60) 04/30/18 05:00 Glucose 134 mg/dL (65-99) H 04/30/18 05:00 Lactic Acid 0.6 mmol/L (0.4-2.0) 04/27/18 12:08 Calcium 8.0 mg/dL (8.5-10.1) L 04/30/18 05:00 Corrected Calcium 8.6 mg/dL (8.5-10.1) 04/30/18 05:00 Magnesium 2.0 mg/dL (1.7-2.9) 04/29/18 05:10 Total Bilirubin 0.30 mg/dL (0.2-1.0) 04/30/18 05:00 AST 9 Units/L (15-37) L 04/30/18 05:00 ALT 13 Units/L (12-78) 04/30/18 05:00 Alkaline Phosphatase 104 Units/L (46-116) 04/30/18 05:00 Total Protein 6.5 g/dL (6.4-8.2) 04/30/18 05:00 Albumin 3.2 g/dL (3.4-5.0) L 04/30/18 05:00 Globulin 3.3 g/dL (2.5-4.5) 04/30/18 05:00 Albumin/Globulin Ratio 1.0 Ratio (1.1-2.1) L 04/30/18 05:00 - Plan (1) Bronchopneumonia Status: Acute Plan: IV FORTAZ, IV LEVAQUIN,SOLU-MEDROL 80MG IV Q8H, RESPIRATORY TREATMENTS, SUPPLEMENTAL OXYGEN, CONTINUE TO MONITOR (2) Shortness of breath Status: Acute Plan: RESPIRATORY TREATMENTS, SUPPLEMENTAL OXYGEN, TRIOLOGY, CONTINUE TO MONITOR LABS AND CHEST XRAY (3) COPD with emphysema Status: Chronic Qualifiers: Emphysema type: unspecified Qualified Code(s): J43.9 - Emphysema, unspecified Plan: RESPIRATORY TREATMENTS, SUPPLEMENTAL OXYGEN, ADDISON-DUR 200MG PO BID, TRIOLOGY, CONTINUE TO MONITOR LABS AND CHEST XRAY (4) CHF (congestive heart failure) Status: Chronic Qualifiers: Heart failure type: unspecified Heart failure chronicity: acute on chronic Qualified Code(s): I50.9 - Heart failure, unspecified Plan: LASIX 40MG IV BID, RESPIRATORY TREATMENTS, SUPPLEMENTAL OXYGEN, TRIOLOGY, CONTINUE TO MONITOR LABS AND CHEST XRAY (5) Hyponatremia Status: Acute Plan: NORMAL SALINE AT 100ML/HR (6) Yeast infection Status: Acute Plan: DIFLUCAN 100MG IV DAILY, CONTINUE TO MONITOR
[2018-04-30] MEDS: COUMADIN TAB 5 MG PO SCH (21:50)
[2018-04-30] MEDS ORDERED: ZOFRAN INJ 4 MG VIAL IVP PRN (22:15)
[2018-05-01] MEDS: DUONEB 0.5 MG/3 MG NEB SCH ×6 (01:16→20:19)
[2018-05-01] MEDS: NS 1000 ML 1,000 ML IV SCH ×5 (03:00→21:56)
[2018-05-01] MEDS: SOLU-Medrol 40 MG VIAL IVP SCH (06:07)
[2018-05-01] MEDS: FORTAZ or TAZICEF VIAL INJ IVP SCH ×3 (06:07→21:56)
[2018-05-01 06:40] LABS: BASOPHILS % (AUTO) 0.1 % (0.2-1.0); EOSINOPHILS % (AUTO) 0.1 % (0.9-2.9); HEMATOCRIT 37.8 % (42.0-54.0); LYMPHOCYTES # (AUTO) 0.4 X10^3/uL (1.3-2.9); LYMPHOCYTES % (AUTO) 5.9 % (21.0-51.0); MEAN CORPUSCULAR HEMOGLOBIN 30.2 pg (27.0-34.0); MEAN CORPUSCULAR HGB CONC 34.3 g/dL (33.0-35.0); MEAN CORPUSCULAR VOLUME 88.2 fL (80.0-100.0); MEAN PLATELET VOLUME 8.9 fL (7.4-11.0); MONOCYTES # (AUTO) 0.3 x10^3/uL (0.3-0.8); MONOCYTES % (AUTO) 4.9 % (0.0-13.0); NEUTROPHILS # (AUTO) 6.3 x10^3/uL (2.2-4.8); PLATELET COUNT 258 X10^3/uL (150.0-450.0); RED BLOOD COUNT 4.29 X10^6/uL (4.7-6.0); RED CELL DISTRIBUTION WIDTH 14.3 % (11.6-16.5); WHITE BLOOD COUNT 7.1 X10^3/uL (3.6-10.0)
[2018-05-01 06:50] LABS: ALANINE AMINOTRANSFERASE 12 Units/L (12-78); ALBUMIN 3.4 g/dL (3.4-5.0); ALKALINE PHOSPHATASE 108 Units/L (46-116); ASPARTATE AMINO TRANSFERASE 8 Units/L (15-37); BLOOD UREA NITROGEN 18 mg/dL (7-18); CALCIUM 8.1 mg/dL (8.5-10.1); COR NA(FOR HYPERGLY) 116 mmol/L (136-145); CREATININE 0.82 mg/dL (0.70-1.30); TOTAL PROTEIN 6.7 g/dL (6.4-8.2); eGFR NON BLACK RACES > 60 (>60)
[2018-05-01 07:14] LABS: CHLORIDE 79 mmol/L (98-107); SODIUM 115 mmol/L (136-145)
[2018-05-01] MEDS: PULMICORT NEB TX 0.5 MG NEB SCH ×2 (08:36→20:20)
[2018-05-01] MEDS: ZESTRIL TAB 40 MG PO SCH (09:45)
[2018-05-01] MEDS: ZEBETA TAB 5 MG PO SCH ×2 (09:45→21:57)
[2018-05-01] MEDS: ZANTAC PO SCH ×2 (09:45→21:57)
[2018-05-01] MEDS: ROBITUSSIN DM PO SCH ×4 (09:45→21:56)
[2018-05-01] MEDS: DILANTIN CAP 100 MG EXT REL PO SCH ×2 (09:46→21:57)
[2018-05-01] MEDS: DIFLUCAN 200 MG IV PREMIX* 200 MG/100 ML BAG IV SCH (09:46)
[2018-05-01] MEDS: THEO-DUR TAB 200 MG PO SCH ×2 (09:46→21:57)
[2018-05-01] MEDS: LEVAQUIN PREMIX IV 750 MG 750 MG/150 ML BAG IV SCH (09:46)
[2018-05-01] MEDS: PriLOSEC PO SCH (09:46)
[2018-05-01] MEDS: NYSTATIN SUSP MT SCH ×4 (09:46→21:56)
[2018-05-01] MEDS: ROXICODONE TAB 15 MG PO PRN ×3 (09:51→22:13)
--- NOTE | 2018-05-01 10:04 | PCM.PROG ---
Progress Note - Progress Note for Day of Date of Exam: 04/30/18 - Subjective Subjective: WAS ADMITTED FOR BRONCHOPNEUMONIA AND COPD EXACERBATION. TODAY, HE IS ALERT AND ORIENTED, LYING IN BED ON MORNING ROUNDS. HE IS CURRENTLY UTILIZING THE TRILOGY. HE CONTINUES WITH COMPLAINTS OF SHORTNESS OF BREATH AND COUGH THIS MORNING. ON EXAMINATION, HEART IS REGULAR IN RATE AND RHYTHM. BILATERAL LUNGS ARE NOTED WITH SCATTERED WHEEZING AND RHONCHI. ABDOMEN IS ROUND, SOFT, AND NON-TENDER WITH NORMAL BOWEL SOUNDS NOTED IN ALL QUADRANTS. BILATERAL LOWER EXTREMITIES ARE NOTED WITH 1+ PITTING EDEMA. HIS VITALS THIS MORNING ARE 97.9-73-24-96%BIPAP-132/72. LABS WERE OBTAINED. ABNORMAL LAB VALUES INCLUDE THE FOLLOWING: RBC 3.92, HGB 12.0, HCT 35.3, SODIUM 116, CHLORIDE 80, BUN 26, GLUCOSE 134, CALCIUM 8.0, AST 9, ALBUMIN 3.2. PRELIMINARY SPUTUM CULTURE REPORTED GROWTH OF RARE YEAST. TODAY, WE WILL CONTINUE WITH IV ANTIBIOTICS, RESPIRATORY TREATMENTS, IV STEROIDS, AND BIPAP. HE HAS BEEN RECEIVING DYAZIDE A HOME MEDICATION. WE WILL DISCONTINUE THIS DUE TO HYPONATREMIA. OTHERWISE, WE WILL FOLLOW UP WITH AM LABS AND CHEST XRAY AND CONTINUE TO MONITOR PATIENT. - Past Medical Family Social History Past Med/Fam/Surg Hx: No changes since H&P Allergies: Allergies No Known Drug Allergies Allergy (Verified 02/17/18 18:05) - Review of Systems ROS: No change since H&P - Vital Signs and I&O's Vital Signs: Temperature 97.2 F Pulse Rate [Left Brachial] 78 Pulse Rate [Right Brachial] 70 Pulse Rate 90 Respiratory Rate 18 Blood Pressure [Left Arm] 141/84 Blood Pressure [Right Arm] 108/67 Blood Pressure 138/76 O2 Sat by Pulse Oximetry 95 Intake and Output: Intake & Output 04/28/18 04/29/18 04/30/18 05/01/18 11:59 11:59 11:59 11:59 Intake Total 1290 / 1290 1140 / 1140 4460 / 4460 2019 Output Total 2800 / 2800 4750 / 4750 4075 / 4075 2750 / 2750 Balance -1510 / -1510 -3610 / -3610 385 / 385 -730 / -730 - Physical Exam Oriented: Normal Eyes: Normal Ear: Normal Nose: Normal Respiratory: Generalized, Diminished, Wheezes, Rhonchi Cardiovascular: Tachycardia. negative: S3, S4, Murmur : Normal Auscultation: Bowel Sounds: Normal Tenderness: Normal Skin: Normal Musculoskeletal: Normal Psychiatric: Normal Mood Description: Calm Affect: Normal Speech Pattern: Clear, Appropriate - Laboratory and Diagnostics Result Diagrams: 05/01/18 05:29 05/01/18 05:29 Labs: 04/27/18 12:15 Sputum - Expectorated Sputum Sputum Culture - Final 04/27/18 12:15 Sputum - Expectorated Sputum - Final 04/27/18 12:16 Blood Blood Culture - Preliminary 04/27/18 12:08 Blood Blood Culture - Preliminary Laboratory WBC 7.1 X10^3/uL (3.6-10.0) 05/01/18 05:29 RBC 4.29 X10^6/uL (4.7-6.0) L 05/01/18 05:29 Hgb 13.0 g/dL (13.5-18.0) L 05/01/18 05:29 Hct 37.8 % (42.0-54.0) L 05/01/18 05:29 MCV 88.2 fL (80.0-100.0) 05/01/18 05:29 MCH 30.2 pg (27.0-34.0) 05/01/18 05:29 MCHC 34.3 g/dL (33.0-35.0) 05/01/18 05:29 RDW 14.3 % (11.6-16.5) 05/01/18 05:29 Plt Count 258 X10^3/uL (150.0-450.0) 05/01/18 05:29 MPV 8.9 fL (7.4-11.0) 05/01/18 05:29 Neut % (Auto) 89.0 % (42.0-75.0) H 05/01/18 05:29 Lymph % (Auto) 5.9 % (21.0-51.0) L 05/01/18 05:29 [place] % (Auto) 4.9 % (0.0-13.0) 05/01/18 05:29 Eos % (Auto) 0.1 % (0.9-2.9) L 05/01/18 05:29 Baso % (Auto) 0.1 % (0.2-1.0) L 05/01/18 05:29 Neut # (Auto) 6.3 x10^3/uL (2.2-4.8) H 05/01/18 05:29 Lymph # (Auto) 0.4 X10^3/uL (1.3-2.9) L 05/01/18 05:29 [place] # (Auto) 0.3 x10^3/uL (0.3-0.8) 05/01/18 05:29 Eos # (Auto) 0.0 x10^3/uL (0.0-0.2) 05/01/18 05:29 Baso # (Auto) 0.0 X10^3/uL (0.0-0.1) 05/01/18 05:29 Absolute Nucleated RBC 0.0 /100WBC 05/01/18 05:29 INR Target Range - 04/29/18 05:10 INR 1.78 (0.8-1.3) H 04/29/18 05:10 Sample Site Rbra 04/29/18 06:24 ABG pH 7.420 (7.35-7.45) 04/29/18 06:24 ABG pCO2 62.0 mmHg (35.0-45.0) H* 04/29/18 06:24 ABG pO2 64.0 mmHg (80.0-100.0) L 04/29/18 06:24 ABG HCO3 40.2 mmol/L (22-26) H* 04/29/18 06:24 ABG O2 Saturation 92.0 % (90-100) 04/29/18 06:24 ABG Base Excess 13.1 mmol/L (-2.0-2.0) H 04/29/18 06:24 Patrice Test Na 04/29/18 06:24 A-a Gradient 144.0 mmHg 04/29/18 06:24 FiO2 40.0 04/29/18 06:24 Blood Gas Comments Aris abg well-mtf 04/29/18 06:24 Sodium 115 mmol/L (136-145) L* 05/01/18 05:29 Corrected Sodium 116 mmol/L (136-145) L 05/01/18 05:29 Potassium 3.6 mmol/L (3.5-5.1) 05/01/18 05:29 Chloride 79 mmol/L (98-107) L* 05/01/18 05:29 Carbon Dioxide 27.0 mmol/L (21-32) 05/01/18 05:29 BUN 18 mg/dL (7-18) 05/01/18 05:29 Creatinine 0.82 mg/dL (0.70-1.30) 05/01/18 05:29 Est GFR (MDRD) Af Amer > 60 (>60) 05/01/18 05:29 Est GFR (MDRD) Non-Af > 60 (>60) 05/01/18 05:29 Glucose 140 mg/dL (65-99) H 05/01/18 05:29 Lactic Acid 0.6 mmol/L (0.4-2.0) 04/27/18 12:08 Calcium 8.1 mg/dL (8.5-10.1) L 05/01/18 05:29 Corrected Calcium TNP 05/01/18 05:29 Magnesium 1.6 mg/dL (1.7-2.9) L 05/01/18 05:29 Total Bilirubin 0.30 mg/dL (0.2-1.0) 05/01/18 05:29 AST 8 Units/L (15-37) L 05/01/18 05:29 ALT 12 Units/L (12-78) 05/01/18 05:29 Alkaline Phosphatase 108 Units/L (46-116) 05/01/18 05:29 Total Protein 6.7 g/dL (6.4-8.2) 05/01/18 05:29 Albumin 3.4 g/dL (3.4-5.0) 05/01/18 05:29 Globulin 3.3 g/dL (2.5-4.5) 05/01/18 05:29 Albumin/Globulin Ratio 1.0 Ratio (1.1-2.1) L 05/01/18 05:29 - Plan (1) Bronchopneumonia Status: Acute Plan: IV FORTAZ, IV LEVAQUIN,SOLU-MEDROL 80MG IV Q8H, RESPIRATORY TREATMENTS, SUPPLEMENTAL OXYGEN, CONTINUE TO MONITOR (2) Shortness of breath Status: Acute Plan: RESPIRATORY TREATMENTS, SUPPLEMENTAL OXYGEN, TRIOLOGY, CONTINUE TO MONITOR LABS AND CHEST XRAY (3) COPD with emphysema Status: Chronic Qualifiers: Emphysema type: unspecified Qualified Code(s): J43.9 - Emphysema, unspecified Plan: RESPIRATORY TREATMENTS, SUPPLEMENTAL OXYGEN, ADDISON-DUR 200MG PO BID, TRIOLOGY, CONTINUE TO MONITOR LABS AND CHEST XRAY (4) CHF (congestive heart failure) Status: Chronic Qualifiers: Heart failure type: unspecified Heart failure chronicity: acute on chronic Qualified Code(s): I50.9 - Heart failure, unspecified Plan: LASIX 40MG IV BID, RESPIRATORY TREATMENTS, SUPPLEMENTAL OXYGEN, TRIOLOGY, CONTINUE TO MONITOR LABS AND CHEST XRAY (5) Hyponatremia Status: Acute Plan: D/C DYAZIDE, NORMAL SALINE AT 100ML/HR (6) Yeast infection Status: Acute Plan: DIFLUCAN 100MG IV DAILY, CONTINUE TO MONITOR
[2018-05-01 11:21] LABS: ABG BASE EXCESS 6.7 mmol/L (-2.0-2.0)
[2018-05-01 11:24] LABS: ABG ALLEN TEST P; ABG HCO3 32.4 mmol/L (22-26)
[2018-05-01] MEDS: VALIUM PO PRN ×2 (11:36→21:56)
[2018-05-01] MEDS: NICOTINE PATCH TD SCH (13:52)
[2018-05-01] MEDS: MAGNESIUM SULFATE 1 GRAM/100 mL PREMIX 1 GM/100 ML BAG IV PRN ×2 (16:49→17:48)
[2018-05-01] MEDS: POTASSIUM CHLORIDE LIQ 20 MEQ UDC PO PRN (16:49)
[2018-05-01] MEDS ORDERED: COLACE CAP 100 MG PO PRN (20:39)
[2018-05-01] MEDS ORDERED: MILK OF MAGNESIA PO PRN (20:39)
--- NOTE | 2018-05-01 21:54 | PCM.PROG ---
Progress Note - Progress Note for Day of Date of Exam: 05/01/18 - Subjective Subjective: WAS ADMITTED FOR BRONCHOPNEUMONIA AND COPD EXACERBATION. TODAY, HE IS ALERT AND ORIENTED, LYING IN BED ON MORNING ROUNDS. HE IS CURRENTLY UTILIZING THE TRILOGY. HE CONTINUES WITH COMPLAINTS OF SHORTNESS OF BREATH AND COUGH THIS MORNING. ON EXAMINATION, HEART IS REGULAR IN RATE AND RHYTHM. BILATERAL LUNGS ARE NOTED WITH SCATTERED WHEEZING AND RHONCHI. ABDOMEN IS ROUND, SOFT, AND NON-TENDER WITH NORMAL BOWEL SOUNDS NOTED IN ALL QUADRANTS. BILATERAL LOWER EXTREMITIES ARE NOTED WITH 1+ PITTING EDEMA. HIS VITALS THIS MORNING ARE 97.5-71-18-94%BIPAP,130/86. LABS WERE OBTAINED. ABNORMAL LAB VALUES INCLUDE THE FOLLOWING: RBC 4.29, HGB 13.0, HCT 37.8, INR 2.17, SODIUM 115, CHLORIDE 79, GLUCOSE 140, MAGNESIUM 1.6, AST 8. PRELIMINARY SPUTUM CULTURE REPORTED GROWTH OF RARE YEAST. TODAY, WE WILL CONTINUE WITH IV ANTIBIOTICS, RESPIRATORY TREATMENTS, IV STEROIDS, AND BIPAP. TODAY, WE WILL OBTAIN AN ABG. OTHERWISE, WE WILL CONTINUE WITH CURRENT PLAN OF CARE. WE WILL FOLLOW UP WITH AM LABS AND CHEST XRAY AND CONTINUE TO MONITOR PATIENT. - Past Medical Family Social History Past Med/Fam/Surg Hx: No changes since H&P Allergies: Allergies No Known Drug Allergies Allergy (Verified 02/17/18 18:05) - Review of Systems ROS: No change since H&P - Vital Signs and I&O's Vital Signs: Temperature 97 F Pulse Rate [Left Brachial] 86 Pulse Rate [Right Brachial] 70 Pulse Rate 85 Respiratory Rate 18 Blood Pressure [Left Arm] 141/84 Blood Pressure [Right Arm] 131/73 Blood Pressure 138/76 O2 Sat by Pulse Oximetry 94 Intake and Output: Intake & Output 04/29/18 04/30/18 05/01/18 05/02/18 11:59 11:59 11:59 11:59 Intake Total 1140 / 1140 4460 / 4460 2019 360 / 360 Output Total 4750 / 4750 4075 / 4075 2750 / 2750 950 / 950 Balance -3610 / -3610 385 / 385 -730 / -730 -590 / -590 - Physical Exam Oriented: Normal Eyes: Normal Ear: Normal Nose: Normal Respiratory: Generalized, Diminished, Wheezes, Rhonchi Cardiovascular: Tachycardia. negative: S3, S4, Murmur : Normal Auscultation: Bowel Sounds: Normal Tenderness: Normal Skin: Normal Musculoskeletal: Normal Psychiatric: Normal Mood Description: Calm Affect: Normal Speech Pattern: Clear, Inappropriate - Laboratory and Diagnostics Result Diagrams: 05/01/18 05:29 05/01/18 05:29 Labs: 04/27/18 12:15 Sputum - Expectorated Sputum Sputum Culture - Final 04/27/18 12:15 Sputum - Expectorated Sputum - Final 04/27/18 12:16 Blood Blood Culture - Preliminary 04/27/18 12:08 Blood Blood Culture - Preliminary Laboratory WBC 7.1 X10^3/uL (3.6-10.0) 05/01/18 05:29 RBC 4.29 X10^6/uL (4.7-6.0) L 05/01/18 05:29 Hgb 13.0 g/dL (13.5-18.0) L 05/01/18 05:29 Hct 37.8 % (42.0-54.0) L 05/01/18 05:29 MCV 88.2 fL (80.0-100.0) 05/01/18 05:29 MCH 30.2 pg (27.0-34.0) 05/01/18 05:29 MCHC 34.3 g/dL (33.0-35.0) 05/01/18 05:29 RDW 14.3 % (11.6-16.5) 05/01/18 05:29 Plt Count 258 X10^3/uL (150.0-450.0) 05/01/18 05:29 MPV 8.9 fL (7.4-11.0) 05/01/18 05:29 Neut % (Auto) 89.0 % (42.0-75.0) H 05/01/18 05:29 Lymph % (Auto) 5.9 % (21.0-51.0) L 05/01/18 05:29 Mercer % (Auto) 4.9 % (0.0-13.0) 05/01/18 05:29 Eos % (Auto) 0.1 % (0.9-2.9) L 05/01/18 05:29 Baso % (Auto) 0.1 % (0.2-1.0) L 05/01/18 05:29 Neut # (Auto) 6.3 x10^3/uL (2.2-4.8) H 05/01/18 05:29 Lymph # (Auto) 0.4 X10^3/uL (1.3-2.9) L 05/01/18 05:29 Mercer # (Auto) 0.3 x10^3/uL (0.3-0.8) 05/01/18 05:29 Eos # (Auto) 0.0 x10^3/uL (0.0-0.2) 05/01/18 05:29 Baso # (Auto) 0.0 X10^3/uL (0.0-0.1) 05/01/18 05:29 Absolute Nucleated RBC 0.0 /100WBC 05/01/18 05:29 INR Target Range - 05/01/18 13:50 INR 2.17 (0.8-1.3) H 05/01/18 13:50 Sample Site Rr 05/01/18 09:46 ABG pH 7.420 (7.35-7.45) 05/01/18 09:46 ABG pCO2 50.0 mmHg (35.0-45.0) H 05/01/18 09:46 ABG pO2 71.0 mmHg (80.0-100.0) L 05/01/18 09:46 ABG HCO3 32.4 mmol/L (22-26) H* 05/01/18 09:46 ABG O2 Saturation 94.0 % (90-100) 05/01/18 09:46 ABG Base Excess 6.7 mmol/L (-2.0-2.0) H 05/01/18 09:46 Patrice Test P 05/01/18 09:46 A-a Gradient 16.0 mmHg 05/01/18 09:46 FiO2 21.0 05/01/18 09:46 Blood Gas Comments Aris well-sd 05/01/18 09:46 Sodium 115 mmol/L (136-145) L* 05/01/18 05:29 Corrected Sodium 116 mmol/L (136-145) L 05/01/18 05:29 Potassium 3.6 mmol/L (3.5-5.1) 05/01/18 05:29 Chloride 79 mmol/L (98-107) L* 05/01/18 05:29 Carbon Dioxide 27.0 mmol/L (21-32) 05/01/18 05:29 BUN 18 mg/dL (7-18) 05/01/18 05:29 Creatinine 0.82 mg/dL (0.70-1.30) 05/01/18 05:29 Est GFR (MDRD) Af Amer > 60 (>60) 05/01/18 05:29 Est GFR (MDRD) Non-Af > 60 (>60) 05/01/18 05:29 Glucose 140 mg/dL (65-99) H 05/01/18 05:29 Lactic Acid 0.6 mmol/L (0.4-2.0) 04/27/18 12:08 Calcium 8.1 mg/dL (8.5-10.1) L 05/01/18 05:29 Corrected Calcium TNP 05/01/18 05:29 Magnesium 1.6 mg/dL (1.7-2.9) L 05/01/18 05:29 Total Bilirubin 0.30 mg/dL (0.2-1.0) 05/01/18 05:29 AST 8 Units/L (15-37) L 05/01/18 05:29 ALT 12 Units/L (12-78) 05/01/18 05:29 Alkaline Phosphatase 108 Units/L (46-116) 05/01/18 05:29 Total Protein 6.7 g/dL (6.4-8.2) 05/01/18 05:29 Albumin 3.4 g/dL (3.4-5.0) 05/01/18 05:29 Globulin 3.3 g/dL (2.5-4.5) 05/01/18 05:29 Albumin/Globulin Ratio 1.0 Ratio (1.1-2.1) L 05/01/18 05:29 - Plan (1) Bronchopneumonia Status: Acute Plan: IV FORTAZ, IV LEVAQUIN,SOLU-MEDROL 80MG IV Q8H, RESPIRATORY TREATMENTS, SUPPLEMENTAL OXYGEN, CONTINUE TO MONITOR (2) Shortness of breath Status: Acute Plan: RESPIRATORY TREATMENTS, SUPPLEMENTAL OXYGEN, TRIOLOGY, CONTINUE TO MONITOR LABS AND CHEST XRAY (3) COPD with emphysema Status: Chronic Qualifiers: Emphysema type: unspecified Qualified Code(s): J43.9 - Emphysema, u nspecified Plan: RESPIRATORY TREATMENTS, SUPPLEMENTAL OXYGEN, ADDISON-DUR 200MG PO BID, TRIOLOGY, CONTINUE TO MONITOR LABS AND CHEST XRAY (4) CHF (congestive heart failure) Status: Chronic Qualifiers: Heart failure type: unspecified Heart failure chronicity: acute on chronic Qualified Code(s): I50.9 - Heart failure, unspecified Plan: LASIX 40MG IV BID, RESPIRATORY TREATMENTS, SUPPLEMENTAL OXYGEN, TRIOLOGY, CONTINUE TO MONITOR LABS AND CHEST XRAY (5) Hyponatremia Status: Acute Plan: D/C DYAZIDE, NORMAL SALINE AT 100ML/HR (6) Yeast infection Status: Acute Plan: DIFLUCAN 100MG IV DAILY, CONTINUE TO MONITOR
[2018-05-01] MEDS: COUMADIN TAB 5 MG PO SCH (21:57)
[2018-05-02] MEDS: DUONEB 0.5 MG/3 MG NEB SCH ×6 (00:31→21:36)
[2018-05-02] MEDS: FORTAZ or TAZICEF VIAL INJ IVP SCH ×3 (05:55→22:24)
[2018-05-02] MEDS: NS 1000 ML 1,000 ML IV SCH ×3 (05:55→18:06)
[2018-05-02 06:25] LABS: BASOPHILS % (AUTO) 0.2 % (0.2-1.0); EOSINOPHILS % (AUTO) 0.5 % (0.9-2.9); HEMATOCRIT 39.3 % (42.0-54.0); HEMOGLOBIN 13.5 g/dL (13.5-18.0); LYMPHOCYTES # (AUTO) 1.1 X10^3/uL (1.3-2.9); LYMPHOCYTES % (AUTO) 10.3 % (21.0-51.0); MEAN CORPUSCULAR HEMOGLOBIN 30.5 pg (27.0-34.0); MEAN CORPUSCULAR HGB CONC 34.3 g/dL (33.0-35.0); MEAN CORPUSCULAR VOLUME 88.9 fL (80.0-100.0); MEAN PLATELET VOLUME 8.5 fL (7.4-11.0); MONOCYTES # (AUTO) 1.9 x10^3/uL (0.3-0.8); MONOCYTES % (AUTO) 18.2 % (0.0-13.0); NEUTROPHILS # (AUTO) 7.6 x10^3/uL (2.2-4.8); NEUTROPHILS % (AUTO) 70.8 % (42.0-75.0); PLATELET COUNT 251 X10^3/uL (150.0-450.0); RED BLOOD COUNT 4.42 X10^6/uL (4.7-6.0); RED CELL DISTRIBUTION WIDTH 13.8 % (11.6-16.5); WHITE BLOOD COUNT 10.7 X10^3/uL (3.6-10.0)
[2018-05-02 06:37] LABS: ALANINE AMINOTRANSFERASE 16 Units/L (12-78); ALBUMIN 3.2 g/dL (3.4-5.0); ALKALINE PHOSPHATASE 105 Units/L (46-116); ASPARTATE AMINO TRANSFERASE 15 Units/L (15-37); BLOOD UREA NITROGEN 21 mg/dL (7-18); CALCIUM 7.9 mg/dL (8.5-10.1); CARBON DIOXIDE 30.6 mmol/L (21-32); CHLORIDE 83 mmol/L (98-107); COR CA(FOR HYPOALB) 8.5 mg/dL (8.5-10.1); CREATININE 0.87 mg/dL (0.70-1.30); TOTAL PROTEIN 6.2 g/dL (6.4-8.2); eGFR NON BLACK RACES > 60 (>60)
[2018-05-02 06:39] LABS: SODIUM 121 mmol/L (136-145)
[2018-05-02] MEDS: PULMICORT NEB TX 0.5 MG NEB SCH ×2 (08:42→21:36)
[2018-05-02] MEDS: ROXICODONE TAB 15 MG PO PRN ×3 (09:01→17:35)
[2018-05-02] MEDS: LEVAQUIN PREMIX IV 750 MG 750 MG/150 ML BAG IV SCH (09:02)
[2018-05-02] MEDS: THEO-DUR TAB 200 MG PO SCH ×2 (09:02→23:45)
[2018-05-02] MEDS: DIFLUCAN 200 MG IV PREMIX* 200 MG/100 ML BAG IV SCH (09:02)
[2018-05-02] MEDS: ROBITUSSIN DM PO SCH ×4 (09:02→23:45)
[2018-05-02] MEDS: DILANTIN CAP 100 MG EXT REL PO SCH ×2 (09:02→23:44)
[2018-05-02] MEDS: ZESTRIL TAB 40 MG PO SCH (09:02)
[2018-05-02] MEDS: NYSTATIN SUSP MT SCH ×4 (09:02→23:45)
[2018-05-02] MEDS: ZANTAC PO SCH ×2 (09:02→23:45)
[2018-05-02] MEDS: ZEBETA TAB 5 MG PO SCH ×2 (09:02→23:46)
[2018-05-02] MEDS: NICOTINE PATCH TD SCH (09:03)
[2018-05-02] MEDS: PriLOSEC PO SCH (09:03)
[2018-05-02] MEDS: VALIUM PO PRN ×2 (09:11→17:36)
--- NOTE | 2018-05-02 12:57 | CT ---
HISTORY: Altered mental status, weakness, headache Study: CT brain without contrast Comparison: 03/08/2017 Technique: Multiple axial images of the brain were obtained without administration of IV contrast. Dose reduction techniques including Automated Exposure Control (AEC) and adjustment of mA and kV were utilized. Findings: The brain parenchyma is within normal limits for patient's age. No evidence of acute hemorrhage, midline shift, mass effect or abnormal extra-axial fluid collection. The ventricular system is symmetric and nondilated. The soft tissues and osseous structures are unremarkable. The visualized paranasal sinuses are clear. IMPRESSION: 1.No acute intracranial abnormality. Reported By:
[2018-05-02] MEDS: COUMADIN TAB 5 MG PO SCH (22:43)
[2018-05-03] MEDS: NS 1000 ML 1,000 ML IV SCH ×3 (00:31→10:15)
[2018-05-03] MEDS: DUONEB 0.5 MG/3 MG NEB SCH ×3 (01:57→09:04)
[2018-05-03] MEDS: FORTAZ or TAZICEF VIAL INJ IVP SCH (05:51)
[2018-05-03 06:22] LABS: BASOPHILS % (AUTO) 0.3 % (0.2-1.0); EOSINOPHILS # (AUTO) 0.1 x10^3/uL (0.0-0.2); EOSINOPHILS % (AUTO) 2.1 % (0.9-2.9); HEMATOCRIT 36.4 % (42.0-54.0); HEMOGLOBIN 12.2 g/dL (13.5-18.0); LYMPHOCYTES # (AUTO) 1.4 X10^3/uL (1.3-2.9); LYMPHOCYTES % (AUTO) 19.5 % (21.0-51.0); MEAN CORPUSCULAR HEMOGLOBIN 30.3 pg (27.0-34.0); MEAN CORPUSCULAR HGB CONC 33.6 g/dL (33.0-35.0); MEAN CORPUSCULAR VOLUME 90.4 fL (80.0-100.0); MEAN PLATELET VOLUME 8.4 fL (7.4-11.0); MONOCYTES # (AUTO) 1.5 x10^3/uL (0.3-0.8); MONOCYTES % (AUTO) 21.2 % (0.0-13.0); NEUTROPHILS # (AUTO) 3.9 x10^3/uL (2.2-4.8); NEUTROPHILS % (AUTO) 56.9 % (42.0-75.0); PLATELET COUNT 205 X10^3/uL (150.0-450.0); RED BLOOD COUNT 4.02 X10^6/uL (4.7-6.0); WHITE BLOOD COUNT 6.9 X10^3/uL (3.6-10.0)
[2018-05-03 06:40] LABS: ALANINE AMINOTRANSFERASE 14 Units/L (12-78); ALBUMIN 2.6 g/dL (3.4-5.0); ALKALINE PHOSPHATASE 101 Units/L (46-116); ASPARTATE AMINO TRANSFERASE 13 Units/L (15-37); BLOOD UREA NITROGEN 22 mg/dL (7-18); CALCIUM 7.8 mg/dL (8.5-10.1); CARBON DIOXIDE 28.7 mmol/L (21-32); CHLORIDE 88 mmol/L (98-107); COR CA(FOR HYPOALB) 8.9 mg/dL (8.5-10.1); CREATININE 0.83 mg/dL (0.70-1.30); TOTAL PROTEIN 5.2 g/dL (6.4-8.2); eGFR NON BLACK RACES > 60 (>60)
[2018-05-03 06:45] LABS: SODIUM 122 mmol/L (136-145)
[2018-05-03 06:54] LABS: PLATELET MORPHOLOGY COMMENT NORMAL (NORMAL)
[2018-05-03] MEDS: DIFLUCAN 200 MG IV PREMIX* 200 MG/100 ML BAG IV SCH (08:45)
[2018-05-03] MEDS: LEVAQUIN PREMIX IV 750 MG 750 MG/150 ML BAG IV SCH ×2 (08:45→10:15)
[2018-05-03] MEDS: ZESTRIL TAB 40 MG PO SCH (08:45)
[2018-05-03] MEDS: ZANTAC PO SCH (08:46)
[2018-05-03] MEDS: PriLOSEC PO SCH (08:46)
[2018-05-03] MEDS: THEO-DUR TAB 200 MG PO SCH (08:46)
[2018-05-03] MEDS: DILANTIN CAP 100 MG EXT REL PO SCH (08:46)
[2018-05-03] MEDS: ZEBETA TAB 5 MG PO SCH (08:46)
[2018-05-03] MEDS: NYSTATIN SUSP MT SCH (08:47)
[2018-05-03] MEDS: NICOTINE PATCH TD SCH (08:47)
[2018-05-03] MEDS: ROBITUSSIN DM PO SCH (08:47)
[2018-05-03] MEDS: PULMICORT NEB TX 0.5 MG NEB SCH (09:04)
[2018-05-03 09:54] VITALS: BP 111/63
--- NOTE | 2018-05-19 01:22 | DR.CARTERD ---
- Discharge Summary for: Discharge Summary for Date of:: 05/03/18 - Admission Date Date of Admission: 04/27/18 - Admission Diagnoses Admission Diagnosis: (1) Bronchopneumonia (2) Shortness of breath (3) COPD with emphysema (4) CHF (congestive heart failure) - Discharge Date Discharge Date: 05/03/18 - Discharge Diagnoses Discharge Diagnosis: (1) Bronchopneumonia (2) Shortness of breath (3) COPD with emphysema (4) CHF (congestive heart failure) (5) Hyponatremia (6) Yeast infection - Hospital Course Hospital Course: DAY ONE, Matt FLORES IS A 58 YEAR OLD PATIENT OF OURS. HE PRESENTED TO THE HOSPITAL A DIRECT ADMISSION FOR COMPLAINTS OF SHORTNESS OF BREATH, COUGH, WHEEZING, AND DECREASED URINE OUTPUT. ON ARRIVAL, PATIENT WAS ALERT AND ORIENTED. ON EXAMINATION, HE WAS NOTED WITH EXPIRATORY WHEEZING AND RHONCHI. HE DENIED CHEST PAIN OR FEVER. ON ARRIVAL, VITALS WERE 97.7-83-22-88%NC-134/80. LABS WERE OBTAINED. ABNORMAL LAB VALUES INCLUDED THE FOLLOWING: RBC 3.91, HGB 11.8, HCT 36.6, PLT COUNT 149, SODIUM 130, CHLORIDE 90, CARBON DIOXIDE 38.0, CREATININE 0.63, GLUCOSE 103, CALCIUM 8.4, AST 10, ALK PHOS 128. AN ABG WAS OBTAINED AND REVEALED: PH 7.290, PC02 95.0, P02 46.0, HC03 45.7, 02 SATURATION 76.0, BASE EXCESS 15.0. BLOOD AND SPUTUM CULTURES ARE PENDING. CHEST XRAY REVEALED: Promin ent cardiac size. Bilateral interstitial pulmonary disease is probably chronic, consistent with history of COPD/emphysema. HE WAS STARTED ON LASIX 40MG IV BID, RESPIRATORY TREATMENTS, IV FORTAZ, IV LEVAQUIN, AND SUPPLEMENTAL OXYGEN FOR TREATMENT OF BRONCHOPNEUMONIA AND COPD EXACERBATION. HIS TRILOGY WAS BROUGHT FROM HOME. HE CONTINUED TO USE IT. WE FOLLOWED UP WITH AM LABS AND CHEST XRAY AND CONTINUED TO MONITOR PATIENT. DAY TWO, HE WAS ALERT AND ORIENTED, LYING IN BED ON MORNING ROUNDS. HE WAS UTILIZING THE TRILOGY. HE REPORTED COMPLAINTS OF SHORTNESS OF BREATH AND COUGH THIS MORNING. ON EXAMINATION, HEART WAS REGULAR IN RATE AND RHYTHM. BILATERAL LUNGS WERE NOTED WITH SCATTERED WHEEZING AND RHONCHI. ABDOMEN WAS ROUND, SOFT, AND NON-TENDER WITH NORMAL BOWEL SOUNDS NOTED IN ALL QUADRANTS. BILATERAL LOWER EXTREMITIES WERE NOTED WITH 1+ PITTING EDEMA. HIS VITALS THIS MORNING WERE 98.1-115-17-89%TRILOGY-135/78. LABS WERE OBTAINED. ABNORMAL LAB VALUES INCLUDED THE FOLLOWING: RBC 3.52, HGB 10.8, HCT 32.2, INR 2.28, SODIUM 128, CHLORIDE 87, CARBON DIOXIDE 38.1, GLUCOSE 143, CALCIUM 7.8, MAGNESIUM 1.5, AST 7, ALT 11, TOTAL PROTEIN 5.8, ALBUMIN 2.9. TODAYS CHEST XRAY REVEALED: Left lower lobe subsegmental atelectasis. TODAY, WE WILL CONTINUE WITH IV ANTIBIOTICS, RESPIRATORY TREATMENTS, AND BIPAP. WE STARTED SOLU-MEDROL 80MG IV Q8H. WE FOLLOWED UP WITH AM LABS AND CHEST XRAY AND CONTINUED TO MONITOR PATIENT. DAY THREE, HE WAS ALERT AND ORIENTED, LYING IN BED ON MORNING ROUNDS. HE WAS UTILIZING THE TRILOGY. HE CONTINUED WITH COMPLAINTS OF SHORTNESS OF BREATH AND COUGH THIS MORNING. ON EXAMINATION, HEART WAS REGULAR IN RATE AND RHYTHM. BILATERAL LUNGS WERE NOTED WITH SCATTERED WHEEZING AND RHONCHI. ABDOMEN WAS ROUND, SOFT, AND NON-TENDER WITH NORMAL BOWEL SOUNDS NOTED IN ALL QUADRANTS. BILATERAL LOWER EXTREMITIES WERE NOTED WITH 1+ PITTING EDEMA. HIS VITALS THIS MORNING WERE 98.1-115-17-89%TRILOGY-135/78. LABS WERE OBTAINED. ABNORMAL LAB VALUES INCLUDED THE FOLLOWING: RBC 4.00, HGB 12.1, HCT 36.1, INR 1.78, CHLORIDE 83, SODIUM 121, CARBON DIOXIDE 32.3, BUN 19, GLUCOSE 109, CALCIUM 8.3, AST 9, ALBUMIN 3.2. ABG OBTAINED AND REVEALED: PH 7.420, PC02 62.0, P02 64.0, HC03 40.2 , 02 SATURATION 92.0, BASE EXCESS 13.1. PRELIMINARY SPUTUM CULTURE REPORTED GROWTH OF RARE YEAST. TODAYS CHEST XRAY REVEALED: improving subsegmental atelectasis left lung base. Interstitial lung changes. WE CONTINUED WITH IV ANTIBIOTICS, RESPIRATORY TREATMENTS, IV STEROIDS, AND BIPAP. WE STARTED DIFLUCAN 100MG PO DAILY, NYSTATIN SWISH AND SWALLOW, NORMAL SALINE AT 100ML/HR, AND ADDISON- DUR 200MG PO BID. WE FOLLOWED UP WITH AM LABS AND CHEST XRAY AND CONTINUED TO MONITOR PATIENT. DAY FOUR, HE WAS ALERT AND ORIENTED, LYING IN BED ON MORNING ROUNDS. HE WAS UTILIZING THE TRILOGY. HE CONTINUED WITH COMPLAINTS OF SHORTNESS OF BREATH AND COUGH THIS MORNING. ON EXAMINATION, HEART WAS REGULAR IN RATE AND RHYTHM. BILATERAL LUNGS WERE NOTED WITH SCATTERED WHEEZING AND RHONCHI. ABDOMEN WAS ROUND, SOFT, AND NON-TENDER WITH NORMAL BOWEL SOUNDS NOTED IN ALL QUADRANTS. BILATERAL LOWER EXTREMITIES WERE NOTED WITH 1+ PITTING EDEMA. HIS VITALS THIS MORNING WERE 97.9-73-24-96%BIPAP-132/72. LABS WERE OBTAINED. ABNORMAL LAB VALUES INCLUDED THE FOLLOWING: RBC 3.92, HGB 12.0, HCT 35.3, SODIUM 116, CHLORIDE 80, BUN 26, GLUCOSE 134, CALCIUM 8.0, AST 9, ALBUMIN 3.2. PRELIMINARY SPUTUM CULTURE REPORTED GROWTH OF RARE YEAST. WE CONTINUED WITH IV ANTIBIOTICS, RESPIRATORY TREATMENTS, IV STEROIDS, AND BIPAP. HE HAS BEEN RECEIVING DYAZIDE A HOME MEDICATION. WE DISCONTINUE THIS DUE TO HYPONATREMIA. WE FOLLOWED UP WITH AM LABS AND CHEST XRAY AND CONTINUED TO MONITOR PATIENT. DAY FIVE, HE WAS ALERT AND ORIENTED, LYING IN BED ON MORNING ROUNDS. HE WAS UTILIZING THE TRILOGY. HE CONTINUED WITH COMPLAINTS OF SHORTNESS OF BREATH AND COUGH THIS MORNING. ON EXAMINATION, HEART WAS REGULAR IN RATE AND RHYTHM. BILATERAL LUNGS WERE NOTED WITH SCATTERED WHEEZING AND RHONCHI. ABDOMEN WAS ROUND, SOFT, AND NON-TENDER W ITH NORMAL BOWEL SOUNDS NOTED IN ALL QUADRANTS. BILATERAL LOWER EXTREMITIES WERE NOTED WITH 1+ PITTING EDEMA. HIS VITALS THIS MORNING ARE 97.5-71-18-94%BIPAP,130/86. LABS WERE OBTAINED. ABNORMAL LAB VALUES INCLUDED THE FOLLOWING: RBC 4.29, HGB 13.0, HCT 37.8, INR 2.17, SODIUM 115, CHLORIDE 79, GLUCOSE 140, MAGNESIUM 1.6, AST 8. PRELIMINARY SPUTUM CULTURE REPORTED GROWTH OF RARE YEAST. WE CONTINUED WITH IV ANTIBIOTICS, RESPIRATORY TREATMENTS, IV STEROIDS, AND BIPAP. WE OBTAINED AN ABG. OTHERWISE, WE CONTINUED WITH CURRENT PLAN OF CARE. WE FOLLOWED UP WITH AM LABS AND CHEST XRAY AND CONTINUED TO MONITOR PATIENT. DAY SIX, WE CONTINUED WITH CURRENT PLAN OF CARE. WE FOLLOWED UP WITH AM LABS AND CONTINUED TO MONITOR. DAY SEVEN, PATIENT LYING IN BED ALERT AND ORIENTED. HE WAS UTILIZING HIS TRILOGY. HE REPORTED IMPROVEMENT IN HIS SYMPTOMS. HIS ABG HAS IMPROVED. VITALS WERE STABLE, BP-111/63, PULSE-91, TEMP. 98.4, RESPIRATIONS-22, O2 SAT. 92% BIPAP. SODIUM UP TO 122 FROM 116. WBC IS WITHIN NORMAL LIMITS. WE PLANNED FOR DISCHARGE. INSTRUCTIONS FOR MEDICATIONS AND FOLLOW UP WERE DISCUSSED WITH PATIENT AND FAMILY, BOTH VOICED UNDERSTANDING. PATIENT WAS DISCHARGED HOME IN STABLE CONDITION WITH FAMILY. - Discharge Medications Discharge Medications: Home Medication List oxycodone 30 mg PO Q4-6H PRN 04/27/18 [History] ranitidine HCl [Zantac] 150 mg PO BID 04/27/18 [History] Prescriptions: Ambulatory Orders bisoprolol fumarate 5 mg PO BID 02/27/17 diazepam 10 mg PO QID PRN 02/27/17 lisinopril 40 mg PO DAILY 02/27/17 phenytoin sodium extended 200 mg PO BID 02/27/17 warfarin [Coumadin] 5 mg PO HS 02/27/17 furosemide 40 - 120 mg PO DAILY 04/20/17 omeprazole 20 mg PO DAILY 12/28/17 ipratropium-albuterol 1 ea NEB TID #50 ml 01/08/18 triamterene-hydrochlorothiazid [Dyazide] 37.5 mg PO QDAY 02/26/18 - Discharge Disposition Discharge Disposition: PATIENT TO FOLLOW UP IN OUR OFFICE IN ONE WEEK.
== END 2018-05-03 10:30 | disposition home or self-care (01) | DRG 194 ==
LOC: MED/SURG
PROVIDERS: ADMIT Internal Medicine; ATTEND Internal Medicine
DX: B37.89 Other sites of candidiasis; J18.0 Bronchopneumonia, unspecified organism; E87.6 Hypokalemia; I50.9 Heart failure, unspecified; R06.02 Shortness of breath; R60.0 Localized edema; Z79.01 Long term (current) use of anticoagulants; R26.89 Other abnormalities of gait and mobility; J44.1 Chronic obstructive pulmonary disease with (acute) exacerbation
CPT/HCPCS: 36415; 36600; 70450; 71010; 71020; 71045; 71046; 80053; 82803; 83605; 83735; 85025; 85610; 87040; 87070; 87205; 94640; 94669; 94760; 97110; 97162; 97166; 97530; A4222; J0713; J1450; J1940; J1956; J2405; J2920; J3475; J3480; J7030; J7050; J7620; J7626

== ENCOUNTER 2018-05-05 16:00 | Inpatient (IN) ==
[2018-05-05 17:20] LABS: BASOPHILS % (AUTO) 0.5 % (0.2-1.0); EOSINOPHILS # (AUTO) 0.2 x10^3/uL (0.0-0.2); EOSINOPHILS % (AUTO) 2.7 % (0.9-2.9); HEMATOCRIT 38.8 % (42.0-54.0); HEMOGLOBIN 12.9 g/dL (13.5-18.0); LYMPHOCYTES # (AUTO) 0.7 X10^3/uL (1.3-2.9); LYMPHOCYTES % (AUTO) 11.5 % (21.0-51.0); MEAN CORPUSCULAR HEMOGLOBIN 30.3 pg (27.0-34.0); MEAN CORPUSCULAR HGB CONC 33.1 g/dL (33.0-35.0); MEAN CORPUSCULAR VOLUME 91.4 fL (80.0-100.0); MEAN PLATELET VOLUME 8.1 fL (7.4-11.0); MONOCYTES # (AUTO) 0.6 x10^3/uL (0.3-0.8); NEUTROPHILS # (AUTO) 4.6 x10^3/uL (2.2-4.8); NEUTROPHILS % (AUTO) 75.3 % (42.0-75.0); PLATELET COUNT 214 X10^3/uL (150.0-450.0); RED BLOOD COUNT 4.24 X10^6/uL (4.7-6.0); RED CELL DISTRIBUTION WIDTH 14.1 % (11.6-16.5); WHITE BLOOD COUNT 6.2 X10^3/uL (3.6-10.0)
[2018-05-05 17:29] LABS: ALANINE AMINOTRANSFERASE 17 Units/L (12-78); ALBUMIN 3.1 g/dL (3.4-5.0); ALKALINE PHOSPHATASE 112 Units/L (46-116); ASPARTATE AMINO TRANSFERASE 16 Units/L (15-37); BLOOD UREA NITROGEN 22 mg/dL (7-18); CALCIUM 8.1 mg/dL (8.5-10.1); CARBON DIOXIDE 35.4 mmol/L (21-32); CHLORIDE 96 mmol/L (98-107); COR CA(FOR HYPOALB) 8.8 mg/dL (8.5-10.1); CREATININE 0.94 mg/dL (0.70-1.30); SODIUM 130 mmol/L (136-145); TOTAL PROTEIN 6.2 g/dL (6.4-8.2); eGFR NON BLACK RACES > 60 (>60)
[2018-05-05] MEDS: MORPHINE SULFATE PCA 30 MG IVP PRN (18:01)
[2018-05-05] MEDS: VERSED 100 MG in NS 100 ML IV 80 ML IV PRN (18:02)
[2018-05-05] MEDS: NS 1000 ML 1,000 ML IV SCH (18:07)
[2018-05-05 18:43] VITALS: BMI 19.8
[2018-05-06] MEDS: NS 1000 ML 1,000 ML IV SCH ×2 (05:03→20:43)
[2018-05-06 06:14] LABS: BASOPHILS % (AUTO) 0.4 % (0.2-1.0); EOSINOPHILS # (AUTO) 0.2 x10^3/uL (0.0-0.2); EOSINOPHILS % (AUTO) 2.4 % (0.9-2.9); HEMATOCRIT 34.5 % (42.0-54.0); HEMOGLOBIN 11.5 g/dL (13.5-18.0); LYMPHOCYTES # (AUTO) 0.8 X10^3/uL (1.3-2.9); LYMPHOCYTES % (AUTO) 9.8 % (21.0-51.0); MEAN CORPUSCULAR HEMOGLOBIN 30.4 pg (27.0-34.0); MEAN CORPUSCULAR HGB CONC 33.3 g/dL (33.0-35.0); MEAN CORPUSCULAR VOLUME 91.4 fL (80.0-100.0); MEAN PLATELET VOLUME 8.5 fL (7.4-11.0); MONOCYTES # (AUTO) 1.2 x10^3/uL (0.3-0.8); MONOCYTES % (AUTO) 14.5 % (0.0-13.0); NEUTROPHILS # (AUTO) 5.9 x10^3/uL (2.2-4.8); NEUTROPHILS % (AUTO) 72.9 % (42.0-75.0); PLATELET COUNT 204 X10^3/uL (150.0-450.0); RED BLOOD COUNT 3.77 X10^6/uL (4.7-6.0); RED CELL DISTRIBUTION WIDTH 13.9 % (11.6-16.5); WHITE BLOOD COUNT 8.1 X10^3/uL (3.6-10.0)
[2018-05-06 06:25] LABS: ALANINE AMINOTRANSFERASE 15 Units/L (12-78); ALBUMIN 2.9 g/dL (3.4-5.0); ALKALINE PHOSPHATASE 98 Units/L (46-116); ASPARTATE AMINO TRANSFERASE 15 Units/L (15-37); BLOOD UREA NITROGEN 17 mg/dL (7-18); CALCIUM 8.2 mg/dL (8.5-10.1); CARBON DIOXIDE 35.3 mmol/L (21-32); CHLORIDE 96 mmol/L (98-107); COR CA(FOR HYPOALB) 9.1 mg/dL (8.5-10.1); CREATININE 0.68 mg/dL (0.70-1.30); MAGNESIUM 1.7 mg/dL (1.7-2.9); SODIUM 132 mmol/L (136-145); TOTAL PROTEIN 5.9 g/dL (6.4-8.2); eGFR NON BLACK RACES > 60 (>60)
[2018-05-06] MEDS: MORPHINE SULFATE PCA 30 MG IVP PRN ×4 (09:29→23:30)
[2018-05-07] MEDS: NS 1000 ML 1,000 ML IV SCH ×2 (00:28→21:55)
[2018-05-07] MEDS ORDERED: TYLENOL SUPP 650 MG PR PRN (04:06)
[2018-05-07] MEDS ORDERED: TYLENOL SUPP 650 MG ONE (04:10)
[2018-05-07 05:15] LABS: BASOPHILS # (AUTO) 0.1 X10^3/uL (0.0-0.1); BASOPHILS % (AUTO) 0.5 % (0.2-1.0); EOSINOPHILS % (AUTO) 0.3 % (0.9-2.9); HEMATOCRIT 38.6 % (42.0-54.0); HEMOGLOBIN 12.4 g/dL (13.5-18.0); LYMPHOCYTES # (AUTO) 0.5 X10^3/uL (1.3-2.9); MEAN CORPUSCULAR HEMOGLOBIN 29.9 pg (27.0-34.0); MEAN CORPUSCULAR HGB CONC 32.1 g/dL (33.0-35.0); MEAN PLATELET VOLUME 8.3 fL (7.4-11.0); MONOCYTES # (AUTO) 1.3 x10^3/uL (0.3-0.8); MONOCYTES % (AUTO) 9.9 % (0.0-13.0); NEUTROPHILS # (AUTO) 11.1 x10^3/uL (2.2-4.8); NEUTROPHILS % (AUTO) 85.3 % (42.0-75.0); PLATELET COUNT 270 X10^3/uL (150.0-450.0); RED BLOOD COUNT 4.15 X10^6/uL (4.7-6.0); RED CELL DISTRIBUTION WIDTH 14.2 % (11.6-16.5)
[2018-05-07 05:42] LABS: ALANINE AMINOTRANSFERASE 16 Units/L (12-78); ALBUMIN 3.2 g/dL (3.4-5.0); ALKALINE PHOSPHATASE 104 Units/L (46-116); ASPARTATE AMINO TRANSFERASE 16 Units/L (15-37); BLOOD UREA NITROGEN 19 mg/dL (7-18); CALCIUM 8.8 mg/dL (8.5-10.1); CHLORIDE 93 mmol/L (98-107); COR CA(FOR HYPOALB) 9.4 mg/dL (8.5-10.1); COR NA(FOR HYPERGLY) 134 mmol/L (136-145); SODIUM 133 mmol/L (136-145); TOTAL PROTEIN 6.6 g/dL (6.4-8.2); eGFR NON BLACK RACES > 60 (>60)
[2018-05-07] MEDS: MORPHINE SULFATE PCA 30 MG IVP PRN ×4 (05:57→21:18)
[2018-05-07] MEDS: VERSED 100 MG in NS 100 ML IV 80 ML IV PRN (06:53)
[2018-05-07] MEDS ORDERED: DURAGESIC 100 mcg/HR PATCH TD SCH (11:00)
--- NOTE | 2018-05-07 16:21 | DR.H&P ---
H&P - History & Physical for Day of: H&P Date: 05/05/18 - Chief Complaint Chief Complaint: LETHARGIC, RESPIRATORY DISTRESS, END STAGE COPD - History of Present Illness History of Present Illness: IS A 58 YEAR OLD PATIENT OF OURS WHO PRESENTED TO THE HOSPITAL A DIRECT ADMISSION FOR END STAGE COPD. FAMILY REPORTED THAT PATIENT HAS BEEN LETHARGIC AND APPEARED TO BE IN RESPIRATORY DISTRESS AT HOME. HE WAS RECENTLY DISCHARGED HOME FROM THE HOSPITAL FOR TREATMENT OF COPD EXACERBATION. THEY REPORT THAT HE HAS DECLINED SINCE HE RETURNED HOME. THEY REPORT OXYGEN SATURATIONS REMAINING IN THE 70S DESPITE INCREASING OXYGEN TO HIS TRILOGY. AFTER EXTENSIVE DISCUSSION ABOUT DISEASE PROCESS WITH FAMILY, THEY REQUEST FOR PATIENT TO BE ADMITTED FOR PALLIATIVE CARE. ON ADMISSION, VITALS WERE 97.8-93-20-98%TRILOGY-111/60. LABS WERE OBTAIN ED. ABNORMAL LAB VALUES INCLUDE THE FOLLOWING: RBC 4.24, HGB 12.9, HCT 38.8, SODIUM 130, POTASSIUM 5.2, CARBON DIOXIDE 35.4, BUN 22, GLUCOSE 103, CALCIUM 8.1, TOTAL BILI 0.10, TOTAL PROTEIN 6.2, ALBUMIN 3.1. HE WAS STARTED ON NORMAL SALINE AT KVO, MORPHINE SULFATE DRIP 2MG/HR, AND VERSED DRIP 2MG/HR. WE PLAN TO FOLLOW UP WITH AM LABS AND CONTINUE TO MONITOR PATIENT. - Past Medical History Past Medical History: Anxiety, Arthritis, CHF, COPD, GERD, Hypertension, PUD, Seizures Additional Medical History: HIATAL HERNIA - Past Surgical History Surgical History: Abdominal Surgery Additional Surgical History: 7 STOMACH SURGERIES, 2 STOMAS, COLOSTOMY IN THE PAST - Family History Family Medical History: Heart Failure, Hypertension - Social History Does patient currently use any type of tobacco product: Yes Have you used tobacco products in the last 12 months: Yes Type of Tobacco Use: Cigarettes Does any household member use tobacco: No Alcohol Use: None Drug Use: None - Medications Home Medications: No Known Drug Allergies Allergy (Verified 02/17/18 18:05) - Review of Systems Constitutional: See HPI, Other (LETHARGIC ) Eyes: No Symptoms Reported ENT: No Symptoms Reported Respiratory: See HPI, Shortness of Breath, Wheezing Cardiovascular: No Symptoms Reported Gastrointestinal: No Symptoms Reported Genitourinary: No Symptoms Reported Musculoskeletal: No Symptoms Reported Skin: No Symptoms Reported Neurological: Other (LETHARGIC ) - Physical Exam Vital Signs: Temperature 97.5 F Pulse Rate [Left Radial] 124 Respiratory Rate 30 Blood Pressure [Left Arm] 102/56 Blood Pressure [Right Arm] 111/60 Blood Pressure 111/63 O2 Sat by Pulse Oximetry 65 Oriented: Unable to test Eyes: Normal Ear: Normal Nose: Normal Throat: Normal Respiratory: Diminished Throughout, Wheezes Throughout Cardiovascular: Normal. negative: S3, S4, Murmur : Normal Auscultation: Bowel Sounds: Normal Palpation: Normal Tenderness: Normal Skin: Normal Musculoskeletal: Normal Psychiatric: Other (LETHARGIC ) Mood Description: Flat Affect: Flat - Assessment/Plan (1) End stage chronic obstructive pulmonary disease Status: Chronic Plan: ADMIT, PALLIATIVE CARE, CONTINUE TO MONITOR (2) Palliative care status Status: Acute Plan: MORPHINE 2MG/HR DRIP, VERSED 2MG/HR DRIP, CONTINUE TO MONITOR - Allergies Allergies/Adverse Reactions: Allergies Allergy/AdvReac Type Severity Reaction Status Date / Time No Known Drug Allergies Allergy Verified 02/17/18 18:05
--- NOTE | 2018-05-07 19:27 | PCM.PROG ---
Progress Note - Progress Note for Day of Date of Exam: 05/06/18 - Subjective Subjective: WAS ADMITTED FOR END STAGE COPD AND PALLIATIVE CARE MEASURES. TODAY, HE IS LYING IN BED WITH EYES CLOSED ON MORNING ROUNDS. FAMILY REPORTS THAT HE HAS MOANED OFTEN THROUGHOUT THE NIGHT. ON EXAMINATION, HE IS TACHYCARDIC AND TACHYPNEIC. HEARTRATE IS 100-110BPM. BILATERAL LUNGS ARE NOTED WITH WHEEZING, DIMINISHED THROUGHOUT. ABDOMEN IS ROUND, SOFT, AND NON-TENDER WITH HYPOACTIVE BOWEL SOUNDS NOTED. HIS VITALS THIS MORNING ARE 98.3-100-32-85%NC-107/57. LABS WERE OBTAINED. ABNORMAL LAB VALUES INCLUDE THE FOLLOWING: RBC 3.77, HGB 11.5, HCT 34.5, SODIUM 132, POTASSIUM 5.4, CHLORIDE 96, CARBON DIOXIDE 35.3, CREATININE 0.68, CALCIUM 8.2, TOTAL PROTEIN 5.9, ALBUMIN 2.9. TODAY, WE WILL START A DURAGESIC 50MCG PATCH. WE WILL INCREASE HIS MORPHINE AND VERSED DRIPS TO 5MG/HR. OTHERWISE, WE WILL FOLLOW UP WITH AM LABS AND CONTINUE TO MONITOR PATIENT. - Past Medical Family Social History Past Med/Fam/Surg Hx: No changes since H&P Allergies: Allergies No Known Drug Allergies Allergy (Verified 02/17/18 18:05) - Review of Systems ROS: No change since H&P - Vital Signs and I&O's Vital Signs: Temperature 99.2 F Pulse Rate [Left Radial] 124 Respiratory Rate 30 Blood Pressure [Left Arm] 85/55 Blood Pressure [Right Arm] 111/60 Blood Pressure 111/63 O2 Sat by Pulse Oximetry 73 Intake and Output: Intake & Output 05/05/18 05/06/18 05/07/18 05/08/18 11:59 11:59 11:59 11:59 Intake Total 620 / 620 2590 / 2590 0 / 0 Output Total 1025 / 1025 500 / 500 0 / 0 Balance -405 / -405 0 / 2090 0 / 0 - Physical Exam Oriented: Unable to test Eyes: Normal Ear: Normal Nose: Normal Throat: Normal Respiratory: Diminished, Wheezes Cardiovascular: Tachycardia. negative: S3, S4, Murmur : Normal Auscultation: Bowel Sounds: Normal Palpation: Normal Tenderness: Normal Skin: Normal Musculoskeletal: Normal Psychiatric: Other (LETHARGIC ) Mood Description: Flat Affect: Flat Speech Pattern: Unclear - Laboratory and Diagnostics Result Diagrams: 05/07/18 04:17 05/07/18 04:17 Labs: Laboratory WBC 13.0 X10^3/uL (3.6-10.0) H 05/07/18 04:17 RBC 4.15 X10^6/uL (4.7-6.0) L 05/07/18 04:17 Hgb 12.4 g/dL (13.5-18.0) L 05/07/18 04:17 Hct 38.6 % (42.0-54.0) L 05/07/18 04:17 MCV 93.0 fL (80.0-100.0) 05/07/18 04:17 MCH 29.9 pg (27.0-34.0) 05/07/18 04:17 MCHC 32.1 g/dL (33.0-35.0) L 05/07/18 04:17 RDW 14.2 % (11.6-16.5) 05/07/18 04:17 Plt Count 270 X10^3/uL (150.0-450.0) 05/07/18 04:17 MPV 8.3 fL (7.4-11.0) 05/07/18 04:17 Neut % (Auto) 85.3 % (42.0-75.0) H 05/07/18 04:17 Lymph % (Auto) 4.0 % (21.0-51.0) L 05/07/18 04:17 Bond % (Auto) 9.9 % (0.0-13.0) 05/07/18 04:17 Eos % (Auto) 0.3 % (0.9-2.9) L 05/07/18 04:17 Baso % (Auto) 0.5 % (0.2-1.0) 05/07/18 04:17 Neut # (Auto) 11.1 x10^3/uL (2.2-4.8) H 05/07/18 04:17 Lymph # (Auto) 0.5 X10^3/uL (1.3-2.9) L 05/07/18 04:17 Bond # (Auto) 1.3 x10^3/uL (0.3-0.8) H 05/07/18 04:17 Eos # (Auto) 0.0 x10^3/uL (0.0-0.2) 05/07/18 04:17 Baso # (Auto) 0.1 X10^3/uL (0.0-0.1) 05/07/18 04:17 Absolute Nucleated RBC 0.0 /100WBC 05/07/18 04:17 Sodium 133 mmol/L (136-145) L 05/07/18 04:17 Corrected Sodium 134 mmol/L (136-145) L 05/07/18 04:17 Potassium 5.7 mmol/L (3.5-5.1) H 05/07/18 04:17 Chloride 93 mmol/L (98-107) L 05/07/18 04:17 Carbon Dioxide 37.0 mmol/L (21-32) H 05/07/18 04:17 BUN 19 mg/dL (7-18) H 05/07/18 04:17 Creatinine 0.70 mg/dL (0.70-1.30) 05/07/18 04:17 Est GFR (MDRD) Af Amer > 60 (>60) 05/07/18 04:17 Est GFR (MDRD) Non-Af > 60 (>60) 05/07/18 04:17 Glucose 123 mg/dL (65-99) H 05/07/18 04:17 Calcium 8.8 mg/dL (8.5-10.1) 05/07/18 04:17 Corrected Calcium 9.4 mg/dL (8.5-10.1) 05/07/18 04:17 Magnesium 1.7 mg/dL (1.7-2.9) 05/06/18 05:10 Total Bilirubin 0.30 mg/dL (0.2-1.0) 05/07/18 04:17 AST 16 Units/L (15-37) 05/07/18 04:17 ALT 16 Units/L (12-78) 05/07/18 04:17 Alkaline Phosphatase 104 Units/L (46-116) 05/07/18 04:17 Total Protein 6.6 g/dL (6.4-8.2) 05/07/18 04:17 Albumin 3.2 g/dL (3.4-5.0) L 05/07/18 04:17 Globulin 3.4 g/dL (2.5-4.5) 05/07/18 04:17 Albumin/Globulin Ratio 0.9 Ratio (1.1-2.1) L 05/07/18 04:17 - Plan (1) End stage chronic obstructive pulmonary disease Status: Chronic Plan: ADMIT, PALLIATIVE CARE, CONTINUE TO MONITOR (2) Palliative care status Status: Acute Plan: MORPHINE 5MG/HR DRIP, VERSED 5MG/HR DRIP, CONTINUE TO MONITOR
--- NOTE | 2018-05-07 19:44 | PCM.PROG ---
Progress Note - Progress Note for Day of Date of Exam: 05/07/18 - Subjective Subjective: WAS ADMITTED FOR END STAGE COPD AND PALLIATIVE CARE MEASURES. HE CONTINUES TO BE LETHARGIC AND ONLY RESPONSIVE TO PAINFUL STIMULI. FAMILY REPORTS THAT MOANS WHEN HE IS TURNED. ON EXAMINATION, HE CONTINUES TO BE TACHYCARDIC AND TACHYPNEIC. HEARTRATE IS IN THE 130s. BILATERAL LUNGS ARE NOTED WITH WHEEZING, DIMINISHED THROUGHOUT. ABDOMEN IS ROUND, SOFT, AND NON-TENDER WITH HYPOACTIVE BOWEL SOUNDS NOTED. HIS VITALS THIS MORNING ARE 100.0-136-28-66%NC-109/63. LABS WERE OBTAINED. ABNORMAL LAB VALUES INCLUDE THE FOLLOWING: RBC 3.77, HGB 11.5, HCT 34.5, SODIUM 132, POTASSIUM 5.4, CHLORIDE 96, CARBON DIOXIDE 35.3, CREATININE 0.68, CALCIUM 8.2, TOTAL PROTEIN 5.9, ALBUMIN 2.9. TODAY, WE WILL INCREASE DURAGESIC PATCH TO 100MCG AND INCREASE HIS MORPHINE AND VERSED DRIPS TO 10MG/HR. OTHERWISE, WE WILL FOLLOW UP WITH AM LABS AND CONTINUE TO MONITOR PATIENT. - Past Medical Family Social History Past Med/Fam/Surg Hx: No changes since H&P Allergies: Allergies No Known Drug Allergies Allergy (Verified 02/17/18 18:05) - Review of Systems ROS: No change since H&P - Vital Signs and I&O's Vital Signs: Temperature 99.2 F Pulse Rate [Left Radial] 124 Respiratory Rate 30 Blood Pressure [Left Arm] 85/55 Blood Pressure [Right Arm] 111/60 Blood Pressure 111/63 O2 Sat by Pulse Oximetry 73 Intake and Output: Intake & Output 05/05/18 05/06/18 05/07/18 05/08/18 11:59 11:59 11:59 11:59 Intake Total 620 / 620 2590 / 2590 0 / 0 Output Total 1025 / 1025 500 / 500 0 / 0 Balance -405 / -405 0 / 2090 0 / 0 - Physical Exam Oriented: Unable to test Eyes: Normal Ear: Normal Nose: Normal Throat: Normal Respiratory: Diminished, Wheezes Cardiovascular: Tachycardia. negative: S3, S4, Murmur : Normal Auscultation: Bowel Sounds: Normal Tenderness: Normal Skin: Normal Musculoskeletal: Normal Psychiatric: Other (LETHARGIC ) Mood Description: Flat Affect: Flat Speech Pattern: Unclear - Laboratory and Diagnostics Result Diagrams: 05/07/18 04:17 05/07/18 04:17 Labs: Laboratory WBC 13.0 X10^3/uL (3.6-10.0) H 05/07/18 04:17 RBC 4.15 X10^6/uL (4.7-6.0) L 05/07/18 04:17 Hgb 12.4 g/dL (13.5-18.0) L 05/07/18 04:17 Hct 38.6 % (42.0-54.0) L 05/07/18 04:17 MCV 93.0 fL (80.0-100.0) 05/07/18 04:17 MCH 29.9 pg (27.0-34.0) 05/07/18 04:17 MCHC 32.1 g/dL (33.0-35.0) L 05/07/18 04:17 RDW 14.2 % (11.6-16.5) 05/07/18 04:17 Plt Count 270 X10^3/uL (150.0-450.0) 05/07/18 04:17 MPV 8.3 fL (7.4-11.0) 05/07/18 04:17 Neut % (Auto) 85.3 % (42.0-75.0) H 05/07/18 04:17 Lymph % (Auto) 4.0 % (21.0-51.0) L 05/07/18 04:17 [place] % (Auto) 9.9 % (0.0-13.0) 05/07/18 04:17 Eos % (Auto) 0.3 % (0.9-2.9) L 05/07/18 04:17 Baso % (Auto) 0.5 % (0.2-1.0) 05/07/18 04:17 Neut # (Auto) 11.1 x10^3/uL (2.2-4.8) H 05/07/18 04:17 Lymph # (Auto) 0.5 X10^3/uL (1.3-2.9) L 05/07/18 04:17 [place] # (Auto) 1.3 x10^3/uL (0.3-0.8) H 05/07/18 04:17 Eos # (Auto) 0.0 x10^3/uL (0.0-0.2) 05/07/18 04:17 Baso # (Auto) 0.1 X10^3/uL (0.0-0.1) 05/07/18 04:17 Absolute Nucleated RBC 0.0 /100WBC 05/07/18 04:17 Sodium 133 mmol/L (136-145) L 05/07/18 04:17 Corrected Sodium 134 mmol/L (136-145) L 05/07/18 04:17 Potassium 5.7 mmol/L (3.5-5.1) H 05/07/18 04:17 Chloride 93 mmol/L (98-107) L 05/07/18 04:17 Carbon Dioxide 37.0 mmol/L (21-32) H 05/07/18 04:17 BUN 19 mg/dL (7-18) H 05/07/18 04:17 Creatinine 0.70 mg/dL (0.70-1.30) 05/07/18 04:17 Est GFR (MDRD) Af Amer > 60 (>60) 05/07/18 04:17 Est GFR (MDRD) Non-Af > 60 (>60) 05/07/18 04:17 Glucose 123 mg/dL (65-99) H 05/07/18 04:17 Calcium 8.8 mg/dL (8.5-10.1) 05/07/18 04:17 Corrected Calcium 9.4 mg/dL (8.5-10.1) 05/07/18 04:17 Magnesium 1.7 mg/dL (1.7-2.9) 05/06/18 05:10 Total Bilirubin 0.30 mg/dL (0.2-1.0) 05/07/18 04:17 AST 16 Units/L (15-37) 05/07/18 04:17 ALT 16 Units/L (12-78) 05/07/18 04:17 Alkaline Phosphatase 104 Units/L (46-116) 05/07/18 04:17 Total Protein 6.6 g/dL (6.4-8.2) 05/07/18 04:17 Albumin 3.2 g/dL (3.4-5.0) L 05/07/18 04:17 Globulin 3.4 g/dL (2.5-4.5) 05/07/18 04:17 Albumin/Globulin Ratio 0.9 Ratio (1.1-2.1) L 05/07/18 04:17 - Plan (1) End stage chronic obstructive pulmonary disease Status: Chronic Plan: ADMIT, PALLIATIVE CARE, CONTINUE TO MONITOR (2) Palliative care status Status: Acute Plan: MORPHINE 10MG/HR DRIP, VERSED 10MG/HR DRIP, CONTINUE TO MONITOR
[2018-05-08] MEDS: MORPHINE SULFATE PCA 30 MG IVP PRN ×4 (00:45→10:30)
[2018-05-08 10:26] VITALS: BP 111/70
== END 2018-05-08 13:55 | disposition expired | DRG 191 ==
LOC: MED/SURG 16:47
PROVIDERS: ADMIT Internal Medicine; ATTEND Internal Medicine
DX: R06.03 Acute respiratory distress; G40.89 Other seizures; R06.02 Shortness of breath; J44.9 Chronic obstructive pulmonary disease, unspecified; F41.8 Other specified anxiety disorders; I10 Essential (primary) hypertension; K21.9 Gastro-esophageal reflux disease without esophagitis; Z51.5 Encounter for palliative care; Z66 Do not resuscitate; R00.0 Tachycardia, unspecified
CPT/HCPCS: 36415; 80053; 83735; 85025; 94760; A4216; A4222; J2250; J2271; J7030; J7050